=== PATIENT | female | born 1945 | race Caucasian/White ===

== ENCOUNTER 2019-01-02 15:24 | Inpatient (IN) | payer MEDICARE ==
[~2019-01-02] VITALS: Ht 157.5 cm; Wt 83.6 kg
[~2019-01-02 15:24] MED LIST: ENAL20TA PO; HYDR25TA4 PO; HYDR28CR14 TP
[2019-01-02 20:00] VITALS: BP 151/70
[2019-01-02] MEDS ORDERED: ADV50250 IH (20:02)
[2019-01-02] MEDS ORDERED: MULT1CAP44 PO (20:04)
[2019-01-02] MEDS ORDERED: OMEG1CAP46 (20:06)
[2019-01-02] MEDS ORDERED: VITA400C67 PO (20:08)
[2019-01-02] MEDS ORDERED: acetaminophen 325mg tablet PO PRN ×2 (20:35)
[2019-01-02] MEDS ORDERED: magnesium hydroxide 30ml (MOM) UD suspension PO PRN ×2 (20:40)
[2019-01-02] MEDS ORDERED: olanzapine 10mg tablet PO PRN (20:40)
[2019-01-02] MEDS ORDERED: traZODone 50mg tablet PO PRN (20:40)
[2019-01-02] MEDS ORDERED: hydrocortisone 1% cream 28gm TP PRN (20:40)
[2019-01-02] MEDS ORDERED: hydrOXYzine 25 MG tablet PO PRN (20:40)
[2019-01-02] MEDS ORDERED: albuterol 2.5 MG/3 ML nebule NEB SCH (21:00)
--- NOTE | 2019-01-02 21:29 | NUR ---
Clients Daughter: Silvia [phone]
--- NOTE | 2019-01-02 21:39 | NUR ---
HgA1C cancelled. HgA1C ON 12/03/18 was 6.3.
[2019-01-02] MEDS ORDERED: albuterol 2.5 MG/3 ML nebule NEB PRN (22:25)
--- NOTE | 2019-01-03 01:49 | NUR ---
CLINICAL APPEALS SPECIALIST NOTE: LEGAL HOLD: 5150 for GD THIS SHIFT: Client was transferred from [facility] and arrived on the unit at 19:40. Client was accompanied to the unit by Security Steve, and two security guards from [facility]. Client has a hx of schizophrenia and possible dementia. The client was taken to [facility] by [employer] after being found on a corner without clothes, incontinent of stool and urine. The clients behavior was disorganized and she appeared to be reaching for objects that were not there. While at [facility] the client required mechanical restraints because of aggression toward staff. The client refused to leave the hospital and it required two RN's and two security guards, Td and Claudia to transfer the client. The client was cooperative, personal belongings were inventoried. The client went to sleep shortly after arriving on the unit.
[2019-01-03 08:00] VITALS: BP 118/74
[2019-01-03] MEDS: HYDROchlorothiazide 25mg tablet PO SCH (08:16)
[2019-01-03] MEDS: vitamin E 400 unit capsule PO SCH (08:16)
[2019-01-03] MEDS: multivitamins, therapeutics tablet PO SCH (08:16)
[2019-01-03] MEDS: lisinopril 20mg tablet PO SCH (08:17)
[2019-01-03] MEDS: budesonide 0.5mg/2ml UD nebule IH SCH ×2 (09:00→20:45)
[2019-01-03] MEDS: albuterol 2.5 MG/3 ML nebule NEB SCH ×3 (09:00→20:45)
[2019-01-03] MEDS ORDERED: tuberculin, purif. prot. deriv. 5 units/0.1ml ID ONE (10:00)
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
[2019-01-04 08:00] VITALS: BP 98/60
[2019-01-04] MEDS: HYDROchlorothiazide 25mg tablet PO SCH (08:00)
[2019-01-04] MEDS: vitamin E 400 unit capsule PO SCH (08:00)
[2019-01-04] MEDS: multivitamins, therapeutics tablet PO SCH (08:00)
[2019-01-04] MEDS: lisinopril 20mg tablet PO SCH (08:00)
[2019-01-04] MEDS: albuterol 2.5 MG/3 ML nebule NEB SCH ×4 (09:00→20:36)
[2019-01-04] MEDS: budesonide 0.5mg/2ml UD nebule IH SCH ×3 (09:00→20:36)
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
[2019-01-04 19:55] VITALS: BP 123/52
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
[2019-01-05 07:36] VITALS: BP 142/58
[2019-01-05] MEDS: HYDROchlorothiazide 25mg tablet PO SCH (07:52)
[2019-01-05] MEDS: lisinopril 20mg tablet PO SCH (07:52)
[2019-01-05] MEDS: vitamin E 400 unit capsule PO SCH (07:52)
[2019-01-05] MEDS: multivitamins, therapeutics tablet PO SCH (07:52)
[2019-01-05] MEDS: albuterol 2.5 MG/3 ML nebule NEB SCH ×3 (09:00→20:26)
[2019-01-05] MEDS: budesonide 0.5mg/2ml UD nebule IH SCH ×2 (10:22→20:27)
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
[2019-01-05 19:59] VITALS: BP 135/50
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
[2019-01-06 07:36] VITALS: BP 109/58
[2019-01-06] MEDS: HYDROchlorothiazide 25mg tablet PO SCH (07:45)
[2019-01-06] MEDS: vitamin E 400 unit capsule PO SCH (07:45)
[2019-01-06] MEDS: multivitamins, therapeutics tablet PO SCH (07:45)
[2019-01-06] MEDS: lisinopril 20mg tablet PO SCH (07:47)
[2019-01-06] MEDS: albuterol 2.5 MG/3 ML nebule NEB SCH ×3 (09:00→20:35)
[2019-01-06] MEDS: budesonide 0.5mg/2ml UD nebule IH SCH ×2 (09:02→20:35)
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
[2019-01-06 19:24] VITALS: BP 118/68
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
[2019-01-07] MEDS: HYDROchlorothiazide 25mg tablet PO SCH (07:28)
[2019-01-07] MEDS: lisinopril 20mg tablet PO SCH (07:29)
[2019-01-07] MEDS: multivitamins, therapeutics tablet PO SCH (07:29)
[2019-01-07] MEDS: vitamin E 400 unit capsule PO SCH (07:29)
[2019-01-07 08:00] VITALS: BP 161/64
[2019-01-07] MEDS: albuterol 2.5 MG/3 ML nebule NEB SCH ×3 (09:00→20:02)
--- NOTE | 2019-01-07 10:48 | NUR ---
Initial: Average PO intake of 75-100% of regular diet, with some refusals. Otherwise, meeting nutrition needs. Recommend: 1. continue regular diet 2. weekly weights Addendum: 01/07/19 at [address] Amended: Links added.
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
[2019-01-07] MEDS: budesonide 0.5mg/2ml UD nebule IH SCH (20:02)
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
[2019-01-08 08:00] VITALS: BP 138/60
[2019-01-08] MEDS: vitamin E 400 unit capsule PO SCH (08:12)
[2019-01-08] MEDS: HYDROchlorothiazide 25mg tablet PO SCH (08:12)
[2019-01-08] MEDS: multivitamins, therapeutics tablet PO SCH (08:12)
[2019-01-08] MEDS: lisinopril 20mg tablet PO SCH (08:13)
[2019-01-08] MEDS: budesonide 0.5mg/2ml UD nebule IH SCH ×2 (09:00→21:00)
[2019-01-08] MEDS: albuterol 2.5 MG/3 ML nebule NEB SCH ×3 (09:00→21:00)
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
[2019-01-09] MEDS: vitamin E 400 unit capsule PO SCH (07:38)
[2019-01-09] MEDS: HYDROchlorothiazide 25mg tablet PO SCH (07:39)
[2019-01-09] MEDS: multivitamins, therapeutics tablet PO SCH (07:39)
[2019-01-09] MEDS: lisinopril 20mg tablet PO SCH (07:39)
[2019-01-09 07:53] VITALS: BP 130/48
[2019-01-09] MEDS: budesonide 0.5mg/2ml UD nebule IH SCH ×2 (08:41→20:27)
[2019-01-09] MEDS: albuterol 2.5 MG/3 ML nebule NEB SCH ×3 (08:41→20:28)
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
[2019-01-09] MEDS ORDERED: OLANZapine 2.5MG tablet PO SCH (21:00)
[2019-01-09] MEDS ORDERED: OLANZapine 5mg rapidly disint. tablet PO SCH (21:00)
[2019-01-09] MEDS: OLANZapine **IM** 10 mg inj. IM SCH (22:23)
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
[2019-01-10 07:34] VITALS: BP 131/57
[2019-01-10] MEDS: multivitamins, therapeutics tablet PO SCH (07:47)
[2019-01-10] MEDS: vitamin E 400 unit capsule PO SCH (07:47)
[2019-01-10] MEDS: lisinopril 20mg tablet PO SCH (07:48)
[2019-01-10] MEDS: HYDROchlorothiazide 25mg tablet PO SCH (07:49)
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
--- NOTE | 2019-01-10 19:39 | NUR ---
Pt refused vitals. Addendum: 01/10/19 at 1940 by July Lorenzo RN Amended: Links added.
[2019-01-10] MEDS ORDERED: OLANZapine 5mg rapidly disint. tablet PO SCH (21:00)
[2019-01-10] MEDS: OLANZapine **IM** 10 mg inj. IM SCH (21:20)
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
[2019-01-11 08:00] VITALS: BP 138/65
[2019-01-11] MEDS: lisinopril 20mg tablet PO SCH (08:15)
[2019-01-11] MEDS: multivitamins, therapeutics tablet PO SCH (08:15)
[2019-01-11] MEDS: HYDROchlorothiazide 25mg tablet PO SCH (08:16)
[2019-01-11] MEDS: vitamin E 400 unit capsule PO SCH (08:16)
--- NOTE | 2019-01-11 13:40 | NUR ---
F/u: Pt diet changed to regular w/ ensure enlive TIDWM by RN. ANTONIO d/w RN need pharmacy order in order to scan ONS on floor but can send w/ meals. Addendum: 01/11/19 at [address] Amended: Links added.
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
[2019-01-11] MEDS: lactose-reduced food (Ensure Enlive) - 237ml bottle PO SCH (17:58)
[2019-01-11] MEDS: OLANZapine 5mg rapidly disint. tablet PO SCH (21:00)
[2019-01-11] MEDS: OLANZapine **IM** 10 mg inj. IM SCH (21:04)
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
[2019-01-12 07:33] VITALS: BP 141/64
[2019-01-12] MEDS: multivitamins, therapeutics tablet PO SCH (07:34)
[2019-01-12] MEDS: HYDROchlorothiazide 25mg tablet PO SCH (07:34)
[2019-01-12] MEDS: vitamin E 400 unit capsule PO SCH (07:35)
[2019-01-12] MEDS: lisinopril 20mg tablet PO SCH (07:35)
[2019-01-12] MEDS: lactose-reduced food (Ensure Enlive) - 237ml bottle PO SCH ×3 (08:00→18:00)
--- NOTE | 2019-01-12 10:37 | NUR ---
DISCHARGE NOTE: Patient discharge accompanied by family and PCT via WC. All valuables inventoried and returned to patient. Home medications obtained from the pharmacy and returned to patient. Discharge instructions and all information for follow medical appointments included in discharge package. Remains depressed, verbalizes she is hopeful and happy to be closer to family. No acute physical or emotional issues identified. Addendum: 01/12/19 at 1427 by Jo Alexander RN Wrong patient
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
[2019-01-12] MEDS: OLANZapine **IM** 10 mg inj. IM SCH (20:56)
[2019-01-12] MEDS: OLANZapine 5mg rapidly disint. tablet PO SCH (21:00)
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
[2019-01-13 07:32] VITALS: BP 153/60
[2019-01-13] MEDS: multivitamins, therapeutics tablet PO SCH (07:42)
[2019-01-13] MEDS: vitamin E 400 unit capsule PO SCH (07:42)
[2019-01-13] MEDS: lisinopril 20mg tablet PO SCH (07:42)
[2019-01-13] MEDS: HYDROchlorothiazide 25mg tablet PO SCH (07:42)
[2019-01-13] MEDS: lactose-reduced food (Ensure Enlive) - 237ml bottle PO SCH ×3 (08:00→18:10)
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
[2019-01-13] MEDS: OLANZapine **IM** 10 mg inj. IM SCH (20:45)
[2019-01-13] MEDS: OLANZapine 5mg rapidly disint. tablet PO SCH (21:00)
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
[2019-01-14 07:00] VITALS: BP 114/54
[2019-01-14] MEDS: lisinopril 20mg tablet PO SCH (07:48)
[2019-01-14] MEDS: HYDROchlorothiazide 25mg tablet PO SCH (07:48)
[2019-01-14] MEDS: vitamin E 400 unit capsule PO SCH (07:48)
[2019-01-14] MEDS: multivitamins, therapeutics tablet PO SCH (07:48)
[2019-01-14] MEDS: lactose-reduced food (Ensure Enlive) - 237ml bottle PO SCH ×3 (08:11→14:00)
--- NOTE | 2019-01-14 14:54 | NUR ---
Reassessment: Pt continues on regular with ensure jl BUCKNER, drinking 75-100%. Patient was eating well, has since declines to mostly refusing meals since 01/08, poor PO for 5 days. Recommend to continue the ensure with meals. Recommend: 1. continue regular diet 2. weekly weights 3. continue ensure with meals, continue to monitor PO Intake Addendum: 01/14/19 at [address] Amended: Links added.
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
[2019-01-14] MEDS: OLANZapine **IM** 10 mg inj. IM SCH (20:16)
[2019-01-14] MEDS: OLANZapine 5mg rapidly disint. tablet PO SCH (20:16)
--- NOTE | 2019-01-14 22:34 | NUR ---
One to one with the patient to assess severity of disordered thought processes. The patient was in her room laying on her bed and isolated there the entire evening. She is not attended to her ADLs. She adamantly denies that she has thoughts to harm herself or others. She was alternating between guarded and irritable to pleasant and cooperative. She adamantly refused to accept PO medications and insisted at night she gets a shot and in the morning she takes pills but could not give a rationale why she would not take her HS Zyprexa orally vs in IM form. She was asked how she came to be here at [facility] and she stated that "I walked away from my home...It was evil, scarey" She declined an offer of having a snack and stated that she had ensure, pat crackers and string cheese for dinner. She stated she has not been able to wear her dentures because they were ill fitting. She stated that she did not want to be here and "I wanted to stay at [facility]. It was my home. I left my house and I was at [facility]" She is not wanting to sign a release of information for her daughter who has called during the shift wanting information on her mother so she could be helpful to her. She is guarded with the information she shares. The patient continues to require further psychiatric stabilization 2nd to continued psychotic symptoms causing significant grave disability. She is not able to verbalize a rational plan for food penitentiary or clothing if she was discharged. She is refusing to return to her home of over 50 years.
[2019-01-15 07:30] VITALS: BP 103/50
[2019-01-15] MEDS: HYDROchlorothiazide 25mg tablet PO SCH (07:32)
[2019-01-15] MEDS: lisinopril 20mg tablet PO SCH (07:32)
[2019-01-15] MEDS: multivitamins, therapeutics tablet PO SCH (07:33)
[2019-01-15] MEDS: vitamin E 400 unit capsule PO SCH (07:33)
[2019-01-15] MEDS: OLANZAPINE 5 MG TABLET PO SCH (08:00)
[2019-01-15] MEDS: lactose-reduced food (Ensure Enlive) - 237ml bottle PO SCH ×3 (08:22→18:07)
[2019-01-15] MEDS ORDERED: OLANZapine **IM** 10 mg inj. IM ONE (08:40)
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
[2019-01-15] MEDS: OLANZapine 5mg rapidly disint. tablet PO SCH (20:51)
[2019-01-15] MEDS: OLANZapine **IM** 10 mg inj. IM SCH (21:22)
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
[2019-01-16 07:30] VITALS: BP 115/53
[2019-01-16] MEDS: OLANZAPINE 5 MG TABLET PO SCH (07:34)
[2019-01-16] MEDS: multivitamins, therapeutics tablet PO SCH (07:34)
[2019-01-16] MEDS: vitamin E 400 unit capsule PO SCH (07:34)
[2019-01-16] MEDS: lisinopril 20mg tablet PO SCH (07:34)
[2019-01-16] MEDS: HYDROchlorothiazide 25mg tablet PO SCH (07:34)
[2019-01-16] MEDS: lactose-reduced food (Ensure Enlive) - 237ml bottle PO SCH ×4 (08:00→18:59)
--- NOTE | 2019-01-16 11:59 | NUR ---
Reassessment: Diet order recently changed to mechanical soft with chopped foods. Per MD note patient eating pat crackers, string cheese, and will eat snacks, will only eat food from her tray if brought into her room like room service. Was eating well, PO declines d/t above. Pt continues with ensure enlive TIDWM, drinking 75-100%. Recommend to continue the ensure with meals and encourage PO intake. Recommend: 1. continue mechanical soft diet with chopped foods 2. weekly weights 3. continue ensure with meals, continue to monitor PO Intake Addendum: 01/16/19 at [address] Amended: Links added.
--- NOTE | 2019-01-16 16:59 | NUR ---
DISCHARGE PLANNING: SW received information from pt's daughter, Silvia Default, daughter, , who reports she has filed Probate Guardianship for her mother's person and estate. RITCHIE has been informed Silvia has attended court and will be returning to Probate Court on 02/09/2019 to request full conservatorship of the estate and person. She states her mother has had several triggers over the past couple of months. Triggers have included her brother Jesus dying from cancer, an argument w/ her youngest child (that caused a "falling out") and the loss of a couple close friends from yazidism due to their passing. Pt is reportedly known for controlling situations, however it is unclear if this confusion or bx at this time. Silvia states she will attempt to visit pt within the next week. Madyson Hinds, Supervisor [employer] [id number] Supervised by Estuardo Tolentino, [id number]
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
[2019-01-16] MEDS: OLANZapine 5mg rapidly disint. tablet PO SCH (21:00)
[2019-01-16] MEDS: OLANZapine **IM** 10 mg inj. IM SCH (21:05)
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
[2019-01-17] MEDS: vitamin E 400 unit capsule PO SCH (07:29)
[2019-01-17 07:30] VITALS: BP 123/58
[2019-01-17] MEDS: OLANZAPINE 5 MG TABLET PO SCH (07:30)
[2019-01-17] MEDS: multivitamins, therapeutics tablet PO SCH (07:30)
[2019-01-17] MEDS: lisinopril 20mg tablet PO SCH (07:31)
[2019-01-17] MEDS: HYDROchlorothiazide 25mg tablet PO SCH (07:31)
[2019-01-17] MEDS ORDERED: nystatin 15 GM powder TP ONE (12:05)
[2019-01-17] MEDS: lactose-reduced food (Ensure Enlive) - 237ml bottle PO SCH ×2 (13:31→18:15)
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
[2019-01-17] MEDS: nystatin 15 GM powder TP SCH (20:00)
[2019-01-17] MEDS: OLANZapine 5mg rapidly disint. tablet PO SCH (21:00)
[2019-01-17] MEDS: OLANZapine **IM** 10 mg inj. IM SCH (21:03)
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
[2019-01-18] MEDS: HYDROchlorothiazide 25mg tablet PO SCH (07:35)
[2019-01-18] MEDS: lisinopril 20mg tablet PO SCH (07:35)
[2019-01-18] MEDS: vitamin E 400 unit capsule PO SCH (07:35)
[2019-01-18] MEDS: multivitamins, therapeutics tablet PO SCH (07:35)
[2019-01-18] MEDS: nystatin 15 GM powder TP SCH ×2 (07:41→20:00)
[2019-01-18 07:47] VITALS: BP 113/50
[2019-01-18] MEDS: OLANZAPINE 5 MG TABLET PO SCH (08:00)
[2019-01-18] MEDS: lactose-reduced food (Ensure Enlive) - 237ml bottle PO SCH ×3 (08:00→18:00)
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
[2019-01-18] MEDS: OLANZapine 5mg rapidly disint. tablet PO SCH (20:22)
[2019-01-18] MEDS: OLANZapine **IM** 10 mg inj. IM SCH (20:43)
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
[2019-01-19 07:00] VITALS: BP 125/44
[2019-01-19] MEDS: OLANZAPINE 5 MG TABLET PO SCH (07:35)
[2019-01-19] MEDS: lisinopril 20mg tablet PO SCH (07:36)
[2019-01-19] MEDS: nystatin 15 GM powder TP SCH ×2 (07:36→20:00)
[2019-01-19] MEDS: HYDROchlorothiazide 25mg tablet PO SCH (07:36)
[2019-01-19] MEDS: vitamin E 400 unit capsule PO SCH (07:40)
[2019-01-19] MEDS: multivitamins, therapeutics tablet PO SCH (07:40)
[2019-01-19] MEDS: lactose-reduced food (Ensure Enlive) - 237ml bottle PO SCH ×3 (08:15→18:14)
--- NOTE | 2019-01-19 12:10 | NUR ---
DISCHARGE PLANNING: SW made TC to pt's daughter, Silvia. SW left message requesting a return contact to schedule visitation for continuity of care and tx services. Madyson Hinds, Cellular Equipment Repairer SUPERVISOR OF GUIDANCE AND TESTING [id number] Supervised by Estuardo Tolentino, [id number]
--- NOTE | 2019-01-19 12:48 | NUR ---
SCHEDULED VISITATION FOR CONTINUITY OF CARE: SW received TC from Silvia at [phone], who reports she will attend a special visit w/ her mother to attempt to gain a written or verbal release of information to allow care coordination and discharge planning. Madyson Hinds, Customer Sales Advisor TELECOMMUNICATIONS EQUIPMENT INSTALLER [id number] Supervised by Estuardo Tolentino, [id number]
--- NOTE | 2019-01-19 14:20 | NUR ---
Reassessment: Per recent MD note patient is now eating more food off her tray when previously was only eating pre-packaged food r/t psychosis; patient continues to eat snacks and drink the ensure. Was eating well previously, PO declines d/t above. Pt continues with ensure enlive TIDWM, drinking 75-100%. Recommend to continue the ensure with meals and encourage PO intake. Recommend: 1. continue mechanical soft diet with chopped foods 2. weekly weights 3. continue ensure with meals, continue to monitor PO Intake Addendum: 01/19/19 at [address] Amended: Links added.
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
[2019-01-19] MEDS: OLANZapine **IM** 10 mg inj. IM SCH (20:47)
[2019-01-19] MEDS: OLANZapine 5mg rapidly disint. tablet PO SCH (21:00)
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
[2019-01-20 07:39] VITALS: BP 136/65
[2019-01-20] MEDS: multivitamins, therapeutics tablet PO SCH (08:00)
[2019-01-20] MEDS: HYDROchlorothiazide 25mg tablet PO SCH (08:13)
[2019-01-20] MEDS: OLANZAPINE 5 MG TABLET PO SCH (08:13)
[2019-01-20] MEDS: vitamin E 400 unit capsule PO SCH (08:13)
[2019-01-20] MEDS: lisinopril 20mg tablet PO SCH (08:14)
[2019-01-20] MEDS: lactose-reduced food (Ensure Enlive) - 237ml bottle PO SCH ×3 (08:15→18:07)
[2019-01-20] MEDS: nystatin 15 GM powder TP SCH ×2 (08:15→20:00)
--- NOTE | 2019-01-20 15:38 | NUR ---
VISITATION: Pt's daughter, Silvia, came to visit w/ pt this day. Pt met w/ pt in Recreation Room, however grew irritated w/ SW attending the visitation. Pt was requested to agree to release of information for Silvia, either verbal or written, however pt declined when asked (SW attempted to gain ЕКАТЕРИНА at least 4 different occasions). Pt grew angry and walked out of visit. Silvia continued attempting to visit w/ pt. SW gave some space, then met w/ pt and Silvia. SW informed pt that SW would be making a report to APS regarding pt's self neglect and inability to provide health and safety for self. SW informed pt that SW would be instructing Silvia to request orders from a [employer] to allow conservatorship. Pt ended visitation w/ her daughter. Madyson Hinds, Financial Accounting Manager CHEMIST [id number] Supervised by Estuardo Tolentino, [id number]
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
[2019-01-20] MEDS: OLANZapine 5mg rapidly disint. tablet PO SCH (21:00)
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
[2019-01-21] MEDS: vitamin E 400 unit capsule PO SCH (07:47)
[2019-01-21] MEDS: OLANZAPINE 5 MG TABLET PO SCH (07:47)
[2019-01-21] MEDS: lisinopril 20mg tablet PO SCH (07:47)
[2019-01-21] MEDS: HYDROchlorothiazide 25mg tablet PO SCH (07:47)
[2019-01-21] MEDS: multivitamins, therapeutics tablet PO SCH (07:53)
[2019-01-21] MEDS: lactose-reduced food (Ensure Enlive) - 237ml bottle PO SCH ×3 (08:00→18:15)
[2019-01-21] MEDS: nystatin 15 GM powder TP SCH ×2 (08:00→20:00)
[2019-01-21 08:18] VITALS: BP 143/83
[2019-01-21 08:19] VITALS: BP 143/83
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
[2019-01-21] MEDS: OLANZapine 5mg rapidly disint. tablet PO SCH (21:00)
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
[2019-01-22 07:43] VITALS: BP 127/47
[2019-01-22] MEDS: multivitamins, therapeutics tablet PO SCH (08:00)
[2019-01-22] MEDS: HYDROchlorothiazide 25mg tablet PO SCH (08:02)
[2019-01-22] MEDS: OLANZAPINE 5 MG TABLET PO SCH (08:02)
[2019-01-22 08:03] VITALS: BP_SYST 127
[2019-01-22] MEDS: nystatin 15 GM powder TP SCH (08:03)
[2019-01-22] MEDS: vitamin E 400 unit capsule PO SCH (08:03)
[2019-01-22] MEDS: lisinopril 20mg tablet PO SCH (08:03)
[2019-01-22] MEDS: lactose-reduced food (Ensure Enlive) - 237ml bottle PO SCH ×2 (08:33→13:00)
[2019-01-22] MEDS ORDERED: LISI-600 PO (09:26)
[2019-01-22] MEDS ORDERED: NYSPWD TP (09:26)
[2019-01-22] MEDS ORDERED: HCTZ25T PO (09:26)
[2019-01-22] MEDS ORDERED: OLAN5TAB26 PO (09:26)
[2019-01-22] MEDS ORDERED: OLAN5TAB29 PO (09:26)
[2019-01-22] MEDS ORDERED: TRAZ-251 PO (09:26)
[2019-01-22] MEDS ORDERED: ADV50250 IH (09:26)
--- NOTE | 2019-01-22 11:34 | NUR ---
Reassessment: PO intake continues to fluctuate. PO pattern 01/21: 100% at breakfast; 100% milk, 50% starch, 0% protein for lunch; refused dinner. Pt documented with 100% PO intake at breakfast this morning. Pt also receiving Ensure Enlive TID and documented with 100% PO intake of that. LBM 01/21. Will continue to follow. Recommend: 1. continue mechanical soft diet with chopped foods 2. weekly weights 3. continue ensure with meals, continue to monitor PO Intake and encourage PO intake of meals Addendum: 01/22/19 at [address] Amended: Links added.
--- NOTE | 2019-01-22 14:12 | NUR ---
Amy: 1410 Discharge Note: Patient discharged in care of daughter via ambulation. All belongings returned to patient. Declined to allow SW to arrange f/u appointment with PCP or mental health provider. Patients benito valencia, initially refused to sign discharge paperwork, however did sign 4/5 pages. Denies any anxiety, depression, AVH. No acute psychiatric or emotional disturbances. Given discharge folder with instructions, Rx, and discharge summary.
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
== END 2019-01-22 14:10 | disposition home or self-care (01) | DRG 885 ==
LOC: ADULT MH 15:24
PROVIDERS: ADMIT Psychiatry & Neurology Psychiatry; ATTEND Psychiatry & Neurology Psychiatry
DX: F23 Brief psychotic disorder (principal); E11.9 Type 2 diabetes mellitus without complications; E78.00 Pure hypercholesterolemia, unspecified; I10 Essential (primary) hypertension; J44.9 Chronic obstructive pulmonary disease, unspecified; R32 Unspecified urinary incontinence; Z79.51 Long term (current) use of inhaled steroids; Z79.899 Other long term (current) drug therapy; Z87.891 Personal history of nicotine dependence
CPT/HCPCS: 87081; 94760; 99285; J3490; J7626

== ENCOUNTER 2019-05-30 01:37 | Emergency (ER) | payer MEDICARE ==
[~2019-05-30] VITALS: Ht 162.6 cm; Wt 83.2 kg
[~2019-05-30 01:37] MED LIST changes: +ADV50250 IH; -ENAL20TA PO; +HCTZ25T PO; -HYDR25TA4 PO; +LISI-600 PO; +MULT1CAP44 PO; +NYSPWD TP; +OLAN5TAB26 PO; +OLAN5TAB29 PO; +OMEG1CAP46; +TRAZ-251 PO; +VITA400C67 PO
[2019-05-30] MEDS ORDERED: HYDR25TA4 PO (01:52)
[2019-05-30] MEDS ORDERED: ENAL20TA PO (01:52)
[2019-05-30 02:22] LABS: BASOPHILS % (AUTO) 0.4 % (0-1); EOSINOPHILS % (AUTO) 0.5 % (0-6); HEMATOCRIT 40.8 % (35.0-45.0); HEMOGLOBIN 13.7 g/dl (12.0-16.0); LYMPHOCYTES # (AUTO) 1.7 X10'3 (1.1-4.8); LYMPHOCYTES % (AUTO) 18.6 % (21-51); MEAN CORPUSCULAR HEMOGLOBIN 27.8 PG (27.0-31.0); MEAN CORPUSCULAR HGB CONC 33.5 g/dL (33.0-36.5); MEAN PLATELET VOLUME 7.9 FL (7.4-10.4); MONOCYTES # (AUTO) 0.6 X10'3 (0-0.9); NEUTROPHILS # (AUTO) 6.7 X10'3 (1.8-7.7); NEUTROPHILS % (AUTO) 73.5 % (42-75); PLATELET COUNT 190 X10'3 (140-440); RED BLOOD COUNT 4.92 X10'6 (4.20-5.60); RED CELL DISTRIBUTION WIDTH 16.3 % (11.5-14.5); WHITE BLOOD COUNT 9.2 X10'3 (4.5-11.0)
[2019-05-30 02:23] LABS: CLARITY,URINE CLEAR (Clear); COLOR,URINE YELLOW (Yellow); GLUCOSE, URINE NEGATIVE (Neg); KETONES,URINE 15 mg/dl (Neg); LEUKOCYTE ESTERASE ,URINE NEGATIVE (Neg); NITRITES, URINE NEGATIVE (Neg); OCCULT BLOOD,URINE SMALL (Neg); PH,URINE 5.5 (4.8-8.0); PROTEIN,URINE NEGATIVE (Neg)
[2019-05-30 02:30] LABS: UA COLLECTION TYPE CLN CATCH MIDSTREAM; URINE AMPHETAMINE SCREEN NEGATIVE (Neg); URINE BARBITUATE SCREEN NEGATIVE (Neg); URINE BENZODIAZEPINES SCREEN NEGATIVE (Neg); URINE CANNABINOID SCREEN NEGATIVE (Neg); URINE COCAINE SCREEN NEGATIVE (Neg); URINE METHADONE SCREEN NEGATIVE (Neg); URINE OPIATE SCREEN NEGATIVE (Neg); URINE PHENCYCLIDINE SCREEN NEGATIVE (Neg)
[2019-05-30 02:41] LABS: ALANINE AMINOTRANSFERASE 21 U/L (12-78); ALBUMIN 3.8 G/DL (3.4-5.0); ALKALINE PHOSPHATASE 62 IU/L (46-116); ANION GAP 10 (8-16); ASPARTATE AMINO TRANSFERASE 33 U/L (10-37); BILIRUBIN,TOTAL 0.7 MG/DL (0.1-1.0); BLOOD UREA NITROGEN 35 MG/DL (7-18); CALCIUM 9.7 MG/DL (8.5-10.1); CHLORIDE 100 MMOL/L (99-107); CREATININE 1.59 MG/DL (0.40-0.90); GLUCOSE 157 MG/DL (70-104); POTASSIUM 3.6 MMOL/L (3.5-5.1); SODIUM 137 MMOL/L (135-145); TOTAL PROTEIN 7.5 G/DL (6.4-8.2); eGFR 32 ML/MIN
[2019-05-30 02:50] LABS: WBC,URINE 0-4 /HPF (0-4)
[2019-05-30 02:51] LABS: BACTERIA,URINE FEW /HPF (Neg); MUCUS STRANDS MODERATE /LPF (Neg); SQUAMOUS EPITHELIAL CELL,UR MODERATE /LPF (FEW)
[2019-05-30 02:51] LABS: ETHANOL < 0.010 GM/DL (0.0-0.010)
--- NOTE | 2019-05-30 04:19 | NUR ---
Pt packet faxed to [facility]
[2019-05-30] MEDS ORDERED: haloperidol lactate 5mg/ml inj IM ONE (04:30)
--- NOTE | 2019-05-30 04:51 | NUR ---
During itemization of her belongings, the patient became very upset and yelled at the staff calling the tech and registration staff obscenities. When told that she would be moved to a hospital bed at overflow, the patient began yelling that she wasn't going to move and that she would not sit in a wheel chair. MD Caballero was consulted as to the patient's behavior who then ordered 10mg haldol IM to help calm the patient down so that she could be moved to the patient population at [facility].
--- NOTE | 2019-05-30 05:29 | NUR ---
Pt transferred from Main ED post Haldol IM 10mg at 0443; pt verbally agitated during vitals assessment, and refused temperature and pain. Pt promptly fell asleep after vitals. This RN unable to assess physical or mental status at this time.
--- NOTE | 2019-05-30 05:46 | NUR ---
Pt sleeping in supine position, slight snore. No distress noted.
--- NOTE | 2019-05-30 06:30 | NUR ---
Pt is resting in bed peacefully at this time. Appears to be snoring. No distress observed. Will conitnue to monitor.
[2019-05-30] MEDS ORDERED: lisinopril 20mg tablet PO SCH (08:00)
[2019-05-30] MEDS ORDERED: HYDROchlorothiazide 25mg tablet PO SCH (08:00)
--- NOTE | 2019-05-30 08:11 | NUR ---
Son in law and daughter are at bedside visiting. Appropriate conversation. No distress observed. Pt refused medications this morning.
--- NOTE | 2019-05-30 08:14 | NUR ---
PHONE: [phone]. Son-in-law, Delon
--- NOTE | 2019-05-30 08:23 | NUR ---
Patients daughter called this morning at 0820 asking if her mother was brought in by [employer]. I answered stating that we did have a patient brought in by that name. Per [employer] report, family was contacted and stated they were busy at work. Family denies the phone call and claims they were "out all night looking for her." Family, Delon and Silvia Cardenas have different stories. Delon claims to be the step son. Silvia claims Delon is the son in law. Patient arrived to ER via [employer] with a large sum of levin. Family denies any knowledge of any incident. Charge Nurse and RN notified.
--- NOTE | 2019-05-30 09:15 | NUR ---
PT STATED SHE NEEDED TO USE THE RESTROOM BUT REPORTED SHE COULD NOT AMBULATE DUE TO BLISTERS. PT OFFERED WHEEL CHAIR TO THE RESTROOM BUT AMBULATED WITH STEADY SLOW GAIT TO RESTROOM WITHOUT ASSISTANCE.
--- NOTE | 2019-05-30 09:48 | NUR ---
Scarlett from [facility] is at bedside talkig jaspal family. She asked them to speak to her in the office. Patient is resting in bed peacefully, appears to be snoring, in the semi-walker position. No distress observed. Will continue to monitor.
--- NOTE | 2019-05-30 10:13 | NUR ---
Scarlett from [facility] states that she would like to wait to evaluate patient until patient's daughter Silvia is here. Silvia is reported to be the family member who helps the patient with her finances.
--- NOTE | 2019-05-30 11:53 | NUR ---
Pt is resting in bed peacefully in the supine position. No distress observed.
--- NOTE | 2019-05-30 12:17 | NUR ---
PHONE- [phone]. Daughter- Silvia
--- NOTE | 2019-05-30 12:30 | NUR ---
Spoke to Scarlett at [facility], she states that she is not upholding the 5150 written by MORENITA. However, she would like to speak with Silvia, patient's daughter before discharge. Spoke to daughter on the phone who states she is dealing with an "emergency right now" and will not be able to come to the unit until after 5pm.
--- NOTE | 2019-05-30 14:27 | NUR ---
Observed patient ambulating to the bathroom. No distress observed.
--- NOTE | 2019-05-30 16:10 | NUR ---
Patient woke up and ate some of her lunch. No distress observed. Will continue to monitor.
--- NOTE | 2019-05-30 17:39 | NUR ---
Spoke to daughter, Silvia who states that she will be here in 45 minutes to flower buncher or picker the patient.
--- NOTE | 2019-05-30 17:54 | NUR ---
WHILE ATTEMPTING TO TAKE THE PTS VITALS, PT ALLOWED FOR BP, THREW OFF PULSE OX, REFUSED TEMP. PTS BP WAS 156/104, OBTAINED A LONG CUFF AND ATTEMPTED TO RETAKE, PT REFUSED, PT EDUCATED ON RISKS INCLUDING AND STATED "AINT THAT SOMETHING".
--- NOTE | 2019-05-30 17:56 | NUR ---
Patient refused all VS but BP which read 156/104. Unit tech obtained larger cuff to take the BP again., but patient refused. She was combative and resistive to care. Risks of not having VS taken were explained to patient.
--- NOTE | 2019-05-30 18:07 | NUR ---
Report given to THIERRY Dunn. Awaiting arrival of patient's daughter for discharge. Pt refused to sign discharge paperwork. Patient continues to be resistive to care.
--- NOTE | 2019-05-30 18:30 | NUR ---
This patient is resting quietly. She is sitting on her bed. Discharge papers have been processed. Patients daughter will be picking her up this evening. Patient is cooperative with staff.
--- NOTE | 2019-05-30 19:30 | NUR ---
Patient still awaiting daughter to pick her up. Patient ambulates to bathroom and back without problem. Patient finished most of her dinner.
--- NOTE | 2019-05-30 20:50 | NUR ---
Patients daughter is here. Discharge instrtuctions given. Patient to home with daughter.
[2019-05-30 21:08] VITALS: BP 130/62
== END 2019-05-30 21:12 | disposition home or self-care (01) ==
LOC: ER 01:37
DX: G30.9 Alzheimer's disease, unspecified (principal); F02.80 Dementia in other diseases classified elsewhere, unspecified severity, without behavioral disturbance, psychotic disturbance, mood disturbance, and anxiety; I10 Essential (primary) hypertension; Z79.899 Other long term (current) drug therapy
CPT/HCPCS: 36415; 80053; 80305; 80320; 81001; 84443; 85025; 96372; 99285; J1630

== ENCOUNTER 2019-07-06 09:04 | Emergency (ER) | payer MEDICARE ==
[~2019-07-06] VITALS: Ht 165.1 cm; Wt 109.1 kg
[~2019-07-06 09:04] MED LIST changes: -ADV50250 IH; +ENAL20TA PO; -HCTZ25T PO; +HYDR25TA4 PO; -HYDR28CR14 TP; -LISI-600 PO; -MULT1CAP44 PO; -NYSPWD TP; -OLAN5TAB26 PO; -OLAN5TAB29 PO; -OMEG1CAP46; -TRAZ-251 PO; -VITA400C67 PO
[2019-07-06] MEDS ORDERED: LORazepam 1 MG tablet PO ONE (09:35)
--- NOTE | 2019-07-06 10:01 | NUR ---
Pt's family shared she has Stage III cervical CA and has refused tx. Daughter Yissel ([phone]) stated pt has a habit of "taking off and walking." A second daughter, Silvia Guerra ([phone]) is in process of trying to find placement for pt. Per family she has been placed on several 5150's in the past with the most recent being r/t wandering. She was on that particular 550 here @ [facility].
[2019-07-06] MEDS: ziprasidone 20mg capsule PO SCH ×2 (10:02→20:00)
[2019-07-06 10:17] LABS: CLARITY,URINE SLIGHTLY CLOUDY (Clear); COLOR,URINE YELLOW (Yellow); GLUCOSE, URINE NEGATIVE (Neg); KETONES,URINE TRACE mg/dl (Neg); LEUKOCYTE ESTERASE ,URINE TRACE (Neg); NITRITES, URINE NEGATIVE (Neg); OCCULT BLOOD,URINE LARGE (Neg); PH,URINE 5.5 (4.8-8.0); PROTEIN,URINE 100 mg/dl (Neg); UROBILINOGEN,URINE 0.2 E.U/dL (0.2-1.0)
[2019-07-06 10:19] LABS: UA COLLECTION TYPE CLN CATCH MIDSTREAM
[2019-07-06 10:28] LABS: RBC,URINE 50-100 /HPF (0-2)
[2019-07-06 10:29] LABS: URINE AMPHETAMINE SCREEN NEGATIVE (Neg); URINE BARBITUATE SCREEN NEGATIVE (Neg); URINE BENZODIAZEPINES SCREEN NEGATIVE (Neg); URINE CANNABINOID SCREEN NEGATIVE (Neg); URINE COCAINE SCREEN NEGATIVE (Neg); URINE METHADONE SCREEN NEGATIVE (Neg); URINE OPIATE SCREEN NEGATIVE (Neg); URINE PHENCYCLIDINE SCREEN NEGATIVE (Neg)
[2019-07-06 10:32] LABS: WBC,URINE 30-50 /HPF (0-4)
[2019-07-06 10:33] LABS: BACTERIA,URINE 2+ /HPF (Neg); SQUAMOUS EPITHELIAL CELL,UR MANY /LPF (FEW)
[2019-07-06 13:47] LABS: BASOPHILS % (AUTO) 0.3 % (0-1); EOSINOPHILS % (AUTO) 0.5 % (0-6); HEMATOCRIT 38.8 % (35.0-45.0); HEMOGLOBIN 12.6 g/dl (12.0-16.0); LYMPHOCYTES # (AUTO) 1.6 X10'3 (1.1-4.8); LYMPHOCYTES % (AUTO) 18.9 % (21-51); MEAN CORPUSCULAR HEMOGLOBIN 27.5 PG (27.0-31.0); MEAN CORPUSCULAR HGB CONC 32.4 g/dL (33.0-36.5); MEAN PLATELET VOLUME 7.3 FL (7.4-10.4); MONOCYTES # (AUTO) 0.5 X10'3 (0-0.9); MONOCYTES % (AUTO) 5.4 % (2-12); NEUTROPHILS # (AUTO) 6.3 X10'3 (1.8-7.7); NEUTROPHILS % (AUTO) 74.9 % (42-75); PLATELET COUNT 195 X10'3 (140-440); RED BLOOD COUNT 4.57 X10'6 (4.20-5.60); RED CELL DISTRIBUTION WIDTH 15.5 % (11.5-14.5); WHITE BLOOD COUNT 8.4 X10'3 (4.5-11.0)
[2019-07-06 14:02] LABS: ALANINE AMINOTRANSFERASE 22 U/L (12-78); ALBUMIN 3.6 G/DL (3.4-5.0); ALBUMIN/GLOBULIN RATIO 0.9 (1.1-1.5); ALKALINE PHOSPHATASE 88 IU/L (46-116); ANION GAP 11 (8-16); ASPARTATE AMINO TRANSFERASE 36 U/L (10-37); BILIRUBIN,TOTAL 0.9 MG/DL (0.1-1.0); BLOOD UREA NITROGEN 39 MG/DL (7-18); BUN/CREATININE RATIO 37.9 (6.6-38.0); CALCIUM 9.6 MG/DL (8.5-10.1); CHLORIDE 106 MMOL/L (99-107); CREATININE 1.03 MG/DL (0.40-0.90); ETHANOL < 0.010 GM/DL (0.0-0.010); GLUCOSE 96 MG/DL (70-104); POTASSIUM 3.6 MMOL/L (3.5-5.1); SODIUM 140 MMOL/L (135-145); TOTAL CARBON DIOXIDE 22.8 MMOL/L (24-32); TOTAL PROTEIN 7.7 G/DL (6.4-8.2); eGFR 52 ML/MIN
[2019-07-06] MEDS: cephalexin 250mg capsule PO SCH ×2 (14:45→20:00)
--- NOTE | 2019-07-06 17:35 | NUR ---
Daughter Silvia bedside. Pt awake and engaging with her.
--- NOTE | 2019-07-06 18:05 | NUR ---
Pt assisted to the bedside commode to void urine. Pt given warm wipes to freshen up and cleanse her perineal area. Pt given disposable underwear and daren pads for the Vaginal bleeding. Pt given green scrub pants and a green gown. Pt reports "I refuse to take my shirt off!" Pt using profanity towards her daughter and the staff. Pt was given her wallet long enough to provide her insurance cards to the registration staff. Pt started making statements about her visa card missing from her wallet. ED staff secured the patient's belongings earlier during this visit. This encounter was the first interaction for this nurse to be involved with the patient or her belongings. Primary nurse made aware of the situation.
--- NOTE | 2019-07-06 19:45 | NUR ---
pt is refusing medications and refuses to answer questions.
--- NOTE | 2019-07-06 20:14 | NUR ---
pt appears to be sleeping, no s/s of distress noted.
--- NOTE | 2019-07-06 23:45 | NUR ---
this rn and a tech tried to assess if pt had soiled clothes as her previous nurse noted that pt is experiencing vaginal bleeding due to her cervical cx. pt refused to be checked but assured us that she will let us know if she needs a new pad or clothing.
[2019-07-07] MEDS: cephalexin 250mg capsule PO SCH ×5 (02:00→20:00)
--- NOTE | 2019-07-07 02:44 | NUR ---
pt awoke to use the restroom. pt was a little unsteady on her feet at first but after a few steps was able to ambulate with a walker. Pt walked the length of overflow a couple times to "get her strength back." This RN attempted to give the pt her keflex, explaining the importance of treating her UTI, but pt refused. Pt is now resting in bed quietly, no concerns at this time.
--- NOTE | 2019-07-07 04:37 | NUR ---
pt is sleeping, rr unlabored and even, no s/s of distress noted.
--- NOTE | 2019-07-07 05:39 | NUR ---
pt is sleeping on her back, no s/s of distress noted, rr unlabored and even.
--- NOTE | 2019-07-07 06:15 | NUR ---
laying in bed calm and quiet.
--- NOTE | 2019-07-07 08:11 | NUR ---
pt ambulating around the unit aimlessly with walker. was recently walking around in circles with walker. pt up and down from bed to bathroom and walking.
[2019-07-07] MEDS: ziprasidone 20mg capsule PO SCH ×3 (09:49→20:00)
[2019-07-07] MEDS: HYDROchlorothiazide 25mg tablet PO SCH (09:49)
[2019-07-07] MEDS: lisinopril 10 MG tablet PO SCH (09:49)
--- NOTE | 2019-07-07 09:53 | NUR ---
pt agitated and using profain language, lab attempting to get pts blood. Security at bedside to hold down pt to get blood and pts demeanor quickly changed to very sweet and talkative. pt remaining sweet and talkative. decided to take her AM meds when she previously refused. blood cultures obtained.
[2019-07-07] MEDS ORDERED: quetiapine 100mg tablet PO ONE (11:00)
--- NOTE | 2019-07-07 11:00 | NUR ---
pt walking around the unit and attempt to leave the unit. Brought back to bed by male andree. pt layed down.
--- NOTE | 2019-07-07 12:14 | NUR ---
pt calm and quiet in bed.
--- NOTE | 2019-07-07 13:23 | NUR ---
pt up to bathroom and walkign around her bed and the unit. will briefly sit on bed to eat lunch then stand back up and walk.
--- NOTE | 2019-07-07 14:02 | NUR ---
sitting up on side of bed eating lunch. attempt to give pt her Seroquel and Keflex. Pt not responding to RN, just continues to eat her lunch, ignoring RN standing in front of her. Will attempt to administer med again at a later time.
--- NOTE | 2019-07-07 15:09 | NUR ---
laying quiet and still in her bed.
--- NOTE | 2019-07-07 16:15 | NUR ---
pt resting in bed then will get up to bathroom and wander around her bed then get back in bed.
--- NOTE | 2019-07-07 17:32 | NUR ---
resting quietly in bed.
--- NOTE | 2019-07-07 17:49 | NUR ---
pt refused to have her vitals taken.
[2019-07-07] MEDS: lactobacillus rhamnosus 10,000 MMU CELLS/CAPSULE PO SCH ×2 (19:56→20:00)
--- NOTE | 2019-07-07 20:00 | NUR ---
The patient has been quiet but very confused. Did not respond to the assessment questions. She has refused her HS medications. She is up out of bed and wandering around her bed
--- NOTE | 2019-07-07 21:11 | NUR ---
The patient up to use the bathroom. She refused labwork and she has been refusing her HS medications despite repeatedly being offered her medications.
--- NOTE | 2019-07-07 22:49 | NUR ---
The patient appears to be sleeping
--- NOTE | 2019-07-08 00:16 | NUR ---
The patient appears to be sleeping
--- NOTE | 2019-07-08 01:16 | NUR ---
The patient appears to be sleeping
[2019-07-08] MEDS: cephalexin 250mg capsule PO SCH ×3 (02:00→14:00)
--- NOTE | 2019-07-08 02:28 | NUR ---
The patient has been refusing her po medications including the antibiotic. aware.
--- NOTE | 2019-07-08 03:24 | NUR ---
The patient up to use the bathroom. Minimal verbal responses. She appears very disheveled.
[2019-07-08 05:41] VITALS: BP 114/53
--- NOTE | 2019-07-08 07:02 | NUR ---
pt awake and resting quietly in bed.
--- NOTE | 2019-07-08 08:23 | NUR ---
laying in bed snoring.
--- NOTE | 2019-07-08 08:56 | NUR ---
this RN spoke with Lillie, clinical social worker, on the phone. Lillie states pt will be released today and that one of pts daughters - Silvia or Shiloh - will apple picking supervisor pt at some point today, potentially later afternoon/early evening when they get off work. pt currently sleeping/snoring in bed.
--- NOTE | 2019-07-08 10:17 | NUR ---
sitting up in bed, calm.
--- NOTE | 2019-07-08 11:02 | NUR ---
pt continues to refuse AM meds.
[2019-07-08] MEDS: HYDROchlorothiazide 25mg tablet PO SCH (11:03)
[2019-07-08] MEDS: lisinopril 10 MG tablet PO SCH (11:03)
[2019-07-08] MEDS: lactobacillus rhamnosus 10,000 MMU CELLS/CAPSULE PO SCH (11:03)
[2019-07-08] MEDS: ziprasidone 20mg capsule PO SCH (11:22)
--- NOTE | 2019-07-08 12:51 | NUR ---
laying in bed resting quietly.
--- NOTE | 2019-07-08 13:41 | NUR ---
up to bathroom getting cleaned up and clothes changed.
--- NOTE | 2019-07-08 16:13 | NUR ---
pt got cleaned up with techs. cooperated getting cleaned up. pts daughter to be here around 1700 to picker box operator for d/c.
[2019-07-08] MEDS ORDERED: CEPH250T PO (16:14)
[2019-07-08] MEDS ORDERED: CefTRIAXone 1000mg IM Kit (w/lidocaine diluent) IM ONE (16:15)
== END 2019-07-08 17:52 ==
LOC: ER 09:04
DX: F03.90 Unspecified dementia, unspecified severity, without behavioral disturbance, psychotic disturbance, mood disturbance, and anxiety (principal); R45.1 Restlessness and agitation; N39.0 Urinary tract infection, site not specified; I10 Essential (primary) hypertension; F29 Unspecified psychosis not due to a substance or known physiological condition; Z60.2 Problems related to living alone; Z79.899 Other long term (current) drug therapy
CPT/HCPCS: 36415; 80053; 80305; 80320; 81001; 82948; 83605; 84145; 85025; 87040; 87077; 87186; 96372; 99285; J0696

== ENCOUNTER 2019-07-28 07:19 | Inpatient (IN) | payer MEDICARE, OTHER ==
[~2019-07-28] VITALS: Ht 167.6 cm; Wt 81.8 kg
[~2019-07-28 07:19] MED LIST changes: +ENAL-79 PO; -ENAL20TA PO
[2019-07-28] MEDS ORDERED: LORazepam 2 mg/ml vial IM ONE (07:35)
[2019-07-28] MEDS ORDERED: OLANZapine **IM** 10 mg inj. IM ONE (07:35)
[2019-07-28] MEDS ORDERED: diphenhydrAMINE 50 mg/ml inj IM ONE (07:35)
[2019-07-28] MEDS ORDERED: risperiDONE 0.5mg tablet PO ONE (07:35)
[2019-07-28 08:39] LABS: BASOPHILS % (AUTO) 0.3 % (0-1); EOSINOPHILS # (AUTO) 0.1 X10'3 (0-0.9); EOSINOPHILS % (AUTO) 1.5 % (0-6); LYMPHOCYTES # (AUTO) 0.7 X10'3 (1.1-4.8); LYMPHOCYTES % (AUTO) 15.6 % (21-51); MEAN CORPUSCULAR HEMOGLOBIN 27.2 PG (27.0-31.0); MEAN CORPUSCULAR HGB CONC 32.4 g/dL (33.0-36.5); MEAN PLATELET VOLUME 7.7 FL (7.4-10.4); MONOCYTES # (AUTO) 0.3 X10'3 (0-0.9); MONOCYTES % (AUTO) 7.1 % (2-12); NEUTROPHILS # (AUTO) 3.6 X10'3 (1.8-7.7); NEUTROPHILS % (AUTO) 75.5 % (42-75); PLATELET COUNT 165 X10'3 (140-440); RED CELL DISTRIBUTION WIDTH 15.4 % (11.5-14.5); WHITE BLOOD COUNT 4.8 X10'3 (4.5-11.0)
[2019-07-28 08:51] LABS: ALANINE AMINOTRANSFERASE 23 U/L (12-78); ALBUMIN 3.2 G/DL (3.4-5.0); ALBUMIN/GLOBULIN RATIO 0.9 (1.1-1.5); ALKALINE PHOSPHATASE 83 IU/L (46-116); ANION GAP 11 (8-16); ASPARTATE AMINO TRANSFERASE 25 U/L (10-37); BILIRUBIN,TOTAL 0.9 MG/DL (0.1-1.0); BLOOD UREA NITROGEN 17 MG/DL (7-18); BUN/CREATININE RATIO 16.7 (6.6-38.0); CALCIUM 9.5 MG/DL (8.5-10.1); CHLORIDE 105 MMOL/L (99-107); CREATININE 1.02 MG/DL (0.40-0.90); GLUCOSE 165 MG/DL (70-104); POTASSIUM 3.5 MMOL/L (3.5-5.1); SODIUM 142 MMOL/L (135-145); TOTAL CARBON DIOXIDE 26.4 MMOL/L (24-32); TOTAL PROTEIN 6.8 G/DL (6.4-8.2); eGFR 53 ML/MIN
[2019-07-28 09:01] LABS: ETHANOL < 0.010 GM/DL (0.0-0.010)
[2019-07-28 10:18] LABS: CLARITY,URINE SLIGHTLY CLOUDY (Clear); COLOR,URINE STRAW (Yellow); GLUCOSE, URINE NEGATIVE (Neg); KETONES,URINE TRACE mg/dl (Neg); LEUKOCYTE ESTERASE ,URINE NEGATIVE (Neg); NITRITES, URINE NEGATIVE (Neg); OCCULT BLOOD,URINE NEGATIVE (Neg); PH,URINE 5.5 (4.8-8.0); PROTEIN,URINE NEGATIVE (Neg); UA COLLECTION TYPE STRAIGHT CATH; UROBILINOGEN,URINE 0.2 E.U/dL (0.2-1.0)
[2019-07-28 10:27] LABS: BACTERIA,URINE FEW /HPF (Neg); CAL OXALATE CRYSTALS 1+ /HPF (NEGATIVE); RBC,URINE 0-2 /HPF (0-2); SQUAMOUS EPITHELIAL CELL,UR FEW /LPF (FEW); WBC,URINE 0-4 /HPF (0-4)
[2019-07-28 10:33] LABS: URINE AMPHETAMINE SCREEN NEGATIVE (Neg); URINE BARBITUATE SCREEN NEGATIVE (Neg); URINE BENZODIAZEPINES SCREEN NEGATIVE (Neg); URINE CANNABINOID SCREEN NEGATIVE (Neg); URINE COCAINE SCREEN NEGATIVE (Neg); URINE METHADONE SCREEN NEGATIVE (Neg); URINE OPIATE SCREEN NEGATIVE (Neg); URINE PHENCYCLIDINE SCREEN NEGATIVE (Neg)
--- NOTE | 2019-07-28 10:54 | NUR ---
REDNESS, EXCORIATED AREAS NOTED IN FOLDS OF GROIN SHAGUFTA AND RIGHT UNDER BREAST. INFORMED DR. REGALADO. PLEASE SEE NEW ORDERS.
--- NOTE | 2019-07-28 11:19 | NUR ---
packet faxed to [facility]
--- NOTE | 2019-07-28 11:25 | NUR ---
RESTRAINTS REMOVED AT 0915 PT GIVEN A BATH. RESTRAINTS REAPPLIED AT 1015 WHEN BATH WAS FINISHED. PT TOLERATED WELL.
[2019-07-28] MEDS: nystatin 15 GM powder TP SCH ×2 (12:12→19:16)
[2019-07-28] MEDS ORDERED: UNABLE TO OBTAIN (19:37)
--- NOTE | 2019-07-28 19:37 | NUR ---
PT WTH STABLE VS. AWAKENED FROM SLEEP TO ASSESS. PT COOPERARTIVE AND CALM. A&OX4. ABLD TO STAND WITH 1 PERSN MOD ASSIST TO GET TO BSC. STATES WEAKNESS AND DIZZINESS. DOES NOT RECALL EVENTS OF TODAY. REQUESTS FOR HER JOHN GALEANO. STATES SHE LIVES ALONE AND HAS NOT FAMLY. VOIODING 400 CC'S DARK ELLA CLOUDY STRONG SMELLING URINE. STATES SHE IS DIABETIC. UNABLE TO RECALL ANY OF HER MEDICATIONS OR HER [facility]TE[facility] HEALTH HISTORY. STATES [facility] TAKES A MED FOR HER DIABETES. REQUEST WATER. STATES SHE IS HUNGRY. BACK TO SLEEP AFTER HER BEDDING CHANGED (INSCONTINENC EPISODE AND SMEAR OF STOON ON BEDDING).
--- NOTE | 2019-07-28 19:45 | NUR ---
ACCUCHEKC 94, CC CAUTION TRAY FOR MEALS ORDERED. HYPERGLYCEMIC PROTOCOL ORDERED.
[2019-07-28 20:05] LABS: HEMOGLOBIN A1C 5.6 % (4.5-6.2)
--- NOTE | 2019-07-28 21:16 | NUR ---
pt remains asleep, lying on her back with blankets covering to her chest. RR f14 and unlabored. no longer monitoring VS as VS stable and Pt is 12 hrs post b52.
--- NOTE | 2019-07-28 22:30 | NUR ---
DR. ASHRAF UPDATED ME THAT [facility] TOLD HIM THEY WOULD NOT UPHOLD THE 5150 PT WITH DIMENTIA HISTORY AND DOES NOT MEET CRITERIA. MD TRYING TO DECIDE IF PT MAY NEED ADMISSION A SAFE DISCHARGE CANNOT BE PLANNED AT THIS TIME WE HAVE NO FAMILY CONTACTS. PT REMAINS ASLEEP.
--- NOTE | 2019-07-29 02:56 | NUR ---
REMIANS ASLEEP, RR 14 AND UNLABOERED. BLANKETS CVERING TO HER SHOUDERS, LYING ON RIGHT SIDE. [facility] REPORTS NOW IN CHART AND NOTES 5150 NOT UPHELD PT HAS D[address]. ASHRAF HAD REPORTED PT WILL NEED SS AND DC PLANNING CONSULT.
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
--- NOTE | 2019-07-29 06:01 | NUR ---
given juice and crackers and jello.
--- NOTE | 2019-07-29 06:29 | NUR ---
sw consult initiated as Pt no longer a mental health hold, 7195 not upheld
--- NOTE | 2019-07-29 06:40 | NUR ---
REPORT TO THIERRY REILLY, PT TO BE MOVED FROM MAIN ER BED 16 TO OVERFLOW.
--- NOTE | 2019-07-29 07:00 | NUR ---
pt walked over from main er to overflow room 25.
[2019-07-29] MEDS ORDERED: diphenhydrAMINE 50 mg/ml inj IM ONE (08:00)
[2019-07-29] MEDS ORDERED: OLANZapine **IM** 10 mg inj. IM ONE (08:00)
--- NOTE | 2019-07-29 08:00 | NUR ---
pt is singing on the top of her lungs.
[2019-07-29] MEDS: nystatin 15 GM powder TP SCH ×3 (08:08→20:18)
--- NOTE | 2019-07-29 09:00 | NUR ---
pt is wandering around the unit pushing her side table as if it was a walker
--- NOTE | 2019-07-29 10:00 | NUR ---
pt got back into bed and is resting
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
--- NOTE | 2019-07-29 12:00 | NUR ---
pt is resting.
--- NOTE | 2019-07-29 13:00 | NUR ---
pt is sleeping. no concerns
--- NOTE | 2019-07-29 14:00 | NUR ---
pt is stilling sleeping
--- NOTE | 2019-07-29 15:00 | NUR ---
pt is sleeping
--- NOTE | 2019-07-29 16:03 | NUR ---
pt is resting in bed
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
[2019-07-29] MEDS: OLANZAPINE 5 MG TABLET PO SCH ×2 (19:31→20:19)
[2019-07-29] MEDS: traZODone 50mg tablet PO SCH (19:31)
--- NOTE | 2019-07-29 20:04 | NUR ---
The patient has been cooperative with staff but she is volatile in her behaviors. At one point she was singing and held her walker over her head and was touching the ceiling with her walker. She is talking to herself. She does not know what the year is or where she is at. She is very confused. She is very dishelveled and her hair is uncombed and she has long chin hairs.
--- NOTE | 2019-07-29 21:41 | NUR ---
The patient upruptly woke up and started talking very loudly as if she was talking to someone who was not there. She was redirected and is now back asleep.
--- NOTE | 2019-07-29 23:42 | NUR ---
The patient appears to be sleeping
--- NOTE | 2019-07-30 00:53 | NUR ---
The patient appears to be sleeping
--- NOTE | 2019-07-30 02:45 | NUR ---
The patient appears to be sleeping
--- NOTE | 2019-07-30 04:57 | NUR ---
The patient appears to be sleeping
--- NOTE | 2019-07-30 06:45 | NUR ---
Patient is standing with her 2WW at the end of her bed at change of shift. She is confused but cooperative and is incontinent or bladder. Patient was standing and urinating. Patient was cleaned and given a brief and a new gown. She is now sitting at the end of her bed in a chair. She is heard singing loudly and needs to be redirected frequently. She has poor safety awarness. Will continue to monitor.
[2019-07-30] MEDS: nystatin 15 GM powder TP SCH ×3 (08:00→21:00)
[2019-07-30] MEDS: OLANZapine 2.5MG tablet PO SCH (08:06)
--- NOTE | 2019-07-30 08:27 | NUR ---
Patient is sitting in chair at end of bed eating breakfast. No distress observed. Patient appears to be responding to internal stimuli.
--- NOTE | 2019-07-30 09:28 | NUR ---
Breaking primary RN, pt is sitting up in bed, talking to herself, lennoxsing, keren
--- NOTE | 2019-07-30 11:55 | NUR ---
Patient continues to be resting in bed peacefully at this time.
[2019-07-30] MEDS ORDERED: risperiDONE 2mg tablet PO ONE (12:30)
--- NOTE | 2019-07-30 13:03 | NUR ---
Patient is sitting up in the chair at the end of her bed. She was yelling and becoming agitated. She was talking to people who are not there. Dr. Pollack ordered Risperdone 2mg. Patient took this orally without incident. Patient is now eating lunch.
--- NOTE | 2019-07-30 13:54 | NUR ---
PT EATING LUNCH, PT THREW TWO OF HER EMPTY DRINKING GLASSES ON THE FLOOR. SHE ALSO DUMPED THE FOOD OFF OF THE LUNCH TRAY INTO THE WASHING BIN ON HER TABLE. DR REDDING TALKING TO THE PT AND SHE IS BEING PLEASANT.
--- NOTE | 2019-07-30 14:07 | NUR ---
Dr Bal wants RN to perform a MOCA test on patient. Dr Rodriguez said he would also perform one later.
[2019-07-30] MEDS ORDERED: LORazepam 2 mg/ml vial IV ONE (15:00)
[2019-07-30] MEDS ORDERED: LORazepam 2 mg/ml vial ONE (15:19)
--- NOTE | 2019-07-30 15:50 | NUR ---
MOCA performed. Patient received a 10/23.
[2019-07-30] MEDS ORDERED: LORazepam 1 MG tablet PO ONE ×2 (16:35→19:25)
--- NOTE | 2019-07-30 17:24 | NUR ---
Patient was continuing to be agitated and Dr. Parisi has ordered Ativan a single dose and then [id number]. Patient is now resting in bed peacefully. Will continue to monitor. No distress observed.
--- NOTE | 2019-07-30 18:45 | NUR ---
Care assumed. Patient is disheveled and confussed. Patient standing and holding her walker, she makes sounds like a motercycle accelerating, it looks as if patient believes she is driving her walker. Patient is assisted back to bed where she manages to eat her dinner. Plan to closely observe this patient for her own safety.
[2019-07-30] MEDS: traZODone 50mg tablet PO SCH (19:33)
[2019-07-30] MEDS ORDERED: LORazepam 1 MG tablet PO PRN (20:00)
[2019-07-30] MEDS: LORazepam 1 MG tablet PO SCH (20:00)
[2019-07-30] MEDS: OLANZAPINE 5 MG TABLET PO SCH (20:40)
--- NOTE | 2019-07-30 22:13 | NUR ---
Patientis sleeping quietly in a low fowlers position. A warm blanket is provided.
--- NOTE | 2019-07-31 02:10 | NUR ---
Patilent is sleeping quietly in a low fowlers position. Patients head is wrapped with a towell, her face is bare.
[2019-07-31] MEDS: traZODone 50mg tablet PO PRN (04:21)
--- NOTE | 2019-07-31 07:15 | NUR ---
PT RESTING EYES CLOSED RR EQUALY
[2019-07-31] MEDS: LORazepam 1 MG tablet PO SCH ×3 (08:00→16:19)
--- NOTE | 2019-07-31 08:40 | NUR ---
PT EATING BREAKFAST. NO NEEDS AT THIS TIME
[2019-07-31] MEDS: OLANZapine 2.5MG tablet PO SCH (08:44)
[2019-07-31] MEDS: nystatin 15 GM powder TP SCH ×3 (08:44→20:08)
--- NOTE | 2019-07-31 10:47 | NUR ---
PT RESTING ON BACK RR EQUAL AND UNLABORED
--- NOTE | 2019-07-31 12:14 | NUR ---
Breaking primary RN, pt supine in bed, eyes closed, regular breathig present, calm
--- NOTE | 2019-07-31 13:40 | NUR ---
PT EATING BREAKFAST. PT CALM, FOLLOWS INSTRUCTIONS
--- NOTE | 2019-07-31 15:30 | NUR ---
PT RESTING ON BACK WITH EYES CLOSED RR EQUAL AND UNLABORED
--- NOTE | 2019-07-31 16:01 | NUR ---
PT UP TO BR WITH ASSIST OF FWW.
--- NOTE | 2019-07-31 17:44 | NUR ---
CALLED TO BS BY TECHS THEY WERE CLEANING UP PT THEY NOTED SOME VAGINAL BLEEDING. INQUIRED IF PT STILL HAS HER PERIOD. PT STATES SHE DOES GET IT "EVERY NOW AND THEN" PT DENIES PAIN.
[2019-07-31] MEDS: traZODone 50mg tablet PO SCH ×2 (20:00→20:08)
[2019-07-31] MEDS: OLANZAPINE 5 MG TABLET PO SCH ×2 (20:07→20:10)
[2019-08-01] MEDS: nystatin 15 GM powder TP SCH ×4 (08:00→20:09)
[2019-08-01] MEDS: OLANZapine 2.5MG tablet PO SCH (08:32)
[2019-08-01] MEDS: LORazepam 1 MG tablet PO SCH ×3 (08:32→16:02)
--- NOTE | 2019-08-01 14:10 | NUR ---
Pt denies any needs at this time.
--- NOTE | 2019-08-01 15:30 | NUR ---
Pt is sleeping. Respirations unlabored. NAD
--- NOTE | 2019-08-01 16:35 | NUR ---
Pt in bed mumbling. Asked her if she needed anything. Pt denied any needs at this time.
--- NOTE | 2019-08-01 17:39 | NUR ---
Pt incontinent of urine and saturated bed. Complete bed change completed. Pericare performed, clean brief applied, clean gown put on. Pt denies any further needs at this time.
--- NOTE | 2019-08-01 18:30 | NUR ---
Pt sitting up in bed eating dinner. Pt denies any needs at this time.
--- NOTE | 2019-08-01 19:42 | NUR ---
Pt sitting up in bed still working on her supper tray. Pt denies any needs at this time.
[2019-08-01] MEDS: OLANZAPINE 5 MG TABLET PO SCH (20:10)
[2019-08-01] MEDS: traZODone 50mg tablet PO SCH (20:10)
--- NOTE | 2019-08-01 20:34 | NUR ---
Pt incontinent of urine. Pericare performed. Clean brief put on. Pt denies any further needs at this time.
--- NOTE | 2019-08-01 21:39 | NUR ---
Pt is sleeping. Respirations unlabored. NAD
--- NOTE | 2019-08-01 22:30 | NUR ---
Pt is sleeping. Respirations unlabored. NAD
--- NOTE | 2019-08-01 23:31 | NUR ---
Pt is sleeping. Respirations unlabored. NAD
[2019-08-02] MEDS: LORazepam 1 MG tablet PO SCH ×3 (00:23→16:00)
--- NOTE | 2019-08-02 00:34 | NUR ---
Pt incontinent of urine. Pericare performed. Clean brief put on. Pt denies any further needs at this time.
--- NOTE | 2019-08-02 01:32 | NUR ---
Pt is sleeping. Respirations unlabored. NAD
--- NOTE | 2019-08-02 03:27 | NUR ---
Patient is sleeping on her back. Respirations unlabored. NAD
--- NOTE | 2019-08-02 04:35 | NUR ---
Pt is sleeping on her back. Respirations unlabored. NAD
--- NOTE | 2019-08-02 05:30 | NUR ---
Pt sleeping. Respirations unlabored. NAD
--- NOTE | 2019-08-02 06:00 | NUR ---
pt is resting in her room. no concerns at this time. pt not on hold
[2019-08-02] MEDS: OLANZapine 2.5MG tablet PO SCH (07:28)
[2019-08-02] MEDS: nystatin 15 GM powder TP SCH ×3 (07:29→20:01)
--- NOTE | 2019-08-02 08:00 | NUR ---
pt given bath and bed change
--- NOTE | 2019-08-02 10:00 | NUR ---
pt is resting in her room. no concerns at this time. pt not on hold
--- NOTE | 2019-08-02 12:00 | NUR ---
pt is resting in her room. no concerns at this time. pt not on hold
--- NOTE | 2019-08-02 14:00 | NUR ---
pt is resting in her room. no concerns at this time. pt not on hold
--- NOTE | 2019-08-02 16:00 | NUR ---
pt resting in bed no concerns at this time
--- NOTE | 2019-08-02 17:00 | NUR ---
pt resting in bed no concerns at this time
--- NOTE | 2019-08-02 19:27 | NUR ---
The patient has been resting on her bed and has been pleasant when approached for the evening assessment. She was alert and knew she was at . She was unsure of why she was here but thought she had a urinary tract infection.
[2019-08-02] MEDS: traZODone 50mg tablet PO SCH (20:01)
[2019-08-02] MEDS: OLANZAPINE 5 MG TABLET PO SCH (20:01)
--- NOTE | 2019-08-02 20:51 | NUR ---
The patient was up briefly and walking about the unit with her walker. She is now back in bed and appears to be resting. She refused her trazodone.
--- NOTE | 2019-08-02 22:29 | NUR ---
The patient appears to be sleeping
--- NOTE | 2019-08-02 23:41 | NUR ---
The patient appears to be sleeping
--- NOTE | 2019-08-03 05:24 | NUR ---
The patient appears to have slept well during the night despite having refused her HS trazodone. She was sleeping well and the 2400 ativan was held. She did request help from staff in the AM to have her attends changed
[2019-08-03] MEDS: LORazepam 1 MG tablet PO SCH ×3 (08:00→16:21)
[2019-08-03] MEDS: nystatin 15 GM powder TP SCH ×3 (08:00→20:04)
--- NOTE | 2019-08-03 08:10 | NUR ---
pt. sleeping soundly,Resp.Rate even unlabored did not awake to spoken name for bkfst,will evaluate when awake
[2019-08-03] MEDS: OLANZapine 2.5MG tablet PO SCH (08:26)
--- NOTE | 2019-08-03 10:00 | NUR ---
pt agitated yelling,singing swearing medicated with one mg ativan po with good relief
--- NOTE | 2019-08-03 18:01 | NUR ---
PT DAUGHTER CURRY AND ANOTHER FEMALE AT BEDSIDE, INSTRUCTED HER TO CALL [facility] TOMORROW TO GET HELP AND RESOURCES, CURRY STATES THEY HAVE A ORE DIGGER TO HANDLE CARRYING OUT FAMILY DECISION FOR THE PATIENT. CURRY WAS VAGUE AND GARDED WITH DISCUSSION WITH RN.
--- NOTE | 2019-08-03 20:00 | NUR ---
The patient received a visit from her daughter, Silvia. The daughter was made aware that the social services director was trying to get a hold of her and she was asked if she could call the social services director tomorrow. The daughter stated that the family was looking into their options to care for their mother and that all communication would be coming from their radiology special procedure tech.
[2019-08-03] MEDS: traZODone 50mg tablet PO SCH (20:02)
[2019-08-03] MEDS: OLANZAPINE 5 MG TABLET PO SCH (20:03)
--- NOTE | 2019-08-03 21:05 | NUR ---
The patient is resting on her bed. She took her evening medications but is confused and was spitting them out. Spoke with Dr. Saucedo and zyprexa was changed to zydis form. She was able to state that she was at [facility] but did not know why she was here. She also was able to state that it was 2019 and the month was July. When asked if she had a good visit with her family she stated that they were not her family and that they were just acquaintances.
--- NOTE | 2019-08-03 21:43 | NUR ---
The patient appears to be sleeping
--- NOTE | 2019-08-03 23:12 | NUR ---
The patient up briefly to use the bathroom.
--- NOTE | 2019-08-04 01:16 | NUR ---
The patient appears to be sleeping
--- NOTE | 2019-08-04 03:06 | NUR ---
The patient appears to be sleeping
--- NOTE | 2019-08-04 05:27 | NUR ---
The patient appears to be sleeping
--- NOTE | 2019-08-04 06:30 | NUR ---
pt resting in her room. no concerns at this time
--- NOTE | 2019-08-04 07:30 | NUR ---
pt is resting. no concerns
[2019-08-04] MEDS: nystatin 15 GM powder TP SCH ×3 (07:51→19:50)
[2019-08-04] MEDS: OLANZapine 5mg rapidly disint. tablet PO SCH ×2 (07:51→19:50)
--- NOTE | 2019-08-04 08:00 | NUR ---
pt is resting. no concerns
--- NOTE | 2019-08-04 09:00 | NUR ---
pt is sleeping
--- NOTE | 2019-08-04 10:00 | NUR ---
pt is yelling. no making sense. saying random things.
--- NOTE | 2019-08-04 11:00 | NUR ---
pt is yelling and using foul language
[2019-08-04] MEDS ORDERED: LORazepam 2 mg/ml vial IM ONE (11:30)
--- NOTE | 2019-08-04 12:00 | NUR ---
pt resting in bed
--- NOTE | 2019-08-04 13:00 | NUR ---
pt is resting in bed. pt incont of urine
--- NOTE | 2019-08-04 14:00 | NUR ---
no concerns at this time
--- NOTE | 2019-08-04 15:00 | NUR ---
pt is resting
--- NOTE | 2019-08-04 16:00 | NUR ---
pt is sleeping
--- NOTE | 2019-08-04 17:00 | NUR ---
pt is yelling at staff. using foul language
--- NOTE | 2019-08-04 17:44 | NUR ---
PT REFUSED VITAL SIGNS
[2019-08-04] MEDS: traZODone 50mg tablet PO SCH (19:50)
[2019-08-04] MEDS: LORazepam 1 MG tablet PO PRN (19:50)
--- NOTE | 2019-08-04 20:03 | NUR ---
The patient is resting on her bed. She was initially very angry and stated her name was not Amy but "Jozef" She ate dinner and was less angry. She took her HS medications but refuse to take the Trazodone and stated she did not need it. She is oriented to person, place and year but does not know why she is here.
--- NOTE | 2019-08-04 21:36 | NUR ---
The patient is yelling nonsensical remarks briefly. She denies that she has any requests/needs at this time.
--- NOTE | 2019-08-05 01:43 | NUR ---
THe patient was awake and had been incontinent of urine. Linens changed and patient resting back darwin her bed.
--- NOTE | 2019-08-05 04:54 | NUR ---
The patient appears to be sleeping
--- NOTE | 2019-08-05 07:30 | NUR ---
assumed care from THIERRY Thrasher. pt laying in bed quietly.
[2019-08-05] MEDS: nystatin 15 GM powder TP SCH ×3 (08:04→21:23)
--- NOTE | 2019-08-05 08:10 | NUR ---
pt sitting up on the side of the bed talking to herself. seemingly pleasant. RN went up to patient to speak with her and she states "i'm just having a good ole' time". RN asked if pt would take her medicine and she stated "get that away from my face that's rude. you're mean". Pt refusing. RN attempted to give med in applesauce and pt accepted.
[2019-08-05] MEDS: OLANZapine 5mg rapidly disint. tablet PO SCH ×2 (08:20→21:08)
--- NOTE | 2019-08-05 09:48 | NUR ---
pt up to the bathroom getting cleaned up. brief, gown, and socks changed. pt pleasant. RN called pt by her name and pt stated, "don't call me that! that's just my name on paper." when asked what she wanted to be called "Layo". Pt briefly walked around the unit, pleasant. Then pt walking to the exit, when pt told she can't leave she got fiesty and called nursing staff "sons of bches" then stormed off to her room. bed cleaned up and then pt now resting quietly in bed.
--- NOTE | 2019-08-05 10:51 | NUR ---
resting quietly in bed with eyes closed.
--- NOTE | 2019-08-05 15:04 | NUR ---
pts been resting for the past couple hours then stood up and yelled for a brief and a new gown. brief given and pt given blue gown because we are out of green gowns and pt yelled and and curing at nursing staff stating she wanted a beautiful green gown. pt up and walking around her bed talking to herself. RN called pt by her name and she said "don't call me that!" then RN called her by her prefered name from earlier "Layo" and pt yelled she didn't want to be called that either and just wanted to be called "buffy saunders thomas!" and then started raming her walker into the wall repeatedly. after a few minutes pt quieted down, walking around her bed.
--- NOTE | 2019-08-05 15:37 | NUR ---
pt briefly calmed, now sitting up in bed singing nonsense and talking crazily to someone imaginary at her bedside. Dr. Mckeon made aware pt needing something to help calm her. Addendum: 08/05/19 at 1710 by JACQUIE nothing ordered for pt.
--- NOTE | 2019-08-05 17:11 | NUR ---
called pharmacist in charge to ask MD if he can order something for pt to help calm her. pharmacist in charge stated she would let MD know so he can come see her.
--- NOTE | 2019-08-05 17:32 | NUR ---
PATIENT REFUSED VITALS
--- NOTE | 2019-08-05 18:53 | NUR ---
PT SITTING UP IN BED EATING DINNER AT THIS TIME. NO OTHER REQUEST OR CONCERNS AT THIS TIME.
[2019-08-05] MEDS: traZODone 50mg tablet PO SCH (19:24)
[2019-08-05] MEDS: LORazepam 1 MG tablet PO PRN (19:24)
--- NOTE | 2019-08-05 19:30 | NUR ---
pt finished her dinner. she requested 4 depends. she was offerend assistance and refused. she states she can do it herself.
--- NOTE | 2019-08-05 20:35 | NUR ---
pt resting at this time. has no other request or concerns at this time.
--- NOTE | 2019-08-05 21:30 | NUR ---
pt lying in bed. she took her medication with yogurt. she is more agitated with female staff members.
--- NOTE | 2019-08-05 22:22 | NUR ---
PT RESTING AT THIS TIME. NO OTHER REQUEST OR CONCERNS AT THIS TIME.
--- NOTE | 2019-08-05 23:56 | NUR ---
PT SLEEPING AT THIS TIME. SHE HAS NO OTHER REQUEST OR CONCERNS AT THIS TIME.
--- NOTE | 2019-08-06 05:37 | NUR ---
PT SLEPT WELL MOST OF THE NIGHT. SHE AWAKENED AROUND 4 AM AND SAT AT THE EDGE OF THE BED. OFFERED PT TO HELP HER CHANGE HER BRIEF. PT YELLED AND REFUSED. SHE STATES SHE CAN DO IT HERSELF. PT ENCOURAGED TO KEEP DRY TO DECREASE SKIN BREAKDOWN. PT WAS GIVEN EXTRA WIPES AND BRIEFS AT HER REQUEST. PT IS NOW SLEEPING.
--- NOTE | 2019-08-06 06:28 | NUR ---
PT IS SITTING UP IN BED AT THIS TIME, PT ABLE TO CLEAR AND CARE FOR SELF CHANGER DIAPER AND NEW GREEN GOWN GIVEN TO PT. PT IN LINE OF SITE OF NURSES STATION, WILL CONTINUE TO MONITOR PT.
--- NOTE | 2019-08-06 07:04 | NUR ---
DR ASHRAF AT BEDSIDE FOR RE-EVALUATION
[2019-08-06] MEDS: nystatin 15 GM powder TP SCH ×3 (08:00→21:00)
[2019-08-06] MEDS: OLANZapine 5mg rapidly disint. tablet PO SCH ×2 (08:00→21:00)
--- NOTE | 2019-08-06 08:38 | NUR ---
PT SITTING UP AT BEDSIDE EATING BREAKFAST TRAY.
--- NOTE | 2019-08-06 11:10 | NUR ---
PT TOOK WALK AROUND NURSES STATION USING WALKER.
--- NOTE | 2019-08-06 12:30 | NUR ---
PT IS SLEEPING, RESPIRATIONS SPONTANEOUS, EVEN AND UNLABORED, NO S/S OF DISTRESS DISCOMFORT OR AGITATION, PT IN LINE OF SITE OF NURSES STATION, WILL CONTINUE TO MONITOR
--- NOTE | 2019-08-06 13:16 | NUR ---
PT AMBULATORY TO BATHROOM WITH STEADY GAIT AND USE OF WALKER, PT STANDS AND WALKS INDEPENDENTLY
--- NOTE | 2019-08-06 16:28 | NUR ---
PT UP WITH WALKER TO BR HOLDING TRASH IN HER LEFT HAND. PT ASKED IF THIERRY MARC THROW AWAY TRASH PT GOT ANGRY AND REPONDED WITH LEAVE ME ALONE I CAN DO WHAT I WANT. PT WENT INTO RESTROOM.
--- NOTE | 2019-08-06 18:05 | NUR ---
PT REFUSED TO HAVE VITAL SIGNS TAKEN. RN NOTIFIED.
--- NOTE | 2019-08-06 18:50 | NUR ---
Patient is awake, she is oriented to person, confussion to place, time, and situation. This LOC is reported to be patients basline, she is diagnosed with dementia. Patient is sitting quietly and eating her dinner at this time. There is no mental health hold in place on this patient.
--- NOTE | 2019-08-06 19:30 | NUR ---
Patient sitting up in bed resting.
[2019-08-06] MEDS: traZODone 50mg tablet PO SCH (20:00)
--- NOTE | 2019-08-06 20:47 | NUR ---
Patient is resting sleeping quietly, low fowlers position in bed. In view from the nursing station.
--- NOTE | 2019-08-06 20:48 | NUR ---
Basil ornelas in ED - 08/06/19 at 2049 by NIA Patient is sleeping quietly on her right side. In view from the nursing station.
--- NOTE | 2019-08-06 21:36 | NUR ---
Patient is sleeping low fowlers in bed.
--- NOTE | 2019-08-06 23:00 | NUR ---
Patient is up to the bathroom to void. Patient ambulates without problem. Patient has gown on backwards. Patient refuses to reposition gown, states "I like it this way." Patient returns to sleep. Patient offered fresh warm blankets, she declined.
--- NOTE | 2019-08-07 00:01 | NUR ---
Patient sleeping quietly, low fowlers position. In view from the nursing station.
--- NOTE | 2019-08-07 01:48 | NUR ---
Patient is sleeping low fowlers in bed with her knees flexed.
--- NOTE | 2019-08-07 02:50 | NUR ---
Patient remains asleep.
--- NOTE | 2019-08-07 03:32 | NUR ---
Patient is sleeping on her right side.
--- NOTE | 2019-08-07 04:35 | NUR ---
Patient sleeping in low fowlers position.
--- NOTE | 2019-08-07 05:52 | NUR ---
Patient awoke for vital signs. She sits quietly awake, low fowlers position. Patient denies any needs at this time.
[2019-08-07] MEDS: nystatin 15 GM powder TP SCH ×3 (08:00→19:57)
[2019-08-07] MEDS: OLANZapine 5mg rapidly disint. tablet PO SCH ×2 (08:00→19:57)
--- NOTE | 2019-08-07 09:34 | NUR ---
assumed care of pt she is in bed eyes open, calm, no s/s of distress obsereved
--- NOTE | 2019-08-07 10:00 | NUR ---
Director Loreto, came to let us know that Dr Mauricio has agreed to admit pt upstairs to facilitate transfer to SNF, she is not able to return home as her home has been red tagged by [employer] [facility], this will probalby not happen until Saturday08/10/2019
--- NOTE | 2019-08-07 10:09 | NUR ---
pt up wandering, she is directed to stay where we can see her, she is agreeable, now in bathroom,
--- NOTE | 2019-08-07 11:23 | NUR ---
pt has refused her medications, she is now calm and laying in bed, did med rec....unable to find pt in the computer to print, BALDO Barth called IT to fix problem
--- NOTE | 2019-08-07 12:31 | NUR ---
pt is sitting up in bed reading, no s/s of agitation will cont to monitor
--- NOTE | 2019-08-07 13:23 | NUR ---
pt was sitting up in bed reading, just turned off her light
--- NOTE | 2019-08-07 13:35 | NUR ---
pt ambulated to bathroom with her walker
--- NOTE | 2019-08-07 14:32 | NUR ---
pt is sitting up in bed eating lunch, no s/s of agitation observed
--- NOTE | 2019-08-07 15:35 | NUR ---
PT UP WAKING AROUND IN [place], NO AGITATION AT THIS TIME
--- NOTE | 2019-08-07 16:24 | NUR ---
PT IS SUPINE IN BED, NO S/S OF AGITATION OBSERVED
--- NOTE | 2019-08-07 18:15 | NUR ---
pt ambulated to br with her 4 wheeled walker, no agitation
[2019-08-07] MEDS: HYDROchlorothiazide 25mg tablet PO SCH (18:19)
[2019-08-07] MEDS: lisinopril 20mg tablet PO SCH (18:20)
--- NOTE | 2019-08-07 19:10 | NUR ---
Patient ate a full dinner. Patient is friendly with staff. Patient is non compliant with medications, she also wears her gown backwards. Patient exhibitis an understanding of the gown on backwards but refuses to correct. Patient is on no hold. Lube Technician is working on placement. No known family support system.
[2019-08-07] MEDS: traZODone 50mg tablet PO SCH (19:56)
--- NOTE | 2019-08-07 20:30 | NUR ---
Patient is up to the bathroom to void. Patient ambulates well with the use of a walker. Patient returns to bed and falls asleep.
--- NOTE | 2019-08-07 21:17 | NUR ---
Patient issleeping quietly in a low fowlers position.
--- NOTE | 2019-08-07 23:34 | NUR ---
Patient is sleeping quietly in a low fowlers position.
--- NOTE | 2019-08-08 01:40 | NUR ---
Patient is sleeping in a low fowlers position. Patient self repositions.
--- NOTE | 2019-08-08 03:27 | NUR ---
Patient is sleeping quietly.
--- NOTE | 2019-08-08 07:04 | NUR ---
PT UP TO BR WITH WALKER.
[2019-08-08] MEDS: HYDROchlorothiazide 25mg tablet PO SCH (07:54)
[2019-08-08] MEDS: OLANZapine 5mg rapidly disint. tablet PO SCH ×2 (07:54→21:00)
[2019-08-08] MEDS: lisinopril 20mg tablet PO SCH (07:57)
--- NOTE | 2019-08-08 08:41 | NUR ---
PT SITTING UP EATING BREAKFAST
--- NOTE | 2019-08-08 09:34 | NUR ---
PT SLEEPING QUIETLY
--- NOTE | 2019-08-08 10:56 | NUR ---
PT UP WALKING AROUND UNIT WITH WALKER. APPROPRIATE.
--- NOTE | 2019-08-08 15:47 | NUR ---
PT UP TO BR AMBULATING WITH WALKER, AND WALKING AROUND UNIT APPROPRIATE.
--- NOTE | 2019-08-08 19:00 | NUR ---
Pt talks to staff and peers happily. She sings and laughs frequently.
[2019-08-08] MEDS: traZODone 50mg tablet PO SCH (20:00)
--- NOTE | 2019-08-08 21:00 | NUR ---
Pt went to the restroom and walked around for 5 minutes to "get tired."
--- NOTE | 2019-08-08 23:17 | NUR ---
Pt asleep on back, RR 16 easy and unlabored
--- NOTE | 2019-08-09 02:43 | NUR ---
Pt got up to use the restoom and then went back to bed.
--- NOTE | 2019-08-09 05:46 | NUR ---
Pt resting in bed quietly VS WNL.
[2019-08-09] MEDS: OLANZapine 5mg rapidly disint. tablet PO SCH ×2 (08:01→21:00)
[2019-08-09] MEDS: lisinopril 20mg tablet PO SCH (08:01)
[2019-08-09] MEDS: HYDROchlorothiazide 25mg tablet PO SCH (08:02)
--- NOTE | 2019-08-09 19:00 | NUR ---
Pt up walking laps.
[2019-08-09] MEDS: traZODone 50mg tablet PO SCH (20:00)
--- NOTE | 2019-08-09 20:00 | NUR ---
Pt refusing to cooperate with med administration. Pt stated to rn, "get away from me".
--- NOTE | 2019-08-09 21:00 | NUR ---
Pt resting quietly, respirations normal, no s/s of distress.
--- NOTE | 2019-08-09 22:00 | NUR ---
Pt resting quietly, respirations normal, no s/s of distress.
--- NOTE | 2019-08-09 23:00 | NUR ---
Pt resting quietly, respirations normal, no s/s of distress.
--- NOTE | 2019-08-10 | NUR ---
Pt resting quietly, respirations normal, no s/s of distress.
--- NOTE | 2019-08-10 01:00 | NUR ---
Pt resting quietly, respirations normal, no s/s of distress.
--- NOTE | 2019-08-10 02:00 | NUR ---
Pt resting quietly, respirations normal, no s/s of distress.
--- NOTE | 2019-08-10 03:06 | NUR ---
Pt resting quietly, respirations normal, no s/s of distress.
--- NOTE | 2019-08-10 04:00 | NUR ---
Pt resting quietly, respirations normal, no s/s of distress.
--- NOTE | 2019-08-10 05:37 | NUR ---
Pt resting quietly, respirations normal, no s/s of distress.
[2019-08-10] MEDS: lisinopril 20mg tablet PO SCH (08:00)
[2019-08-10] MEDS: HYDROchlorothiazide 25mg tablet PO SCH (08:00)
[2019-08-10] MEDS: OLANZapine 5mg rapidly disint. tablet PO SCH ×2 (08:13→20:05)
[2019-08-10] MEDS: LORazepam 1 MG tablet PO PRN (08:22)
[2019-08-10] MEDS ORDERED: bisacodyl 10mg suppository rectal RC PRN (16:30)
[2019-08-10] MEDS ORDERED: magnesium hydroxide 30ml (MOM) UD suspension PO PRN (16:30)
[2019-08-10] MEDS ORDERED: acetaminophen 325mg tablet PO PRN ×2 (16:30)
[2019-08-10] MEDS ORDERED: magnesium Cl slow-release 64mg tablet PO PRN (16:30)
[2019-08-10] MEDS ORDERED: magnesium 2GM in 50ml NS 50 ML IV PRN (16:30)
[2019-08-10] MEDS ORDERED: mag hydrox/Alum hydrox/simeth 30ml oral suspension PO PRN (16:30)
[2019-08-10] MEDS ORDERED: ondansetron/PF 4mg/2ml inj IV PRN (16:30)
[2019-08-10] MEDS ORDERED: acetaminophen 650mg rectal suppository RC PRN (16:30)
[2019-08-10] MEDS ORDERED: magnesium 4gm in 100ml NS 100 ML IV PRN (16:30)
[2019-08-10] MEDS ORDERED: diphenhydrAMINE 25mg capsule PO PRN (16:30)
[2019-08-10] MEDS ORDERED: potassium CL 10mEq/100ml bag 100 ML IV PRN ×2 (16:30)
[2019-08-10] MEDS ORDERED: potassium Cl 20 mEq SR tablet PO PRN ×2 (16:30)
[2019-08-10 18:00] VITALS: BP 133/58
[2019-08-10 18:30] VITALS: BP 105/46
--- NOTE | 2019-08-10 18:45 | NUR ---
Problems reprioritized. Patient report given, questions answered & plan of care reviewed with THIERRY TAVAREZ.
--- NOTE | 2019-08-10 19:38 | NUR ---
Patient in room ORTHO 4009. I have received report from Adrianna GUADARRAMA and had the opportunity to ask questions and assume patient care. Completed 2 RN skin check during bedside report. Pt resting in bed with no signs of distress. Will continue to monitor.
[2019-08-10] MEDS: K and/or MAG REPLACEMENT MC SCH (19:41)
[2019-08-10] MEDS: heparin, porcine 5000 units/ml vial SQ SCH (20:00)
[2019-08-10] MEDS: traZODone 50mg tablet PO SCH (20:00)
--- NOTE | 2019-08-10 20:05 | NUR ---
Pt refused all meds. Stated that she "only takes two and those are the only two she will take, she doesn't care what the doctor says or needs." Pt VSS stable, no signs of distress, will continue to monitor.
[2019-08-10 22:00] VITALS: BP 119/47
[2019-08-11 06:00] VITALS: BP 111/41
--- NOTE | 2019-08-11 06:13 | NUR ---
Problems reprioritized. Patient report given, questions answered & plan of care reviewed with Adrianna GUADARRAMA.
--- NOTE | 2019-08-11 06:25 | NUR ---
Patient in room ORTHO 4009B. I have received report from THIERRY TAVAREZ and had the opportunity to ask questions and assume patient care.
[2019-08-11] MEDS: HYDROchlorothiazide 25mg tablet PO SCH (07:11)
[2019-08-11] MEDS: lisinopril 20mg tablet PO SCH (07:12)
[2019-08-11] MEDS: OLANZapine 5mg rapidly disint. tablet PO SCH ×2 (07:12→19:52)
[2019-08-11] MEDS: heparin, porcine 5000 units/ml vial SQ SCH ×2 (07:15→19:51)
[2019-08-11] MEDS: K and/or MAG REPLACEMENT MC SCH ×2 (08:00→20:00)
[2019-08-11 10:00] VITALS: BP 112/45
[2019-08-11 18:00] VITALS: BP 111/44
--- NOTE | 2019-08-11 18:21 | NUR ---
Problems reprioritized. Patient report given, questions answered & plan of care reviewed with THIERRY REYES.
--- NOTE | 2019-08-11 18:30 | NUR ---
Patient in room ORTHO 4009. I have received report from DAYSI GUADARRAMA and had the opportunity to ask questions and assume patient care.
[2019-08-11] MEDS: traZODone 50mg tablet PO SCH (19:51)
[2019-08-11] MEDS: mineral oil/petrolatum, white cream 113gm jar TP SCH (19:52)
[2019-08-11 22:00] VITALS: BP 113/41
[2019-08-12 05:58] VITALS: BP 121/42
--- NOTE | 2019-08-12 06:26 | NUR ---
Problems reprioritized. Patient report given, questions answered & plan of care reviewed with DAYSI GUADARRAMA.
--- NOTE | 2019-08-12 06:30 | NUR ---
Patient in room ORTHO 4009B. I have received report from THIERRY REYES and had the opportunity to ask questions and assume patient care.
[2019-08-12] MEDS: K and/or MAG REPLACEMENT MC SCH ×2 (08:00→20:00)
[2019-08-12] MEDS: heparin, porcine 5000 units/ml vial SQ SCH ×2 (08:00→20:00)
[2019-08-12] MEDS: HYDROchlorothiazide 25mg tablet PO SCH (08:25)
[2019-08-12] MEDS: lisinopril 20mg tablet PO SCH (08:26)
[2019-08-12] MEDS: OLANZapine 5mg rapidly disint. tablet PO SCH ×2 (08:26→21:00)
[2019-08-12] MEDS: mineral oil/petrolatum, white cream 113gm jar TP SCH ×2 (08:27→19:12)
[2019-08-12 10:00] VITALS: BP 129/48
--- NOTE | 2019-08-12 12:59 | NUR ---
PATIENT REFUSES ANY BLOOD DRAWS. Notified MD of lab draw refusals, Md cancelled blood draws/labs. Also notified MD of patients Vaginal bleeding, MD aware and may consult SUPERVISOR BENZENE REFINING, no new orders at this time.
--- NOTE | 2019-08-12 18:15 | NUR ---
Problems reprioritized. Patient report given, questions answered & plan of care reviewed with THIERRY SHARMA.
--- NOTE | 2019-08-12 18:25 | NUR ---
Patient in room ORTHO 4009. I have received report from THIERRY TAVAREZ and had the opportunity to ask questions and assume patient care.
[2019-08-12] MEDS: traZODone 50mg tablet PO SCH (20:00)
[2019-08-12 21:56] VITALS: BP 96/33
[2019-08-13 06:00] VITALS: BP 135/59
--- NOTE | 2019-08-13 06:20 | NUR ---
Rcvd report from Susan GUADARRAMA
--- NOTE | 2019-08-13 06:25 | NUR ---
Problems reprioritized. Patient report given, questions answered & plan of care reviewed with THIERRY TAVAREZ.
[2019-08-13] MEDS: heparin, porcine 5000 units/ml vial SQ SCH ×2 (08:00→20:00)
[2019-08-13] MEDS: K and/or MAG REPLACEMENT MC SCH ×2 (08:00→20:03)
[2019-08-13] MEDS: OLANZapine 5mg rapidly disint. tablet PO SCH ×2 (08:27→20:17)
[2019-08-13] MEDS: HYDROchlorothiazide 25mg tablet PO SCH (08:30)
[2019-08-13] MEDS: lisinopril 20mg tablet PO SCH (08:30)
[2019-08-13] MEDS: mineral oil/petrolatum, white cream 113gm jar TP SCH ×2 (08:34→20:00)
[2019-08-13 10:00] VITALS: BP 118/55
[2019-08-13 18:00] VITALS: BP 131/53
--- NOTE | 2019-08-13 18:38 | NUR ---
Gave report to Elizabeth GUADARRAMA
[2019-08-13 19:00] VITALS: BP 131/53
[2019-08-13] MEDS: traZODone 50mg tablet PO SCH (20:00)
[2019-08-14] MEDS: heparin, porcine 5000 units/ml vial SQ SCH ×2 (08:00→20:00)
[2019-08-14] MEDS: K and/or MAG REPLACEMENT MC SCH ×2 (08:00→20:00)
[2019-08-14] MEDS: HYDROchlorothiazide 25mg tablet PO SCH (08:07)
[2019-08-14] MEDS: OLANZapine 5mg rapidly disint. tablet PO SCH ×2 (08:07→21:00)
[2019-08-14] MEDS: lisinopril 20mg tablet PO SCH (08:10)
[2019-08-14] MEDS: mineral oil/petrolatum, white cream 113gm jar TP SCH ×2 (08:11→20:24)
[2019-08-14 10:00] VITALS: BP 112/55
--- NOTE | 2019-08-14 11:39 | NUR ---
Initial: 75-100% PO of heart healthy diet. No nutrition problem. Admitted from ED overflow for placement and psychosis. Will continue to follow. Recommend: 1. continue heart healthy diet 2. bowel care as needed 3. weight per rx Addendum: 08/14/19 at [address] Amended: Links added.
[2019-08-14 17:00] VITALS: BP 106/47
--- NOTE | 2019-08-14 18:20 | NUR ---
Patient in room ORTHO 4009. I have received report from Radha GUADARRAMA and had the opportunity to ask questions and assume patient care.
[2019-08-14] MEDS: traZODone 50mg tablet PO SCH (20:00)
[2019-08-14 22:00] VITALS: BP 100/38
[2019-08-15 06:00] VITALS: BP 125/52
--- NOTE | 2019-08-15 06:14 | NUR ---
Problems reprioritized. Patient report given, questions answered & plan of care reviewed with Issa GUADARRAMA.
--- NOTE | 2019-08-15 06:34 | NUR ---
Patient in room ORTHO 4009. I have received report from Dewayne and had the opportunity to ask questions and assume patient care.
[2019-08-15] MEDS: K and/or MAG REPLACEMENT MC SCH ×2 (06:55→19:31)
[2019-08-15] MEDS: OLANZapine 5mg rapidly disint. tablet PO SCH ×2 (07:44→20:33)
[2019-08-15] MEDS: HYDROchlorothiazide 25mg tablet PO SCH (07:44)
[2019-08-15] MEDS: lisinopril 20mg tablet PO SCH (07:44)
[2019-08-15] MEDS: mineral oil/petrolatum, white cream 113gm jar TP SCH ×2 (07:45→19:30)
[2019-08-15] MEDS: heparin, porcine 5000 units/ml vial SQ SCH ×2 (07:45→19:30)
[2019-08-15 10:00] VITALS: BP 116/52
[2019-08-15 17:00] VITALS: BP 106/47
--- NOTE | 2019-08-15 18:22 | NUR ---
Problems reprioritized. Patient report given, questions answered & plan of care reviewed with Merle.
--- NOTE | 2019-08-15 18:29 | NUR ---
Patient in room ORTHO 4009. I have received report from Issa GUADARRAMA and had the opportunity to ask questions and assume patient care.
[2019-08-15] MEDS: traZODone 50mg tablet PO SCH (19:30)
[2019-08-15 22:00] VITALS: BP 112/40
[2019-08-16 06:00] VITALS: BP 132/51
--- NOTE | 2019-08-16 06:15 | NUR ---
Problems reprioritized. Patient report given, questions answered & plan of care reviewed with Kiana GUADARRAMA.
--- NOTE | 2019-08-16 06:23 | NUR ---
Patient in room ORTHO 4009. I have received report from THIERRY Johnson and had the opportunity to ask questions and assume patient care.
[2019-08-16] MEDS: K and/or MAG REPLACEMENT MC SCH ×2 (06:55→20:00)
[2019-08-16] MEDS: heparin, porcine 5000 units/ml vial SQ SCH ×2 (06:56→20:00)
[2019-08-16] MEDS: lisinopril 20mg tablet PO SCH (07:29)
[2019-08-16] MEDS: HYDROchlorothiazide 25mg tablet PO SCH (07:29)
[2019-08-16] MEDS: OLANZapine 5mg rapidly disint. tablet PO SCH ×2 (07:30→20:49)
[2019-08-16] MEDS: mineral oil/petrolatum, white cream 113gm jar TP SCH ×2 (07:31→19:34)
[2019-08-16 10:03] VITALS: BP 136/48
--- NOTE | 2019-08-16 13:55 | NUR ---
Problems reprioritized. Patient report given, questions answered & plan of care reviewed with THIERRY German and THIERRY Rodas.
--- NOTE | 2019-08-16 14:01 | NUR ---
Rcvd report from Kiana GUADARRAMA
[2019-08-16 18:00] VITALS: BP 86/38
--- NOTE | 2019-08-16 18:19 | NUR ---
Patient in room ORTHO 4009. I have received report from mendoza Rodas and had the opportunity to ask questions and assume patient care.
[2019-08-16] MEDS: traZODone 50mg tablet PO SCH (20:00)
[2019-08-17 06:00] VITALS: BP 118/45
--- NOTE | 2019-08-17 06:18 | NUR ---
Problems reprioritized. Patient report given, questions answered & plan of care reviewed with mendoza Rodas.
--- NOTE | 2019-08-17 06:47 | NUR ---
Patient in room ORTHO 4009B. I have received report from THIERRY Davis and had the opportunity to ask questions and assume patient care.
[2019-08-17] MEDS: HYDROchlorothiazide 25mg tablet PO SCH (07:50)
[2019-08-17] MEDS: OLANZapine 5mg rapidly disint. tablet PO SCH ×2 (07:51→21:00)
[2019-08-17] MEDS: lisinopril 20mg tablet PO SCH (07:51)
[2019-08-17] MEDS: heparin, porcine 5000 units/ml vial SQ SCH ×2 (07:53→20:00)
[2019-08-17] MEDS: K and/or MAG REPLACEMENT MC SCH ×2 (07:53→19:11)
[2019-08-17] MEDS: mineral oil/petrolatum, white cream 113gm jar TP SCH ×2 (08:36→19:29)
[2019-08-17 10:00] VITALS: BP 118/51
[2019-08-17 18:00] VITALS: BP 103/47
--- NOTE | 2019-08-17 18:08 | NUR ---
Problems reprioritized. Patient report given, questions answered & plan of care reviewed with THIERRY Davis.
--- NOTE | 2019-08-17 18:23 | NUR ---
Patient in room ORTHO 4009. I have received report from mendoza Rodas and had the opportunity to ask questions and assume patient care.
[2019-08-17] MEDS: traZODone 50mg tablet PO SCH (20:00)
[2019-08-17 22:00] VITALS: BP 102/43
[2019-08-18 06:00] VITALS: BP 117/49
--- NOTE | 2019-08-18 06:21 | NUR ---
Problems reprioritized. Patient report given, questions answered & plan of care reviewed with mendoza Rodas.
--- NOTE | 2019-08-18 06:30 | NUR ---
Patient in room ORTHO 4009B. I have received report from THIERRY Davis and had the opportunity to ask questions and assume patient care.
[2019-08-18] MEDS: K and/or MAG REPLACEMENT MC SCH ×2 (08:00→20:00)
[2019-08-18] MEDS: heparin, porcine 5000 units/ml vial SQ SCH ×2 (08:00→20:00)
[2019-08-18] MEDS: OLANZapine 5mg rapidly disint. tablet PO SCH ×2 (08:11→21:00)
[2019-08-18] MEDS: lisinopril 20mg tablet PO SCH (08:11)
[2019-08-18] MEDS: HYDROchlorothiazide 25mg tablet PO SCH (08:12)
[2019-08-18] MEDS: mineral oil/petrolatum, white cream 113gm jar TP SCH ×2 (08:13→19:10)
[2019-08-18 10:00] VITALS: BP 107/78
[2019-08-18 18:00] VITALS: BP 105/32
--- NOTE | 2019-08-18 18:17 | NUR ---
Problems reprioritized. Patient report given, questions answered & plan of care reviewed with THIERRY SHARMA.
[2019-08-18] MEDS: traZODone 50mg tablet PO SCH (20:00)
--- NOTE | 2019-08-19 06:24 | NUR ---
Patient in room ORTHO 4009. I have received report from Jaclyn GUADARRAMA and had the opportunity to ask questions and assume patient care.
--- NOTE | 2019-08-19 06:28 | NUR ---
Problems reprioritized. Patient report given, questions answered & plan of care reviewed with THIERRY PRADO.
--- NOTE | 2019-08-19 06:29 | NUR ---
Refused 0600 vitals.
[2019-08-19] MEDS: K and/or MAG REPLACEMENT MC SCH ×2 (06:43→18:43)
[2019-08-19] MEDS: mineral oil/petrolatum, white cream 113gm jar TP SCH ×2 (07:18→19:36)
[2019-08-19] MEDS: heparin, porcine 5000 units/ml vial SQ SCH ×2 (07:18→18:44)
[2019-08-19] MEDS: lisinopril 20mg tablet PO SCH (07:19)
[2019-08-19] MEDS: HYDROchlorothiazide 25mg tablet PO SCH (07:19)
[2019-08-19] MEDS: OLANZapine 5mg rapidly disint. tablet PO SCH ×2 (07:19→20:12)
[2019-08-19 10:00] VITALS: BP 110/47
--- NOTE | 2019-08-19 17:35 | NUR ---
Reassessment: Great appetite, 75-100% average PO intake of heart healthy diet. Patient has only had small BMs since admission, last BM 08/17; has prn bowel care available. May benefit from routine bowel care if no BM >2 days. Will continue to monitor. Recommend: 1. continue heart healthy diet 2. bowel care as needed 3. weight per rx Addendum: 08/19/19 at [address] Amended: Links added.
[2019-08-19 18:00] VITALS: BP 123/51
--- NOTE | 2019-08-19 18:16 | NUR ---
Problems reprioritized. Patient report given, questions answered & plan of care reviewed with Josh .
--- NOTE | 2019-08-19 19:59 | NUR ---
Went into patients room to perform a physical assessment. Patient refused to be examined stating she was feeling fine. Patient reports no pain and no shortness of breath. I asked if there was anything she needed and she stated she just wanted to sleep. Patient stated she put her Eurcerin cream on her feet.
[2019-08-19] MEDS: traZODone 50mg tablet PO SCH (20:00)
--- NOTE | 2019-08-19 20:03 | NUR ---
Patient did not want to elevate heels. Educated about the need to keep pressure off of her heels. Addendum: 08/19/19 at 2006 by Josh Garcia RN Amended: Links added.
--- NOTE | 2019-08-19 20:05 | NUR ---
Patient is currently on her back and does not want to be turned. States that she will turn herself through the night. PT is able to move on her own and has no mobility issues. Addendum: 08/19/19 at 2006 by Josh Garcia RN Amended: Links added.
--- NOTE | 2019-08-19 20:08 | NUR ---
Patient did not allow me to check her pulses. Addendum: 08/19/19 at 2010 by Josh Garcia RN Amended: Links added.
[2019-08-20 06:00] VITALS: BP 123/50
--- NOTE | 2019-08-20 06:07 | NUR ---
Problems reprioritized. Patient report given, questions answered & plan of care reviewed with Issa GUADARRAMA.
--- NOTE | 2019-08-20 06:09 | NUR ---
Patient in room ORTHO 4009. I have received report from [facility] and had the opportunity to ask questions and assume patient care.
[2019-08-20] MEDS: K and/or MAG REPLACEMENT MC SCH ×2 (06:21→19:06)
[2019-08-20] MEDS: OLANZapine 5mg rapidly disint. tablet PO SCH ×2 (07:21→20:08)
[2019-08-20] MEDS: lisinopril 20mg tablet PO SCH (07:21)
[2019-08-20] MEDS: mineral oil/petrolatum, white cream 113gm jar TP SCH ×2 (07:21→19:05)
[2019-08-20] MEDS: HYDROchlorothiazide 25mg tablet PO SCH (07:21)
[2019-08-20] MEDS: heparin, porcine 5000 units/ml vial SQ SCH ×2 (07:21→19:06)
[2019-08-20 10:12] VITALS: BP 119/45
[2019-08-20 18:00] VITALS: BP 127/53
--- NOTE | 2019-08-20 18:26 | NUR ---
Problems reprioritized. Patient report given, questions answered & plan of care reviewed with Artemio.
--- NOTE | 2019-08-20 18:27 | NUR ---
Patient in room ORTHO 4009. I have received report from Issa GUADARRAMA and had the opportunity to ask questions and assume patient care.
[2019-08-20] MEDS: traZODone 50mg tablet PO SCH (19:06)
[2019-08-20 22:00] VITALS: BP 101/41
[2019-08-21 06:00] VITALS: BP 142/59
--- NOTE | 2019-08-21 06:00 | NUR ---
Patient in room ORTHO 4009. I have received report from DAVID GUADARRAMA and had the opportunity to ask questions and assume patient care.
--- NOTE | 2019-08-21 06:01 | NUR ---
Problems reprioritized. Patient report given, questions answered & plan of care reviewed with Kelly GUADARRAMA.
[2019-08-21] MEDS: K and/or MAG REPLACEMENT MC SCH (08:00)
[2019-08-21] MEDS: heparin, porcine 5000 units/ml vial SQ SCH (08:00)
[2019-08-21] MEDS: mineral oil/petrolatum, white cream 113gm jar TP SCH ×2 (08:16→19:12)
[2019-08-21] MEDS: OLANZapine 5mg rapidly disint. tablet PO SCH ×2 (08:16→21:00)
[2019-08-21] MEDS: HYDROchlorothiazide 25mg tablet PO SCH (08:17)
[2019-08-21] MEDS: lisinopril 20mg tablet PO SCH (08:17)
[2019-08-21 10:00] VITALS: BP 116/46
[2019-08-21 18:00] VITALS: BP 111/46
--- NOTE | 2019-08-21 18:00 | NUR ---
Problems reprioritized. Patient report given, questions answered & plan of care reviewed with DAVID GUADARRAMA.
--- NOTE | 2019-08-21 18:27 | NUR ---
Patient in room ORTHO 4009. I have received report from Michelle GUADARRAMA and had the opportunity to ask questions and assume patient care.
[2019-08-21] MEDS: traZODone 50mg tablet PO SCH (19:13)
[2019-08-21 22:00] VITALS: BP 93/37
[2019-08-22 06:00] VITALS: BP 117/41
--- NOTE | 2019-08-22 06:16 | NUR ---
Problems reprioritized. Patient report given, questions answered & plan of care reviewed with Millie GUADARRAMA.
[2019-08-22] MEDS: mineral oil/petrolatum, white cream 113gm jar TP SCH ×2 (08:07→19:03)
[2019-08-22] MEDS: OLANZapine 5mg rapidly disint. tablet PO SCH ×2 (08:07→20:50)
[2019-08-22] MEDS: HYDROchlorothiazide 25mg tablet PO SCH (08:07)
[2019-08-22] MEDS: lisinopril 20mg tablet PO SCH (08:07)
[2019-08-22 09:32] VITALS: BP 130/46
[2019-08-22 18:00] VITALS: BP 110/45
--- NOTE | 2019-08-22 18:10 | NUR ---
Problems reprioritized. Patient report given, questions answered & plan of care reviewed with Silvina GUADARRAMA.
--- NOTE | 2019-08-22 18:14 | NUR ---
Patient in room ORTHO 4009. I have received report from Millie GUADARRAMA and had the opportunity to ask questions and assume patient care.
[2019-08-22] MEDS: traZODone 50mg tablet PO SCH (19:03)
[2019-08-22 22:00] VITALS: BP 99/58
--- NOTE | 2019-08-23 06:20 | NUR ---
Problems reprioritized. Patient report given, questions answered & plan of care reviewed with Wanda GUADARRAMA.
--- NOTE | 2019-08-23 06:45 | NUR ---
received report from Silvina GUADARRAMA
[2019-08-23 06:52] VITALS: BP 107/44
[2019-08-23] MEDS: lisinopril 20mg tablet PO SCH (08:00)
[2019-08-23] MEDS: HYDROchlorothiazide 25mg tablet PO SCH (08:00)
[2019-08-23] MEDS: OLANZapine 5mg rapidly disint. tablet PO SCH ×2 (08:00→20:23)
[2019-08-23] MEDS: mineral oil/petrolatum, white cream 113gm jar TP SCH ×2 (08:27→20:00)
[2019-08-23 10:00] VITALS: BP 113/47
--- NOTE | 2019-08-23 12:50 | NUR ---
Patient in room ORTHO 4009. I have received report from Wanda GUADARRAMA and had the opportunity to ask questions and assume patient care.
[2019-08-23 18:00] VITALS: BP 134/60
--- NOTE | 2019-08-23 18:00 | NUR ---
Problems reprioritized. Patient report given, questions answered & plan of care reviewed with Elena GUADARRAMA.
[2019-08-23] MEDS: traZODone 50mg tablet PO SCH (20:00)
[2019-08-23 22:00] VITALS: BP 144/55
--- NOTE | 2019-08-24 01:06 | NUR ---
PT REFUSED HER NIGHTTIME MEDICATIONS.
[2019-08-24 06:00] VITALS: BP 98/32
--- NOTE | 2019-08-24 06:21 | NUR ---
REPORT GIVEN TO THIERRY BENSON.
[2019-08-24] MEDS: mineral oil/petrolatum, white cream 113gm jar TP SCH ×2 (07:05→20:00)
[2019-08-24] MEDS: OLANZapine 5mg rapidly disint. tablet PO SCH ×2 (07:49→21:00)
[2019-08-24 07:50] VITALS: BP 128/60
[2019-08-24 10:00] VITALS: BP 136/46
[2019-08-24] MEDS: lisinopril 10 MG tablet PO SCH (12:42)
[2019-08-24 18:00] VITALS: BP 113/45
--- NOTE | 2019-08-24 18:00 | NUR ---
RECEIVED REPORT FROM MARCELINO GUADARRAMA AND ASSUMED PATIENT CARE
[2019-08-24] MEDS: traZODone 50mg tablet PO SCH (20:00)
--- NOTE | 2019-08-25 06:14 | NUR ---
REPORT GIVEN TO MARCELINO GUADARRAMA
[2019-08-25] MEDS: OLANZapine 5mg rapidly disint. tablet PO SCH ×2 (07:21→20:40)
[2019-08-25] MEDS: lisinopril 10 MG tablet PO SCH (07:22)
[2019-08-25] MEDS: mineral oil/petrolatum, white cream 113gm jar TP SCH ×2 (08:00→20:00)
[2019-08-25 10:00] VITALS: BP 109/49
--- NOTE | 2019-08-25 11:17 | NUR ---
Reassessment: Pt PO 100% avg meals meeting needs. LBM 08/21. No nutrition concerns at this time. Will continue to monitor. Recommend: 1. continue heart healthy diet 2. bowel care as needed 3. weight per rx Addendum: 08/25/19 at [address] Amended: Links added.
--- NOTE | 2019-08-25 17:56 | NUR ---
Today has been a good day for patient, she has appeared happy & smiling today. Excited about tomorrow being August 25-August.
[2019-08-25 18:00] VITALS: BP 112/52
[2019-08-25] MEDS: traZODone 50mg tablet PO SCH (20:00)
--- NOTE | 2019-08-25 20:41 | NUR ---
PT REFUSED MEDICATIONS AT BEDTIME STATING, "I DONT TAKE ANY MEDICATIONS AT NIGHT. "I'M NOT TAKING ANY PILLS." "I ONLY TAKE PILLS IN THE MORNING."
[2019-08-25 22:00] VITALS: BP 115/47
--- NOTE | 2019-08-26 06:05 | NUR ---
Patient in room ORTHO 4009. I have received report from Elena and had the opportunity to ask questions and assume patient care.
--- NOTE | 2019-08-26 06:08 | NUR ---
REPORT GIVEN TO THIERRY GU.
[2019-08-26] MEDS: lisinopril 10 MG tablet PO SCH (08:29)
[2019-08-26] MEDS: OLANZapine 5mg rapidly disint. tablet PO SCH ×2 (08:30→21:00)
[2019-08-26] MEDS: mineral oil/petrolatum, white cream 113gm jar TP SCH ×2 (08:30→20:00)
[2019-08-26 10:00] VITALS: BP 144/53
[2019-08-26 18:00] VITALS: BP 95/42
--- NOTE | 2019-08-26 18:04 | NUR ---
Problems reprioritized. Patient report given, questions answered & plan of care reviewed with Marlen.
[2019-08-26] MEDS: traZODone 50mg tablet PO SCH (20:00)
[2019-08-26 22:00] VITALS: BP 111/65
[2019-08-27 06:00] VITALS: BP 146/56
--- NOTE | 2019-08-27 06:44 | NUR ---
Patient in room ORTHO 4009. I have received report from Marlen GUADARRAMA and had the opportunity to ask questions and assume patient care.
[2019-08-27] MEDS: OLANZapine 5mg rapidly disint. tablet PO SCH ×2 (08:02→20:04)
[2019-08-27] MEDS: mineral oil/petrolatum, white cream 113gm jar TP SCH ×2 (08:02→20:03)
[2019-08-27] MEDS: lisinopril 10 MG tablet PO SCH (08:02)
[2019-08-27 10:00] VITALS: BP 149/66
[2019-08-27 18:00] VITALS: BP 137/47
--- NOTE | 2019-08-27 18:21 | NUR ---
Problems reprioritized. Patient report given, questions answered & plan of care reviewed with Annalisa GUADARRAMA.
--- NOTE | 2019-08-27 18:25 | NUR ---
Patient in room ORTHO 4009. I have received report from Malathi GUADARRAMA and had the opportunity to ask questions and assume patient care.
[2019-08-27] MEDS: traZODone 50mg tablet PO SCH (20:00)
--- NOTE | 2019-08-27 20:05 | NUR ---
Patient states she takes no nightime meds, refusing all meds. Patient did put the lotion on her feet.
--- NOTE | 2019-08-27 22:00 | NUR ---
Patient refused 2200 vitals
[2019-08-28 06:00] VITALS: BP 148/68
--- NOTE | 2019-08-28 06:13 | NUR ---
Problems reprioritized. Patient report given, questions answered & plan of care reviewed with Malathi GUADARRAMA.
--- NOTE | 2019-08-28 06:23 | NUR ---
Patient in room ORTHO 4009. I have received report from Annalisa GUADARRAMA and had the opportunity to ask questions and assume patient care.
[2019-08-28] MEDS: lisinopril 10 MG tablet PO SCH (07:39)
[2019-08-28] MEDS: OLANZapine 5mg rapidly disint. tablet PO SCH ×2 (07:39→21:00)
[2019-08-28] MEDS: mineral oil/petrolatum, white cream 113gm jar TP SCH ×2 (07:39→20:10)
[2019-08-28 09:40] VITALS: BP 113/49
--- NOTE | 2019-08-28 18:18 | NUR ---
Problems reprioritized. Patient report given, questions answered & plan of care reviewed with Prudence RN.
--- NOTE | 2019-08-28 18:35 | NUR ---
Patient in room ORTHO 4009. I have received report from RUBY GUADARRAMA and had the opportunity to ask questions and assume patient care. patient is alert and oriented and denies having pain.
[2019-08-28 18:59] VITALS: BP 109/65
[2019-08-28] MEDS: traZODone 50mg tablet PO SCH (20:00)
[2019-08-28 22:00] VITALS: BP 106/46
[2019-08-29 06:00] VITALS: BP 106/44
--- NOTE | 2019-08-29 06:10 | NUR ---
Patient in room ORTHO 4009. I have received report from PELON GUADARRAMA and had the opportunity to ask questions and assume patient care.
--- NOTE | 2019-08-29 06:17 | NUR ---
Problems reprioritized. Patient report given, questions answered & plan of care reviewed with KALPANA GUADARRAMA.
[2019-08-29] MEDS: OLANZapine 5mg rapidly disint. tablet PO SCH ×2 (07:42→21:00)
[2019-08-29] MEDS: lisinopril 10 MG tablet PO SCH (07:43)
[2019-08-29] MEDS: mineral oil/petrolatum, white cream 113gm jar TP SCH ×2 (07:43→20:00)
[2019-08-29 10:00] VITALS: BP 107/43
[2019-08-29 18:00] VITALS: BP 121/38
--- NOTE | 2019-08-29 18:07 | NUR ---
Patient in room ORTHO 4009. I have received report from SONNY GUADARRAMA and had the opportunity to ask questions and assume patient care. Addendum: 08/29/19 at 1816 by Michelle Holly RN GAVE REPORT TO SONNY GUADARRAMA
--- NOTE | 2019-08-29 18:10 | NUR ---
Patient in room ORTHO 4009B. I have received report from THIERRY Martinez and had the opportunity to ask questions and assume patient care.
[2019-08-29] MEDS: traZODone 50mg tablet PO SCH (20:00)
--- NOTE | 2019-08-29 22:07 | NUR ---
Patient refused scheduled medications and 22:00 vital signs
[2019-08-30 06:00] VITALS: BP 129/59
--- NOTE | 2019-08-30 06:35 | NUR ---
Problems reprioritized. Patient report given, questions answered & plan of care reviewed with THIERRY Murphy.
[2019-08-30 08:48] VITALS: BP 136/66
[2019-08-30] MEDS: OLANZapine 5mg rapidly disint. tablet PO SCH ×2 (08:54→19:50)
[2019-08-30] MEDS: lisinopril 10 MG tablet PO SCH (08:54)
[2019-08-30] MEDS: mineral oil/petrolatum, white cream 113gm jar TP SCH ×2 (08:55→19:50)
[2019-08-30 11:30] VITALS: BP 123/85
--- NOTE | 2019-08-30 18:22 | NUR ---
REPORT TO EDITH GUADARRAMA
--- NOTE | 2019-08-30 18:30 | NUR ---
Patient in room ORTHO 4009. I have received report from mendoza Murphy and had the opportunity to ask questions and assume patient care.
--- NOTE | 2019-08-30 18:59 | NUR ---
PT REFUSED VS
[2019-08-30] MEDS: traZODone 50mg tablet PO SCH (19:50)
[2019-08-30 22:00] VITALS: BP 122/57
[2019-08-31 06:00] VITALS: BP 130/66
--- NOTE | 2019-08-31 06:10 | NUR ---
Problems reprioritized. Patient report given, questions answered & plan of care reviewed with mendoza Murphy.
[2019-08-31] MEDS: OLANZapine 5mg rapidly disint. tablet PO SCH ×2 (07:57→20:08)
[2019-08-31] MEDS: lisinopril 10 MG tablet PO SCH (07:57)
[2019-08-31] MEDS: mineral oil/petrolatum, white cream 113gm jar TP SCH ×2 (08:00→20:29)
[2019-08-31 10:00] VITALS: BP 138/56
[2019-08-31 18:00] VITALS: BP 132/70
--- NOTE | 2019-08-31 18:26 | NUR ---
Problems reprioritized. Patient report given, questions answered & plan of care reviewed with Susan GUADARRAMA.
[2019-08-31] MEDS: traZODone 50mg tablet PO SCH (20:00)
[2019-09-01 06:00] VITALS: BP 110/53
[2019-09-01] MEDS: OLANZapine 5mg rapidly disint. tablet PO SCH ×2 (08:41→20:12)
[2019-09-01] MEDS: mineral oil/petrolatum, white cream 113gm jar TP SCH ×2 (08:47→20:12)
[2019-09-01] MEDS: lisinopril 10 MG tablet PO SCH (08:47)
[2019-09-01 11:11] VITALS: BP 11/53
--- NOTE | 2019-09-01 12:33 | NUR ---
Reassessment: Pt PO 100% avg meals meeting needs. LBM 08/30. No nutrition concerns at this time. Will continue to monitor. Recommend: 1. continue heart healthy diet 2. bowel care as needed 3. weight per rx Addendum: 09/01/19 at [address] Amended: Links added.
[2019-09-01 18:00] VITALS: BP 130/54
--- NOTE | 2019-09-01 18:39 | NUR ---
Patient in room ORTHO 4009. I have received report from Krystyna GUADARRAMA and had the opportunity to ask questions and assume patient care.
[2019-09-01] MEDS: traZODone 50mg tablet PO SCH (20:00)
[2019-09-01 22:12] VITALS: BP 148/62
--- NOTE | 2019-09-02 06:25 | NUR ---
Patient in room ORTHO 4009. I have received report from Adrianna Cruz and had the opportunity to ask questions and assume patient care.
--- NOTE | 2019-09-02 06:26 | NUR ---
Problems reprioritized. Patient report given, questions answered & plan of care reviewed with Radha GUADARRAMA.
[2019-09-02 06:40] VITALS: BP 108/43
[2019-09-02 07:52] VITALS: BP 118/75
[2019-09-02] MEDS: OLANZapine 5mg rapidly disint. tablet PO SCH ×2 (07:53→21:00)
[2019-09-02] MEDS: lisinopril 10 MG tablet PO SCH (07:53)
[2019-09-02] MEDS: mineral oil/petrolatum, white cream 113gm jar TP SCH ×2 (07:54→19:55)
[2019-09-02 18:00] VITALS: BP 136/53
--- NOTE | 2019-09-02 18:07 | NUR ---
Problems reprioritized. Patient report given, questions answered & plan of care reviewed with Óscar.
--- NOTE | 2019-09-02 18:07 | NUR ---
Patient in room ORTHO 4009. I have received report from THIERRY Garcia and had the opportunity to ask questions and assume patient care.
[2019-09-02] MEDS: traZODone 50mg tablet PO SCH (19:55)
[2019-09-02 22:00] VITALS: BP 96/43
--- NOTE | 2019-09-03 06:11 | NUR ---
Patient in room ORTHO 4009. I have received report from Óscar GUADARRAMA and had the opportunity to ask questions and assume patient care.
--- NOTE | 2019-09-03 06:12 | NUR ---
Problems reprioritized. Patient report given, questions answered & plan of care reviewed with THIERRY Jones.
--- NOTE | 2019-09-03 06:17 | NUR ---
patient apparently refused her am vitals, I will try again to take them soon
[2019-09-03] MEDS: OLANZapine 5mg rapidly disint. tablet PO SCH ×3 (07:48→20:09)
[2019-09-03] MEDS: lisinopril 10 MG tablet PO SCH (07:48)
[2019-09-03] MEDS: mineral oil/petrolatum, white cream 113gm jar TP SCH ×2 (07:48→20:00)
[2019-09-03 10:00] VITALS: BP 140/58
[2019-09-03 18:00] VITALS: BP 160/67
--- NOTE | 2019-09-03 18:19 | NUR ---
Problems reprioritized. Patient report given, questions answered & plan of care reviewed with Sujatha Rodriguez RN.
[2019-09-03] MEDS: traZODone 50mg tablet PO SCH (20:00)
[2019-09-04 06:00] VITALS: BP 151/75
--- NOTE | 2019-09-04 06:17 | NUR ---
Problems reprioritized. Patient report given, questions answered & plan of care reviewed with THIERRY Servin.
--- NOTE | 2019-09-04 06:30 | NUR ---
Patient in room ORTHO 4009. I have received report from Sujatha Rodriguez RN and had the opportunity to ask questions and assume patient care.
[2019-09-04] MEDS: OLANZapine 5mg rapidly disint. tablet PO SCH ×2 (08:00→21:00)
[2019-09-04] MEDS: lisinopril 10 MG tablet PO SCH (08:03)
[2019-09-04] MEDS: mineral oil/petrolatum, white cream 113gm jar TP SCH ×2 (08:04→19:02)
[2019-09-04 09:53] VITALS: BP 144/71
[2019-09-04 18:00] VITALS: BP 154/56
--- NOTE | 2019-09-04 18:15 | NUR ---
Patient in room ORTHO 4009. I have received report from Malathi GUADARRAMA and had the opportunity to ask questions and assume patient care.
--- NOTE | 2019-09-04 18:15 | NUR ---
Problems reprioritized. Patient report given, questions answered & plan of care reviewed with Sujatha Rodriguez RN.
[2019-09-04] MEDS: traZODone 50mg tablet PO SCH (19:02)
[2019-09-04 22:00] VITALS: BP 117/52
[2019-09-05 06:00] VITALS: BP 127/56
--- NOTE | 2019-09-05 06:07 | NUR ---
Problems reprioritized. Patient report given, questions answered & plan of care reviewed with Malathi GUADARRAMA.
--- NOTE | 2019-09-05 06:23 | NUR ---
Patient in room ORTHO 4009. I have received report from Sujatha Rodriguez RN and had the opportunity to ask questions and assume patient care.
[2019-09-05] MEDS: mineral oil/petrolatum, white cream 113gm jar TP SCH ×2 (08:00→19:24)
[2019-09-05] MEDS: OLANZapine 5mg rapidly disint. tablet PO SCH (08:00)
[2019-09-05] MEDS: lisinopril 10 MG tablet PO SCH (08:27)
[2019-09-05 10:00] VITALS: BP 142/58
[2019-09-05 18:00] VITALS: BP 124/63
--- NOTE | 2019-09-05 18:12 | NUR ---
Problems reprioritized. Patient report given, questions answered & plan of care reviewed with Naima GUADARRAMA and Elizabeth GUADARRAMA.
--- NOTE | 2019-09-05 18:15 | NUR ---
Patient in room ORTHO 4009. I have received report from Malathi GUADARRAMA and had the opportunity to ask questions and assume patient care.
[2019-09-05] MEDS: traZODone 50mg tablet PO SCH (19:24)
[2019-09-05 22:00] VITALS: BP 93/57
--- NOTE | 2019-09-06 02:16 | NUR ---
Problems reprioritized. Patient report given, questions answered & plan of care reviewed with Prudence RN.
[2019-09-06 06:00] VITALS: BP 155/66
--- NOTE | 2019-09-06 06:21 | NUR ---
Problems reprioritized. Patient report given, questions answered & plan of care reviewed with Katherine GUADARRAMA.
--- NOTE | 2019-09-06 06:30 | NUR ---
Patient in room ORTHO 4009. I have received report from Elizabeth GUADARRAMA and had the opportunity to ask questions and assume patient care.
[2019-09-06] MEDS: mineral oil/petrolatum, white cream 113gm jar TP SCH ×2 (08:00→20:01)
[2019-09-06] MEDS: lisinopril 10 MG tablet PO SCH (08:29)
[2019-09-06] MEDS: OLANZapine 5mg rapidly disint. tablet PO SCH (08:30)
[2019-09-06 10:00] VITALS: BP 119/54
--- NOTE | 2019-09-06 17:37 | NUR ---
Encouraged patient to take olanzapine tablet. She considered it for a few minutes then stated "no I don't think so, I was weepy earlier but feeling pretty melancholy right now."
[2019-09-06 18:00] VITALS: BP 115/60
--- NOTE | 2019-09-06 18:04 | NUR ---
Problems reprioritized. Patient report given, questions answered & plan of care reviewed with Nichole GUADARRAMA.
--- NOTE | 2019-09-06 18:17 | NUR ---
Report rec'd from mendoza Murphy.
[2019-09-06] MEDS: traZODone 50mg tablet PO SCH (20:00)
[2019-09-06 22:00] VITALS: BP 133/66
[2019-09-07 06:00] VITALS: BP 121/49
--- NOTE | 2019-09-07 06:03 | NUR ---
Report given to mendoza Greenwood.
--- NOTE | 2019-09-07 06:26 | NUR ---
Patient in room ORTHO 4009. I have received report from Nichole GUADARRAMA and had the opportunity to ask questions and assume patient care.
[2019-09-07] MEDS: lisinopril 10 MG tablet PO SCH (07:47)
[2019-09-07] MEDS: mineral oil/petrolatum, white cream 113gm jar TP SCH ×2 (08:00→20:00)
[2019-09-07] MEDS: OLANZapine 5mg rapidly disint. tablet PO SCH (08:00)
[2019-09-07 10:00] VITALS: BP 132/60
--- NOTE | 2019-09-07 11:41 | NUR ---
Reassessment: Pt PO 100% avg meals meeting needs. LBM 09/04. No nutrition concerns at this time. Will continue to monitor. Recommend: 1. continue heart healthy/mechanical soft diet 2. bowel care as needed 3. weight per rx Addendum: 09/07/19 at [address] Amended: Links added.
--- NOTE | 2019-09-07 18:09 | NUR ---
Problems reprioritized. Patient report given, questions answered & plan of care reviewed with Yarely GUADARRAMA and Manuel.
--- NOTE | 2019-09-07 18:24 | NUR ---
Patient in room ORTHO 4009. I have received report from Krystyna Bryan RN and had the opportunity to ask questions and assume patient care.
[2019-09-07 18:52] VITALS: BP 125/51
[2019-09-07] MEDS: traZODone 50mg tablet PO SCH (20:00)
[2019-09-07 22:00] VITALS: BP 128/46
--- NOTE | 2019-09-07 23:38 | NUR ---
No wounds present at this time. Pt has Rx Eucerin cream for previous foot wounds that she was admitted with that have healed. Pt applies herself once daily (am) and refuses assistance or to apply at night as Rx in order Addendum: 09/07/19 at 2341 by Adrianna Gonzalez RN Amended: Links added.
[2019-09-08 06:00] VITALS: BP 131/68
--- NOTE | 2019-09-08 06:18 | NUR ---
Problems reprioritized. Patient report given, questions answered & plan of care reviewed with Krystyna GUADARRAMA & Katherine GUADARRAMA.
[2019-09-08] MEDS: lisinopril 10 MG tablet PO SCH (07:14)
[2019-09-08] MEDS: mineral oil/petrolatum, white cream 113gm jar TP SCH ×2 (07:15→20:00)
[2019-09-08] MEDS: OLANZapine 5mg rapidly disint. tablet PO SCH ×3 (07:16→08:00)
[2019-09-08 10:00] VITALS: BP 142/66
[2019-09-08 18:00] VITALS: BP 168/73
--- NOTE | 2019-09-08 18:29 | NUR ---
Problems reprioritized. Patient report given, questions answered & plan of care reviewed with Leix GUADARRAMA.
--- NOTE | 2019-09-08 19:19 | NUR ---
RECEIVED REPORT FROM PAOLA GUADARRAMA AND ASSUMED PATIENT CARE
[2019-09-08] MEDS: traZODone 50mg tablet PO SCH (20:00)
[2019-09-08 22:00] VITALS: BP 118/48
[2019-09-09 02:00] VITALS: BP 143/67
--- NOTE | 2019-09-09 06:10 | NUR ---
REPORT GIVEN TO TONY GUADARRAMA
--- NOTE | 2019-09-09 06:15 | NUR ---
Patient in room PCU 3023. I have received report from Yarely GUADARRAMA and had the opportunity to ask questions and assume patient care.
[2019-09-09 06:44] VITALS: BP 137/38
[2019-09-09] MEDS: lisinopril 10 MG tablet PO SCH (07:41)
[2019-09-09] MEDS: OLANZapine 5mg rapidly disint. tablet PO SCH (07:42)
[2019-09-09] MEDS: mineral oil/petrolatum, white cream 113gm jar TP SCH ×2 (08:00→19:34)
[2019-09-09 11:00] VITALS: BP 122/48
[2019-09-09 15:00] VITALS: BP 110/51
[2019-09-09 18:00] VITALS: BP 112/65
--- NOTE | 2019-09-09 18:14 | NUR ---
Patient in room PCU 3023. I have received report from Karen GUADARRAMA and had the opportunity to ask questions and assume patient care.
--- NOTE | 2019-09-09 18:21 | NUR ---
Problems reprioritized. Patient report given, questions answered & plan of care reviewed with Annailsa GUADARRAMA.
[2019-09-09] MEDS: traZODone 50mg tablet PO SCH (19:35)
[2019-09-09 22:00] VITALS: BP 134/53
--- NOTE | 2019-09-10 02:00 | NUR ---
Patient refusing 0200 vitals
--- NOTE | 2019-09-10 06:17 | NUR ---
Problems reprioritized. Patient report given, questions answered & plan of care reviewed with Lazaro GUADARRAMA.
--- NOTE | 2019-09-10 06:43 | NUR ---
Patient in room PCU 3023. I have received report from Annalisa GUADARRAMA and had the opportunity to ask questions and assume patient care.
[2019-09-10 07:00] VITALS: BP 168/78
[2019-09-10] MEDS: OLANZapine 5mg rapidly disint. tablet PO SCH (08:00)
[2019-09-10] MEDS: lisinopril 10 MG tablet PO SCH (08:04)
[2019-09-10] MEDS: mineral oil/petrolatum, white cream 113gm jar TP SCH ×2 (08:05→19:22)
[2019-09-10 11:00] VITALS: BP 124/45
[2019-09-10 15:00] VITALS: BP 119/49
[2019-09-10 18:00] VITALS: BP 145/65
--- NOTE | 2019-09-10 18:23 | NUR ---
Problems reprioritized. Patient report given, questions answered & plan of care reviewed with Elizabeth GUADARRAMA.
--- NOTE | 2019-09-10 18:29 | NUR ---
Patient in room PCU 3023. I have received report from Lazaro GUADARRAMA and had the opportunity to ask questions and assume patient care.
[2019-09-10] MEDS: traZODone 50mg tablet PO SCH (19:22)
[2019-09-10 22:00] VITALS: BP 147/65
[2019-09-11 06:00] VITALS: BP 120/42
--- NOTE | 2019-09-11 06:17 | NUR ---
Problems reprioritized. Patient report given, questions answered & plan of care reviewed with Radha GUADARRAMA.
--- NOTE | 2019-09-11 06:20 | NUR ---
Patient in room PCU 3023. I have received report from Elizabeth and had the opportunity to ask questions and assume patient care.
[2019-09-11] MEDS: OLANZapine 5mg rapidly disint. tablet PO SCH (08:00)
[2019-09-11] MEDS: mineral oil/petrolatum, white cream 113gm jar TP SCH ×2 (08:10→20:00)
[2019-09-11 08:11] VITALS: BP 125/69
[2019-09-11] MEDS: lisinopril 10 MG tablet PO SCH (08:11)
[2019-09-11 11:00] VITALS: BP 131/65
[2019-09-11 15:00] VITALS: BP 120/49
[2019-09-11 18:00] VITALS: BP 140/49
--- NOTE | 2019-09-11 18:07 | NUR ---
Problems reprioritized. Patient report given, questions answered & plan of care reviewed with Óscar.
--- NOTE | 2019-09-11 18:07 | NUR ---
Patient in room U 3023-B. I have received report from THIERRY Garcia and had the opportunity to ask questions and assume patient care.
[2019-09-11] MEDS: traZODone 50mg tablet PO SCH (20:00)
--- NOTE | 2019-09-11 22:50 | NUR ---
Patient refused VS scheduled to be taken at 22:00
[2019-09-12 02:00] VITALS: BP 101/36
--- NOTE | 2019-09-12 06:24 | NUR ---
Problems reprioritized. Patient report given, questions answered & plan of care reviewed with THIERRY Jones.
--- NOTE | 2019-09-12 06:30 | NUR ---
Patient in room PCU 3023. I have received report from Óscar GUADARRAMA and had the opportunity to ask questions and assume patient care.
[2019-09-12 07:00] VITALS: BP 127/45
[2019-09-12] MEDS: OLANZapine 5mg rapidly disint. tablet PO SCH (08:00)
[2019-09-12] MEDS: mineral oil/petrolatum, white cream 113gm jar TP SCH ×2 (08:00→21:15)
[2019-09-12] MEDS: lisinopril 10 MG tablet PO SCH (08:16)
[2019-09-12 11:00] VITALS: BP 119/53
--- NOTE | 2019-09-12 11:57 | NUR ---
PAGER ID: [phone] MESSAGE: DR. Ramirez patient Amy Savage looks to have a yeast area under her left breast she is complaining about. Karen [phone] Addendum: 09/12/19 at 1212 by Shiloh Magaña RN Patient agreed to use nysatin cream instead of nystatin powder, Dr Ramirez talked to the patient about this. Patient would like neosprin for this but Dr. Ramirez said we should try the nystatin cream first, since its probably yeast, but the patient doesn't think it's yeast.
[2019-09-12 15:00] VITALS: BP 144/42
[2019-09-12 18:00] VITALS: BP 138/51
--- NOTE | 2019-09-12 18:04 | NUR ---
Problems reprioritized. Patient report given, questions answered & plan of care reviewed with Silvina GUADARRAMA.
--- NOTE | 2019-09-12 18:51 | NUR ---
Patient in room PCU 3023. I have received report from THIERRY Jones and had the opportunity to ask questions and assume patient care.
[2019-09-12] MEDS ORDERED: NYSTATIN CREAM - 30GM TUBE TP SCH ×4 (20:00)
[2019-09-12] MEDS: traZODone 50mg tablet PO SCH (21:14)
[2019-09-12] MEDS: NYSTATIN CREAM - 30GM TUBE TP SCH ×2 (21:14→21:16)
[2019-09-12 22:00] VITALS: BP 123/44
[2019-09-13 02:00] VITALS: BP 145/53
[2019-09-13 06:00] VITALS: BP 150/63
--- NOTE | 2019-09-13 06:05 | NUR ---
RECEIVED REPORT FROM THIERRY HERNANDEZ
--- NOTE | 2019-09-13 06:19 | NUR ---
Problems reprioritized. Patient report given, questions answered & plan of care reviewed with THIERRY German.
[2019-09-13] MEDS: OLANZapine 5mg rapidly disint. tablet PO SCH (08:00)
[2019-09-13] MEDS: mineral oil/petrolatum, white cream 113gm jar TP SCH ×2 (08:18→19:35)
[2019-09-13] MEDS: lisinopril 10 MG tablet PO SCH (08:18)
[2019-09-13] MEDS: NYSTATIN CREAM - 30GM TUBE TP SCH ×2 (08:18→19:35)
--- NOTE | 2019-09-13 08:18 | NUR ---
[facility] not scanning med into computer, checked all meds prior to admin, continue to monitor
[2019-09-13 11:00] VITALS: BP 147/55
[2019-09-13 15:00] VITALS: BP 139/76
--- NOTE | 2019-09-13 18:14 | NUR ---
gave report to mendoza luna
--- NOTE | 2019-09-13 18:15 | NUR ---
Patient in room PCU 3023. I have received report from THIERRY German and had the opportunity to ask questions and assume patient care.
[2019-09-13 19:00] VITALS: BP 160/74
[2019-09-13] MEDS: traZODone 50mg tablet PO SCH (19:35)
[2019-09-13 22:00] VITALS: BP 141/51
--- NOTE | 2019-09-13 22:00 | NUR ---
Patient refused for me to do an assessment on her. She stated "you don't need to listen to my lungs. They are fine." Patient alert and walking around room at time. She is in no apparent distress. Pt can tell me who she is and that she is at the hospital. She refused to let me examine her at all and also refused night time medications. Addendum: 09/13/19 at 2203 by Elizabeth Tapia RN Amended: Links added.
[2019-09-14 02:00] VITALS: BP 148/63
--- NOTE | 2019-09-14 06:13 | NUR ---
Problems reprioritized. Patient report given, questions answered & plan of care reviewed with Richard.
[2019-09-14 07:00] VITALS: BP 140/54
[2019-09-14] MEDS: OLANZapine 5mg rapidly disint. tablet PO SCH (08:51)
[2019-09-14] MEDS: lisinopril 10 MG tablet PO SCH (08:51)
[2019-09-14] MEDS: NYSTATIN CREAM - 30GM TUBE TP SCH ×2 (08:52→20:47)
[2019-09-14] MEDS: mineral oil/petrolatum, white cream 113gm jar TP SCH ×2 (08:53→20:47)
--- NOTE | 2019-09-14 10:23 | NUR ---
Reassessment: Pt PO 100% average meals meeting needs. Last BM 09/13. No nutrition concerns at this time. Will continue to monitor. Recommend: 1. continue heart healthy/mechanical soft diet 2. bowel care as needed 3. weight per rx Addendum: 09/14/19 at [address] Amended: Links added.
[2019-09-14 11:00] VITALS: BP 147/69
[2019-09-14 15:00] VITALS: BP 151/51
--- NOTE | 2019-09-14 18:25 | NUR ---
Problems reprioritized. Patient report given, questions answered & plan of care reviewed with Bruna GUADARRAMA. Patient stable at transfer of care.
--- NOTE | 2019-09-14 18:25 | NUR ---
Problems reprioritized. Patient report given, questions answered & plan of care reviewed with Bruna GUADARRAMA. Patient stable at this time.
--- NOTE | 2019-09-14 18:35 | NUR ---
Patient in room PCU 3023. I have received report from and had the opportunity to ask questions and assume patient care.
--- NOTE | 2019-09-14 18:35 | NUR ---
[place] documentation: I have reviewed and agree with all interventions, assessments performed and documented by THIERRY Laureano. [place] Medication Administration: For this medication-pass time frame, all medication were reviewed, dispensed, administered and documented per hospital policy by THIERRY Laureano.
[2019-09-14 19:00] VITALS: BP 146/56
[2019-09-14] MEDS: traZODone 50mg tablet PO SCH (20:00)
[2019-09-14 23:00] VITALS: BP 128/63
[2019-09-15 03:00] VITALS: BP 145/65
--- NOTE | 2019-09-15 06:22 | NUR ---
Problems reprioritized. Patient report given, questions answered & plan of care reviewed with Priscilla and Sridevi RNs.
--- NOTE | 2019-09-15 06:38 | NUR ---
Patient in room PCU 3023. I have received report from Bruna GUADARRAMA and had the opportunity to ask questions and assume patient care. Patient awake in bed. Offers no complaints at this time. All immediate needs met.
--- NOTE | 2019-09-15 06:40 | NUR ---
Patient in room PCU 3023. I have received report from Bruna GUADARRAMA and had the opportunity to ask questions and assume patient care.
[2019-09-15 07:00] VITALS: BP 107/63
[2019-09-15] MEDS: OLANZapine 5mg rapidly disint. tablet PO SCH (07:28)
[2019-09-15] MEDS: lisinopril 10 MG tablet PO SCH (07:28)
[2019-09-15] MEDS: mineral oil/petrolatum, white cream 113gm jar TP SCH ×2 (07:30→20:11)
[2019-09-15] MEDS: NYSTATIN CREAM - 30GM TUBE TP SCH ×2 (07:30→20:11)
--- NOTE | 2019-09-15 10:51 | NUR ---
Dr. Ramirez at bedside with patient. New order Neosporin TID to affected areas under breast and left side above hip.
[2019-09-15 11:00] VITALS: BP 141/70
[2019-09-15 15:00] VITALS: BP 146/59
[2019-09-15] MEDS: neomy sulf/bacitrac zn/polymixin b oint 14.2 gm tube TP SCH ×2 (15:08→21:00)
--- NOTE | 2019-09-15 17:59 | NUR ---
[place] documentation: I have reviewed and agree with all interventions, assessments performed and documented by THIERRY Laureano. [place] Medication Administration: For this medication-pass time frame, all medication were reviewed, dispensed, administered and documented per hospital policy by TIHERRY Laureano.
[2019-09-15 18:00] VITALS: BP 144/47
--- NOTE | 2019-09-15 18:22 | NUR ---
Problems reprioritized. Patient report given, questions answered & plan of care reviewed with Bruna GUADARRAMA, Patient VSS.
--- NOTE | 2019-09-15 18:23 | NUR ---
Problems reprioritized. Patient report given, questions answered & plan of care reviewed with Bruna GUADARRAMA. Patient stable at transfer of care.
[2019-09-15] MEDS: traZODone 50mg tablet PO SCH (20:00)
--- NOTE | 2019-09-15 20:11 | NUR ---
PT RESFUSES HELP WITH CREAMS FOR RASH, DRY SKIN
[2019-09-15 22:00] VITALS: BP 152/53
--- NOTE | 2019-09-16 06:02 | NUR ---
Problems reprioritized. Patient report given, questions answered & plan of care reviewed with .
--- NOTE | 2019-09-16 06:27 | NUR ---
Patient in room PCU 3023. I have received report from Bruna GUADARRAMA and had the opportunity to ask questions and assume patient care. Patient up and walking around PCU. Offers no complaints at this time.
--- NOTE | 2019-09-16 06:29 | NUR ---
Patient in room PCU 3023. I have received report from Bruna GUADARRAMA and had the opportunity to ask questions and assume patient care.
--- NOTE | 2019-09-16 07:11 | NUR ---
Patient refused 0700 vitals, this morning.
[2019-09-16] MEDS: lisinopril 10 MG tablet PO SCH (07:22)
[2019-09-16] MEDS: neomy sulf/bacitrac zn/polymixin b oint 14.2 gm tube TP SCH ×3 (07:22→20:10)
[2019-09-16] MEDS: mineral oil/petrolatum, white cream 113gm jar TP SCH ×2 (07:23→20:08)
[2019-09-16] MEDS: NYSTATIN CREAM - 30GM TUBE TP SCH ×2 (07:23→07:26)
[2019-09-16] MEDS: OLANZapine 5mg rapidly disint. tablet PO SCH (07:26)
--- NOTE | 2019-09-16 09:52 | NUR ---
Patient was prompted to do wound care per MD orders. Patient refused care and stated that she does all her own wound care. Patient was also prompted to do daren care and am care, which patient also refused all care. I was able to obtain a BP, HR, this am before giving medications. BP 142/73, O2 98%RA, HR92, RR14. Patient is stable and vocalized that she had a bad day yesterday. Skid socks are on, bed in low lock position, call light in reach with items. Will continue to monitor.
[2019-09-16 11:00] VITALS: BP 141/64
--- NOTE | 2019-09-16 13:34 | NUR ---
Patient was prompted to apply ointment to affected areas, per MD orders. Patient explained that she will apply it to her skin now. Patient then went into the bathroom to address it. Will continue to monitor, and prompt
[2019-09-16 15:00] VITALS: BP 148/68
[2019-09-16] MEDS: nystatin 15 GM powder TP SCH ×2 (15:57→20:08)
[2019-09-16 18:00] VITALS: BP 142/67
--- NOTE | 2019-09-16 18:17 | NUR ---
Problems reprioritized. Patient report given, questions answered & plan of care reviewed with Fabiana GUADARRAMA. Patients vital signs are stable. Patient in room resting in chair in no apparent stress.
--- NOTE | 2019-09-16 18:47 | NUR ---
Problems reprioritized. Patient report given, questions answered & plan of care reviewed with Fabiana GUADARRAMA. Patient stable at transfer of care.
[2019-09-16] MEDS: traZODone 50mg tablet PO SCH (20:00)
[2019-09-16 22:00] VITALS: BP 130/52
[2019-09-17 02:00] VITALS: BP 153/68
--- NOTE | 2019-09-17 06:34 | NUR ---
Problems reprioritized. Patient report given, questions answered & plan of care reviewed with THIERRY Berger.
[2019-09-17 07:00] VITALS: BP 145/51
--- NOTE | 2019-09-17 07:09 | NUR ---
Patient in room PCU 3023. I have received report from THIERRY morrow and had the opportunity to ask questions and assume patient care.
[2019-09-17] MEDS: OLANZapine 5mg rapidly disint. tablet PO SCH (08:00)
[2019-09-17] MEDS: NYSTATIN CREAM - 30GM TUBE TP SCH ×2 (08:00→19:38)
[2019-09-17] MEDS: lisinopril 10 MG tablet PO SCH (08:00)
[2019-09-17] MEDS: mineral oil/petrolatum, white cream 113gm jar TP SCH ×2 (08:00→19:38)
[2019-09-17] MEDS: neomy sulf/bacitrac zn/polymixin b oint 14.2 gm tube TP SCH ×3 (08:00→19:36)
[2019-09-17] MEDS: nystatin 15 GM powder TP SCH ×3 (08:00→19:35)
--- NOTE | 2019-09-17 08:40 | NUR ---
Pt aggressive this morning after refusing morning medication and performing a physical assessment. Will try again.
--- NOTE | 2019-09-17 16:00 | NUR ---
Pt transferred to [facility]
[2019-09-17 18:00] VITALS: BP 139/49
--- NOTE | 2019-09-17 18:05 | NUR ---
Patient in room ORTHO 4009. I have received report from THIERRY Fang and had the opportunity to ask questions and assume patient care. Addendum: 09/17/19 at 1807 by Celine Neely RN Problems reprioritized. Patient report given, questions answered & plan of care reviewed with THIERRY Fang.
--- NOTE | 2019-09-17 18:09 | NUR ---
Patient in room ORTHO 4009. I have received report from Celine GUADARRAMA and had the opportunity to ask questions and assume patient care.
[2019-09-17] MEDS: traZODone 50mg tablet PO SCH (19:38)
--- NOTE | 2019-09-17 19:55 | NUR ---
Patient allowed nursing to help place Neosporin cream on her Right hip and nystatin powder under Left breast. Refusing lotion on her feet
--- NOTE | 2019-09-17 22:00 | NUR ---
Patient refusing 2200 vitals
--- NOTE | 2019-09-18 06:25 | NUR ---
Problems reprioritized. Patient report given, questions answered & plan of care reviewed with Issa GUADARRAMA.
--- NOTE | 2019-09-18 06:29 | NUR ---
Patient in room ORTHO 4009. I have received report from Annalisa GUADARRAMA and had the opportunity to ask questions and assume patient care.
[2019-09-18] MEDS: NYSTATIN CREAM - 30GM TUBE TP SCH ×2 (07:00→20:00)
[2019-09-18] MEDS: nystatin 15 GM powder TP SCH ×3 (07:00→20:04)
[2019-09-18] MEDS: mineral oil/petrolatum, white cream 113gm jar TP SCH ×2 (07:00→20:00)
[2019-09-18] MEDS: neomy sulf/bacitrac zn/polymixin b oint 14.2 gm tube TP SCH ×3 (07:00→20:04)
[2019-09-18] MEDS: OLANZapine 5mg rapidly disint. tablet PO SCH (07:00)
[2019-09-18] MEDS: lisinopril 10 MG tablet PO SCH (07:00)
[2019-09-18 10:00] VITALS: BP 135/54
--- NOTE | 2019-09-18 18:00 | NUR ---
Patient refusing 1800 vitals
--- NOTE | 2019-09-18 18:03 | NUR ---
Problems reprioritized. Patient report given, questions answered & plan of care reviewed with Annalisa.
--- NOTE | 2019-09-18 18:21 | NUR ---
Patient in room ORTHO 4009. I have received report from Issa GUADARRAMA and had the opportunity to ask questions and assume patient care.
[2019-09-18] MEDS: traZODone 50mg tablet PO SCH (20:00)
--- NOTE | 2019-09-18 20:04 | NUR ---
Patient refusing all meds. Patient states she is very anxious over all the computers and tests being done on her neighbor. Patient is pacing in room.
--- NOTE | 2019-09-18 21:00 | NUR ---
Patient refusing to allow nursing to assess lung sounds, heart sounds or bowel sounds. Patient very anxious and refusing all nursing care or interventions. Addendum: 09/18/19 at 2102 by Annalisa Ivy RN Amended: Links added.
--- NOTE | 2019-09-19 06:12 | NUR ---
Problems reprioritized. Patient report given, questions answered & plan of care reviewed with Issa GUADARRAMA.
--- NOTE | 2019-09-19 06:29 | NUR ---
Patient in room ORTHO 4009. I have received report from [facility] and had the opportunity to ask questions and assume patient care.
--- NOTE | 2019-09-19 06:46 | NUR ---
refused morning vitals Addendum: 09/19/19 at 0646 by Issa Jorge RN Amended: Links added.
[2019-09-19] MEDS: OLANZapine 5mg rapidly disint. tablet PO SCH (07:58)
[2019-09-19] MEDS: lisinopril 10 MG tablet PO SCH (07:58)
[2019-09-19] MEDS: NYSTATIN CREAM - 30GM TUBE TP SCH ×2 (07:59→19:49)
[2019-09-19] MEDS: nystatin 15 GM powder TP SCH ×3 (07:59→19:49)
[2019-09-19] MEDS: mineral oil/petrolatum, white cream 113gm jar TP SCH ×2 (07:59→19:49)
[2019-09-19] MEDS: neomy sulf/bacitrac zn/polymixin b oint 14.2 gm tube TP SCH ×3 (07:59→19:49)
--- NOTE | 2019-09-19 07:59 | NUR ---
patient refused morning medication. Patient stated she does not need them. Nursing will notify .
[2019-09-19] MEDS ORDERED: OLANZapine **IM** 10 mg inj. IM PRN (09:15)
--- NOTE | 2019-09-19 09:30 | NUR ---
refused to let nursing or MD to listen to heart sounds. Addendum: 09/19/19 at 6898 by Issa Jorge RN Amended: Links added.
--- NOTE | 2019-09-19 09:31 | NUR ---
patient refused to let NSG or MD to listen to lungs. Addendum: 09/19/19 at 5143 by Issa Jorge RN Amended: Links added.
--- NOTE | 2019-09-19 09:32 | NUR ---
patient refused to let NSG or MD to listen to stomach. Addendum: 09/19/19 at 0386 by Issa Jorge RN Amended: Links added.
[2019-09-19 10:00] VITALS: BP 134/48
--- NOTE | 2019-09-19 10:51 | NUR ---
Issa 3199 Re: Amy Savage. still refusing medications.
--- NOTE | 2019-09-19 11:14 | NUR ---
spoke with MD about patient not taking her medications. MD will consult with mental health.
--- NOTE | 2019-09-19 18:00 | NUR ---
Patient refused 1800 vitals
--- NOTE | 2019-09-19 18:11 | NUR ---
Problems reprioritized. Patient report given, questions answered & plan of care reviewed with Annalisa .
--- NOTE | 2019-09-19 18:18 | NUR ---
Patient in room ORTHO 4009. I have received report from Issa GUADARRAMA and had the opportunity to ask questions and assume patient care.
--- NOTE | 2019-09-19 19:34 | NUR ---
Patient very tearful and anxious. Will not talk to nursing staff but only says no. Refusing medication and assessment. Offered patient a room change to decrease the noise and stimuli but patient said no.
[2019-09-19] MEDS: traZODone 50mg tablet PO SCH (19:49)
--- NOTE | 2019-09-19 20:24 | NUR ---
Patient refusing to allow nursing to assess patient. Not able to listen to heart, lung and bowel sounds due to refusal. Addendum: 09/19/19 at 2026 by Annalisa Ivy RN Amended: Links added.
--- NOTE | 2019-09-19 22:00 | NUR ---
Patient refusing 2200 vitals
--- NOTE | 2019-09-20 06:34 | NUR ---
Problems reprioritized. Patient report given, questions answered & plan of care reviewed with Suze GUADARRAMA.
--- NOTE | 2019-09-20 06:42 | NUR ---
Patient in room ORTHO 4009. I have received report from Annalisa GUADARRAMA and had the opportunity to ask questions and assume patient care.
--- NOTE | 2019-09-20 06:49 | NUR ---
Pt refusing vital signs at this time. Will reattempt again.
[2019-09-20] MEDS: mineral oil/petrolatum, white cream 113gm jar TP SCH ×2 (07:57→20:30)
[2019-09-20] MEDS: lisinopril 10 MG tablet PO SCH (07:57)
[2019-09-20] MEDS: neomy sulf/bacitrac zn/polymixin b oint 14.2 gm tube TP SCH ×3 (07:57→21:00)
[2019-09-20] MEDS: NYSTATIN CREAM - 30GM TUBE TP SCH ×2 (07:57→20:30)
[2019-09-20] MEDS: OLANZapine 5mg rapidly disint. tablet PO SCH (07:59)
[2019-09-20] MEDS: nystatin 15 GM powder TP SCH ×3 (07:59→21:00)
--- NOTE | 2019-09-20 08:06 | NUR ---
Pt refusing to have assessment done at this time. Will try to reattempt.
--- NOTE | 2019-09-20 11:46 | NUR ---
Reassessment: Pt PO 75-100% average meals but now refusing all meals as well as meds and resistive to care past 24 hours. AOx1 at baseline. LBM 09/16. No new labs since 07/27. Will continue to monitor for PO diet acceptance. Recommend: 1. continue heart healthy/mechanical soft diet 2. bowel care as needed 3. weight per rx Addendum: 09/20/19 at [address] Amended: Links added.
--- NOTE | 2019-09-20 18:26 | NUR ---
Problems reprioritized. Patient report given, questions answered & plan of care reviewed with Susan GUADARRAMA.
--- NOTE | 2019-09-20 18:33 | NUR ---
Patient in room ORTHO 4009. I have received report from mendoza Arciniega and had the opportunity to ask questions and assume patient care.
--- NOTE | 2019-09-20 18:41 | NUR ---
pt refused vs check.
[2019-09-20] MEDS: traZODone 50mg tablet PO SCH (20:30)
--- NOTE | 2019-09-21 06:22 | NUR ---
Problems reprioritized. Patient report given, questions answered & plan of care reviewed with mendoza Barth.
--- NOTE | 2019-09-21 06:42 | NUR ---
Patient in room ORTHO 4009. I have received report from Susan GUADARRAMA and had the opportunity to ask questions and assume patient care. Addendum: 09/21/19 at 0644 by Suze Harris RN Disregard above note, wrong patient.
--- NOTE | 2019-09-21 06:43 | NUR ---
patient refused VS Addendum: 09/21/19 at 0646 by Lary Crowder RN Amended: Links added.
[2019-09-21] MEDS: nystatin 15 GM powder TP SCH ×3 (07:43→19:49)
[2019-09-21] MEDS: lisinopril 10 MG tablet PO SCH (07:46)
[2019-09-21] MEDS: OLANZapine 5mg rapidly disint. tablet PO SCH (07:46)
[2019-09-21] MEDS: neomy sulf/bacitrac zn/polymixin b oint 14.2 gm tube TP SCH ×3 (08:00→21:00)
[2019-09-21] MEDS: mineral oil/petrolatum, white cream 113gm jar TP SCH ×2 (08:00→19:49)
[2019-09-21] MEDS: NYSTATIN CREAM - 30GM TUBE TP SCH ×2 (08:00→20:00)
--- NOTE | 2019-09-21 08:57 | NUR ---
PATIENT DID NOT REFUSE MEDITATION, IT WAS NOT NEEDED. DRY NYSTATIN WAS APPLIED WHERE NEEDED.
--- NOTE | 2019-09-21 18:27 | NUR ---
Problems reprioritized. Patient report given, questions answered & plan of care reviewed with EDITH GUADARRAMA.
--- NOTE | 2019-09-21 18:36 | NUR ---
Patient in room ORTHO 4009. I have received report from THIERRY ROSE and had the opportunity to ask questions and assume patient care.
[2019-09-21] MEDS: traZODone 50mg tablet PO SCH (20:00)
--- NOTE | 2019-09-22 06:40 | NUR ---
Problems reprioritized. Patient report given, questions answered & plan of care reviewed with THIERRY ROSE.
[2019-09-22] MEDS: nystatin 15 GM powder TP SCH ×3 (07:36→21:00)
[2019-09-22] MEDS: OLANZapine 5mg rapidly disint. tablet PO SCH (07:37)
[2019-09-22] MEDS: lisinopril 10 MG tablet PO SCH (07:52)
[2019-09-22] MEDS: NYSTATIN CREAM - 30GM TUBE TP SCH ×2 (08:00→20:00)
[2019-09-22] MEDS: neomy sulf/bacitrac zn/polymixin b oint 14.2 gm tube TP SCH ×3 (08:00→21:00)
[2019-09-22] MEDS: mineral oil/petrolatum, white cream 113gm jar TP SCH ×2 (08:53→20:00)
--- NOTE | 2019-09-22 18:26 | NUR ---
Problems reprioritized. Patient report given, questions answered & plan of care reviewed with David GUADARRAMA.
[2019-09-22] MEDS: traZODone 50mg tablet PO SCH (19:43)
--- NOTE | 2019-09-23 06:35 | NUR ---
Patient in room ORTHO 4006. I have received report from WIL GUADARRAMA and had the opportunity to ask questions and assume patient care.
--- NOTE | 2019-09-23 06:50 | NUR ---
REFUSING Addendum: 09/23/19 at 0650 by Lary Crowder RN Amended: Links added.
[2019-09-23] MEDS: OLANZapine 5mg rapidly disint. tablet PO SCH (07:36)
[2019-09-23] MEDS: lisinopril 10 MG tablet PO SCH (07:37)
[2019-09-23] MEDS: mineral oil/petrolatum, white cream 113gm jar TP SCH ×2 (07:43→20:00)
[2019-09-23] MEDS: neomy sulf/bacitrac zn/polymixin b oint 14.2 gm tube TP SCH ×3 (07:43→19:56)
[2019-09-23] MEDS: NYSTATIN CREAM - 30GM TUBE TP SCH ×2 (07:43→19:56)
[2019-09-23] MEDS: nystatin 15 GM powder TP SCH ×3 (07:44→21:00)
--- NOTE | 2019-09-23 07:44 | NUR ---
Patient states I can help put on
[2019-09-23] MEDS ORDERED: magnesium hydroxide 30ml (MOM) UD suspension PO ONE ×2 (11:00→17:45)
--- NOTE | 2019-09-23 18:24 | NUR ---
Problems reprioritized. Patient report given, questions answered & plan of care reviewed with Marlen GUADARRAMA.
[2019-09-23] MEDS: traZODone 50mg tablet PO SCH (20:00)
[2019-09-24] MEDS: nystatin 15 GM powder TP SCH ×3 (08:00→21:00)
[2019-09-24] MEDS: NYSTATIN CREAM - 30GM TUBE TP SCH ×2 (08:00→20:00)
[2019-09-24] MEDS: lisinopril 10 MG tablet PO SCH (08:00)
[2019-09-24] MEDS: mineral oil/petrolatum, white cream 113gm jar TP SCH ×2 (08:00→20:00)
[2019-09-24] MEDS: OLANZapine 5mg rapidly disint. tablet PO SCH (08:00)
[2019-09-24] MEDS: neomy sulf/bacitrac zn/polymixin b oint 14.2 gm tube TP SCH ×3 (08:00→21:00)
--- NOTE | 2019-09-24 12:44 | NUR ---
Reassessment: Pt continues to refuse all meals/meds day 5 now DX psychosis. Last labs 07/28/19; PACO d/w RN regarding new labs if MD agreeable given pt eating 100% majority of admit prior to refusals and tolerating PO. LBM 09/20. Will monitor for PO acceptance. IF poor PO/refusals of meals persists greater than 7 days pt will likely meet severe malnutrition criteria. Recommend: 1. continue heart healthy/mechanical soft diet; encourage PO 2. bowel care as needed 3. weight per rx Addendum: 09/24/19 at [address] Amended: Links added.
--- NOTE | 2019-09-24 18:20 | NUR ---
Patient in room ORTHO 4009. I have received report from Radha GUADARRAMA and had the opportunity to ask questions and assume patient care.
[2019-09-24] MEDS: traZODone 50mg tablet PO SCH (20:00)
--- NOTE | 2019-09-25 06:36 | NUR ---
Problems reprioritized. Patient report given, questions answered & plan of care reviewed with Millie GUADARRAMA.
--- NOTE | 2019-09-25 06:55 | NUR ---
Patient refused vitals. Addendum: 09/25/19 at 0656 by Millie Park RN Amended: Links added.
[2019-09-25] MEDS: lisinopril 10 MG tablet PO SCH (08:00)
[2019-09-25] MEDS: NYSTATIN CREAM - 30GM TUBE TP SCH ×2 (08:00→20:00)
[2019-09-25] MEDS: neomy sulf/bacitrac zn/polymixin b oint 14.2 gm tube TP SCH ×3 (08:00→21:00)
[2019-09-25] MEDS: nystatin 15 GM powder TP SCH ×3 (08:00→21:00)
[2019-09-25] MEDS: OLANZapine 5mg rapidly disint. tablet PO SCH (08:00)
[2019-09-25] MEDS: mineral oil/petrolatum, white cream 113gm jar TP SCH ×2 (08:00→20:00)
--- NOTE | 2019-09-25 10:23 | NUR ---
Patient refused vitals Addendum: 09/25/19 at 1023 by Millie Park RN Amended: Links added.
--- NOTE | 2019-09-25 11:17 | NUR ---
patient only stares at you when you talk to her. She dose not respond at this time
--- NOTE | 2019-09-25 18:00 | NUR ---
Patient in room ORTHO 4009. I have received report from Millie GUADARRAMA and had the opportunity to ask questions and assume patient care.
--- NOTE | 2019-09-25 18:06 | NUR ---
Problems reprioritized. Patient report given, questions answered & plan of care reviewed with Katrin GUADARRAMA.
[2019-09-25] MEDS: traZODone 50mg tablet PO SCH (20:00)
--- NOTE | 2019-09-26 06:16 | NUR ---
Problems reprioritized. Patient report given, questions answered & plan of care reviewed with Millie GUADARRAMA.
--- NOTE | 2019-09-26 06:34 | NUR ---
Refused Vital signs Addendum: 09/26/19 at 0634 by Millie Park RN Amended: Links added.
[2019-09-26] MEDS: OLANZapine 5mg rapidly disint. tablet PO SCH (07:33)
[2019-09-26] MEDS: lisinopril 10 MG tablet PO SCH (07:33)
[2019-09-26] MEDS: mineral oil/petrolatum, white cream 113gm jar TP SCH ×2 (07:34→19:00)
[2019-09-26] MEDS: neomy sulf/bacitrac zn/polymixin b oint 14.2 gm tube TP SCH ×3 (07:34→21:00)
[2019-09-26] MEDS: NYSTATIN CREAM - 30GM TUBE TP SCH ×2 (07:35→19:00)
[2019-09-26] MEDS: nystatin 15 GM powder TP SCH ×3 (07:35→21:00)
--- NOTE | 2019-09-26 13:28 | NUR ---
Reassessment: Pt continues to refuse most meals/meds for a week likely r/t psych. Spoke with justyna, reports she only ate yogurt for lunch and already stated that she will not eat dinner; pt felt upset she did not receive cottage cheese and pears. D/w dietary to send yogurt, cottage cheese, and pears with meals. Prior, patient was eating very well, 75-100% PO intake of meals. Will monitor for PO acceptance. Need new weight if possible in view of last weight from August 09. D/w clinical nursing assistant. Will continue to follow. Recommend: 1. continue heart healthy/mechanical soft diet; encourage PO 2. bowel care as needed 3. weight per rx 4. yogurt, cottage cheese, and pears with lunch and dinner Addendum: 09/26/19 at [address] Amended: Links added.
--- NOTE | 2019-09-26 18:17 | NUR ---
Patient in room ORTHO 4009. I have received report from Millie GUADARRAMA and had the opportunity to ask questions and assume patient care.
--- NOTE | 2019-09-26 18:17 | NUR ---
Problems reprioritized. Patient report given, questions answered & plan of care reviewed with Sophie GUADARRAMA.
--- NOTE | 2019-09-26 18:42 | NUR ---
pt refused medications. pt refused to let me do my assessment. will continue to monitor.
[2019-09-26] MEDS: traZODone 50mg tablet PO SCH (19:00)
--- NOTE | 2019-09-27 06:14 | NUR ---
Patient in room ORTHO 4009. I have received report from THIERRY Barrios and had the opportunity to ask questions and assume patient care.
--- NOTE | 2019-09-27 06:14 | NUR ---
Problems reprioritized. Patient report given, questions answered & plan of care reviewed with Kiana GUADARRAMA.
--- NOTE | 2019-09-27 07:15 | NUR ---
Patient refused AM vital signs stating that she just isn't up to it today. Patient was educated that we need to have a reading of her blood pressure so that we can give her the medication for her blood pressure. Patient stated that she isn't too sure that she is going to take her medications today. Patient stated, "I have so many dilemmas in my head everyday and my medications are one". Patient was asked what her reservations were for not wanting to take them. She replied with, "I just to see the point of taking them, I don't feel it is needed". Will reassess situation in an hour.
[2019-09-27] MEDS: OLANZapine 5mg rapidly disint. tablet PO SCH (08:00)
[2019-09-27] MEDS: nystatin 15 GM powder TP SCH ×3 (08:00→21:00)
[2019-09-27] MEDS: mineral oil/petrolatum, white cream 113gm jar TP SCH ×2 (08:00→20:00)
[2019-09-27] MEDS: NYSTATIN CREAM - 30GM TUBE TP SCH ×2 (08:00→20:00)
[2019-09-27] MEDS: neomy sulf/bacitrac zn/polymixin b oint 14.2 gm tube TP SCH ×3 (08:00→21:00)
[2019-09-27] MEDS: lisinopril 10 MG tablet PO SCH (08:00)
--- NOTE | 2019-09-27 09:16 | NUR ---
Patient is refusing all medications at this time. Patient also refusing an assessment at this time. Physical assessment intervention is filled out based on what can be assessed visually.
--- NOTE | 2019-09-27 11:26 | NUR ---
Spoke with Dr. Ramirez about patient refusing medications and assessments, MD was already aware of this. Official *NO IV* order received.
--- NOTE | 2019-09-27 18:30 | NUR ---
refuses VS's to be checked Addendum: 09/28/19 at 0245 by Lyndsey Nichols RN Amended: Links added.
--- NOTE | 2019-09-27 18:31 | NUR ---
Problems reprioritized. Patient report given, questions answered & plan of care reviewed with Amada RN.
--- NOTE | 2019-09-27 19:00 | NUR ---
justyna states she is unable to recall how much olga pt had Addendum: 09/28/19 at 0611 by Lyndsey Nichols RN Amended: Links added.
[2019-09-27] MEDS: traZODone 50mg tablet PO SCH (20:00)
--- NOTE | 2019-09-28 06:57 | NUR ---
Patient in room ORTHO 4009. I have received report from Amada RN and had the opportunity to ask questions and assume patient care.
[2019-09-28] MEDS: neomy sulf/bacitrac zn/polymixin b oint 14.2 gm tube TP SCH ×3 (07:29→20:50)
[2019-09-28] MEDS: NYSTATIN CREAM - 30GM TUBE TP SCH ×2 (07:29→20:00)
[2019-09-28] MEDS: mineral oil/petrolatum, white cream 113gm jar TP SCH ×2 (07:29→20:00)
[2019-09-28] MEDS: OLANZapine 5mg rapidly disint. tablet PO SCH (07:29)
[2019-09-28] MEDS: lisinopril 10 MG tablet PO SCH (07:29)
[2019-09-28] MEDS: nystatin 15 GM powder TP SCH ×3 (07:30→20:51)
--- NOTE | 2019-09-28 08:05 | NUR ---
Patient refused all care, all medications, physical assessment, VS, Accu check this morning. A1C 5.9. Patient states she doesn't like how Zyprexa makes her feel.
--- NOTE | 2019-09-28 09:28 | NUR ---
MD aware of patients refusal of care.
--- NOTE | 2019-09-28 18:00 | NUR ---
Patient in room ORTHO 4009. I have received report from Lauren GUADARRAMA and had the opportunity to ask questions and assume patient care.
--- NOTE | 2019-09-28 18:21 | NUR ---
Problems reprioritized. Patient report given, questions answered & plan of care reviewed with NOC RN.
[2019-09-28] MEDS: traZODone 50mg tablet PO SCH (20:00)
--- NOTE | 2019-09-29 06:22 | NUR ---
Problems reprioritized. Patient report given, questions answered & plan of care reviewed with Kiana GUADARRAMA.
--- NOTE | 2019-09-29 06:50 | NUR ---
Patient in room ORTHO 4009. I have received report from THIERRY Desir and had the opportunity to ask questions and assume patient care.
--- NOTE | 2019-09-29 07:05 | NUR ---
Patient refused vital signs this morning.
[2019-09-29] MEDS: NYSTATIN CREAM - 30GM TUBE TP SCH ×2 (07:26→19:05)
[2019-09-29] MEDS: nystatin 15 GM powder TP SCH ×3 (07:26→20:17)
[2019-09-29] MEDS: lisinopril 10 MG tablet PO SCH (07:26)
[2019-09-29] MEDS: neomy sulf/bacitrac zn/polymixin b oint 14.2 gm tube TP SCH ×3 (07:26→20:17)
[2019-09-29] MEDS: mineral oil/petrolatum, white cream 113gm jar TP SCH ×2 (07:26→19:05)
[2019-09-29] MEDS: OLANZapine 5mg rapidly disint. tablet PO SCH ×2 (08:00→14:00)
--- NOTE | 2019-09-29 10:53 | NUR ---
Pt refuses am assessment. States she has no complaints, states "her heart and lungs are fine they are 74 years old and doing fine". She has refused vital signs, any assessment (cardiac, resp, Gi, Gu etc), and medications. Will continue to monitor and assess pt.
--- NOTE | 2019-09-29 11:30 | NUR ---
patient refuses medications and refuses assessments, physical assessment is filled out the best possible without placing a stethoscope to her body. Patient is also asking for a laxative or something to help her have a bowel movement. Patient was offered milk of magnesia however, patient stated, " that doesn't work for me". Patient was asked if there was another medication that would work better for her. Patient replied with, "No medication works for me". Patient was then offered a prune juice which she stated she can not have because, "It's disgusting". Next, the patient was offered a "brown amna" which is a concoction that includes apple sauce, butter, and prune juice mixed together and heated up. Patient stated, "no I don't think that will work either."
[2019-09-29] MEDS ORDERED: bisacodyl 5mg tablet.DR PO ONE (12:05)
[2019-09-29] MEDS: docusate sod 100mg capsule PO SCH ×2 (14:00→19:05)
--- NOTE | 2019-09-29 14:30 | NUR ---
Pt has refused all care today. Assessment, vitals, medications, shower, daren-care. Pt has been educated on the importance of medication compliance and care compliance, pt is confused as not able to recall what her Meds are for and why she needs them. She continually things she is taking her hypertensive RX. She has also stated that she is afraid to take her pills. Myself as well as two other nurses have attempted to educate her on the importance of her medication and how they will improve her mood and overall feelings that she is experiencing. Copious amounts of time are spent encouraging and educating her on her medication and other treatment modalities that she refuses to participate in (shower, ambulation in hallway ect.).
--- NOTE | 2019-09-29 15:00 | NUR ---
Reassessment: Pt refusing meals, meds, reports constipation but then declines laxative and stool softener per RN. LBM 09/20; likely enhanced by poor PO and med refusals. RD d/w RN regarding NG feeds in order to meet nutrition needs and medication delivery IF MD agreeable given day 10 no PO secondary to psychosis. RN reports MD declines nutrition support at this time. Pt does not like prune juice but may accept power pudding BIDLD per RN; dietary notified. Given poor PO hx pt meets severe malnutrition criteria; MD notified. Pt not appropriate for malnutrition ed given psychosis. Last labs July since refusing blood draws and pt refused scaled wt today per RN. Pt has not had scaled wt this admit only pt stated w/ psychosis. Will continue to monitor. Recommend: 1. continue heart healthy/mechanical soft diet; encourage PO 2. power pudding BIDLD for constipation 3. routine bowel care 4. yogurt, cottage cheese, and pears at dinner; cottage cheese and pears at lunch 5. IF enteral supplemental nutritrion support okdee dee per ; Lina 1.2 at 55ml/hr goal Addendum: 09/29/19 at [address] Amended: Links added.
--- NOTE | 2019-09-29 15:29 | NUR ---
Dr. Ramirez was in to see patient and the patient asked her for a laxative. Dr. Ramirez gave primary nurse an order for Colace and for Dulcolax. When primary nurse brought the medications in to the patient, she refused them. Patient was educated about the medications, what each of them do for her body, and how each of them help her have a BM. Patient still refused. Dr. Ramirez was notified and wanted to discuss this with the patient. Dr. Ramirez went in and discussed with the patient about taking her medications. Patient stated, "Oh, I don't know". Dr. Ramirez spent at least 10 minutes with the patient discussing the medications with the patient. By the time Dr. Ramirez left patient was "thinking" about taking the medications. Primary nurse stayed in room for another 15-20 minutes trying to talk to her about her medications. Patient asked to see the meds and primary nurse gave them to her to see. Patient stated that she was scared of the medications. Primary nurse attempted to ease the patient's anxiety about the medications however, patient still refused. Another RN that has previously worked with the patient also attempted to discuss the medications with the patient although, despite all of the education, patient still refused.
--- NOTE | 2019-09-29 18:08 | NUR ---
Problems reprioritized. Patient report given, questions answered & plan of care reviewed with THIERRY Johnson.
--- NOTE | 2019-09-29 18:08 | NUR ---
Patient in room ORTHO 4009. I have received report from Kiana GUADARRAMA and had the opportunity to ask questions and assume patient care.
--- NOTE | 2019-09-29 18:31 | NUR ---
Patient refused vitals at 1800.
[2019-09-29] MEDS: traZODone 50mg tablet PO SCH (19:05)
--- NOTE | 2019-09-29 21:24 | NUR ---
Patient refusing vitals at this time.
--- NOTE | 2019-09-30 00:04 | NUR ---
Problems reprioritized. Patient report given, questions answered & plan of care reviewed with Nanci GUADARRAMA .
--- NOTE | 2019-09-30 00:08 | NUR ---
Patient in room ORTHO 4009. I have received report from THIERRY Johnson and had the opportunity to ask questions and assume patient care.
--- NOTE | 2019-09-30 06:16 | NUR ---
Problems reprioritized. Patient report given, questions answered & plan of care reviewed with THIERRY Jones.
--- NOTE | 2019-09-30 06:32 | NUR ---
Apparently patient has refused am vitals, I will attempt to get these from her again, since they haven't been documented in 10 days.
[2019-09-30] MEDS: nystatin 15 GM powder TP SCH ×3 (08:00→21:00)
[2019-09-30] MEDS: NYSTATIN CREAM - 30GM TUBE TP SCH ×2 (08:00→20:00)
[2019-09-30] MEDS: neomy sulf/bacitrac zn/polymixin b oint 14.2 gm tube TP SCH ×3 (08:00→21:00)
[2019-09-30] MEDS: docusate sod 100mg capsule PO SCH ×2 (08:00→20:00)
[2019-09-30] MEDS: OLANZAPINE 5 MG TABLET PO SCH (08:00)
[2019-09-30] MEDS: lisinopril 10 MG tablet PO SCH (08:00)
[2019-09-30] MEDS: mineral oil/petrolatum, white cream 113gm jar TP SCH ×2 (08:00→20:00)
--- NOTE | 2019-09-30 18:32 | NUR ---
Patient in room ORTHO 4009. I have received report from TONY GUADARRAMA and had the opportunity to ask questions and assume patient care.
--- NOTE | 2019-09-30 18:36 | NUR ---
Problems reprioritized. Patient report given, questions answered & plan of care reviewed with Prudence RN.
[2019-09-30] MEDS: traZODone 50mg tablet PO SCH (20:00)
--- NOTE | 2019-09-30 20:50 | NUR ---
PATIENT DECLINED TO HAVE VITAL SIGNS TAKEN. Addendum: 09/30/19 at 2050 by Marsha Davis RN Amended: Links added.
--- NOTE | 2019-09-30 22:51 | NUR ---
PATIENT DECLINED ALL NIGHT MEDICATIONS AND SHE WAS EDUCATED.
--- NOTE | 2019-10-01 06:00 | NUR ---
Patient in room ORTHO 4009. I have received report from Marsha GUADARRAMA and had the opportunity to ask questions and assume patient care.
--- NOTE | 2019-10-01 06:17 | NUR ---
Problems reprioritized. Patient report given, questions answered & plan of care reviewed with Lary GUADARRAMA. Patient is resting
[2019-10-01] MEDS: OLANZAPINE 5 MG TABLET PO SCH (08:00)
[2019-10-01] MEDS: nystatin 15 GM powder TP SCH ×3 (08:00→21:00)
[2019-10-01] MEDS: neomy sulf/bacitrac zn/polymixin b oint 14.2 gm tube TP SCH ×3 (08:00→21:00)
[2019-10-01] MEDS: docusate sod 100mg capsule PO SCH ×2 (08:00→20:00)
[2019-10-01] MEDS: lisinopril 10 MG tablet PO SCH (08:00)
[2019-10-01] MEDS: mineral oil/petrolatum, white cream 113gm jar TP SCH ×2 (08:00→20:00)
[2019-10-01] MEDS: NYSTATIN CREAM - 30GM TUBE TP SCH ×2 (08:00→20:00)
--- NOTE | 2019-10-01 09:16 | NUR ---
patient states medication has been applied
--- NOTE | 2019-10-01 16:06 | NUR ---
F/u: Pt PO 25% lunch today per RN w/ pt tray there during RD visit; last PO documentation 25% breakfast and lunch 09/29. Pt no new wt since 52 days and RN reports pt visibly smaller than on admit; agrees to attempt scaled wt at this time. Pt continues to refuse meals and no labs since refusing but is independent to toilet per RN. LBM 09/23 receiving power pudding BIDLD since refusing bowel care. RD d/w RN regarding nutrition support given pt essentially starving self past 12 days r/t ALOC. RN reports pt likely immediately pull out NG. IF ALOC to persist and pt to have long-term care at a facility may benefit from PEG placement to meet nutrient needs longer term. Will continue to monitor. Recommend: 1. continue heart healthy/mechanical soft diet; encourage PO 2. power pudding BIDLD for constipation 3. routine bowel care 4. yogurt, cottage cheese, and pears at dinner; cottage cheese and pears at lunch 5. IF enteral supplemental nutritrion support okay per ; Lina 1.2 at 55ml/hr goal Addendum: 10/01/19 at [address] Amended: Links added.
--- NOTE | 2019-10-01 17:17 | NUR ---
Problems reprioritized. Patient report given, questions answered & plan of care reviewed with KENIA GUADARRAMA.
--- NOTE | 2019-10-01 19:36 | NUR ---
Patient in room KJ 358. I have received report from BLAZE GUADARRAMA and had the opportunity to ask questions and assume patient care. Addendum: 10/01/19 at 1938 by Zena Blake RN Patient in room KJ 358. I have received report from KENIA GUADARRAMA and had the opportunity to ask questions and assume patient care.
[2019-10-01] MEDS: traZODone 50mg tablet PO SCH (20:00)
--- NOTE | 2019-10-02 00:37 | NUR ---
pt wanted to walk and bottoming machine operator pompa. i stayed with pt to assess gait. pt wanted to stay in the pompa. pt was given a chair to sit in because she was leaning over and refusing to go to her room. nursing educator stayed with pt. pt refused medications, vital signs and physical assessment. I was unable to listen to pts heart, lungs and bowel sounds. I charted the information that I had for the pts physical assessment . pt continues to sit in chair in the hallway. RN or nursing educator with pt , pt does not want to go back to her room
--- NOTE | 2019-10-02 01:37 | NUR ---
pt refused 0000 vitals
--- NOTE | 2019-10-02 06:32 | NUR ---
Problems reprioritized. Patient report given, questions answered & plan of care reviewed with Kath GUADARRAMA.
[2019-10-02] MEDS: neomy sulf/bacitrac zn/polymixin b oint 14.2 gm tube TP SCH ×3 (08:00→21:00)
[2019-10-02] MEDS: docusate sod 100mg capsule PO SCH ×2 (08:00→20:00)
[2019-10-02] MEDS: nystatin 15 GM powder TP SCH ×3 (08:00→21:00)
[2019-10-02] MEDS: NYSTATIN CREAM - 30GM TUBE TP SCH ×2 (08:00→20:00)
[2019-10-02] MEDS: HYDROchlorothiazide 12.5mg capsule PO SCH (08:00)
[2019-10-02] MEDS: OLANZAPINE 5 MG TABLET PO SCH (08:00)
[2019-10-02] MEDS: lisinopril 10 MG tablet PO SCH (08:00)
[2019-10-02] MEDS: mineral oil/petrolatum, white cream 113gm jar TP SCH ×2 (08:00→20:00)
[2019-10-02 18:00] VITALS: BP 153/60
--- NOTE | 2019-10-02 18:41 | NUR ---
Problems reprioritized. Patient report given, questions answered & plan of care reviewed with ALEKS GUADARRAMA.
--- NOTE | 2019-10-02 19:37 | NUR ---
Patient in room KJ 349. I have received report from Kath GUADARRAMA and had the opportunity to ask questions and assume patient care.
[2019-10-02] MEDS: traZODone 50mg tablet PO SCH (20:00)
--- NOTE | 2019-10-03 01:05 | NUR ---
pt refused all medications, pt refused to let me listen to heart lungs or stomach. pt refused vitals
--- NOTE | 2019-10-03 06:28 | NUR ---
Problems reprioritized. Patient report given, questions answered & plan of care reviewed with Georgina GUADARRAMA.
[2019-10-03] MEDS: docusate sod 100mg capsule PO SCH ×2 (07:54→20:00)
[2019-10-03] MEDS: HYDROchlorothiazide 12.5mg capsule PO SCH (07:55)
[2019-10-03] MEDS: OLANZAPINE 5 MG TABLET PO SCH (07:55)
[2019-10-03] MEDS: lisinopril 10 MG tablet PO SCH (07:55)
[2019-10-03] MEDS: neomy sulf/bacitrac zn/polymixin b oint 14.2 gm tube TP SCH ×3 (07:56→21:00)
[2019-10-03] MEDS: NYSTATIN CREAM - 30GM TUBE TP SCH ×2 (07:56→20:00)
[2019-10-03] MEDS: mineral oil/petrolatum, white cream 113gm jar TP SCH ×2 (07:56→20:00)
[2019-10-03] MEDS: nystatin 15 GM powder TP SCH ×3 (07:56→21:00)
--- NOTE | 2019-10-03 07:57 | NUR ---
Pt. refusing all care. This RN attempted to listen to posterior lung sounds. Pt. turned around and said, "What are you doing! Leave me alone! Don't touch me!." Refused all AM medications. Will reapproach at a later time. Pt. is hungry and wishes to eat breakfast.
--- NOTE | 2019-10-03 10:00 | NUR ---
MD Whitten aware pt. has refused all AM medications. No new orders at this time.
--- NOTE | 2019-10-03 15:46 | NUR ---
No extreme ASE from missed medications noted at this time.
[2019-10-03 18:00] VITALS: BP 149/56
--- NOTE | 2019-10-03 18:00 | NUR ---
Patient in room KJ 349. I have received report from Georgina GUADARRAMA and had the opportunity to ask questions and assume patient care.
--- NOTE | 2019-10-03 18:21 | NUR ---
Gave report to Sophie GUADARRAMA.
--- NOTE | 2019-10-03 18:52 | NUR ---
introduced myself to the pt. addressed her needs. pt joked with me. asked pt if I may assess her and she said " no you may not. I already did that today." offered her her medications and lotions and she said no. will continue to monitor.
[2019-10-03] MEDS: traZODone 50mg tablet PO SCH (20:00)
[2019-10-03 20:02] VITALS: BP 149/56
--- NOTE | 2019-10-03 20:03 | NUR ---
refused o2sat and hr. Addendum: 10/03/19 at 2004 by Dena Pimentel RN Amended: Links added.
--- NOTE | 2019-10-04 06:16 | NUR ---
Problems reprioritized. Patient report given, questions answered & plan of care reviewed with Georgina GUADARRAMA.
[2019-10-04] MEDS: docusate sod 100mg capsule PO SCH ×2 (08:00→20:00)
[2019-10-04] MEDS: neomy sulf/bacitrac zn/polymixin b oint 14.2 gm tube TP SCH ×3 (08:00→20:58)
[2019-10-04] MEDS: nystatin 15 GM powder TP SCH ×3 (08:00→20:58)
[2019-10-04] MEDS: mineral oil/petrolatum, white cream 113gm jar TP SCH ×2 (08:00→20:00)
[2019-10-04] MEDS: lisinopril 10 MG tablet PO SCH (08:00)
[2019-10-04] MEDS: NYSTATIN CREAM - 30GM TUBE TP SCH ×2 (08:00→20:00)
[2019-10-04] MEDS: OLANZAPINE 5 MG TABLET PO SCH (08:00)
[2019-10-04] MEDS: HYDROchlorothiazide 12.5mg capsule PO SCH (08:00)
--- NOTE | 2019-10-04 08:00 | NUR ---
Pt. refused any physical touch r/t physical assessment, vitals, etc. Refused medications.
--- NOTE | 2019-10-04 12:00 | NUR ---
Pt. yelling, cursing, and attempting to hit staff. Swinging at any attempt to be near the patient or assess pt. Unable to reassure or relax pt. Distraction not effective. Offered oral medications several times, pt refused. Spoke to food mixer repairer Jo and about it. Zyprexa once IM PRN ordered. Unable to administer r/t pt. trying to bite this RN. Called security who then helped this RN administer medication. Pt. tolerated fairly well other than stating "I hate you and you." to the security guards. Will continue to monitor on my shift.
--- NOTE | 2019-10-04 12:15 | NUR ---
PAGER ID: [phone] MESSAGE: Amy Savage [id number] pt. all of a sudden started going crazy and yelling cursing- unable to calm or reassure pt. can we have another order for IM Zyprexa? "singing satan's song" very agitated. Georgina [phone]
--- NOTE | 2019-10-04 15:50 | NUR ---
F/u: Pt PO 25% lunch today per RN w/ pt tray there during RD visit; last PO documentation 25% breakfast and lunch 09/29. Pt no new wt since 52 days and RN reports pt visibly smaller than on admit; agrees to attempt scaled wt at this time. Pt continues to refuse meals and no labs since refusing but is independent to toilet per RN. LBM 09/23 receiving power pudding BIDLD since refusing bowel care. RD d/w RN regarding nutrition support given pt essentially starving self past 12 days r/t ALOC. RN reports pt likely immediately pull out NG. IF ALOC to persist and pt to have long-term care at a facility may benefit from PEG placement to meet nutrient needs longer term. Will continue to monitor. Recommend: 1. continue heart healthy/mechanical soft diet; encourage PO 2. power pudding BIDLD for constipation 3. routine bowel care 4. yogurt, cottage cheese, and pears at dinner; cottage cheese and pears at lunch 5. IF enteral supplemental nutrition support okay per ; Lina 1.2 at 55ml/hr goal Addendum: 10/04/19 at [address] Amended: Links added.
--- NOTE | 2019-10-04 16:07 | NUR ---
PAGER ID: [phone] MESSAGE: Amy Savage [phone] - FYI pt. 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 Notified Adriel that g-tube/NG tube might not be practical for this pt. Georgina [phone]
--- NOTE | 2019-10-04 16:07 | NUR ---
IM Zyprexa effective. Although pt will not accept any care at the moment, she is relaxed and safe at the moment.
--- NOTE | 2019-10-04 16:09 | NUR ---
Pt. has only voided once this shift per sitter. the void was not measured r/t no hat in toilet. Hat provided to sitter at 9am this AM, but sitter currently states pt. has not voided since then. Attempting to bladder scan pt. now.
--- NOTE | 2019-10-04 16:22 | NUR ---
Refusing to be bladder scanned. Stating "I would get up and go pee, but I can not because Osman will kill me. And NO! I do not want to be scanned by Satan's scanner!."
--- NOTE | 2019-10-04 18:20 | NUR ---
Gave report to Susan GUADARRAMA.
--- NOTE | 2019-10-04 18:30 | NUR ---
Patient in room KJ 349. I have received report from THIERRY RODRIGUEZ and had the opportunity to ask questions and assume patient care.
[2019-10-04] MEDS: traZODone 50mg tablet PO SCH (20:00)
--- NOTE | 2019-10-05 07:09 | NUR ---
Problems reprioritized. Patient report given, questions answered & plan of care reviewed with THIERRY BENSON.
[2019-10-05 08:00] VITALS: BP 140/75
[2019-10-05] MEDS: neomy sulf/bacitrac zn/polymixin b oint 14.2 gm tube TP SCH ×3 (08:00→21:00)
[2019-10-05] MEDS: OLANZAPINE 5 MG TABLET PO SCH (08:00)
[2019-10-05] MEDS: HYDROchlorothiazide 12.5mg capsule PO SCH (08:00)
[2019-10-05] MEDS: mineral oil/petrolatum, white cream 113gm jar TP SCH ×2 (08:00→20:00)
[2019-10-05] MEDS: lisinopril 10 MG tablet PO SCH (08:00)
[2019-10-05] MEDS: nystatin 15 GM powder TP SCH ×3 (08:00→21:00)
[2019-10-05] MEDS: docusate sod 100mg capsule PO SCH ×2 (08:00→20:00)
[2019-10-05] MEDS: NYSTATIN CREAM - 30GM TUBE TP SCH ×2 (08:00→20:00)
[2019-10-05] MEDS: OLANZapine **IM** 10 mg inj. IM PRN ×2 (11:58→22:04)
--- NOTE | 2019-10-05 17:45 | NUR ---
Patient ambulate in pompa, no attempt to leave the floor, dressed in green scrubs.
--- NOTE | 2019-10-05 18:24 | NUR ---
Report to Susan GUADARRAMA
--- NOTE | 2019-10-05 18:40 | NUR ---
Patient in room [facility] 349. I have received report from mendoza Murphy and had the opportunity to ask questions and assume patient care.
[2019-10-05] MEDS: traZODone 50mg tablet PO SCH (20:00)
--- NOTE | 2019-10-06 03:17 | NUR ---
MESSAGE: ELIANA LOCKWOOD 74 HERE FOR PSYCOSIS. PT HAS BEEN AGITATED, TRYING TO ESCAPE. VERENICE BELTRAN CALLED A COUPLE TIMES. SHE NEEDS SITTER ORDER AND MEDICATION TO HELP CALM HER DOWN. SHE RECEIVED ZYPREXA EARLIER NOT WORKING. #[id number] EDITH
[2019-10-06] MEDS ORDERED: ziprasidone IM 20mg inj **IM only IM ONE (03:20)
--- NOTE | 2019-10-06 06:30 | NUR ---
Problems reprioritized. Patient report given, questions answered & plan of care reviewed with THIERRY GEORGE. Addendum: 10/06/19 at 0631 by Susan Fraser RN REPORT TO THIERRY COELHO
[2019-10-06 07:30] VITALS: BP 148/68
[2019-10-06] MEDS: HYDROchlorothiazide 12.5mg capsule PO SCH (07:54)
[2019-10-06] MEDS: lisinopril 10 MG tablet PO SCH (07:54)
[2019-10-06] MEDS: docusate sod 100mg capsule PO SCH ×2 (07:54→20:00)
[2019-10-06] MEDS: neomy sulf/bacitrac zn/polymixin b oint 14.2 gm tube TP SCH ×3 (07:55→20:30)
[2019-10-06] MEDS: mineral oil/petrolatum, white cream 113gm jar TP SCH ×2 (07:55→20:00)
[2019-10-06] MEDS: nystatin 15 GM powder TP SCH ×3 (07:56→20:30)
[2019-10-06] MEDS: OLANZAPINE 5 MG TABLET PO SCH (07:56)
[2019-10-06] MEDS: NYSTATIN CREAM - 30GM TUBE TP SCH ×2 (07:56→20:00)
[2019-10-06 18:00] VITALS: BP 145/67
--- NOTE | 2019-10-06 18:39 | NUR ---
Patient in room [facility] 349. I have received report from THIERRY Muñoz and had the opportunity to ask questions and assume patient care.
[2019-10-06] MEDS: traZODone 50mg tablet PO SCH (20:00)
--- NOTE | 2019-10-06 20:41 | NUR ---
Patient has refused most of the physical assessment. I charted what I was able to observe. Addendum: 10/06/19 at 2043 by Pierce Hairston RN Amended: Links added.
[2019-10-06] MEDS: magnesium hydroxide 30ml (MOM) UD suspension PO PRN (22:13)
--- NOTE | 2019-10-07 00:23 | NUR ---
Patient refused midnight vss Addendum: 10/07/19 at 0023 by Pierce Hairston RN Amended: Links added.
--- NOTE | 2019-10-07 06:21 | NUR ---
Problems reprioritized. Patient report given, questions answered & plan of care reviewed with THIERRY Arciniega.
[2019-10-07 07:00] VITALS: BP 180/76
--- NOTE | 2019-10-07 07:01 | NUR ---
Patient in room [facility] 349. I have received report from Pierce GUADARRAMA and had the opportunity to ask questions and assume patient care.
[2019-10-07] MEDS: docusate sod 100mg capsule PO SCH ×2 (08:00→20:00)
[2019-10-07] MEDS: HYDROchlorothiazide 12.5mg capsule PO SCH (08:00)
[2019-10-07] MEDS: NYSTATIN CREAM - 30GM TUBE TP SCH ×2 (08:00→20:00)
[2019-10-07] MEDS: lisinopril 10 MG tablet PO SCH (08:00)
[2019-10-07] MEDS: OLANZAPINE 5 MG TABLET PO SCH (08:00)
[2019-10-07] MEDS: mineral oil/petrolatum, white cream 113gm jar TP SCH ×2 (08:00→20:00)
[2019-10-07] MEDS: neomy sulf/bacitrac zn/polymixin b oint 14.2 gm tube TP SCH ×3 (08:00→21:00)
[2019-10-07] MEDS: nystatin 15 GM powder TP SCH ×3 (08:00→21:00)
[2019-10-07 10:30] VITALS: BP 137/64
--- NOTE | 2019-10-07 13:43 | NUR ---
Reassessment: attempted discussion with patient regarding per appetite and meal intake. Asked patient why she stopped eating, explaining that she used to eat 100% of everything then suddenly stopped. She replied "that was then and this is now" and "I was told I could not eat." Tried to explore who she thinks told her she cannot eat but she did not reply, encouraged patient that she can eat and enjoy food. Observed her tray, untouched, at bedside. Encouraged intake of the chocolate mousse, cottage cheese. Asked if she had any favorite foods, no answer. Pt asked what authority do I have on the topic of food and why I was asking her about her meals, explained that I am a "food expert" and try to help patient find food that they like to eat. Patient replied "well I don't believe that." Will try to meet with her again to discuss food options. Still refusing most meals with occasional 25% PO of some foods. Recommend: 1. continue heart healthy/mechanical soft diet; encourage PO 2. power pudding BIDLD for constipation 3. routine bowel care 4. yogurt, cottage cheese, and pears at dinner; cottage cheese and pears at lunch Addendum: 10/07/19 at [address] Amended: Links added.
[2019-10-07] MEDS ORDERED: haloperidol lactate 5mg/ml inj IM PRN (15:35)
--- NOTE | 2019-10-07 18:14 | NUR ---
Problems reprioritized. Patient report given, questions answered & plan of care reviewed with Pierce GUADARRAMA.
--- NOTE | 2019-10-07 18:43 | NUR ---
Patient in room [facility] 349. I have received report from THIERRY Arciniega and had the opportunity to ask questions and assume patient care.
--- NOTE | 2019-10-07 19:00 | NUR ---
pt refused vs Addendum: 10/07/19 at 2309 by Dena Pimentel RN Amended: Links added.
[2019-10-07] MEDS: traZODone 50mg tablet PO SCH (20:00)
--- NOTE | 2019-10-07 21:31 | NUR ---
Patient refused to let me listen to her heart and her bowel sounds. I did listen to her lungs and will chart appropriately under assessment. Most of the assesment will be done by what I see visually. She will not answer any questions I have asked her, except she made it clear that she did not want any of her nightly medications.
--- NOTE | 2019-10-07 21:44 | NUR ---
Patient refused 1800 vss. Addendum: 10/07/19 at 2144 by Pierce Hairston RN Amended: Links added.
--- NOTE | 2019-10-08 03:07 | NUR ---
Blayneany refused for tech to take vitals. I went in to see if she would let me take them and she did not want me to take them either. Addendum: 10/08/19 at 0308 by Pierce Hairston RN Amended: Links added.
--- NOTE | 2019-10-08 06:30 | NUR ---
Problems reprioritized. Patient report given, questions answered & plan of care reviewed with THIERRY Burgess.
[2019-10-08] MEDS: lisinopril 10 MG tablet PO SCH (08:00)
[2019-10-08] MEDS: neomy sulf/bacitrac zn/polymixin b oint 14.2 gm tube TP SCH ×3 (08:00→20:34)
[2019-10-08] MEDS: NYSTATIN CREAM - 30GM TUBE TP SCH ×2 (08:00→20:00)
[2019-10-08] MEDS: mineral oil/petrolatum, white cream 113gm jar TP SCH ×2 (08:00→20:00)
[2019-10-08] MEDS: nystatin 15 GM powder TP SCH ×3 (08:00→20:34)
[2019-10-08] MEDS: docusate sod 100mg capsule PO SCH ×2 (08:00→20:00)
[2019-10-08] MEDS: HYDROchlorothiazide 12.5mg capsule PO SCH (08:00)
[2019-10-08] MEDS: OLANZAPINE 5 MG TABLET PO SCH (08:00)
--- NOTE | 2019-10-08 10:05 | NUR ---
Pt continues to refuse all medications and other treatments. She refuses to allow nurse to initiate or complete assessment and vital signs. Assessment is documented by visual inspection and pt replies d/t refusal. She is pleasant but resistive to care. has been made aware.
--- NOTE | 2019-10-08 11:12 | NUR ---
pT REFUSED Addendum: 10/08/19 at 1113 by Medhat Nicholson STUDENT ABENA Amended: Links added.
--- NOTE | 2019-10-08 11:22 | NUR ---
pt refused vitals. respirations even and unlabored. no complaints. Addendum: 10/08/19 at 1123 by Yolanda Barton RN Amended: Links added.
--- NOTE | 2019-10-08 17:52 | NUR ---
Student Medication Administration: For this medication-pass time frame, all medication were reviewed, dispensed, administered and documented per hospital policy by SN Medhat. Student documentation: I have reviewed and agree with all interventions, assessments performed and documented by SN Medhat.
--- NOTE | 2019-10-08 18:14 | NUR ---
Patient in room [facility] 349. I have received report from THIERRY Burgess and had the opportunity to ask questions and assume patient care.
--- NOTE | 2019-10-08 18:20 | NUR ---
Problems reprioritized. Patient report given, questions answered & plan of care reviewed with Pierce GUADARRAMA
[2019-10-08] MEDS: traZODone 50mg tablet PO SCH (20:00)
--- NOTE | 2019-10-08 20:00 | NUR ---
Patient left room there and was walking down the pompa. The charge nurse and I walked with her and then just the charge nurse walked with her. She had to go to the bathroom so she walked back to her room and ended up urinating on herself. We got new clothes and bedding because that needed to be changed as well. Patient started yelling and saying, " Fuck you bitches". She refused to let the charge nurse and tech change her. She is sitting in her bed in wet clothes. We will re approach her again to see if she will change her clothes soon. Charge nurse is sitting at bedside to make sure she does not wander off.
--- NOTE | 2019-10-08 20:54 | NUR ---
Usha approached the patient and asked her if she wanted her nightly medications ,She asked what they were.Iwent over every medication with her and she did not want any of them. I then asked if she wanted to change her clothes. I gave her the wipes and her clothes stepped out side the room and cracked the door. She started cleaning herself off and changed her clothes. She then let me change her bedding.Bed alarm was turned on once she got into the bed. I am charting outside her room.
--- NOTE | 2019-10-09 01:24 | NUR ---
Patient has refused 1800 vs and 0000 Addendum: 10/09/19 at 0125 by Pierce Hairston RN Amended: Links added.
--- NOTE | 2019-10-09 06:19 | NUR ---
Problems reprioritized. Patient report given, questions answered & plan of care reviewed with THIERRY Osorio.
--- NOTE | 2019-10-09 07:07 | NUR ---
Patient in room [facility] 349. I have received report from Steve GUADARRAMA and had the opportunity to ask questions and assume patient care.
[2019-10-09] MEDS: docusate sod 100mg capsule PO SCH ×2 (08:00→20:00)
[2019-10-09] MEDS: HYDROchlorothiazide 12.5mg capsule PO SCH (08:00)
[2019-10-09] MEDS: NYSTATIN CREAM - 30GM TUBE TP SCH ×2 (08:00→20:00)
[2019-10-09] MEDS: nystatin 15 GM powder TP SCH ×3 (08:00→21:00)
[2019-10-09] MEDS: OLANZAPINE 5 MG TABLET PO SCH (08:00)
[2019-10-09] MEDS: mineral oil/petrolatum, white cream 113gm jar TP SCH ×2 (08:00→20:00)
[2019-10-09] MEDS: lisinopril 10 MG tablet PO SCH (08:00)
[2019-10-09] MEDS: neomy sulf/bacitrac zn/polymixin b oint 14.2 gm tube TP SCH ×3 (08:00→21:00)
--- NOTE | 2019-10-09 16:26 | NUR ---
Reassessment: Initially PO intake was being documented however PO intake for only one meal documented on 09/30, 10/01, and 10/04 and no documentation of PO intake since. Per MD notes 10/07 sitter reports pt ate breakfast that morning. Pt seen at bedside refused to discuss food preferences. Per sitter pt ate peaches at breakfast and gelatin with crackers for lunch. Sitter reports pt seems to enjoy fruit with meals however overall not consistently interested in any specific food. Pt already receiving fruit TID. Informed bedside RN about lack of documentation of PO intake and requested a scaled weight although I acknowledge patient's resistiveness to care and that a scaled weight may be difficult to obtain. LBM 10/07 per I&O. BM on 10/05 documented as moderate. Pt documented to be refusing medications however received PRN bowel care 10/05. Will continue to follow closely and make recommendations as appropriate. Recommend: 1. continue heart healthy/mechanical soft diet; encourage PO intake 2. consider diet liberalization to regular given poor PO intake 3. power pudding BIDLD for constipation 4. routine bowel care 5. yogurt, cottage cheese, and pears at dinner; cottage cheese and pears at lunch Addendum: 10/09/19 at [address] Amended: Links added.
--- NOTE | 2019-10-09 18:00 | NUR ---
Patient refused all meds and vitals.
--- NOTE | 2019-10-09 18:50 | NUR ---
Patient in room [facility] 349. I have received report from Jo GUADARRAMA and had the opportunity to ask questions and assume patient care.
--- NOTE | 2019-10-09 18:53 | NUR ---
Problems reprioritized. Patient report given, questions answered & plan of care reviewed with Katrin GUADARRAMA.
[2019-10-09] MEDS: traZODone 50mg tablet PO SCH (20:00)
--- NOTE | 2019-10-10 06:05 | NUR ---
Encouraged fluid intake, patient refused the entire shift.
--- NOTE | 2019-10-10 06:20 | NUR ---
Problems reprioritized. Patient report given, questions answered & plan of care reviewed with Millie GUADARRAMA.
[2019-10-10] MEDS: lisinopril 10 MG tablet PO SCH (08:00)
[2019-10-10] MEDS: HYDROchlorothiazide 12.5mg capsule PO SCH (08:00)
[2019-10-10] MEDS: NYSTATIN CREAM - 30GM TUBE TP SCH ×2 (08:00→20:00)
[2019-10-10] MEDS: docusate sod 100mg capsule PO SCH ×2 (08:00→20:00)
[2019-10-10] MEDS: neomy sulf/bacitrac zn/polymixin b oint 14.2 gm tube TP SCH ×3 (08:00→21:00)
[2019-10-10] MEDS: OLANZAPINE 5 MG TABLET PO SCH (08:00)
[2019-10-10] MEDS: mineral oil/petrolatum, white cream 113gm jar TP SCH ×2 (08:00→20:00)
[2019-10-10] MEDS: nystatin 15 GM powder TP SCH ×3 (08:00→21:00)
--- NOTE | 2019-10-10 08:12 | NUR ---
Patient refused vital signs to be taken. Addendum: 10/10/19 at 0812 by Millie Park RN Amended: Links added.
--- NOTE | 2019-10-10 09:36 | NUR ---
Page sent to Dr. Casas PAGER ID: [phone] MESSAGE: [phone] Janette Reyes- Patient is experiencing vaginal bleeding. Has hx of vaginal bleeding per MD Mauricio's note on 08/12/19.
--- NOTE | 2019-10-10 11:10 | NUR ---
Refused vital signs. Addendum: 10/10/19 at 1112 by Millie Park RN Amended: Links added.
--- NOTE | 2019-10-10 18:06 | NUR ---
Problems reprioritized. Patient report given, questions answered & plan of care reviewed with Elizabeth GUADARRAMA.
[2019-10-10] MEDS: traZODone 50mg tablet PO SCH (20:00)
--- NOTE | 2019-10-10 20:00 | NUR ---
PT REFUSING ALL CARE, REFUSING TEACHING. WILL NOT ALLOW VS, OR AN ASSESSMENT TO BE PERFORMED. SITTER REMAINS IN ROOM. Addendum: 10/10/19 at 2320 by Elizabeth Salmeron RN Amended: Links added.
--- NOTE | 2019-10-11 06:23 | NUR ---
Problems reprioritized. Patient report given, questions answered & plan of care reviewed with Kiana GUADARRAMA. Addendum: 10/11/19 at 0623 by Elizabeth Salmeron RN Amended: Links added.
--- NOTE | 2019-10-11 06:29 | NUR ---
Patient in room [facility] 349. I have received report from THIERRY Johnson and had the opportunity to ask questions and assume patient care.
[2019-10-11] MEDS: nystatin 15 GM powder TP SCH ×3 (08:00→20:18)
[2019-10-11] MEDS: lisinopril 10 MG tablet PO SCH (08:00)
[2019-10-11] MEDS: mineral oil/petrolatum, white cream 113gm jar TP SCH ×2 (08:00→20:00)
[2019-10-11] MEDS: HYDROchlorothiazide 12.5mg capsule PO SCH (08:00)
[2019-10-11] MEDS: NYSTATIN CREAM - 30GM TUBE TP SCH ×2 (08:00→20:00)
[2019-10-11] MEDS: neomy sulf/bacitrac zn/polymixin b oint 14.2 gm tube TP SCH ×3 (08:00→20:18)
[2019-10-11] MEDS: docusate sod 100mg capsule PO SCH ×2 (08:00→20:00)
[2019-10-11] MEDS: OLANZAPINE 5 MG TABLET PO SCH (08:00)
--- NOTE | 2019-10-11 08:20 | NUR ---
Patient refused vital signs this morning.
--- NOTE | 2019-10-11 09:07 | NUR ---
Primary nurse into assess patient. Patient was standing at the sink washing her hands. Patient was greeted by primary nurse and patient did not respond almost as if she could not hear. After patient finished washing hands, primary nurse asked the patient if she was just getting ready for the day and asked how the patient was feeling. Patient still did not reply. Patient then walked over to bed right past the primary RN and sat down. Patient was then asked if primary nurse could do an assessment and patient still did not reply. Primary nurse went to place stethoscope against patient's chest and patient was startled and jumped. Patient asked what was happening and she stated that she didn't want me to listen. Patient was then educated about the importance of assessments and medications. Patient stated "I don't know what you are saying but I don't want medication". Sitter present in room. Will continue to monitor. Addendum: 10/11/19 at 0944 by Kiana Coffman RN Amended: Links added.
--- NOTE | 2019-10-11 11:44 | NUR ---
Patient refused vital signs this late morning as well
--- NOTE | 2019-10-11 18:23 | NUR ---
Problems reprioritized. Patient report given, questions answered & plan of care reviewed with THIERRY Rodas.
--- NOTE | 2019-10-11 18:32 | NUR ---
Patient in room [facility] 349. I have received report from Kiana GUADARRAMA and had the opportunity to ask questions and assume patient care. Sitter at bedside. Pt is laying on her back, does not respond to greetings, just stares at you.
[2019-10-11] MEDS: traZODone 50mg tablet PO SCH (20:00)
--- NOTE | 2019-10-11 22:45 | NUR ---
pt refused assessment. Would not allow RN to touch. Refused vitals and medications as well.
--- NOTE | 2019-10-12 06:17 | NUR ---
Problems reprioritized. Patient report given, questions answered & plan of care reviewed with Kiana GUADARRAMA.
--- NOTE | 2019-10-12 06:35 | NUR ---
Patient in room [facility] 349. I have received report from THIERRY Rodas and had the opportunity to ask questions and assume patient care.
[2019-10-12] MEDS: NYSTATIN CREAM - 30GM TUBE TP SCH ×2 (08:00→20:00)
[2019-10-12] MEDS: OLANZAPINE 5 MG TABLET PO SCH (08:00)
[2019-10-12] MEDS: neomy sulf/bacitrac zn/polymixin b oint 14.2 gm tube TP SCH ×3 (08:00→21:00)
[2019-10-12] MEDS: mineral oil/petrolatum, white cream 113gm jar TP SCH ×2 (08:00→20:00)
[2019-10-12] MEDS: lisinopril 10 MG tablet PO SCH (08:00)
[2019-10-12] MEDS: nystatin 15 GM powder TP SCH ×3 (08:00→21:00)
[2019-10-12] MEDS: docusate sod 100mg capsule PO SCH ×2 (08:00→20:00)
[2019-10-12] MEDS: HYDROchlorothiazide 12.5mg capsule PO SCH (08:00)
--- NOTE | 2019-10-12 11:42 | NUR ---
Patient refused assessment, medications, and vital signs again today. Education was attempted however, patient was not attentive. MD aware. Will continue to monitor.
--- NOTE | 2019-10-12 13:25 | NUR ---
lunch, and breakfast this AM. Continues to fluctuate w/ refusals r/t ALOC though still improved from prior all refusals. Pt still refusing wts, meds, and lab draws; PACO d/w RN regarding new wt to determine wt status and RN agrees to attempt new scaled wt if pt will allow today. Pt seen by PACO and reports likes power puddings and requests low sodium crackers as well as soda TIDWM; declines additional food preferences and reports drinks "little bit not too much" water. PACO d/w RN regarding cancelling heart healthy diet restriction if MD agreeable given poor PO hx. Okay to send pt current food preferences given poor PO hx and malnutrition; dietary notified. [facility] 10/09. Partially meeting nutrition needs past 2 days at this time. Will continue to monitor. Recommend: 1. liberalize diet to mechanical soft diet given poor PO hx; encourage PO intake 2. power pudding BIDLD, LS crackers and soda TIDWM per pt preferences 3. routine bowel care 4. yogurt, cottage cheese, and pears at dinner; cottage cheese and pears at lunch 5. scaled wt as soon as pt agreeable; no scaled wt this admit Addendum: 10/12/19 at [address] Amended: Links added.
--- NOTE | 2019-10-12 18:30 | NUR ---
Problems reprioritized. Patient report given, questions answered & plan of care reviewed with THIERRY Pelayo.
--- NOTE | 2019-10-12 18:49 | NUR ---
Patient in room [facility] 349. I have received report from THIERRY Bruno and had the opportunity to ask questions and assume patient care.
--- NOTE | 2019-10-12 19:22 | NUR ---
Patient refused vitals Addendum: 10/12/19 at 2105 by Pierce Hairston RN Amended: Links added.
[2019-10-12] MEDS: traZODone 50mg tablet PO SCH (20:00)
--- NOTE | 2019-10-12 23:50 | NUR ---
Patient has refused nursing care. My assesment is based on what I have seen visually.
--- NOTE | 2019-10-13 01:07 | NUR ---
Pt refused to have vss Addendum: 10/13/19 at 0107 by Pierce Hairston RN Amended: Links added.
--- NOTE | 2019-10-13 06:13 | NUR ---
Problems reprioritized. Patient report given, questions answered & plan of care reviewed with THIERRY Bruno.
--- NOTE | 2019-10-13 06:15 | NUR ---
Patient in room [facility] 349. I have received report from THIERRY Pelayo and had the opportunity to ask questions and assume patient care.
[2019-10-13] MEDS: OLANZAPINE 5 MG TABLET PO SCH (07:58)
[2019-10-13] MEDS: nystatin 15 GM powder TP SCH ×3 (07:58→19:55)
[2019-10-13] MEDS: neomy sulf/bacitrac zn/polymixin b oint 14.2 gm tube TP SCH ×3 (07:58→19:55)
[2019-10-13] MEDS: docusate sod 100mg capsule PO SCH ×2 (07:58→19:54)
[2019-10-13] MEDS: mineral oil/petrolatum, white cream 113gm jar TP SCH ×2 (07:58→19:54)
[2019-10-13] MEDS: HYDROchlorothiazide 12.5mg capsule PO SCH (07:58)
[2019-10-13] MEDS: NYSTATIN CREAM - 30GM TUBE TP SCH ×2 (07:58→19:55)
[2019-10-13] MEDS: lisinopril 10 MG tablet PO SCH (07:58)
--- NOTE | 2019-10-13 08:51 | NUR ---
Patient is refusing medications and assessments. Patient still refusing all vital signs as well. Patient ignores primary nurse when asked questions. If assessment is attempted with stethoscope patient will jump and become very agitated. Sitter present in room. Will continue to monitor.
--- NOTE | 2019-10-13 12:25 | NUR ---
pt refused 11oo vitals
--- NOTE | 2019-10-13 18:00 | NUR ---
Patient refusing vital signs
--- NOTE | 2019-10-13 18:37 | NUR ---
Problems reprioritized. Patient report given, questions answered & plan of care reviewed with THIERRY Fang.
--- NOTE | 2019-10-13 18:49 | NUR ---
Patient in room [facility] 349. I have received report from Kiana GUADARRAMA and had the opportunity to ask questions and assume patient care.
[2019-10-13] MEDS: traZODone 50mg tablet PO SCH (19:54)
--- NOTE | 2019-10-13 22:37 | NUR ---
Patient refusing nursing to auscultate or touch patient for assessment. Refusing all nursing care, interventions and medication. Addendum: 10/13/19 at 2238 by Annalisa Ivy RN Amended: Links added.
--- NOTE | 2019-10-14 06:33 | NUR ---
Problems reprioritized. Patient report given, questions answered & plan of care reviewed with Candace GUADARRAMA.
--- NOTE | 2019-10-14 06:48 | NUR ---
Patient in room [facility] 349. I have received report from Annalisa GUADARRAMA and had the opportunity to ask questions and assume patient care.
[2019-10-14] MEDS: OLANZAPINE 5 MG TABLET PO SCH (08:00)
[2019-10-14] MEDS: neomy sulf/bacitrac zn/polymixin b oint 14.2 gm tube TP SCH ×3 (08:00→20:51)
[2019-10-14] MEDS: mineral oil/petrolatum, white cream 113gm jar TP SCH ×2 (08:00→20:00)
[2019-10-14] MEDS: lisinopril 10 MG tablet PO SCH (08:00)
[2019-10-14] MEDS: HYDROchlorothiazide 12.5mg capsule PO SCH (08:00)
[2019-10-14] MEDS: docusate sod 100mg capsule PO SCH ×2 (08:00→20:00)
[2019-10-14] MEDS: nystatin 15 GM powder TP SCH ×3 (08:00→20:51)
[2019-10-14] MEDS: NYSTATIN CREAM - 30GM TUBE TP SCH ×2 (08:00→20:00)
--- NOTE | 2019-10-14 18:02 | NUR ---
PT REFUSED ALL VITALS AND ASSESSMENTS. GETS AGITATED IF TOUCHED Addendum: 10/14/19 at 1803 by Candace Albarran RN Amended: Links added.
--- NOTE | 2019-10-14 18:25 | NUR ---
Problems reprioritized. Patient report given, questions answered & plan of care reviewed with JC GUADARRAMA.
--- NOTE | 2019-10-14 18:45 | NUR ---
Patient in room [facility] 349. I have received report from Candace GUADARRAMA and had the opportunity to ask questions and assume patient care.
[2019-10-14] MEDS: traZODone 50mg tablet PO SCH (20:00)
--- NOTE | 2019-10-14 21:36 | NUR ---
Patient refused dinner, all meds and physical assessment.
--- NOTE | 2019-10-15 06:46 | NUR ---
Problems reprioritized. Patient report given, questions answered & plan of care reviewed with Georgina GUADARRAMA.
--- NOTE | 2019-10-15 07:00 | NUR ---
Refused for vital signs to be taken. Will approach at a later time.
[2019-10-15] MEDS: HYDROchlorothiazide 12.5mg capsule PO SCH (08:00)
[2019-10-15] MEDS: neomy sulf/bacitrac zn/polymixin b oint 14.2 gm tube TP SCH ×3 (08:00→21:00)
[2019-10-15] MEDS: lisinopril 10 MG tablet PO SCH (08:00)
[2019-10-15] MEDS: docusate sod 100mg capsule PO SCH ×2 (08:00→20:00)
[2019-10-15] MEDS: nystatin 15 GM powder TP SCH ×3 (08:00→21:00)
[2019-10-15] MEDS: OLANZAPINE 5 MG TABLET PO SCH (08:00)
[2019-10-15] MEDS: NYSTATIN CREAM - 30GM TUBE TP SCH ×2 (08:00→20:00)
[2019-10-15] MEDS: mineral oil/petrolatum, white cream 113gm jar TP SCH ×2 (08:00→20:00)
--- NOTE | 2019-10-15 08:00 | NUR ---
Pt. refused physical assessment. Stares "Get away from me!" No change in mentation noted. Will re-approach at a later time.
--- NOTE | 2019-10-15 10:22 | NUR ---
Pt. still refusing AM medications and physical assessment.
--- NOTE | 2019-10-15 13:26 | NUR ---
Reassessment: Patient's diet has been advanced from heart healthy to regular. Pt continues with fluctuating PO intake. Since last RD assessment, pt has refused three meals, consumed 50-75% PO intake x 2 meals, and with 25% PO intake of starch with 100% PO intake of milk at breakfast this morning. Pt still likely not meeting nutrient needs at this time however PO intake does seem to be slowly improving despite fluctuations as pt previously with steady 0-25% PO intake with continuous refusals of meals. LBM documented as 10/09 however unsure if this is truly last BM as pt resistive to care. Pt receiving power pudding BIDLD to assist with bowel regularity which pt reports she likes. Pt documented to be refusing medications at this time. Will continue to follow closely. Recommend: 1. continue mechanical soft regular diet given poor PO hx; encourage PO intake 2. power pudding BIDLD, LS crackers and soda TIDWM per pt preferences 3. routine bowel care 4. yogurt, cottage cheese, and pears at dinner; cottage cheese and pears at lunch 5. scaled wt as soon as pt agreeable; no scaled wt this admit Addendum: 10/15/19 at [address] Amended: Links added.
--- NOTE | 2019-10-15 18:30 | NUR ---
Patient in room KJ 349. I have received report from Georgina GUADARRAMA and had the opportunity to ask questions and assume patient care.
--- NOTE | 2019-10-15 18:56 | NUR ---
Gave report to Katrin GUADARRAMA. Pt. comfortable in room with no needs at this time.
[2019-10-15] MEDS: traZODone 50mg tablet PO SCH (20:00)
--- NOTE | 2019-10-15 22:00 | NUR ---
Patient refused dinner, most assessments, medication and PRN MOM for lack of BM. Last BM was on . MD talavera.
--- NOTE | 2019-10-16 06:31 | NUR ---
Problems reprioritized. Patient report given, questions answered & plan of care reviewed with Georgina GUADARRAMA.
[2019-10-16] MEDS: docusate sod 100mg capsule PO SCH ×2 (07:46→20:00)
[2019-10-16] MEDS: HYDROchlorothiazide 12.5mg capsule PO SCH (07:46)
[2019-10-16] MEDS: OLANZAPINE 5 MG TABLET PO SCH (07:46)
[2019-10-16] MEDS: lisinopril 10 MG tablet PO SCH (07:46)
[2019-10-16] MEDS: mineral oil/petrolatum, white cream 113gm jar TP SCH ×2 (07:47→20:00)
[2019-10-16] MEDS: NYSTATIN CREAM - 30GM TUBE TP SCH ×2 (07:47→20:00)
[2019-10-16] MEDS: neomy sulf/bacitrac zn/polymixin b oint 14.2 gm tube TP SCH ×3 (07:47→21:00)
[2019-10-16] MEDS: nystatin 15 GM powder TP SCH ×3 (07:47→21:00)
--- NOTE | 2019-10-16 07:47 | NUR ---
PT. REFUSED PHYSICAL ASSESSMENT AGAIN, SWATTING HAND AND ARM AT THIS RN. rEFUSED VITALS TO BE TAKEN AFTER SEVERAL ATTEMPTS. SOILED BED WITH URINE AND FECES. PT. SMELLS FOWL. REFUSES TO BE CLEANED OR HAVE LINENS REPLACED. AGITATED AND HARM TO HER OWN WELLBEING/HEALTH. CALLED SECURITY TO ASSIST WITH HALDOL ADMINISTRATION. ONCE SECURITY WAS HERE PT AGREED TO HAVE LINENS CHANGED AND URINE WIPED FROM SKIN. AGITATION DECREASED AND PT. COOPERATIVE TO ONE AGREED UPON TASK. HALDOL WASTED AT THIS TIME.
--- NOTE | 2019-10-16 12:25 | NUR ---
PAGER ID: [phone] MESSAGE: Amy Savage has not had a BM since the () Refused ALL medications including MOM and bowel protocol this AM. YASSINEB? Georgina [id number]
--- NOTE | 2019-10-16 13:40 | NUR ---
TALKED TO MD ALEGRE ABOUT NO BM, REFUSING MEDICATIONS/MOM. STATES KUB WOULD NOT BE NECESSARY AT THIS TIME SINCE PT. IS REFUSING TX AT THIS TIME ANYWAY. PT. IS ASYMPTOMATIC OF BOWEL OBSTRUCTION. CONTINUE TO MONITOR. IF AT ANY TIME SYMPTOMATIC WILL NOTIFY .
--- NOTE | 2019-10-16 17:34 | NUR ---
PAGER ID: [phone] MESSAGE: JESSICA CRAIG- C/O "BLADDERPAIN" PER SITTER. INCREASED EPISODES OF INCONTINENCE. GOOD OUTPUT. ORDER FOR UA? JENNIFER [id number]
--- NOTE | 2019-10-16 18:01 | NUR ---
SPECIMEN CUP, CLEAN HAT, PROVIDED TO RN MILITARY. SITTER AWARE UA ORDERED.
--- NOTE | 2019-10-16 18:36 | NUR ---
REPORT GIVEN TO TIFFANIE rn AND RAQUEL GUADARRAMA STUDENT. THEY ARE AWARE PT. HAS UA ORDERED AND PT. IS A MONITOR VOID AND BM.
--- NOTE | 2019-10-16 18:43 | NUR ---
Patient in room [facility] 349. I have received report from THIERRY Erickson and had the opportunity to ask questions and assume patient care. Addendum: 10/16/19 at 1844 by Cuca KRAFT Amended: Links added.
--- NOTE | 2019-10-16 19:28 | NUR ---
Patient refused vital signs Addendum: 10/16/19 at 1928 by Cuca KRAFT Amended: Links added.
[2019-10-16] MEDS: traZODone 50mg tablet PO SCH (20:00)
--- NOTE | 2019-10-16 23:19 | NUR ---
reviewed and agree with SRN assessment.
--- NOTE | 2019-10-17 01:09 | NUR ---
Patient refused to give a urine sample. Addendum: 10/17/19 at 0109 by Cuca KRAFT Amended: Links added.
--- NOTE | 2019-10-17 06:36 | NUR ---
Patient in room [facility] 349. I have received report from Sujatha GUADARRAMA, Cuca Dukes, and had the opportunity to ask questions and assume patient care.
[2019-10-17] MEDS: neomy sulf/bacitrac zn/polymixin b oint 14.2 gm tube TP SCH ×3 (08:00→21:00)
[2019-10-17] MEDS: lisinopril 10 MG tablet PO SCH (08:00)
[2019-10-17] MEDS: docusate sod 100mg capsule PO SCH ×2 (08:00→20:00)
[2019-10-17] MEDS: HYDROchlorothiazide 12.5mg capsule PO SCH (08:00)
[2019-10-17] MEDS: mineral oil/petrolatum, white cream 113gm jar TP SCH ×2 (08:00→20:00)
[2019-10-17] MEDS: nystatin 15 GM powder TP SCH ×3 (08:00→21:00)
[2019-10-17] MEDS: OLANZAPINE 5 MG TABLET PO SCH (08:00)
[2019-10-17] MEDS: NYSTATIN CREAM - 30GM TUBE TP SCH ×2 (08:00→20:00)
--- NOTE | 2019-10-17 17:18 | NUR ---
refusing all vitals Addendum: 10/17/19 at 1719 by Candace Albarran RN Amended: Links added.
--- NOTE | 2019-10-17 18:15 | NUR ---
Patient refused 1800 vital signs.
--- NOTE | 2019-10-17 18:42 | NUR ---
Problems reprioritized. Patient report given, questions answered & plan of care reviewed with Iza Booker.
--- NOTE | 2019-10-17 18:45 | NUR ---
Patient in room [facility] 349. I have received report from THIERRY Maria and had the opportunity to ask questions and assume patient care.
[2019-10-17] MEDS: traZODone 50mg tablet PO SCH (20:00)
--- NOTE | 2019-10-17 22:00 | NUR ---
Patient refused physical assessment and medications administration. Pt states that she is "fine". Will continue to monitor patient.
--- NOTE | 2019-10-18 00:42 | NUR ---
Patient refused vital signs.
--- NOTE | 2019-10-18 06:24 | NUR ---
Patient in room [facility] 349. I have received report from Iza GUADARRAMA and had the opportunity to ask questions and assume patient care.
--- NOTE | 2019-10-18 06:25 | NUR ---
Problems reprioritized. Patient report given, questions answered & plan of care reviewed with THIERRY Maria.
[2019-10-18] MEDS: nystatin 15 GM powder TP SCH (08:00)
[2019-10-18] MEDS: NYSTATIN CREAM - 30GM TUBE TP SCH ×2 (08:00→20:00)
[2019-10-18] MEDS: mineral oil/petrolatum, white cream 113gm jar TP SCH ×2 (08:00→20:00)
[2019-10-18] MEDS: HYDROchlorothiazide 12.5mg capsule PO SCH (08:00)
[2019-10-18] MEDS: OLANZAPINE 5 MG TABLET PO SCH (08:00)
[2019-10-18] MEDS: neomy sulf/bacitrac zn/polymixin b oint 14.2 gm tube TP SCH ×3 (08:00→21:00)
[2019-10-18] MEDS: docusate sod 100mg capsule PO SCH ×2 (08:00→20:00)
[2019-10-18] MEDS: lisinopril 10 MG tablet PO SCH (08:00)
--- NOTE | 2019-10-18 16:47 | NUR ---
Reassessment: Pt PO regressed to mostly refusing meals w/ occasional 25% once more not meeting needs w/ ALOC. LBM 10/09 which then resolved PM 10/16 and today 10/17; constipation also likely to impact PO in addition to ALOC. Pt remains refusing meds/exams and will not allow wt to be obtained per charge out clerk. No scaled wt this admit; unable to track wt changes in malnourished state. Will continue to monitor. Recommend: 1. continue mechanical soft regular diet given poor PO hx; encourage PO intake 2. power pudding BIDLD, LS crackers and soda TIDWM per pt preferences 3. routine bowel care 4. yogurt, cottage cheese, and pears at dinner; cottage cheese and pears at lunch 5. scaled wt as soon as pt agreeable; no scaled wt this admit Addendum: 10/18/19 at [address] Amended: Links added.
--- NOTE | 2019-10-18 18:15 | NUR ---
Patient in room [facility] 349. I have received report from Candace Booker and had the opportunity to ask questions and assume patient care.
--- NOTE | 2019-10-18 18:28 | NUR ---
Problems reprioritized. Patient report given, questions answered & plan of care reviewed with Julia GUADARRAMA.
--- NOTE | 2019-10-18 19:24 | NUR ---
Pt refused all care, assessments and medications. Pt gets really agitated if you get to close or touch her. Dr Mcgee aware. Addendum: 10/18/19 at 1925 by Candace Albarran RN Amended: Links added.
[2019-10-18] MEDS: traZODone 50mg tablet PO SCH (20:00)
--- NOTE | 2019-10-18 20:00 | NUR ---
Patient refused VsS to be taken. Appears in no stess at this time. Sitter in room. Addendum: 10/18/19 at 2159 by Julia Gloria RN Amended: Links added.
--- NOTE | 2019-10-19 05:55 | NUR ---
Patient has not allowed for any care this NOC shift. Patient has not wanted to get OOB to use bathroom thus, unable to collect a UA. Patient has also stated to the sitter that she is afraid to go pee, and so will not go.
--- NOTE | 2019-10-19 06:45 | NUR ---
Patient in room [facility] 349. I have received report from THIERRY Dumont and had the opportunity to ask questions and assume patient care.
--- NOTE | 2019-10-19 06:52 | NUR ---
Problems reprioritized. Patient report given, questions answered & plan of care reviewed with Ariane GUADARRAMA.
[2019-10-19 08:00] VITALS: BP 158/84
[2019-10-19] MEDS: OLANZAPINE 5 MG TABLET PO SCH (08:00)
[2019-10-19] MEDS: lisinopril 10 MG tablet PO SCH (08:00)
[2019-10-19] MEDS: NYSTATIN CREAM - 30GM TUBE TP SCH ×2 (08:00→20:00)
[2019-10-19] MEDS: docusate sod 100mg capsule PO SCH ×2 (08:00→20:00)
[2019-10-19] MEDS: mineral oil/petrolatum, white cream 113gm jar TP SCH ×2 (08:00→20:00)
[2019-10-19] MEDS: neomy sulf/bacitrac zn/polymixin b oint 14.2 gm tube TP SCH ×3 (08:00→21:00)
[2019-10-19] MEDS: HYDROchlorothiazide 12.5mg capsule PO SCH (08:00)
[2019-10-19 16:18] LABS: UA COLLECTION TYPE NON-SPECIFIED
[2019-10-19 16:19] LABS: CLARITY,URINE BLOODY (Clear); COLOR,URINE RED (Yellow)
[2019-10-19 16:22] LABS: BACTERIA,URINE 2+ /HPF (Neg); MUCUS STRANDS FEW /LPF (Neg); RBC,URINE TNTC /HPF (0-2); RENAL CELLS, URINE FEW /HPF; SQUAMOUS EPITHELIAL CELL,UR FEW /LPF (FEW); TRANSITIONAL EPI CELLS,URINE FEW /HPF; WBC CLUMPS,URINE MODERATE /HPF (NEGATIVE)
--- NOTE | 2019-10-19 18:14 | NUR ---
Problems reprioritized. Patient report given, questions answered & plan of care reviewed with THIERRY Dumont.
--- NOTE | 2019-10-19 18:20 | NUR ---
Patient in room [facility] 349. I have received report from Ariane GUADARRAMA and had the opportunity to ask questions and assume patient care.
[2019-10-19 18:45] VITALS: BP 162/81
[2019-10-19] MEDS: traZODone 50mg tablet PO SCH ×2 (20:00→22:19)
--- NOTE | 2019-10-20 06:00 | NUR ---
Patient has not voided during NOC shift. However, patient is leaking blood on her pants and bedding. FINISHED GOODS PLANNER reported that patient would not allow for her to do any daren care, so unable to tell if patient maybe had any urine incontinence.
--- NOTE | 2019-10-20 06:30 | NUR ---
Patient in room [facility] 349. I have received report from Julia GUADARRAMA and had the opportunity to ask questions and assume patient care.
--- NOTE | 2019-10-20 06:45 | NUR ---
Problems reprioritized. Patient report given, questions answered & plan of care reviewed with remy GUADARRAMA.
--- NOTE | 2019-10-20 07:00 | NUR ---
Pt refusing vital signs.
[2019-10-20] MEDS: NYSTATIN CREAM - 30GM TUBE TP SCH ×2 (07:56→20:00)
[2019-10-20] MEDS: neomy sulf/bacitrac zn/polymixin b oint 14.2 gm tube TP SCH ×3 (07:56→20:35)
[2019-10-20] MEDS: mineral oil/petrolatum, white cream 113gm jar TP SCH ×2 (07:56→20:00)
[2019-10-20] MEDS: OLANZAPINE 5 MG TABLET PO SCH (08:00)
[2019-10-20] MEDS: docusate sod 100mg capsule PO SCH ×2 (08:00→20:00)
[2019-10-20] MEDS: lisinopril 10 MG tablet PO SCH (08:00)
[2019-10-20] MEDS: HYDROchlorothiazide 12.5mg capsule PO SCH (08:00)
--- NOTE | 2019-10-20 09:16 | NUR ---
Dr. Mcgee paged regarding pt hasnt voided in 12hrs and is refusing bladder scan. Awaiting call back.
--- NOTE | 2019-10-20 11:30 | NUR ---
Dr. Mcgee aware that pt hasnt voided and that she is refusing bladder scan. Pt also refusing to be straight cathed or have sykes placed.
--- NOTE | 2019-10-20 11:54 | NUR ---
Pt refusing afternoon vital signs. Will continue to monitor.
--- NOTE | 2019-10-20 12:16 | NUR ---
Student Medication Administration: For this medication-pass time frame, all medication were reviewed, dispensed, administered and documented per hospital policy by [facility] Student Nurse. Student documentation: I have reviewed all interventions, assessments performed and documented by [facility] Student Nurse.
--- NOTE | 2019-10-20 18:08 | NUR ---
Problems reprioritized. Patient report given, questions answered & plan of care reviewed with Lexi English RN.
--- NOTE | 2019-10-20 18:26 | NUR ---
Patient in room [facility] 349. I have received report from THIERRY EVANGELISTA and had the opportunity to ask questions and assume patient care. Addendum: 10/20/19 at 1826 by Madyson Chawla RN Amended: Links added.
[2019-10-20] MEDS: traZODone 50mg tablet PO SCH (20:00)
[2019-10-21] MEDS: acetaminophen 325mg tablet PO PRN (03:50)
--- NOTE | 2019-10-21 06:32 | NUR ---
Problems reprioritized. Patient report given, questions answered & plan of care reviewed with mendoza Burgess.
[2019-10-21] MEDS: mineral oil/petrolatum, white cream 113gm jar TP SCH ×2 (07:20→20:00)
[2019-10-21] MEDS: OLANZAPINE 5 MG TABLET PO SCH ×2 (07:20→08:00)
[2019-10-21] MEDS: HYDROchlorothiazide 12.5mg capsule PO SCH (07:20)
[2019-10-21] MEDS: docusate sod 100mg capsule PO SCH ×2 (07:20→20:00)
[2019-10-21] MEDS: neomy sulf/bacitrac zn/polymixin b oint 14.2 gm tube TP SCH ×3 (07:20→21:00)
[2019-10-21] MEDS: lisinopril 10 MG tablet PO SCH (07:20)
[2019-10-21] MEDS: NYSTATIN CREAM - 30GM TUBE TP SCH ×2 (07:21→20:00)
--- NOTE | 2019-10-21 07:40 | NUR ---
Patient refusing vitals, physical assessment, and medications at this time. Addendum: 10/21/19 at 926 by Yolanda Barton RN Amended: Links added.
--- NOTE | 2019-10-21 10:56 | NUR ---
Reassessment: PO intake and appetite has improved this past week, was eating 100% for two days in a row. PO up and down, yesterday 25% PO. RD checked in with patient, wasn't feeling well, had c/o leg pain. Difficulty placement per CM notes. Recommend: 1. continue mechanical soft regular diet given poor PO hx; encourage PO intake 2. power pudding BIDLD, LS crackers and soda TIDWM per pt preferences 3. routine bowel care 4. yogurt, cottage cheese, and pears at dinner; cottage cheese and pears at lunch 5. scaled wt as soon as pt agreeable; no scaled wt this admit Addendum: 10/21/19 at [address] Amended: Links added.
--- NOTE | 2019-10-21 12:20 | NUR ---
refused afternoon vital signs. Addendum: 10/21/19 at 1221 by Yolanda Barton RN Amended: Links added.
--- NOTE | 2019-10-21 18:15 | NUR ---
Patient refused 1800 vital signs.
--- NOTE | 2019-10-21 18:29 | NUR ---
Problems reprioritized. Patient report given, questions answered & plan of care reviewed with THIERRY Couch.
--- NOTE | 2019-10-21 18:56 | NUR ---
Patient in room [facility] 349. I have received report from THIERRY Guerrero and had the opportunity to ask questions and assume patient care.
--- NOTE | 2019-10-21 19:45 | NUR ---
Patient declines physical assessment.
[2019-10-21] MEDS: traZODone 50mg tablet PO SCH (20:00)
--- NOTE | 2019-10-22 | NUR ---
Patient refused midnight vital signs.
--- NOTE | 2019-10-22 06:20 | NUR ---
Problems reprioritized. Patient report given, questions answered & plan of care reviewed with THIERRY Guerrero.
[2019-10-22] MEDS: lisinopril 10 MG tablet PO SCH (07:27)
[2019-10-22] MEDS: OLANZAPINE 5 MG TABLET PO SCH (07:27)
[2019-10-22] MEDS: HYDROchlorothiazide 12.5mg capsule PO SCH (07:27)
[2019-10-22] MEDS: mineral oil/petrolatum, white cream 113gm jar TP SCH ×2 (07:27→20:00)
[2019-10-22] MEDS: docusate sod 100mg capsule PO SCH ×2 (07:27→20:00)
[2019-10-22] MEDS: NYSTATIN CREAM - 30GM TUBE TP SCH (07:28)
[2019-10-22] MEDS: neomy sulf/bacitrac zn/polymixin b oint 14.2 gm tube TP SCH ×3 (07:28→21:00)
--- NOTE | 2019-10-22 09:00 | NUR ---
Patient refused physical assessment, medication administration, and vital signs. Visual assessment completed. Sitter at bedside. No complaints at this time. Addendum: 10/22/19 at 0900 by Yolanda Barton RN Amended: Links added.
--- NOTE | 2019-10-22 13:40 | NUR ---
Patient refused afternoon vital signs. resting comfortably in bed. No complaints. Addendum: 10/22/19 at 1340 by Yolanda Barton RN Amended: Links added.
[2019-10-22] MEDS: nystatin 15 GM powder TP SCH ×2 (14:20→21:00)
--- NOTE | 2019-10-22 14:27 | NUR ---
patient complains of her "butthole burning" , she refused to use nystatin cream and then refused to use nystatin powder. She lifted her gown and showed her genitals covered in feces. She refused to allow the sitter or myself to assist her with cleaning up. She used one wipe and said that was it and she will not clean anymore, nor does she need/want any help.
--- NOTE | 2019-10-22 18:02 | NUR ---
Problems reprioritized. Patient report given, questions answered & plan of care reviewed with THIERRY Couch.
[2019-10-22 18:15] VITALS: BP 124/76
--- NOTE | 2019-10-22 18:32 | NUR ---
Patient in room [facility] 349. I have received report from THIERRY Guerrero and had the opportunity to ask questions and assume patient care.
[2019-10-22] MEDS: traZODone 50mg tablet PO SCH (20:00)
--- NOTE | 2019-10-22 20:30 | NUR ---
Patient had requested for a cup of coffee which was given to the patient and placed at table side. EVS also present in room, cleaning B bed. Patient begins to ambulate down the hallway with her sitter and begins to have crying spells, stating that "I made a mistake. I made a mistake." The sitter and I calmly reassured the patient that we all make mistakes sometime. Offered snacks and patient declined. Patient states that she would like a cup of water from her room. Patient states she wants her green chair from her room while she waits in the hallway for B bed to be cleaned. Patient calmed down and the sitter is present.
--- NOTE | 2019-10-22 21:45 | NUR ---
Enter room to assess patient with sitter present. Pt c/o nausea. Offered antiemetic medication and patient declined. Pt vomited 300 mL of brown and green emesis in emesis bag. Will continue to monitor patient. Addendum: 10/23/19 at 0257 by Iza Espinoza RN Patient refused physical assessment and medication administration at this time. Sitter present at bedside. Visual assessment performed. Will continue to perform hourly rounds and remain available to patient.
[2019-10-23 00:27] VITALS: BP 122/66
--- NOTE | 2019-10-23 03:25 | NUR ---
Entered room to assess pt. She states that she is still feeling nauseous, but no emesis since last night. Informed patient that antiemetic may help her feel better. Pt agrees. Called Dr. Ramirez and received order for Zofran ODT 4mg PRN Q6H nausea. Order placed.
[2019-10-23] MEDS: ondansetron 4mg rapidly disintigrating tab PO PRN (03:47)
--- NOTE | 2019-10-23 03:50 | NUR ---
Entered room to administer Zofran ODT 4mg. Discussed with patient that taking the medication will make her feel better and not feel nauseous. Pt agrees to take medication. Spent about 15 minutes, encouraging patient to allow medication to dissolve on tongue. Pt tolerated well.
--- NOTE | 2019-10-23 04:05 | NUR ---
Entered room to assess pt. Pt vomited 700 mL of emesis into bag. Offered patient another dose of Zofran ODT 4mg and pt refuses at this time. Pt stated that "Satan told me to and I better not take it." Sitter present in room. Will continue to monitor patient.
--- NOTE | 2019-10-23 05:35 | NUR ---
Entered room to assess pt with sitter presents. Pt is resting comfortably in bed. Per sitter, pt has not had another episode of emesis. Will continue to monitor patient.
--- NOTE | 2019-10-23 06:39 | NUR ---
Problems reprioritized. Patient report given, questions answered & plan of care reviewed with THIERRY Maya and THIERRY Vazquez.
--- NOTE | 2019-10-23 06:41 | NUR ---
Patient in room [facility] 349. I have received report from THIERRY Couch and had the opportunity to ask questions and assume patient care.
[2019-10-23 07:23] VITALS: BP 134/77
[2019-10-23] MEDS: docusate sod 100mg capsule PO SCH ×2 (08:00→20:00)
[2019-10-23] MEDS: OLANZAPINE 5 MG TABLET PO SCH (08:00)
[2019-10-23] MEDS: nystatin 15 GM powder TP SCH ×3 (08:00→20:08)
[2019-10-23] MEDS: HYDROchlorothiazide 12.5mg capsule PO SCH (08:00)
[2019-10-23] MEDS: mineral oil/petrolatum, white cream 113gm jar TP SCH ×2 (08:00→20:00)
[2019-10-23] MEDS: lisinopril 10 MG tablet PO SCH (08:00)
[2019-10-23] MEDS: neomy sulf/bacitrac zn/polymixin b oint 14.2 gm tube TP SCH ×3 (08:00→20:08)
--- NOTE | 2019-10-23 18:15 | NUR ---
Patient refused 1800 vital signs.
--- NOTE | 2019-10-23 18:32 | NUR ---
Patient in room [facility] 349. I have received report from THIERRY Vazquez and THIERRY Maya and had the opportunity to ask questions and assume patient care.
[2019-10-23] MEDS: traZODone 50mg tablet PO SCH (20:00)
--- NOTE | 2019-10-23 20:00 | NUR ---
Entered room to assess pt with sitter presents. Per sitter, pt had c/o of abdominal pain after walking. Talked to pt and she states that she is fine now. Offered pain medication and patient refused at this time. Visual assessment performed. Pt is resting, calmly in bed, in no distress. Pt declined evening medications. Will continue to perform hourly rounds.
--- NOTE | 2019-10-24 | NUR ---
Patient refused midnight vital signs.
--- NOTE | 2019-10-24 06:00 | NUR ---
Entered room to assess patient. Patient has not got up from bed to use restroom for voids or BM during NOC shift. There appears to be some blood leakage on bedding. Per sitter, patient did have multiple episodes of grunt throughout shift. Unable to determine if patient had any incontinence BM or voids.
--- NOTE | 2019-10-24 06:45 | NUR ---
Problems reprioritized. Patient report given, questions answered & plan of care reviewed with THIERRY Ayala.
--- NOTE | 2019-10-24 07:16 | NUR ---
Patient in room [facility] 349. I have received report from THIERRY Couch and had the opportunity to ask questions and assume patient care.
[2019-10-24] MEDS: lisinopril 10 MG tablet PO SCH (08:00)
[2019-10-24] MEDS: docusate sod 100mg capsule PO SCH ×2 (08:00→20:00)
[2019-10-24] MEDS: OLANZAPINE 5 MG TABLET PO SCH (08:00)
[2019-10-24] MEDS: nystatin 15 GM powder TP SCH ×3 (08:00→21:00)
[2019-10-24] MEDS: mineral oil/petrolatum, white cream 113gm jar TP SCH ×2 (08:00→20:00)
[2019-10-24] MEDS: HYDROchlorothiazide 12.5mg capsule PO SCH (08:00)
[2019-10-24] MEDS: neomy sulf/bacitrac zn/polymixin b oint 14.2 gm tube TP SCH ×3 (08:00→21:00)
--- NOTE | 2019-10-24 12:21 | NUR ---
Reassessment: Pt continues with fluctuating PO intake, documented with 100% PO intake x 2 meals on 10/21 then back down to refusing meals and with 25% PO intake at dinner last night. Pending documentation of PO intake for today. Pt has been encouraged to increase PO intake on many occasions however mostly refuses to talk about meals. Pt receiving food preferences. LBM 10/21. Pt continues to refuse medications however is receiving power pudding BIDLD to assist with bowel regularity. Will continue to follow closely. Recommend: 1. continue mechanical soft regular diet given poor PO hx; encourage PO intake 2. power pudding BIDLD, LS crackers and soda TIDWM per pt preferences 3. routine bowel care 4. yogurt, cottage cheese, and pears at dinner; cottage cheese and pears at lunch 5. scaled wt as soon as pt agreeable; no scaled wt this admit Addendum: 10/24/19 at [address] Amended: Links added.
--- NOTE | 2019-10-24 12:36 | NUR ---
Pt uncooperative, refused all medication. sitter at bedside.
--- NOTE | 2019-10-24 13:05 | NUR ---
small amount of fluids with foul odor noted on bed pad. unable to identify between urine or vaginal discharge. Bladder scan 450ml. pt refused to sit on bedside commode or toilet to try to urinate. denied pain or discomfort.
[2019-10-24 18:00] VITALS: BP 164/76
--- NOTE | 2019-10-24 18:30 | NUR ---
Patient in room [facility] 349. I have received report from Olga GUADARRAMA and had the opportunity to ask questions and assume patient care.
--- NOTE | 2019-10-24 19:45 | NUR ---
Problems reprioritized. Patient report given, questions answered & plan of care reviewed with THIERRY Barrios.
[2019-10-24] MEDS: traZODone 50mg tablet PO SCH (20:00)
--- NOTE | 2019-10-25 06:25 | NUR ---
Problems reprioritized. Patient report given, questions answered & plan of care reviewed with Olga GUADARRAMA.
--- NOTE | 2019-10-25 06:38 | NUR ---
Patient in room [facility] 349. I have received report from THIERRY Barrios and had the opportunity to ask questions and assume patient care.
[2019-10-25] MEDS: nystatin 15 GM powder TP SCH ×3 (08:00→21:00)
[2019-10-25] MEDS: neomy sulf/bacitrac zn/polymixin b oint 14.2 gm tube TP SCH ×3 (08:00→21:00)
[2019-10-25] MEDS: mineral oil/petrolatum, white cream 113gm jar TP SCH ×2 (08:00→20:00)
[2019-10-25] MEDS: docusate sod 100mg capsule PO SCH ×2 (08:35→20:00)
[2019-10-25] MEDS: OLANZAPINE 5 MG TABLET PO SCH (08:35)
[2019-10-25] MEDS: lisinopril 10 MG tablet PO SCH (08:36)
[2019-10-25] MEDS: HYDROchlorothiazide 12.5mg capsule PO SCH (08:36)
--- NOTE | 2019-10-25 18:35 | NUR ---
Patient in room [facility] 349. I have received report from Lucy Booker and had the opportunity to ask questions and assume patient care. Addendum: 10/25/19 at 1836 by Megan Johnson RN Amended: Links added.
--- NOTE | 2019-10-25 18:54 | NUR ---
Problems reprioritized. Patient report given, questions answered & plan of care reviewed with THIERRY Guzman.
--- NOTE | 2019-10-25 19:00 | NUR ---
laying flat in bed resting no changes. no clothes on.
[2019-10-25] MEDS: traZODone 50mg tablet PO SCH (20:00)
--- NOTE | 2019-10-25 21:35 | NUR ---
PT DEREK VILLARREAL CALLED rN IN TO SEE IF SHE WOULD TAKE HER MEDICATION. JUST LAID IN BED AFTER EATING HER YOGURT REFUSED TO TALK WITH STAFF AND REMAINS WITH CLOTHES OFF.
--- NOTE | 2019-10-25 23:07 | NUR ---
in bed laying flat eyes open staring at the ceiling not responding to staff.
--- NOTE | 2019-10-25 23:19 | NUR ---
pt resting without s&S of distress.
--- NOTE | 2019-10-26 00:20 | NUR ---
LAYING FLAT IN BED RESPONDED NO TO BLANKETS AND CARE.
--- NOTE | 2019-10-26 02:37 | NUR ---
pt resting without changes.
--- NOTE | 2019-10-26 03:57 | NUR ---
resting eyes closed no changes.
--- NOTE | 2019-10-26 05:25 | NUR ---
pt laying in bed refused a hospital gown.
--- NOTE | 2019-10-26 06:19 | NUR ---
Problems reprioritized. Patient report given, questions answered & plan of care reviewed with Jaylene Booker. Addendum: 10/26/19 at 0620 by Megan Johnson RN Amended: Links added.
[2019-10-26] MEDS: mineral oil/petrolatum, white cream 113gm jar TP SCH ×2 (08:00→20:00)
[2019-10-26] MEDS: HYDROchlorothiazide 12.5mg capsule PO SCH (08:00)
[2019-10-26] MEDS: neomy sulf/bacitrac zn/polymixin b oint 14.2 gm tube TP SCH ×3 (08:00→21:00)
[2019-10-26] MEDS: nystatin 15 GM powder TP SCH ×3 (08:00→21:00)
[2019-10-26] MEDS: lisinopril 10 MG tablet PO SCH (08:00)
[2019-10-26] MEDS: OLANZAPINE 5 MG TABLET PO SCH (08:00)
[2019-10-26] MEDS: docusate sod 100mg capsule PO SCH ×2 (08:00→20:00)
--- NOTE | 2019-10-26 12:50 | NUR ---
Patient in room [facility] 349. I have received report from brittni GUADARRAMA and had the opportunity to ask questions and assume patient care.
--- NOTE | 2019-10-26 18:43 | NUR ---
patient non compliant wanting to lie on bed naked and uncovered . refused to go to bathroom or try to void. . unable to bladder scan patient . sitter in room. Report given to sujata GUADARRAMA
--- NOTE | 2019-10-26 18:47 | NUR ---
Patient in room [facility] 349. I have received report from KIMBERLY GUADARRAMA and had the opportunity to ask questions and assume patient care. Addendum: 10/26/19 at 1847 by Megan Johnson RN Amended: Links added.
--- NOTE | 2019-10-26 19:43 | NUR ---
ptalert and awake refused to have lungs listened to and refused medications. sheet covering lower 1/2 of her but not the top. refuses to let us cover her up. she did ambulate in the pompa briefly but brought back to bed due to c/o feeling weak. pt did tell the sitter she is not feeling well.
[2019-10-26] MEDS: traZODone 50mg tablet PO SCH (20:00)
--- NOTE | 2019-10-26 23:00 | NUR ---
pt started screaming said she dreamt a horrible . stated she was in another world. asked if she needed something for pain or something like trazodone to relax or zofran for nausea. she clearly said i'm not nauseated. don't want something to knock me out i go to sleep fine on my own. said no to tylenol as well.. listened to her told her to let us know what she needs. she said she doesn't know said she's in another world and does not know how we can help her.
--- NOTE | 2019-10-27 00:25 | NUR ---
resting without changes
--- NOTE | 2019-10-27 02:20 | NUR ---
pt resting eyes closed without changes.
--- NOTE | 2019-10-27 04:19 | NUR ---
pt resting without s&s of distress at this time.
--- NOTE | 2019-10-27 05:32 | NUR ---
resting without changes
--- NOTE | 2019-10-27 06:15 | NUR ---
Problems reprioritized. Patient report given, questions answered & plan of care reviewed with Arnulfo Booker. Addendum: 10/27/19 at 0615 by Megan Johnson RN Amended: Links added.
--- NOTE | 2019-10-27 06:47 | NUR ---
Patient in room [facility] 349. I have received report from THIERRY Guzman and had the opportunity to ask questions and assume patient care.
[2019-10-27 07:28] VITALS: BP 113/59
[2019-10-27] MEDS: docusate sod 100mg capsule PO SCH ×2 (07:42→20:00)
[2019-10-27] MEDS: HYDROchlorothiazide 12.5mg capsule PO SCH (07:42)
[2019-10-27] MEDS: neomy sulf/bacitrac zn/polymixin b oint 14.2 gm tube TP SCH ×3 (07:43→20:41)
[2019-10-27] MEDS: lisinopril 10 MG tablet PO SCH (07:43)
[2019-10-27] MEDS: mineral oil/petrolatum, white cream 113gm jar TP SCH ×2 (07:43→20:00)
[2019-10-27] MEDS: OLANZAPINE 5 MG TABLET PO SCH (07:43)
[2019-10-27] MEDS: nystatin 15 GM powder TP SCH ×3 (07:44→20:41)
--- NOTE | 2019-10-27 14:28 | NUR ---
Reassessment: Patient's PO intake has declined since last RD assessment, documented with mostly 0% and refusal of meals. Pt continues with a sitter and food being offered however pt refusing. Pt documented to be resistive to care and refusing medications at this time as well. LBM 10/21, refusing Colace however receiving power pudding BIDLD. Will continue to follow closely. Recommend: 1. continue mechanical soft regular diet given poor PO hx; encourage PO intake 2. power pudding BIDLD, LS crackers and soda TIDWM per pt preferences 3. routine bowel care 4. yogurt, cottage cheese, and pears at dinner; cottage cheese and pears at lunch 5. scaled wt as soon as pt agreeable; no scaled wt this admit Addendum: 10/27/19 at [address] Amended: Links added.
--- NOTE | 2019-10-27 16:20 | NUR ---
Pt seen ambulating with sitter. Exposed buttock shows a developing pressure sore approximately 5cm in diameter. Pt returned to bed flat on her back as is her norm. Pt refused to have wound assessed, photographed or dressed. Advised pt of potential for worsening. She indicates it shirley but states "I know it's there but I'm not worried about it." Will continue to attempt intervention to prevent worsening.
--- NOTE | 2019-10-27 18:04 | NUR ---
Problems reprioritized. Patient report given, questions answered & plan of care reviewed with Judith.
--- NOTE | 2019-10-27 18:30 | NUR ---
Patient in room [facility] 349. I have received report from DYAN GUADARRAMA and had the opportunity to ask questions and assume patient care.
[2019-10-27] MEDS: traZODone 50mg tablet PO SCH (20:00)
--- NOTE | 2019-10-28 06:30 | NUR ---
Problems reprioritized. Patient report given, questions answered & plan of care reviewed with ANA LUISA GUADARRAMA.
--- NOTE | 2019-10-28 06:30 | NUR ---
Patient in room [facility] 349. I have received report from LAWANDA WEBBER RN and had the opportunity to ask questions and assume patient care.
[2019-10-28] MEDS: HYDROchlorothiazide 12.5mg capsule PO SCH (08:00)
[2019-10-28] MEDS: neomy sulf/bacitrac zn/polymixin b oint 14.2 gm tube TP SCH ×3 (08:00→20:27)
[2019-10-28] MEDS: nystatin 15 GM powder TP SCH ×3 (08:00→20:27)
[2019-10-28] MEDS: docusate sod 100mg capsule PO SCH ×2 (08:00→20:00)
[2019-10-28] MEDS: mineral oil/petrolatum, white cream 113gm jar TP SCH ×2 (08:00→20:00)
[2019-10-28] MEDS: OLANZAPINE 5 MG TABLET PO SCH (08:00)
[2019-10-28] MEDS: lisinopril 10 MG tablet PO SCH (08:00)
[2019-10-28 11:00] VITALS: BP 123/66
--- NOTE | 2019-10-28 18:35 | NUR ---
Problems reprioritized. Patient report given, questions answered & plan of care reviewed with LAWANDA WEBBER RN.
--- NOTE | 2019-10-28 18:40 | NUR ---
Patient in room [facility] 349. I have received report from ANA LUISA GUADARRAMA and had the opportunity to ask questions and assume patient care.
[2019-10-28 19:59] VITALS: BP 141/74
[2019-10-28] MEDS: traZODone 50mg tablet PO SCH (20:00)
--- NOTE | 2019-10-28 20:30 | NUR ---
PATIENT REFUSED FOR PHYSICAL ASSESSMENT, WON'T ALLOW TO TOUCH HER OR AUSCULTATE. PATIENT ALSO REFUSED TO TAKE MEDICATIONS.
--- NOTE | 2019-10-29 06:30 | NUR ---
Problems reprioritized. Patient report given, questions answered & plan of care reviewed with DYAN GUADARRAMA.
--- NOTE | 2019-10-29 07:06 | NUR ---
Patient in room [facility] 347. I have received report from Judith and had the opportunity to ask questions and assume patient care.
[2019-10-29] MEDS: mineral oil/petrolatum, white cream 113gm jar TP SCH ×2 (08:00→20:00)
[2019-10-29] MEDS: OLANZAPINE 5 MG TABLET PO SCH (08:00)
[2019-10-29] MEDS: docusate sod 100mg capsule PO SCH ×2 (08:00→20:00)
[2019-10-29] MEDS: neomy sulf/bacitrac zn/polymixin b oint 14.2 gm tube TP SCH ×3 (08:00→20:36)
[2019-10-29] MEDS: HYDROchlorothiazide 12.5mg capsule PO SCH (08:00)
[2019-10-29] MEDS: nystatin 15 GM powder TP SCH ×3 (08:00→20:36)
[2019-10-29] MEDS: lisinopril 10 MG tablet PO SCH (08:00)
--- NOTE | 2019-10-29 08:45 | NUR ---
Pt refused AM vital signs. Will try again during next round and continue to monitor.
--- NOTE | 2019-10-29 18:06 | NUR ---
Problems reprioritized. Patient report given, questions answered & plan of care reviewed with THIERRY Hernandez.
[2019-10-29] MEDS: traZODone 50mg tablet PO SCH (20:00)
--- NOTE | 2019-10-29 22:42 | NUR ---
patient refusing vitals and physical assessment at this time still. requested medicine for pain, tylenol given per md order. will continue to monitor
[2019-10-29] MEDS: acetaminophen 325mg tablet PO PRN (22:45)
--- NOTE | 2019-10-30 06:29 | NUR ---
Patient in room [facility] 349. I have received report from THIERRY Hernandez and had the opportunity to ask questions and assume patient care.
[2019-10-30] MEDS: docusate sod 100mg capsule PO SCH ×2 (08:00→20:00)
[2019-10-30] MEDS: OLANZAPINE 5 MG TABLET PO SCH (08:00)
[2019-10-30] MEDS: nystatin 15 GM powder TP SCH ×3 (08:00→20:18)
[2019-10-30] MEDS: lisinopril 10 MG tablet PO SCH (08:00)
[2019-10-30] MEDS: neomy sulf/bacitrac zn/polymixin b oint 14.2 gm tube TP SCH ×3 (08:00→20:18)
[2019-10-30] MEDS: mineral oil/petrolatum, white cream 113gm jar TP SCH ×2 (08:00→20:00)
[2019-10-30] MEDS: HYDROchlorothiazide 12.5mg capsule PO SCH (08:00)
--- NOTE | 2019-10-30 08:00 | NUR ---
Pt refused AM set of vital signs. Will try again at next round and continue to monitor.
--- NOTE | 2019-10-30 12:00 | NUR ---
Pt refused noon set of vitals. Will continue to monitor.
--- NOTE | 2019-10-30 18:15 | NUR ---
Received report from primary care nurse Zulma GUADARRAMA. Assumed patient care. Patient is awake and alert on room air. Sitter is at the bedside. Patient is sitting on a shower chair and has been all day per report. Refusing to get off at this time. Will try again later. Refusing assessment and vitals at this time. Will make reattempts.
--- NOTE | 2019-10-30 18:35 | NUR ---
Problems reprioritized. Patient report given, questions answered & plan of care reviewed with THIERRY Dangelo.
[2019-10-30] MEDS: traZODone 50mg tablet PO SCH (20:00)
--- NOTE | 2019-10-30 20:00 | NUR ---
Patient has now moved to a recliner but refused assessment again as well as vitals. Patient did not allow this nurse to assess her buttocks although she is complaining of pain to it. Will continue to monitor for changes.
--- NOTE | 2019-10-31 06:27 | NUR ---
Reported off to Zulma GUADARRAMA. Patient is awake and alert on room air. Sitter is at the bedside.
--- NOTE | 2019-10-31 06:27 | NUR ---
Patient in room [facility] 349. I have received report from THIERRY Dangelo and had the opportunity to ask questions and assume patient care.
--- NOTE | 2019-10-31 07:06 | NUR ---
Pt refused AM vital signs. Will continue to monitor.
[2019-10-31] MEDS: neomy sulf/bacitrac zn/polymixin b oint 14.2 gm tube TP SCH ×3 (08:00→21:00)
[2019-10-31] MEDS: lisinopril 10 MG tablet PO SCH (08:00)
[2019-10-31] MEDS: HYDROchlorothiazide 12.5mg capsule PO SCH (08:00)
[2019-10-31] MEDS: OLANZAPINE 5 MG TABLET PO SCH (08:00)
[2019-10-31] MEDS: mineral oil/petrolatum, white cream 113gm jar TP SCH ×2 (08:00→20:00)
[2019-10-31] MEDS: nystatin 15 GM powder TP SCH ×3 (08:00→21:00)
[2019-10-31] MEDS: docusate sod 100mg capsule PO SCH ×2 (08:00→20:00)
[2019-10-31 11:00] VITALS: BP 162/102
[2019-10-31] MEDS: acetaminophen 325mg tablet PO PRN ×2 (11:12→17:06)
--- NOTE | 2019-10-31 11:15 | NUR ---
Reassessment: Per MD notes pt family reports pt with ovarian cancer as well as endometrial cancer although pt has refused tx in the past. Pt continues to be resistive to care and is once again refusing all meals as well as medications. LBM 6/5, documented with moderate stools. Patient's family to discuss code status per MD notes. Will continue to follow closely. Recommend: 1. continue mechanical soft regular diet given poor PO hx; encourage PO intake 2. power pudding BIDLD, LS crackers and soda TIDWM per pt preferences 3. routine bowel care 4. yogurt, cottage cheese, and pears at dinner; cottage cheese and pears at lunch 5. scaled wt as soon as pt agreeable; no scaled wt this admit Addendum: 10/31/19 at [address] Amended: Links added.
[2019-10-31 18:00] VITALS: BP 109/60
--- NOTE | 2019-10-31 18:33 | NUR ---
Problems reprioritized. Patient report given, questions answered & plan of care reviewed with THIERRY Dangelo.
--- NOTE | 2019-10-31 19:07 | NUR ---
Received report from primary care nurse Zulma GUADARRAMA. Assumed patient care. Patient is awake and alert on room air. Sitter is at the bedside. Patient is sitting in her recliner. Appears to be in good spirits but is still refusing assessment and vitals at this time. Will make reattempts. Addendum: 10/31/19 at 1908 by Loreto Jose RN time [id number]
[2019-10-31] MEDS: traZODone 50mg tablet PO SCH (20:00)
--- NOTE | 2019-10-31 20:00 | NUR ---
Patient is refusing assessment at this time.
[2019-11-01] MEDS: traZODone 50mg tablet PO PRN (00:37)
--- NOTE | 2019-11-01 05:25 | NUR ---
Paged MD Gaines regarding patient c/o pain to her "bottom." Pending call back.
--- NOTE | 2019-11-01 06:04 | NUR ---
Reported off to Candace GUADARRAMA. Patient is resting with relaxed and unlabored respirations on room air. Sitter is at the bedside.
--- NOTE | 2019-11-01 06:37 | NUR ---
Patient in room [facility] 349. I have received report from THIERRY MELCHOR and had the opportunity to ask questions and assume patient care.
[2019-11-01] MEDS: mineral oil/petrolatum, white cream 113gm jar TP SCH ×2 (08:00→20:00)
[2019-11-01] MEDS: lisinopril 10 MG tablet PO SCH (08:00)
[2019-11-01] MEDS: neomy sulf/bacitrac zn/polymixin b oint 14.2 gm tube TP SCH ×3 (08:00→21:00)
[2019-11-01] MEDS: nystatin 15 GM powder TP SCH ×3 (08:00→21:00)
[2019-11-01] MEDS: HYDROchlorothiazide 12.5mg capsule PO SCH (08:00)
[2019-11-01] MEDS: OLANZAPINE 5 MG TABLET PO SCH (08:00)
[2019-11-01] MEDS: docusate sod 100mg capsule PO SCH ×3 (08:00→21:44)
[2019-11-01 08:38] VITALS: BP 149/79
--- NOTE | 2019-11-01 13:55 | NUR ---
PATIENT REFUSED ASSESSMENT, CHARTED WHAT I COULD SEE Addendum: 11/01/19 at 1357 by Candace Castellanos RN Amended: Links added.
--- NOTE | 2019-11-01 16:30 | NUR ---
WAS ABLE TO LOOK AT PATIENT'S BOTTOM, IT IS REDDENED WITH TWO OPEN AREAS ON THE RIGHT BUTTOCK, CHARGE NURSE NOTIFIED
--- NOTE | 2019-11-01 18:30 | NUR ---
Problems reprioritized. Patient report given, questions answered & plan of care reviewed with THIERRY CLEMENTS.
--- NOTE | 2019-11-01 18:43 | NUR ---
Patient in room [facility] 349. I have received report from Candace GUADARRAMA and had the opportunity to ask questions and assume patient care.
--- NOTE | 2019-11-01 18:45 | NUR ---
PATIENT HAD NOT VOIDED ON MY SHIFT CALLED AND GOT AN ORDER TO BLADDER SCAN AND STRAIGHT CATH IF BLADDER HAD ABOVE 400MLS. SCANNED BLADDER THERE WAS 421 MLS IN BLADDER, NOC NURSE TO ATTEMPT STRAIGHT CATH.
--- NOTE | 2019-11-01 19:07 | NUR ---
Day nurse informed MD of no void all shift. Bladder scan revealed 421cc. Pt. refused to be bladder scanned at this time.
--- NOTE | 2019-11-01 19:30 | NUR ---
Patient refused for vitals signs to be taken. Addendum: 11/01/19 at 2024 by Julia Gloria RN Amended: Links added.
[2019-11-01] MEDS: traZODone 50mg tablet PO SCH (21:35)
[2019-11-01] MEDS: traMADol 50MG tablet PO PRN (21:36)
--- NOTE | 2019-11-01 22:05 | NUR ---
Patient actually took some medications in yoghurt (encouraged with having root beer drink right afterwards) and it seemed to work, apart from the colace which she took out and then yelled "no, no more pills".
--- NOTE | 2019-11-02 06:30 | NUR ---
Patient un-cooperative with attempt to straight cath, take VS or re bladder scan during NoC shift.
--- NOTE | 2019-11-02 06:32 | NUR ---
Problems reprioritized. Patient report given, questions answered & plan of care reviewed with Candace Booker.
--- NOTE | 2019-11-02 07:21 | NUR ---
Patient in room [facility] 349. I have received report from THIERRY CLEMENTS and had the opportunity to ask questions and assume patient care.
[2019-11-02] MEDS: neomy sulf/bacitrac zn/polymixin b oint 14.2 gm tube TP SCH ×3 (08:00→21:00)
[2019-11-02] MEDS: mineral oil/petrolatum, white cream 113gm jar TP SCH ×2 (08:00→20:00)
[2019-11-02] MEDS: HYDROchlorothiazide 12.5mg capsule PO SCH (09:59)
[2019-11-02] MEDS: OLANZAPINE 5 MG TABLET PO SCH (09:59)
[2019-11-02] MEDS: lisinopril 10 MG tablet PO SCH (10:04)
[2019-11-02] MEDS: nystatin 15 GM powder TP SCH ×3 (10:06→21:00)
--- NOTE | 2019-11-02 18:30 | NUR ---
Patient in room [facility] 349. I have received report from Candace GUADARRAMA and had the opportunity to ask questions and assume patient care.
--- NOTE | 2019-11-02 19:04 | NUR ---
PATIENT DID NOT VOID ON MY SHIFT, BLADDER SCANNED PATIENT AND BLADDER CONTAINED 655 ML, PASSED ON TO ON COMING NURSE.
[2019-11-02] MEDS: docusate sod 100mg capsule PO SCH (20:00)
[2019-11-02] MEDS: traZODone 50mg tablet PO SCH (21:43)
[2019-11-02] MEDS: traMADol 50MG tablet PO PRN (21:43)
--- NOTE | 2019-11-02 22:30 | NUR ---
Around 2200, patient awoke and got OOB. All linen was saturated with urine. Did not need to straight cath.
--- NOTE | 2019-11-03 06:37 | NUR ---
Problems reprioritized. Patient report given, questions answered & plan of care reviewed with Stacie RN.
--- NOTE | 2019-11-03 06:49 | NUR ---
Patient in room [facility] 349. I have received report from THIERRY Dumont and had the opportunity to ask questions and assume patient care.
[2019-11-03] MEDS: neomy sulf/bacitrac zn/polymixin b oint 14.2 gm tube TP SCH ×3 (08:00→21:00)
[2019-11-03] MEDS: docusate sod 100mg capsule PO SCH ×2 (08:00→20:00)
[2019-11-03] MEDS: lisinopril 10 MG tablet PO SCH (08:00)
[2019-11-03] MEDS: nystatin 15 GM powder TP SCH ×3 (08:00→21:00)
[2019-11-03] MEDS: mineral oil/petrolatum, white cream 113gm jar TP SCH ×2 (08:00→20:00)
[2019-11-03] MEDS: OLANZAPINE 5 MG TABLET PO SCH (08:35)
[2019-11-03] MEDS: HYDROchlorothiazide 12.5mg capsule PO SCH (08:38)
[2019-11-03 12:37] VITALS: BP 110/70
--- NOTE | 2019-11-03 12:52 | NUR ---
Reassessment: Pt continues to be resistive to care and not eating meals. Pt documented with 25% PO intake of starch and 100% PO intake of milk at lunch 10/30 and 50% of starch at lunch 10/31, however refused all surrounding meals. Per MD notes RN reports pt states she is hearing voices telling her not to eat. Pt receiving antipsychotic medications although refused most times, however documented that pt was receptive to medication 11/01 and 11/02. LBM 11/01 documented as a smear. Pt documented with a moderate BM 10/31. Will continue to follow closely. Recommend: 1. continue mechanical soft regular diet given poor PO hx; encourage PO intake 2. power pudding BIDLD, LS crackers and soda TIDWM per pt preferences 3. routine bowel care 4. yogurt, cottage cheese, and pears at dinner; cottage cheese and pears at lunch 5. scaled wt as soon as pt agreeable; no scaled wt this admit Addendum: 11/03/19 at [address] Amended: Links added.
--- NOTE | 2019-11-03 18:25 | NUR ---
Patient in room [facility] 349. I have received report from Olga GUADARRAMA and had the opportunity to ask questions and assume patient care.
--- NOTE | 2019-11-03 18:58 | NUR ---
Problems reprioritized. Patient report given, questions answered & plan of care reviewed with THIERRY Dumont. Pt has been declining, refused to eat breakfast and lunch. pt was able to a yogurt.
--- NOTE | 2019-11-03 19:00 | NUR ---
Patient does not want to eat. Sitter in room encouraging oral intake, but patient will only eat what she wants, when she wants. Will continue to offer snacks thru out shift when patient awake. Addendum: 11/03/19 at 2319 by Julia Gloria RN Amended: Links added. Addendum: 11/03/19 at 2322 by Julia Gloria RN Patient has since eaten most of her cottage cheese, a yoghurt and some fruit.
[2019-11-03] MEDS: traZODone 50mg tablet PO SCH (20:00)
[2019-11-03] MEDS: traMADol 50MG tablet PO PRN (22:55)
--- NOTE | 2019-11-04 06:46 | NUR ---
Problems reprioritized. Patient report given, questions answered & plan of care reviewed with Brianna GUADARRAMA. Patient would not allow for VS or take any meds this shift.
--- NOTE | 2019-11-04 06:56 | NUR ---
Patient in room [facility] 349. I have received report from Julia GUDAARRAMA and had the opportunity to ask questions and assume patient care.
[2019-11-04 08:00] VITALS: BP 131/71
[2019-11-04] MEDS: HYDROchlorothiazide 12.5mg capsule PO SCH ×2 (08:00→21:41)
[2019-11-04] MEDS: lisinopril 10 MG tablet PO SCH (08:00)
[2019-11-04] MEDS: mineral oil/petrolatum, white cream 113gm jar TP SCH ×2 (08:00→20:00)
[2019-11-04] MEDS: neomy sulf/bacitrac zn/polymixin b oint 14.2 gm tube TP SCH ×3 (08:00→21:00)
[2019-11-04] MEDS: OLANZAPINE 5 MG TABLET PO SCH (08:00)
[2019-11-04] MEDS: docusate sod 100mg capsule PO SCH ×2 (08:00→20:00)
[2019-11-04] MEDS: nystatin 15 GM powder TP SCH ×3 (08:00→21:00)
--- NOTE | 2019-11-04 09:55 | NUR ---
Patient refused all her scheduled medicines, not even letting me do the Nystatin powder and Eucerin cream. Patient states "I dont want any medicines!"
--- NOTE | 2019-11-04 11:11 | NUR ---
Paged Dr. Ramirez to let her know that patient has been refusing her meds today
[2019-11-04 18:00] VITALS: BP 83/42
--- NOTE | 2019-11-04 18:40 | NUR ---
Problems reprioritized. Patient report given, questions answered & plan of care reviewed with Pierce GUADARRAMA.
--- NOTE | 2019-11-04 18:43 | NUR ---
Patient in room [facility] 349. I have received report from THIERRY Reed and had the opportunity to ask questions and assume patient care.
[2019-11-04] MEDS: traZODone 50mg tablet PO SCH (20:00)
--- NOTE | 2019-11-04 22:20 | NUR ---
Patient refused her medications this shift, would not let me asses her. My assessment is charted by what I have seen and able to asses visually. patient is resting with eyes closed, sitter at bedside
[2019-11-05 00:12] VITALS: BP 81/40
--- NOTE | 2019-11-05 00:55 | NUR ---
Hospitalist has been made aware of the patients low BP this shift. 1800: 83/42 HR: 113, 0000: 81/40, HR 94. A order was given to place ERIBERTO Hose on patient. Sitter is placing them now. I have encouraged for the patient to drink fluids. She has drank 300ml so far this shift. I also have enouraged her to get up and try to go to the bathroom she just looked down and ignored me.
--- NOTE | 2019-11-05 03:12 | NUR ---
Patient took off ERIBERTO Hose. Is refusing to let us put them back on. Patient is refusing to get out of her chair.
--- NOTE | 2019-11-05 04:34 | NUR ---
Patient has not voided during shift. Even with multiple attempts to have her get up and try to. Patient just told me; " I really don't need to go." She will not let me bladder scan her at this time.
--- NOTE | 2019-11-05 06:18 | NUR ---
Problems reprioritized. Patient report given, questions answered & plan of care reviewed with THIERRY Reed.
--- NOTE | 2019-11-05 06:30 | NUR ---
Patient in room [facility] 349. I have received report from Pierce GUADARRAMA and had the opportunity to ask questions and assume patient care.
[2019-11-05 07:00] VITALS: BP 95/41
--- NOTE | 2019-11-05 07:01 | NUR ---
Patient still has not peed at this time. I explained to patient the need to have bladder scan to see how much urine she's retaining. She initially agreed to it but as soon as I am getting started to do it, she stopped me and said "No, I don't want it!" I explained again to her why it needs to get done but patient appears to still not comprehend the reason why. I asked patient to let me know if she change her mind, patient did not respond
[2019-11-05] MEDS: OLANZAPINE 5 MG TABLET PO SCH (08:00)
[2019-11-05] MEDS: docusate sod 100mg capsule PO SCH ×2 (08:00→20:00)
[2019-11-05] MEDS: neomy sulf/bacitrac zn/polymixin b oint 14.2 gm tube TP SCH ×3 (08:00→21:00)
[2019-11-05] MEDS: mineral oil/petrolatum, white cream 113gm jar TP SCH ×2 (08:00→20:00)
[2019-11-05] MEDS: lisinopril 10 MG tablet PO SCH (08:00)
[2019-11-05] MEDS: nystatin 15 GM powder TP SCH ×3 (08:00→21:00)
--- NOTE | 2019-11-05 08:00 | NUR ---
Patient refused assessment of her. She declined to be touch
[2019-11-05] MEDS: HYDROchlorothiazide 12.5mg capsule PO SCH (08:43)
--- NOTE | 2019-11-05 09:17 | NUR ---
Patient refused all her scheduled meds. I instructed her to let me know if she change her mind.
--- NOTE | 2019-11-05 10:27 | NUR ---
Paged Dr. Ramirez regarding patient refusal of treatment and assessment as well as low BP and no urine output yet PAGER ID: [phone] MESSAGE: Surgical Flr Brianna RN ext [phone]. RE: Amy Savage. Patient has been refusing all meds and assessment. She has not peed yet since last shift, refused bladder scan. Also her BP was low last night SBP 81-83. This am 95/41, pulse 100.
[2019-11-05 11:00] VITALS: BP_SYST 95; BP_SYST 96; BP_DIAS 41; BP_DIAS 45
--- NOTE | 2019-11-05 13:30 | NUR ---
Patient's daughter Silvia contact information obtained from Business Management Intern Lillie. I paged Dr. Ramirez the daughter's contact number [phone]
--- NOTE | 2019-11-05 17:37 | NUR ---
Paged Dr. Ramirez regarding patient' status re: no urine output, lethargy, and not eating. O2 sat was checked, was 96% room air. Patient refused other vital signs checked. Sitter at bedside PAGER ID: [phone] MESSAGE: Surgical Flr Brianna RN ext [phone]. RE: Amy Savage. Patient has no urine output today and last enforcement manager. She has been sleepy, not eating but she will wake up when I talk to her.
--- NOTE | 2019-11-05 18:28 | NUR ---
Problems reprioritized. Patient report given, questions answered & plan of care reviewed with Katrin GUADARRAMA.
[2019-11-05] MEDS: traZODone 50mg tablet PO SCH (20:00)
--- NOTE | 2019-11-06 02:31 | NUR ---
Patient continued to refuse assessment, medication and dinner. No urine output at this time, refused bladder scan. Patient is up in chair today most of early evening and talking to roommate. Patient does not appear lethargic. Sitter at bedside. Continue to monitor.
--- NOTE | 2019-11-06 06:25 | NUR ---
Patient in room [facility] 349. I have received report from THIERRY Wilkes and had the opportunity to ask questions and assume patient care.
[2019-11-06 06:30] VITALS: BP 158/51
--- NOTE | 2019-11-06 06:51 | NUR ---
Problems reprioritized. Patient report given, questions answered & plan of care reviewed with Yamilet RN.
[2019-11-06] MEDS: lisinopril 10 MG tablet PO SCH (08:00)
[2019-11-06] MEDS: docusate sod 100mg capsule PO SCH ×2 (08:00→20:00)
[2019-11-06] MEDS: neomy sulf/bacitrac zn/polymixin b oint 14.2 gm tube TP SCH ×3 (08:00→20:46)
[2019-11-06] MEDS: mineral oil/petrolatum, white cream 113gm jar TP SCH ×2 (08:00→20:00)
[2019-11-06] MEDS: nystatin 15 GM powder TP SCH ×3 (08:00→20:46)
[2019-11-06] MEDS: OLANZAPINE 5 MG TABLET PO SCH (08:00)
--- NOTE | 2019-11-06 18:05 | NUR ---
Problems reprioritized. Patient report given, questions answered & plan of care reviewed with THIERRY Gonsales.
[2019-11-06] MEDS: traZODone 50mg tablet PO SCH (20:00)
--- NOTE | 2019-11-06 20:30 | NUR ---
Patient refused VS and medications. Allowed a brief auscultation assessment of chest and abdomen and refused further.
--- NOTE | 2019-11-07 06:00 | NUR ---
Patient in room [facility] 349. I have received report from THIERRY Gonsales and had the opportunity to ask questions and assume patient care.
[2019-11-07 07:32] VITALS: BP 149/59
[2019-11-07] MEDS: docusate sod 100mg capsule PO SCH ×2 (08:00→19:54)
[2019-11-07] MEDS: lisinopril 10 MG tablet PO SCH (08:00)
[2019-11-07] MEDS: OLANZAPINE 5 MG TABLET PO SCH (08:00)
[2019-11-07] MEDS: nystatin 15 GM powder TP SCH ×3 (08:00→20:44)
[2019-11-07] MEDS: neomy sulf/bacitrac zn/polymixin b oint 14.2 gm tube TP SCH ×3 (08:00→20:45)
[2019-11-07] MEDS: mineral oil/petrolatum, white cream 113gm jar TP SCH ×2 (08:00→19:55)
[2019-11-07] MEDS: HYDROchlorothiazide 12.5mg capsule PO SCH (08:00)
--- NOTE | 2019-11-07 11:28 | NUR ---
Sanjuanita Spencer ([phone]), pt's sister - in - law, called to speak w/ pt. Patient refused to take the call. Sanjuanita asked that pt be reminded that she called. Pt was notified.
[2019-11-07 11:40] VITALS: BP 148/60
--- NOTE | 2019-11-07 18:00 | NUR ---
Problems reprioritized. Patient report given, questions answered & plan of care reviewed with THIERRY Gonsales.
--- NOTE | 2019-11-07 18:22 | NUR ---
Patient not discharged Per MD Ramirez. Patient refused large portions of assessment today. Patient refused all medications. Patient showered.
[2019-11-07] MEDS: traZODone 50mg tablet PO SCH (19:54)
--- NOTE | 2019-11-08 06:00 | NUR ---
Patient in room [facility] 349. I have received report from THIERRY Gonsales and had the opportunity to ask questions and assume patient care.
[2019-11-08 08:00] VITALS: BP 134/58
[2019-11-08] MEDS: lisinopril 10 MG tablet PO SCH (08:00)
[2019-11-08] MEDS: nystatin 15 GM powder TP SCH ×3 (08:00→20:17)
[2019-11-08] MEDS: OLANZAPINE 5 MG TABLET PO SCH (08:00)
[2019-11-08] MEDS: mineral oil/petrolatum, white cream 113gm jar TP SCH ×2 (08:00→20:00)
[2019-11-08] MEDS: neomy sulf/bacitrac zn/polymixin b oint 14.2 gm tube TP SCH ×3 (08:00→20:17)
[2019-11-08] MEDS: docusate sod 100mg capsule PO SCH ×2 (08:00→20:00)
[2019-11-08] MEDS: HYDROchlorothiazide 12.5mg capsule PO SCH (08:00)
--- NOTE | 2019-11-08 12:57 | NUR ---
Refused noon vitals
--- NOTE | 2019-11-08 14:58 | NUR ---
F/u (11/07): Pt refusing all meds/lab draws/and almost all meals PO 15-25% lunch and dinner today otherwise 0%/refusing past 7 days not meeting needs. RN reports pt simply saying "not a good idea" when encouraged to eat; rapidly declining following med refusals per MD note. PACO d/w RN regarding PEG considerations given pt starvation and severe malnutrition w/ ALOC. Pt would benefit from alternative nutrition for ensured nutrition/medication delivery as well. LBM 11/02; once again refusing bowel care though receiving power pudding BIDLD. Will continue to monitor. Recommend: 1. continue mechanical soft regular diet given poor PO hx; encourage PO intake 2. power pudding BIDLD, LS crackers and soda TIDWM per pt preferences 3. routine bowel care 4. yogurt, cottage cheese, and pears at dinner; cottage cheese and pears at lunch 5. scaled wt as soon as pt agreeable; no scaled wt this admit 6. consider PEG in order to meet long-term nutrition/medication needs w/ ALOC given starvation state and code status Addendum: 11/08/19 at [address] Amended: Links added.
--- NOTE | 2019-11-08 18:07 | NUR ---
Problems reprioritized. Patient report given, questions answered & plan of care reviewed with THIERRY Gonsales.
[2019-11-08] MEDS: traZODone 50mg tablet PO SCH (20:00)
--- NOTE | 2019-11-09 06:23 | NUR ---
PATIENT REFUSED VITALS AT THIS TIME
--- NOTE | 2019-11-09 06:30 | NUR ---
Patient in room [facility] 349. I have received report from Dur GUADARRAMA and had the opportunity to ask questions and assume patient care.
[2019-11-09] MEDS: neomy sulf/bacitrac zn/polymixin b oint 14.2 gm tube TP SCH ×3 (07:38→20:11)
[2019-11-09] MEDS: acetaminophen 325mg tablet PO PRN (07:49)
[2019-11-09] MEDS: OLANZAPINE 5 MG TABLET PO SCH (07:49)
[2019-11-09] MEDS: docusate sod 100mg capsule PO SCH ×2 (07:49→19:50)
[2019-11-09] MEDS: HYDROchlorothiazide 12.5mg capsule PO SCH (07:52)
[2019-11-09] MEDS: lisinopril 10 MG tablet PO SCH (07:52)
[2019-11-09] MEDS: mineral oil/petrolatum, white cream 113gm jar TP SCH ×2 (07:53→19:47)
[2019-11-09] MEDS: nystatin 15 GM powder TP SCH ×3 (07:53→20:11)
[2019-11-09 13:06] VITALS: BP 108/51
[2019-11-09] MEDS: lactose-reduced food (Ensure Enlive) - 237ml bottle PO SCH (18:00)
--- NOTE | 2019-11-09 18:30 | NUR ---
Problems reprioritized. Patient report given, questions answered & plan of care reviewed with Adrianna GUADARRAMA.
--- NOTE | 2019-11-09 18:42 | NUR ---
Patient in room [facility] 349. I have received report from Umesh GUADARRAMA and had the opportunity to ask questions and assume patient care.
[2019-11-09] MEDS: traZODone 50mg tablet PO SCH (19:50)
[2019-11-09] MEDS: bisacodyl 5mg tablet.DR PO PRN (19:51)
--- NOTE | 2019-11-10 06:42 | NUR ---
Problems reprioritized. Patient report given, questions answered & plan of care reviewed with Candace GUADARRAMA.
--- NOTE | 2019-11-10 06:53 | NUR ---
Patient in room [facility] 349. I have received report from Adrianna GUADARRAMA and had the opportunity to ask questions and assume patient care.
[2019-11-10] MEDS: docusate sod 100mg capsule PO SCH ×2 (08:00→20:00)
[2019-11-10] MEDS: nystatin 15 GM powder TP SCH ×3 (08:00→20:56)
[2019-11-10] MEDS: lisinopril 10 MG tablet PO SCH (08:00)
[2019-11-10] MEDS: mineral oil/petrolatum, white cream 113gm jar TP SCH ×2 (08:00→20:00)
[2019-11-10] MEDS: OLANZAPINE 5 MG TABLET PO SCH (08:00)
[2019-11-10] MEDS: lactose-reduced food (Ensure Enlive) - 237ml bottle PO SCH ×3 (08:00→18:46)
[2019-11-10] MEDS: HYDROchlorothiazide 12.5mg capsule PO SCH (08:00)
[2019-11-10] MEDS: neomy sulf/bacitrac zn/polymixin b oint 14.2 gm tube TP SCH ×3 (08:00→20:55)
--- NOTE | 2019-11-10 10:00 | NUR ---
Pt has refused all her morning meds and her physical assessments. Pt refuses to be touched or checked. is aware of refused meds as well as charge nurse. Pt encouraged to shower and change clothes. Pt continues to refuse all care.
[2019-11-10] MEDS: ondansetron 4mg rapidly disintigrating tab PO PRN (13:38)
--- NOTE | 2019-11-10 18:30 | NUR ---
Received report from primary care nurse Candace GUADARRAMA. Assumed patient care. Patient is awake and alert on room air sitting in the chair. Refusing to interact with nurse or sitter who is at the bedside. Will continue to monitor for changes.
[2019-11-10] MEDS: traZODone 50mg tablet PO SCH (20:00)
--- NOTE | 2019-11-11 06:04 | NUR ---
Reported off to Rosario RN. Patient is awake and alert on room air in no apparent distress. Sitter is at the bedside.
--- NOTE | 2019-11-11 06:08 | NUR ---
Patient in room [facility] 349. I have received report from Loreto GUADARRAMA and had the opportunity to ask questions and assume patient care.
[2019-11-11] MEDS: OLANZAPINE 5 MG TABLET PO SCH (08:00)
[2019-11-11] MEDS: neomy sulf/bacitrac zn/polymixin b oint 14.2 gm tube TP SCH ×3 (08:00→21:00)
[2019-11-11] MEDS: docusate sod 100mg capsule PO SCH ×2 (08:00→20:00)
[2019-11-11] MEDS: nystatin 15 GM powder TP SCH ×3 (08:00→21:00)
[2019-11-11] MEDS: lactose-reduced food (Ensure Enlive) - 237ml bottle PO SCH ×3 (08:00→18:00)
[2019-11-11] MEDS: mineral oil/petrolatum, white cream 113gm jar TP SCH ×2 (08:00→20:00)
[2019-11-11] MEDS: lisinopril 10 MG tablet PO SCH (08:00)
[2019-11-11] MEDS: HYDROchlorothiazide 12.5mg capsule PO SCH (08:00)
--- NOTE | 2019-11-11 10:47 | NUR ---
Patient refused all her scheduled meds and physical assessment
--- NOTE | 2019-11-11 12:55 | NUR ---
F/u (11/10): Pt PO continues to fluctuate mostly refusals of meals/meds. PO 50-75% and 100% ONS breakfast and lunch yesterday w/ refusals at dinner. LBM 11/02 refusing all bowel care continues to receive routine power pudding; RD d/w RN regarding MoM PRN if pt agreeable since ordered. Inadequate intake resulting in ~8512-3937 kcals consumed over the past WEEK averaging 357-429 kcals/day. Pt also refusing to be weighed though wt loss most likely present but unable to obtain specifics. Current wt is patient stated w/ ALOC as well so no accurate wt baseline hx. Pt remains malnourished given ALOC. Would benefit from PEG to meet long-term nutrition needs w/ ALOC as medically indicated. Will continue to monitor. Recommend: 1. continue mechanical soft regular diet given poor PO hx; encourage PO intake 2. power pudding BIDLD, LS crackers and soda TIDWM per pt preferences 3. routine bowel care 4. yogurt, cottage cheese, and pears at dinner; cottage cheese and pears at lunch 5. scaled wt as soon as pt agreeable; no scaled wt this admit 6. consider PEG in order to meet long-term nutrition/medication needs w/ ALOC given starvation state and code status Addendum: 11/11/19 at [address] Amended: Links added.
--- NOTE | 2019-11-11 18:52 | NUR ---
Problems reprioritized. Patient report given, questions answered & plan of care reviewed with Pat RN.
[2019-11-11 19:30] VITALS: BP 104/61
--- NOTE | 2019-11-11 19:30 | NUR ---
pt refusing initial assessment; standing at bedside, incont of urine; sitter cleaning pt (foam drsg CDI to low back); open skin to area below this; pt refused optifoam drsg to be placed to this area Addendum: 11/12/19 at 0336 by Lyndsey Nichols RN Amended: Links added.
[2019-11-11] MEDS: traZODone 50mg tablet PO SCH ×2 (20:00→22:48)
--- NOTE | 2019-11-12 | NUR ---
pt refused vs check Addendum: 11/12/19 at 0043 by Lyndsey Nichols RN Amended: Links added.
--- NOTE | 2019-11-12 06:53 | NUR ---
Patient in room [facility] 349. I have received report from THIERRY Ybarra and had the opportunity to ask questions and assume patient care.
--- NOTE | 2019-11-12 07:23 | NUR ---
Pt refusing AM vital signs. Addendum: 11/12/19 at 0723 by Zulma Soto RN Amended: Links added.
[2019-11-12] MEDS: mineral oil/petrolatum, white cream 113gm jar TP SCH ×2 (08:00→20:00)
[2019-11-12] MEDS: docusate sod 100mg capsule PO SCH ×2 (08:00→20:00)
[2019-11-12] MEDS: neomy sulf/bacitrac zn/polymixin b oint 14.2 gm tube TP SCH ×3 (08:00→21:00)
[2019-11-12] MEDS: lactose-reduced food (Ensure Enlive) - 237ml bottle PO SCH ×3 (08:00→18:00)
[2019-11-12] MEDS: OLANZAPINE 5 MG TABLET PO SCH (08:00)
[2019-11-12] MEDS: HYDROchlorothiazide 12.5mg capsule PO SCH (08:00)
[2019-11-12] MEDS: nystatin 15 GM powder TP SCH ×3 (08:00→21:00)
[2019-11-12] MEDS: lisinopril 10 MG tablet PO SCH (08:00)
--- NOTE | 2019-11-12 18:31 | NUR ---
Patient in room [facility] 349. I have received report from THIERRY Maya and had the opportunity to ask questions and assume patient care. Addendum: 11/12/19 at 1831 by Madyson Chawla RN Amended: Links added.
--- NOTE | 2019-11-12 18:32 | NUR ---
Problems reprioritized. Patient report given, questions answered & plan of care reviewed with Lexi English RN.
--- NOTE | 2019-11-12 18:42 | NUR ---
Pt refused physical assessment. Will continue to monitor. Addendum: 11/12/19 at 1846 by Zulma Soto RN Amended: Links added.
[2019-11-12] MEDS: traZODone 50mg tablet PO SCH (20:00)
--- NOTE | 2019-11-13 06:32 | NUR ---
Problems reprioritized. Patient report given, questions answered & plan of care reviewed with THIERRY Brooks.
[2019-11-13] MEDS: nystatin 15 GM powder TP SCH ×3 (08:00→21:00)
[2019-11-13] MEDS: HYDROchlorothiazide 12.5mg capsule PO SCH (08:00)
[2019-11-13] MEDS: OLANZAPINE 5 MG TABLET PO SCH (08:00)
[2019-11-13] MEDS: lisinopril 10 MG tablet PO SCH (08:00)
[2019-11-13] MEDS: mineral oil/petrolatum, white cream 113gm jar TP SCH ×2 (08:00→20:00)
[2019-11-13] MEDS: neomy sulf/bacitrac zn/polymixin b oint 14.2 gm tube TP SCH ×3 (08:00→21:00)
[2019-11-13] MEDS: lactose-reduced food (Ensure Enlive) - 237ml bottle PO SCH ×3 (08:00→18:00)
[2019-11-13] MEDS: docusate sod 100mg capsule PO SCH ×2 (08:00→20:00)
--- NOTE | 2019-11-13 10:00 | NUR ---
Pt. refused wound care to biljaren. feet, daren-care, ambulation and physical assessment. MD aware pt. is refusing medications and refused care today.
--- NOTE | 2019-11-13 10:20 | NUR ---
Pt. refused physical assessment. Refused breakfast. Refused medications. Stated, "NO! NO! Noooooooo!"
--- NOTE | 2019-11-13 16:16 | NUR ---
Pt. refusing to drink water although it has been encouraged for her to drink several times. Only 200 ml urine output today per sitter. Reviewing chart, this is not a change of condition.
--- NOTE | 2019-11-13 16:45 | NUR ---
Report from sitter that pt. had not moved from chair for several hours. Refusing to reposition or move to bed. Shakes her head no. Spent several minutes convincing the pt. to stand up. Bottom assessed, daren-care given, optifoam applied to bottom. Coccyx red and non-blanching, two small fluid filled blisters on each buttocks approx. 1 mm each. Optifoam applied quickly and eggcrate pressure reducing pad placed on chair. unable to take photographs as pt. was constantly complaining of having to change her pants and kept sitting down during this short period of care. Pt. did not tolerate care well and was agitated afterwards. Wound care consult for bottom ordered per protocol.
--- NOTE | 2019-11-13 18:16 | NUR ---
Gave report to Lexi Alvarez RN.
--- NOTE | 2019-11-13 18:28 | NUR ---
Patient in room [facility] 349. I have received report from THIERRY Figueroa and had the opportunity to ask questions and assume patient care. Addendum: 11/13/19 at 1828 by Madyson Chawla RN Amended: Links added. Addendum: 11/13/19 at 1830 by Madyson Chawla RN report received from THIERRY Brooks not Henry
[2019-11-13] MEDS: traZODone 50mg tablet PO SCH ×2 (20:00→20:34)
[2019-11-13 20:31] VITALS: BP 136/64
[2019-11-13] MEDS: acetaminophen 325mg tablet PO PRN (20:34)
[2019-11-14] MEDS: acetaminophen 325mg tablet PO PRN ×2 (00:27→21:31)
--- NOTE | 2019-11-14 06:47 | NUR ---
Problems reprioritized. Patient report given, questions answered & plan of care reviewed with THIERRY PÉREZ.
--- NOTE | 2019-11-14 06:50 | NUR ---
Patient in room [facility] 349. I have received report from Lexi GUADARRAMA and had the opportunity to ask questions and assume patient care.
[2019-11-14] MEDS: HYDROchlorothiazide 12.5mg capsule PO SCH (08:00)
[2019-11-14] MEDS: neomy sulf/bacitrac zn/polymixin b oint 14.2 gm tube TP SCH ×3 (08:00→21:00)
[2019-11-14] MEDS: mineral oil/petrolatum, white cream 113gm jar TP SCH ×2 (08:00→20:00)
[2019-11-14] MEDS: docusate sod 100mg capsule PO SCH ×2 (08:00→20:00)
[2019-11-14] MEDS: lisinopril 10 MG tablet PO SCH (08:00)
[2019-11-14] MEDS: OLANZAPINE 5 MG TABLET PO SCH (08:00)
[2019-11-14] MEDS: nystatin 15 GM powder TP SCH ×3 (08:00→21:00)
[2019-11-14] MEDS: lactose-reduced food (Ensure Enlive) - 237ml bottle PO SCH ×3 (08:00→18:00)
--- NOTE | 2019-11-14 12:17 | NUR ---
Reassessment: Pt documented to be refusing all meals since last RD assessment (3 days ago). Pt severely malnourished given prolonged poor PO intake not consistently meeting nutrient needs throughout more than half of admit, although does inconsistently and occasionally eat well. Pt would benefit from alternative nutrition as pt unable to meet nutrient needs with PO intake given ALOC and resistiveness to care. Noted that pt refusing medications, physical assessment, and all nursing care. Wound care has been consulted for further skin assessment. LBM 11/11 documented as small with moderate BM 11/10. Pt continues receiving nutrition intervention for constipation and with PRN bowel care available. Will continue to follow closely. Recommend: 1. continue mechanical soft regular diet given poor PO hx; encourage PO intake 2. power pudding BIDLD, LS crackers and soda TIDWM per pt preferences 3. routine bowel care 4. yogurt, cottage cheese, and pears at dinner; cottage cheese and pears at lunch 5. scaled wt as soon as pt agreeable; no scaled wt this admit 6. consider PEG in order to meet long-term nutrition/medication needs w/ ALOC given starvation state and code status Addendum: 11/14/19 at [address] Amended: Links added.
--- NOTE | 2019-11-14 18:30 | NUR ---
Problems reprioritized. Patient report given, questions answered & plan of care reviewed with Karlee GUADARRAMA.
--- NOTE | 2019-11-14 19:21 | NUR ---
Patient in room [facility] 349. I have received report from Candace GUADARRAMA and had the opportunity to ask questions and assume patient care.
[2019-11-14] MEDS: traZODone 50mg tablet PO SCH (20:00)
[2019-11-14 23:52] VITALS: BP 94/58
--- NOTE | 2019-11-15 02:27 | NUR ---
patient laid down on the floor cause she was so tired, would not get into bed or chair. Aid got a blanket under her and a pillow. Patient is content and after trying to talk her into her bed she still refused to do so.
[2019-11-15] MEDS: acetaminophen 325mg tablet PO PRN (05:46)
--- NOTE | 2019-11-15 06:23 | NUR ---
Problems reprioritized. Patient report given, questions answered & plan of care reviewed with Brianna GUADARRAMA.
--- NOTE | 2019-11-15 06:24 | NUR ---
Patient in room [facility] 349. I have received report from Karlee GUADARRAMA and had the opportunity to ask questions and assume patient care.
--- NOTE | 2019-11-15 07:34 | NUR ---
Patient refused vital signs taken this am per ENGINEERING SUPERVISOR report
[2019-11-15 07:36] VITALS: BP 104/71
[2019-11-15] MEDS: HYDROchlorothiazide 12.5mg capsule PO SCH (07:43)
[2019-11-15] MEDS: lisinopril 10 MG tablet PO SCH (07:43)
[2019-11-15] MEDS: nystatin 15 GM powder TP SCH ×3 (07:43→21:00)
[2019-11-15] MEDS: docusate sod 100mg capsule PO SCH ×2 (07:43→20:30)
[2019-11-15] MEDS: OLANZAPINE 5 MG TABLET PO SCH (07:43)
[2019-11-15] MEDS: neomy sulf/bacitrac zn/polymixin b oint 14.2 gm tube TP SCH ×3 (08:00→21:00)
[2019-11-15] MEDS: mineral oil/petrolatum, white cream 113gm jar TP SCH ×2 (08:00→20:30)
[2019-11-15] MEDS: lactose-reduced food (Ensure Enlive) - 237ml bottle PO SCH ×3 (08:00→18:00)
--- NOTE | 2019-11-15 08:05 | NUR ---
Patient refused taking all her scheduled meds including physical assessment.
[2019-11-15 15:00] VITALS: BP 130/63
--- NOTE | 2019-11-15 15:08 | NUR ---
Paged Dr. Whitten PAGER ID: [phone] MESSAGE: Surgical Flr Brianna RN ext [phone]. RE: Amy Savage. Patient was becoming unsteady and very weak during transfer back to bed from shower. Patient not eating or drinking, blood sugar 147 mg/dl. BP 130/63, HR 94, 95% RA
[2019-11-15 18:00] VITALS: BP 161/68
--- NOTE | 2019-11-15 18:06 | NUR ---
Problems reprioritized. Patient report given, questions answered & plan of care reviewed with Pat RN.
--- NOTE | 2019-11-15 19:30 | NUR ---
pt refuses physical assessment at this time; in bed; resp even and unlabored; skin pale; non-verbal Addendum: 11/15/19 at 2019 by Lyndsey Nichols RN Amended: Links added.
[2019-11-15] MEDS: traZODone 50mg tablet PO SCH (20:30)
[2019-11-16] MEDS: neomy sulf/bacitrac zn/polymixin b oint 14.2 gm tube TP SCH ×3 (08:00→21:00)
[2019-11-16] MEDS: lactose-reduced food (Ensure Enlive) - 237ml bottle PO SCH ×3 (08:00→18:00)
[2019-11-16] MEDS: HYDROchlorothiazide 12.5mg capsule PO SCH (08:00)
[2019-11-16] MEDS: nystatin 15 GM powder TP SCH ×3 (08:00→21:00)
[2019-11-16] MEDS: mineral oil/petrolatum, white cream 113gm jar TP SCH ×2 (08:00→20:00)
[2019-11-16] MEDS: docusate sod 100mg capsule PO SCH ×2 (08:00→20:00)
[2019-11-16] MEDS: lisinopril 10 MG tablet PO SCH (08:00)
[2019-11-16] MEDS: OLANZAPINE 5 MG TABLET PO SCH (09:48)
--- NOTE | 2019-11-16 19:16 | NUR ---
Problems reprioritized. Patient report given, questions answered & plan of care reviewed with THIERRY FINK.
[2019-11-16] MEDS: traZODone 50mg tablet PO SCH (20:00)
--- NOTE | 2019-11-16 21:00 | NUR ---
Pt refused all vitals and medications. pt refused physical assessment. I was unable to assess heart and lung sounds. I was told in report that the pt had a wound on the coccyx area, however the pt refused to let me assess the wound. I charted a physical assessment to the best of my ability.
--- NOTE | 2019-11-16 22:22 | NUR ---
Patient in room [facility] 348. I have received report from Candace GUADARRAMA and had the opportunity to ask questions and assume patient care.
--- NOTE | 2019-11-17 06:12 | NUR ---
I have received report from Zena GUADARRAMA and had the opportunity to ask questions and assume patient care.
--- NOTE | 2019-11-17 06:25 | NUR ---
Problems reprioritized. Patient report given, questions answered & plan of care reviewed with Lauren.
[2019-11-17] MEDS: mineral oil/petrolatum, white cream 113gm jar TP SCH ×2 (08:00→20:00)
[2019-11-17] MEDS: neomy sulf/bacitrac zn/polymixin b oint 14.2 gm tube TP SCH ×3 (08:00→21:00)
[2019-11-17] MEDS: lactose-reduced food (Ensure Enlive) - 237ml bottle PO SCH ×3 (08:00→18:00)
[2019-11-17] MEDS: nystatin 15 GM powder TP SCH ×3 (08:00→21:00)
[2019-11-17] MEDS: HYDROchlorothiazide 12.5mg capsule PO SCH (08:00)
[2019-11-17] MEDS: lisinopril 10 MG tablet PO SCH (08:00)
[2019-11-17] MEDS: OLANZAPINE 5 MG TABLET PO SCH (08:00)
[2019-11-17] MEDS: docusate sod 100mg capsule PO SCH ×2 (08:00→21:04)
--- NOTE | 2019-11-17 14:21 | NUR ---
Reassessment: Pt continues to refuse meals and ONS not meeting nutrient needs. Only PO intake of food is 75-100% at 0100 on 11/15 however has refused all surrounding meals and ONS since 11/09. D/w MD patient's poor nutrition status given prolonged refusal of meals and ONS. D/w RN recommendation to change ONS to q breakfast rather than TID given mostly refusing ONS. Noted that pt continues to be resistive to care per physical assessment. LBM 11/15. Will continue to follow closely. Recommend: 1. continue mechanical soft regular diet given poor PO hx; encourage PO intake 2. power pudding BIDLD, LS crackers and soda TIDWM per pt preferences 3. routine bowel care 4. yogurt, cottage cheese, and pears at dinner; cottage cheese and pears at lunch 5. scaled wt as soon as pt agreeable; no scaled wt this admit 6. consider PEG in order to meet long-term nutrition/medication needs w/ ALOC given starvation state and code status Addendum: 11/17/19 at [address] Amended: Links added.
--- NOTE | 2019-11-17 18:30 | NUR ---
Problems reprioritized. Patient report given, questions answered & plan of care reviewed with Zena GUADARRAMA.
--- NOTE | 2019-11-17 18:35 | NUR ---
Patient in room [facility] 357. I have received report from Lauren GUADARRAMA and had the opportunity to ask questions and assume patient care.
[2019-11-17] MEDS: traZODone 50mg tablet PO SCH (21:05)
--- NOTE | 2019-11-18 04:51 | NUR ---
pt refused some medications and vitals.
--- NOTE | 2019-11-18 07:07 | NUR ---
Patient in room [facility] 358. I have received report from THIERRY Freitas and had the opportunity to ask questions and assume patient care.
[2019-11-18 08:00] VITALS: BP 110/58
[2019-11-18] MEDS: lactose-reduced food (Ensure Enlive) - 237ml bottle PO SCH ×3 (08:00→18:04)
[2019-11-18] MEDS: mineral oil/petrolatum, white cream 113gm jar TP SCH ×2 (08:00→20:00)
[2019-11-18] MEDS: neomy sulf/bacitrac zn/polymixin b oint 14.2 gm tube TP SCH ×3 (08:00→21:00)
[2019-11-18] MEDS: OLANZAPINE 5 MG TABLET PO SCH (09:01)
[2019-11-18] MEDS: docusate sod 100mg capsule PO SCH ×2 (09:01→20:00)
[2019-11-18] MEDS: HYDROchlorothiazide 12.5mg capsule PO SCH (09:01)
[2019-11-18] MEDS: lisinopril 10 MG tablet PO SCH (09:02)
[2019-11-18] MEDS: nystatin 15 GM powder TP SCH ×3 (09:07→21:00)
--- NOTE | 2019-11-18 18:45 | NUR ---
Problems reprioritized. Patient report given, questions answered & plan of care reviewed with THIERRY Freitas.
--- NOTE | 2019-11-18 18:47 | NUR ---
Patient in room [facility] 344. I have received report from Lucy GUADARRAMA and had the opportunity to ask questions and assume patient care.
[2019-11-18] MEDS: traZODone 50mg tablet PO SCH (20:00)
--- NOTE | 2019-11-18 23:26 | NUR ---
Pt has been refusing to stay in room tonight, sitting in pompa chair briefly, but mostly sitting on floor. pt has constantly been refusing to get up. Pt did get up once and walk to end of pompa and sat on floor again. several attempts by justyna and RN to get pt up but becomes angry and refuses. Pt finally stood up with x2 assist and walked back to room, refuses to get in bed. pt is now sitting in w/c in room. Justyna remains at pt side. Addendum: 11/18/19 at 8102 by Dena Pimentel RN Amended: Links added.
--- NOTE | 2019-11-19 06:37 | NUR ---
Problems reprioritized. Patient report given, questions answered & plan of care reviewed with Carmencita GUADARRAMA.
--- NOTE | 2019-11-19 06:40 | NUR ---
Patient in room [facility] 358. I have received report from Zena GUADARRAMA and had the opportunity to ask questions and assume patient care.
--- NOTE | 2019-11-19 07:04 | NUR ---
Patient has been in the hallway sitting on the floor with the sitter next to her.
--- NOTE | 2019-11-19 07:13 | NUR ---
Patient refused vital signs taken per LEG MAN report
[2019-11-19] MEDS: neomy sulf/bacitrac zn/polymixin b oint 14.2 gm tube TP SCH ×3 (08:00→19:44)
[2019-11-19] MEDS: mineral oil/petrolatum, white cream 113gm jar TP SCH ×2 (08:00→19:44)
[2019-11-19] MEDS: HYDROchlorothiazide 12.5mg capsule PO SCH (08:00)
[2019-11-19] MEDS: nystatin 15 GM powder TP SCH ×3 (08:00→21:00)
[2019-11-19] MEDS: lactose-reduced food (Ensure Enlive) - 237ml bottle PO SCH ×3 (08:00→18:00)
[2019-11-19] MEDS: OLANZAPINE 5 MG TABLET PO SCH (08:00)
[2019-11-19] MEDS: lisinopril 10 MG tablet PO SCH (08:00)
[2019-11-19] MEDS: docusate sod 100mg capsule PO SCH ×2 (08:00→19:07)
--- NOTE | 2019-11-19 08:30 | NUR ---
Patient refused physical assessment and all the scheduled meds multiple times. Sitter with the patient
--- NOTE | 2019-11-19 10:00 | NUR ---
Patient continue to refuse assessment including skin and wound care
--- NOTE | 2019-11-19 18:30 | NUR ---
Patient in room [facility] 358. I have received report from Brianna GUADARRAMA and had the opportunity to ask questions and assume patient care.
--- NOTE | 2019-11-19 18:36 | NUR ---
Problems reprioritized. Patient report given, questions answered & plan of care reviewed with Sophie GUADARRAMA.
[2019-11-19] MEDS: traZODone 50mg tablet PO SCH (19:07)
--- NOTE | 2019-11-19 20:00 | NUR ---
Pt refused to have the vital signs to be taken. will continue to monitor.
--- NOTE | 2019-11-20 06:00 | NUR ---
351 [address] Ronnie jesus patel 11/19 pt inquire about her pain medications and breakthrough. SURG [id number] Sophie GUADARRAMA Addendum: 11/20/19 at 0602 by Sophie Murrell RN disregard previous note
[2019-11-20 06:30] VITALS: BP 136/70
--- NOTE | 2019-11-20 06:30 | NUR ---
Patient in room [facility] 358. I have received report from THIERRY Barrios and had the opportunity to ask questions and assume patient care.
--- NOTE | 2019-11-20 06:39 | NUR ---
Problems reprioritized. Patient report given, questions answered & plan of care reviewed with Yamilet RN.
[2019-11-20] MEDS: lisinopril 10 MG tablet PO SCH (08:00)
[2019-11-20] MEDS: HYDROchlorothiazide 12.5mg capsule PO SCH (08:00)
[2019-11-20] MEDS: docusate sod 100mg capsule PO SCH ×2 (08:00→22:55)
[2019-11-20] MEDS: OLANZAPINE 5 MG TABLET PO SCH (08:00)
[2019-11-20] MEDS: lactose-reduced food (Ensure Enlive) - 237ml bottle PO SCH ×3 (08:00→18:00)
[2019-11-20] MEDS: nystatin 15 GM powder TP SCH ×2 (08:00→22:41)
--- NOTE | 2019-11-20 11:40 | NUR ---
Reassessment: Pt documented to be receiving max assistance with meals since 11/16 however still no significant changes from a nutrition standpoint as pt continues to refuse meals except for occasionally consuming one meal/day after refusing for several consecutive days. Pt still receiving Ensure Enlive TID and has mostly refusing ONS except for 100% x 1, 50% x 1, and 25% x 1 since 11/16 (totalling 613 kcal and 35 g protein over the course of two days from ONS). Despite several attempts by RD and dietary staff to encourage PO intake and obtain food preferences pt mostly refuses to partake and is unwilling to talk about food and nutrition. Per MD note CM and SW spoke to patient's family about comfort care however pt remains DNR at this time. LBM 11/18. Will continue to follow closely. Recommend: 1. continue mechanical soft regular diet given poor PO hx; encourage PO intake 2. power pudding BIDLD, LS crackers and soda TIDWM per pt preferences 3. routine bowel care 4. yogurt, cottage cheese, and pears at dinner; cottage cheese and pears at lunch 5. scaled wt as soon as pt agreeable; no scaled wt this admit 6. consider PEG in order to meet long-term nutrition/medication needs w/ ALOC given starvation state and code status Addendum: 11/20/19 at [address] Amended: Links added.
--- NOTE | 2019-11-20 19:00 | NUR ---
Problems reprioritized. Patient report given, questions answered & plan of care reviewed with THIERRY Pritchett.
--- NOTE | 2019-11-20 20:00 | NUR ---
Patient refused 2000 vitals to be taken.
[2019-11-20] MEDS: traZODone 50mg tablet PO SCH (22:55)
--- NOTE | 2019-11-21 05:55 | NUR ---
Problems reprioritized. Patient report given, questions answered & plan of care reviewed with Yamilet RN.
--- NOTE | 2019-11-21 06:35 | NUR ---
Patient in room [facility] 358. I have received report from THIERRY Pritchett and had the opportunity to ask questions and assume patient care.
[2019-11-21] MEDS: lactose-reduced food (Ensure Enlive) - 237ml bottle PO SCH ×3 (08:00→18:00)
[2019-11-21 08:30] VITALS: BP 132/53
[2019-11-21] MEDS: docusate sod 100mg capsule PO SCH ×2 (08:49→21:10)
[2019-11-21] MEDS: OLANZAPINE 5 MG TABLET PO SCH (08:49)
[2019-11-21] MEDS: HYDROchlorothiazide 12.5mg capsule PO SCH (08:49)
[2019-11-21] MEDS: lisinopril 10 MG tablet PO SCH (08:50)
[2019-11-21] MEDS: traMADol 50MG tablet PO PRN (17:40)
--- NOTE | 2019-11-21 18:30 | NUR ---
Problems reprioritized. Patient report given, questions answered & plan of care reviewed with Bradnie Diego RN.
--- NOTE | 2019-11-21 18:35 | NUR ---
Patient in room [facility] 358. I have received report from KELLY GAUDARRAMA and had the opportunity to ask questions and assume patient care.
[2019-11-21 20:00] VITALS: BP 127/62
[2019-11-21] MEDS: traZODone 50mg tablet PO SCH (21:11)
[2019-11-22 06:30] VITALS: BP 128/50
--- NOTE | 2019-11-22 06:30 | NUR ---
Problems reprioritized. Patient report given, questions answered & plan of care reviewed with KELLY RN.
--- NOTE | 2019-11-22 06:50 | NUR ---
Patient in room [facility] 358. I have received report from Brandie Diego RN and had the opportunity to ask questions and assume patient care.
[2019-11-22] MEDS: lactose-reduced food (Ensure Enlive) - 237ml bottle PO SCH ×4 (09:40→18:00)
[2019-11-22] MEDS: HYDROchlorothiazide 12.5mg capsule PO SCH (09:40)
[2019-11-22] MEDS: docusate sod 100mg capsule PO SCH ×2 (09:40→20:00)
[2019-11-22] MEDS: lisinopril 10 MG tablet PO SCH (09:40)
[2019-11-22] MEDS: OLANZAPINE 5 MG TABLET PO SCH (09:40)
--- NOTE | 2019-11-22 18:50 | NUR ---
Problems reprioritized. Patient report given, questions answered & plan of care reviewed with THIERRY Desir.
--- NOTE | 2019-11-22 18:55 | NUR ---
Patient in room [facility] 358. I have received report from Yamilet GUADARRAMA and had the opportunity to ask questions and assume patient care.
[2019-11-22] MEDS: traZODone 50mg tablet PO SCH (20:00)
--- NOTE | 2019-11-23 06:21 | NUR ---
Problems reprioritized. Patient report given, questions answered & plan of care reviewed with Lauren GUADARRAMA.
--- NOTE | 2019-11-23 06:27 | NUR ---
Patient in room [facility] 358. I have received report from Karlee GUADARRAMA and had the opportunity to ask questions and assume patient care.
[2019-11-23 07:22] VITALS: BP 86/50
[2019-11-23] MEDS: HYDROchlorothiazide 12.5mg capsule PO SCH (08:00)
[2019-11-23] MEDS: docusate sod 100mg capsule PO SCH ×2 (08:00→20:00)
[2019-11-23] MEDS: OLANZAPINE 5 MG TABLET PO SCH (08:00)
[2019-11-23] MEDS: lisinopril 10 MG tablet PO SCH (08:00)
[2019-11-23] MEDS: lactose-reduced food (Ensure Enlive) - 237ml bottle PO SCH ×3 (08:00→18:00)
--- NOTE | 2019-11-23 08:26 | NUR ---
Patient is on the floor laying with her blankets and pillow. She states she's "not supposed to be in that bed". Encouraged patient to return to bed but she is not having it. All medications have been refused, patient states "NO!" Assessment has been refused as well. Will continue to monitor patient. Sitter at bedside.
--- NOTE | 2019-11-23 11:54 | NUR ---
Patient still sitting on the floor. Patient states that Satan told her not to eat or get in the bed. Encouraged patient to sit in a chair but she still states that she is not worthy and doesn't mean to eat when she does. Sitter at the bedside.
[2019-11-23 12:12] VITALS: BP 121/50
--- NOTE | 2019-11-23 14:58 | NUR ---
F/u (11/22): Pt PO continues to fluctuate 100% vs refusals meals and care. LBM 11/18 refusing bowel care and receiving power pudding. Family should consider comfort care per MD note; remains DNR at this time. Will continue to monitor for changes in code status. Recommend: 1. continue mechanical soft regular diet given poor PO hx; encourage PO intake 2. power pudding BIDLD, LS crackers and soda TIDWM per pt preferences 3. routine bowel care 4. yogurt, cottage cheese, and pears at dinner; cottage cheese and pears at lunch 5. scaled wt as soon as pt agreeable; no scaled wt this admit Addendum: 11/23/19 at [address] Amended: Links added.
--- NOTE | 2019-11-23 17:08 | NUR ---
Patient showered and walking [address]
--- NOTE | 2019-11-23 18:15 | NUR ---
Patient in room [facility] 358. I have received report from Lauren GUADARRAMA and had the opportunity to ask questions and assume patient care.
--- NOTE | 2019-11-23 18:17 | NUR ---
Problems reprioritized. Patient report given, questions answered & plan of care reviewed with David GUADARRAMA. Addendum: 11/23/19 at 1819 by Lauren Mantilla RN Problems reprioritized. Patient report given, questions answered & plan of care reviewed with Julia GUADARRAMA.
[2019-11-23] MEDS: traZODone 50mg tablet PO SCH (20:00)
[2019-11-24] VITALS: BP 109/51
--- NOTE | 2019-11-24 06:46 | NUR ---
Patient in room [facility] 358. I have received report from THIERRY Dumont and had the opportunity to ask questions and assume patient care.
[2019-11-24 07:00] VITALS: BP 104/54
[2019-11-24] MEDS: lactose-reduced food (Ensure Enlive) - 237ml bottle PO SCH ×3 (08:00→18:09)
[2019-11-24] MEDS: OLANZAPINE 5 MG TABLET PO SCH (08:00)
[2019-11-24] MEDS: HYDROchlorothiazide 12.5mg capsule PO SCH (08:00)
[2019-11-24] MEDS: docusate sod 100mg capsule PO SCH ×2 (08:00→20:00)
[2019-11-24] MEDS: lisinopril 10 MG tablet PO SCH (08:00)
[2019-11-24 12:00] VITALS: BP 112/55
--- NOTE | 2019-11-24 18:13 | NUR ---
Problems reprioritized. Patient report given, questions answered & plan of care reviewed with THIERRY Dumont.
--- NOTE | 2019-11-24 18:20 | NUR ---
Patient in room [facility] 358. I have received report from Taylor GUADARRAMA and had the opportunity to ask questions and assume patient care.
[2019-11-24] MEDS: traZODone 50mg tablet PO SCH (20:00)
--- NOTE | 2019-11-25 06:30 | NUR ---
Problems reprioritized. Patient report given, questions answered & plan of care reviewed with Umesh RN.
[2019-11-25 06:56] VITALS: BP 120/54
[2019-11-25] MEDS: traMADol 50MG tablet PO PRN (08:24)
[2019-11-25] MEDS: docusate sod 100mg capsule PO SCH ×2 (08:24→23:04)
[2019-11-25] MEDS: OLANZAPINE 5 MG TABLET PO SCH (08:25)
[2019-11-25] MEDS: lisinopril 10 MG tablet PO SCH (08:25)
[2019-11-25] MEDS: HYDROchlorothiazide 12.5mg capsule PO SCH (08:25)
[2019-11-25] MEDS: lactose-reduced food (Ensure Enlive) - 237ml bottle PO SCH ×3 (08:26→18:57)
--- NOTE | 2019-11-25 18:56 | NUR ---
Problems reprioritized. Patient report given, questions answered & plan of care reviewed with Yarely GUADARRAMA.
[2019-11-25] MEDS: traZODone 50mg tablet PO SCH (23:04)
--- NOTE | 2019-11-26 01:00 | NUR ---
Patient refused her 2000 and midnight vitals tonight. Patient sleeping. Respiration even and unlabor at 20.
--- NOTE | 2019-11-26 07:02 | NUR ---
Patient in room [facility] 358. I have received report from THIERRY BARRERA and had the opportunity to ask questions and assume patient care.
[2019-11-26] MEDS: docusate sod 100mg capsule PO SCH ×2 (07:43→20:33)
[2019-11-26] MEDS: lactose-reduced food (Ensure Enlive) - 237ml bottle PO SCH ×3 (07:44→18:15)
[2019-11-26] MEDS: OLANZAPINE 5 MG TABLET PO SCH (07:44)
[2019-11-26] MEDS: lisinopril 10 MG tablet PO SCH (08:00)
[2019-11-26] MEDS: HYDROchlorothiazide 12.5mg capsule PO SCH (08:00)
[2019-11-26 08:26] VITALS: BP 96/67
--- NOTE | 2019-11-26 12:16 | NUR ---
Reassessment: Pt has refused all meals since last RD assessment except with 100% PO intake at breakfast this morning and 100% PO intake of ONS x 2 11/24 and per RN pt consumed two Ensures this morning. With this PO intake, pt consumed 700 kcal (40% EEN) and 40 g protein (56% EPN) on 11/24 and 1508 kcal (100% EEN) and 78 g protein (100% EPN) just at breakfast today. Noted that pt was receptive to most medications today. Per RN pt is in a good mood today and states that tech encouraged PO intake this morning by informing pt that her tray was specially made just for her. LBM 11/25 however documented as small. Pt received Colace today and continues to receive power pudding BIDLD. Will continue to follow closely. Recommend: 1. continue mechanical soft regular diet given poor PO hx; encourage PO intake 2. power pudding BIDLD, LS crackers and soda TIDWM per pt preferences 3. routine bowel care 4. yogurt, cottage cheese, and pears at dinner; cottage cheese and pears at lunch; Ensure Enlive TID 5. scaled wt as soon as pt agreeable; no scaled wt this admit Addendum: 11/26/19 at [address] Amended: Links added.
--- NOTE | 2019-11-26 18:53 | NUR ---
Problems reprioritized. Patient report given, questions answered & plan of care reviewed with THIERRY Pritchett.
[2019-11-26] MEDS: traZODone 50mg tablet PO SCH (20:33)
[2019-11-27] VITALS: BP 91/46
--- NOTE | 2019-11-27 06:50 | NUR ---
Patient in room [facility] 358. I have received report from THIERRY Pritchett and had the opportunity to ask questions and assume patient care.
[2019-11-27] MEDS: HYDROchlorothiazide 12.5mg capsule PO SCH (08:00)
[2019-11-27] MEDS: lisinopril 10 MG tablet PO SCH (08:00)
[2019-11-27] MEDS: docusate sod 100mg capsule PO SCH ×2 (08:00→20:26)
[2019-11-27] MEDS: OLANZAPINE 5 MG TABLET PO SCH (08:00)
[2019-11-27] MEDS: lactose-reduced food (Ensure Enlive) - 237ml bottle PO SCH ×3 (08:00→18:04)
--- NOTE | 2019-11-27 14:50 | NUR ---
Patient has refused 0800 and 1200 vitals today, despite education with the patient, patient states "No, I won't do it. You don't need to." Patient refuses to sit on her bed or in her room states "the furniture's not mine I can't." will continue to monitor.
--- NOTE | 2019-11-27 18:52 | NUR ---
Problems reprioritized. Patient report given, questions answered & plan of care reviewed with Brandie Diego RN.
--- NOTE | 2019-11-27 18:53 | NUR ---
Patient in room [facility] 358. I have received report from ELOY GUADARRAMA and had the opportunity to ask questions and assume patient care.
[2019-11-27 20:00] VITALS: BP 102/53
[2019-11-27] MEDS: traZODone 50mg tablet PO SCH (20:26)
[2019-11-27] MEDS: traMADol 50MG tablet PO PRN (20:28)
--- NOTE | 2019-11-28 06:30 | NUR ---
Problems reprioritized. Patient report given, questions answered & plan of care reviewed with ZORA GUADARRAMA.
--- NOTE | 2019-11-28 06:34 | NUR ---
Patient in room [facility] 358. I have received report from Martha GUADARRAMA and had the opportunity to ask questions and assume patient care.
[2019-11-28] MEDS: HYDROchlorothiazide 12.5mg capsule PO SCH (08:00)
[2019-11-28] MEDS: lisinopril 10 MG tablet PO SCH (08:00)
[2019-11-28] MEDS: docusate sod 100mg capsule PO SCH ×2 (08:00→22:15)
[2019-11-28] MEDS: lactose-reduced food (Ensure Enlive) - 237ml bottle PO SCH ×3 (08:11→20:00)
[2019-11-28] MEDS: OLANZAPINE 5 MG TABLET PO SCH (08:13)
[2019-11-28 08:15] VITALS: BP 91/44
--- NOTE | 2019-11-28 18:46 | NUR ---
Problems reprioritized. Patient report given, questions answered & plan of care reviewed with Martha GUADARRAMA.
--- NOTE | 2019-11-28 18:48 | NUR ---
Patient in room [facility] 358. I have received report from ZORA GUADARRAMA and had the opportunity to ask questions and assume patient care.
[2019-11-28 20:00] VITALS: BP 110/68
[2019-11-28] MEDS: traZODone 50mg tablet PO SCH (22:16)
[2019-11-28] MEDS: traMADol 50MG tablet PO PRN (22:16)
[2019-11-29 06:30] VITALS: BP 98/48
--- NOTE | 2019-11-29 06:30 | NUR ---
Patient in room [facility] 358. I have received report from Brandie Diego RN and had the opportunity to ask questions and assume patient care.
--- NOTE | 2019-11-29 06:30 | NUR ---
Problems reprioritized. Patient report given, questions answered & plan of care reviewed with KELLY RN.
[2019-11-29] MEDS: HYDROchlorothiazide 12.5mg capsule PO SCH (07:55)
[2019-11-29] MEDS: lisinopril 10 MG tablet PO SCH (07:55)
[2019-11-29] MEDS: OLANZAPINE 5 MG TABLET PO SCH (07:56)
[2019-11-29] MEDS: lactose-reduced food (Ensure Enlive) - 237ml bottle PO SCH ×3 (07:57→18:00)
[2019-11-29] MEDS: docusate sod 100mg capsule PO SCH ×2 (07:58→20:00)
--- NOTE | 2019-11-29 12:19 | NUR ---
Reassessment: Pt has refused all meals since last RD assessment except 100% PO intake of ONS 11/26. She is not meeting her needs. PO intake continues to be encouraged by healthcare team. Per MD notes, comfort care is considered, however social, placement opportunities, and family issues present, SS is following. LBM 11/26 however documented as small. Pt received Colace 11/27 and continues to receive power pudding BIDLD. Will continue to follow closely. Recommend: 1. continue mechanical soft regular diet given poor PO hx; encourage PO intake 2. power pudding BIDLD, LS crackers and soda TIDWM per pt preferences 3. routine bowel care 4. yogurt, cottage cheese, and pears at dinner; cottage cheese and pears at lunch; Ensure Enlive TID 5. scaled wt as soon as pt agreeable; no scaled wt this admit Addendum: 11/29/19 at [address] Amended: Links added.
--- NOTE | 2019-11-29 18:40 | NUR ---
Problems reprioritized. Patient report given, questions answered & plan of care reviewed with THIERRY Rodas.
--- NOTE | 2019-11-29 18:49 | NUR ---
Patient in room [facility] 358. I have received report from Yamilet GUADARRAMA and had the opportunity to ask questions and assume patient care.
--- NOTE | 2019-11-29 19:10 | NUR ---
Attempted to give pt her meds and do assessment. Pt refused stating "I don't understand why I need to do these things, I'm fine." Explained reasons for medications and why we do an assessment, still refused. Will continue to monitor pt.
[2019-11-29] MEDS: traZODone 50mg tablet PO SCH (20:00)
--- NOTE | 2019-11-30 00:21 | NUR ---
Pt refused vital signs at both attempts this evening.
--- NOTE | 2019-11-30 06:26 | NUR ---
Problems reprioritized. Patient report given, questions answered & plan of care reviewed with Yolanda GUADARRAMA.
[2019-11-30] MEDS: lisinopril 10 MG tablet PO SCH (07:41)
[2019-11-30] MEDS: HYDROchlorothiazide 12.5mg capsule PO SCH (07:41)
[2019-11-30] MEDS: docusate sod 100mg capsule PO SCH ×2 (07:41→20:00)
[2019-11-30] MEDS: OLANZAPINE 5 MG TABLET PO SCH (07:43)
[2019-11-30] MEDS: lactose-reduced food (Ensure Enlive) - 237ml bottle PO SCH ×3 (07:46→17:53)
--- NOTE | 2019-11-30 09:27 | NUR ---
patient refused her vital signs this AM Addendum: 11/30/19 at 0928 by Yolanda Barton RN Amended: Links added.
--- NOTE | 2019-11-30 18:27 | NUR ---
Problems reprioritized. Patient report given, questions answered & plan of care reviewed with THIERRY Rodas.
--- NOTE | 2019-11-30 18:38 | NUR ---
Patient in room [facility] 358. I have received report from Yolanda GUADARRAMA and had the opportunity to ask questions and assume patient care.
[2019-11-30] MEDS: traZODone 50mg tablet PO SCH (20:00)
--- NOTE | 2019-12-01 06:44 | NUR ---
Problems reprioritized. Patient report given, questions answered & plan of care reviewed with Taylor GUADARRAMA.
[2019-12-01] MEDS: HYDROchlorothiazide 12.5mg capsule PO SCH (08:00)
[2019-12-01] MEDS: lisinopril 10 MG tablet PO SCH (08:00)
[2019-12-01] MEDS: OLANZAPINE 5 MG TABLET PO SCH (08:00)
[2019-12-01] MEDS: lactose-reduced food (Ensure Enlive) - 237ml bottle PO SCH ×3 (08:00→18:00)
[2019-12-01] MEDS: docusate sod 100mg capsule PO SCH ×2 (08:00→20:00)
--- NOTE | 2019-12-01 18:43 | NUR ---
Problems reprioritized. Patient report given, questions answered & plan of care reviewed with THIERRY Rodas.
--- NOTE | 2019-12-01 19:14 | NUR ---
Patient in room [facility] 358. I have received report from Taylor GUADARRAMA and had the opportunity to ask questions and assume patient care.
[2019-12-01] MEDS: traZODone 50mg tablet PO SCH (20:00)
--- NOTE | 2019-12-02 00:20 | NUR ---
Pt refused to have her vitals taken both times this shift.
--- NOTE | 2019-12-02 06:34 | NUR ---
Problems reprioritized. Patient report given, questions answered & plan of care reviewed with Zulma GUADARRAMA.
--- NOTE | 2019-12-02 06:57 | NUR ---
Patient in room [facility] 354. I have received report from THIERRY Rodas and had the opportunity to ask questions and assume patient care.
[2019-12-02] MEDS: lisinopril 10 MG tablet PO SCH (07:37)
[2019-12-02] MEDS: HYDROchlorothiazide 12.5mg capsule PO SCH (07:37)
[2019-12-02] MEDS: OLANZAPINE 5 MG TABLET PO SCH (07:37)
[2019-12-02] MEDS: docusate sod 100mg capsule PO SCH ×2 (07:38→20:00)
[2019-12-02] MEDS: lactose-reduced food (Ensure Enlive) - 237ml bottle PO SCH ×3 (08:05→18:30)
--- NOTE | 2019-12-02 11:57 | NUR ---
Reassessment: No changes since last RD assessment as pt continues refusing meals and ONS despite encouragement of PO intake. Pt remains A/O x 2 and confused. LBM /. Will continue to follow closely. Recommend: 1. continue mechanical soft regular diet given poor PO hx; encourage PO intake 2. power pudding BIDLD, LS crackers and soda TIDWM per pt preferences 3. routine bowel care 4. yogurt, cottage cheese, and pears at dinner; cottage cheese and pears at lunch; Ensure Enlive TID 5. scaled wt as soon as pt agreeable; no scaled wt this admit Addendum: 12/02/19 at [address] Amended: Links added.
--- NOTE | 2019-12-02 12:00 | NUR ---
Pt refused noon VS.
--- NOTE | 2019-12-02 18:32 | NUR ---
Problems reprioritized. Patient report given, questions answered & plan of care reviewed with THIERRY Wong.
--- NOTE | 2019-12-02 18:35 | NUR ---
Patient in room [facility] 354. I have received report from BLAZE GUADARRAMA and had the opportunity to ask questions and assume patient care.
--- NOTE | 2019-12-03 06:22 | NUR ---
Problems reprioritized. Patient report given, questions answered & plan of care reviewed with BLAZE GUADARRAMA.
--- NOTE | 2019-12-03 06:30 | NUR ---
Patient in room [facility] 354. I have received report from THIERRY Wong and had the opportunity to ask questions and assume patient care.
[2019-12-03 06:48] VITALS: BP 86/48
[2019-12-03] MEDS: OLANZAPINE 5 MG TABLET PO SCH (07:04)
[2019-12-03] MEDS: acetaminophen 325mg tablet PO PRN (07:05)
[2019-12-03] MEDS: lisinopril 10 MG tablet PO SCH (07:28)
[2019-12-03] MEDS: HYDROchlorothiazide 12.5mg capsule PO SCH (07:28)
[2019-12-03] MEDS: docusate sod 100mg capsule PO SCH ×2 (07:28→20:00)
[2019-12-03] MEDS: lactose-reduced food (Ensure Enlive) - 237ml bottle PO SCH ×4 (08:00→18:01)
--- NOTE | 2019-12-03 18:25 | NUR ---
Problems reprioritized. Patient report given, questions answered & plan of care reviewed with THIERRY Wong.
--- NOTE | 2019-12-03 18:30 | NUR ---
Patient in room [facility] 354. I have received report from BLAZE GUADARRAMA and had the opportunity to ask questions and assume patient care.
--- NOTE | 2019-12-04 06:15 | NUR ---
Patient in room [facility] 354. I have received report from Brandie Diego RN and had the opportunity to ask questions and assume patient care.
--- NOTE | 2019-12-04 06:30 | NUR ---
Problems reprioritized. Patient report given, questions answered & plan of care reviewed with KELLY RN.
--- NOTE | 2019-12-04 10:00 | NUR ---
Pt refused VS
[2019-12-04] MEDS: docusate sod 100mg capsule PO SCH ×2 (10:11→20:00)
[2019-12-04] MEDS: HYDROchlorothiazide 12.5mg capsule PO SCH (10:12)
[2019-12-04] MEDS: lactose-reduced food (Ensure Enlive) - 237ml bottle PO SCH ×3 (10:12→18:36)
[2019-12-04] MEDS: lisinopril 10 MG tablet PO SCH (10:12)
[2019-12-04] MEDS: OLANZAPINE 5 MG TABLET PO SCH (10:12)
--- NOTE | 2019-12-04 18:15 | NUR ---
Problems reprioritized. Patient report given, questions answered & plan of care reviewed with Brandie Diego RN.
--- NOTE | 2019-12-04 18:30 | NUR ---
Patient in room [facility] 354. I have received report from KELLY GUADARRAMA and had the opportunity to ask questions and assume patient care.
--- NOTE | 2019-12-05 06:36 | NUR ---
Problems reprioritized. Patient report given, questions answered & plan of care reviewed with EKLLY RN.
--- NOTE | 2019-12-05 07:00 | NUR ---
Pt refuses VS, meds, assessment
--- NOTE | 2019-12-05 07:15 | NUR ---
Patient in room [facility] 354. I have received report from Brandie Diego RN and had the opportunity to ask questions and assume patient care.
[2019-12-05] MEDS: docusate sod 100mg capsule PO SCH ×2 (07:32→19:35)
[2019-12-05] MEDS: HYDROchlorothiazide 12.5mg capsule PO SCH (07:32)
[2019-12-05] MEDS: lactose-reduced food (Ensure Enlive) - 237ml bottle PO SCH ×3 (07:32→18:00)
[2019-12-05] MEDS: OLANZAPINE 5 MG TABLET PO SCH (07:33)
[2019-12-05] MEDS: lisinopril 10 MG tablet PO SCH (07:33)
--- NOTE | 2019-12-05 11:22 | NUR ---
Reassessment: Pt documented with 100% PO intake at breakfast and lunch 12/01 with 25% PO intake at breakfast 12/02 however refused all surrounding meals and ONS not meeting nutrient needs. LBM 11/29 however unsure of accuracy of that as pt continues to be resistive to care, refusing medications and physical assessment. Will continue to follow closely. Recommend: 1. continue mechanical soft regular diet given poor PO hx; encourage PO intake 2. power pudding BIDLD, LS crackers and soda TIDWM per pt preferences 3. routine bowel care 4. yogurt, cottage cheese, and pears at dinner; cottage cheese and pears at lunch; Ensure Enlive TID 5. scaled wt as soon as pt agreeable; no scaled wt this admit Addendum: 12/05/19 at [address] Amended: Links added.
--- NOTE | 2019-12-05 18:25 | NUR ---
Patient in room [facility] 354. I have received report from Yamilet Booker and had the opportunity to ask questions and assume patient care.
--- NOTE | 2019-12-05 18:30 | NUR ---
Problems reprioritized. Patient report given, questions answered & plan of care reviewed with THIERRY Guzman.
--- NOTE | 2019-12-05 19:32 | NUR ---
pt refused care at this time. also refused medications food and ambulation out of room with the nurse. Said, "I feel awful".
--- NOTE | 2019-12-05 23:26 | NUR ---
reused vitals standing up in corner of room. sitter at bedside Addendum: 12/05/19 at 2327 by Megan Johnson RN Amended: Links added.
--- NOTE | 2019-12-06 00:05 | NUR ---
standing up in room bent over at the waist sitter in the room with her.
--- NOTE | 2019-12-06 00:27 | NUR ---
refused vitals. Addendum: 12/06/19 at 0027 by Megan Johnson RN Amended: Links added.
--- NOTE | 2019-12-06 02:00 | NUR ---
resting on right side on the floor sitter in the room. no s&s of distress at this time.
--- NOTE | 2019-12-06 06:06 | NUR ---
Problems reprioritized. Patient report given, questions answered & plan of care reviewed with Jr Booker. Addendum: 12/06/19 at 0607 by Megan Johnson RN Amended: Links added. Addendum: 12/06/19 at 0609 by Megan Johnson RN note on wrong pt.
--- NOTE | 2019-12-06 06:31 | NUR ---
Problems reprioritized. Patient report given, questions answered & plan of care reviewed with Yamilet Booker. Addendum: 12/06/19 at 0632 by Megan Johnson RN Amended: Links added.
--- NOTE | 2019-12-06 06:36 | NUR ---
Patient in room [facility] 354. I have received report from THIERRY KEBEDE and had the opportunity to ask questions and assume patient care. Addendum: 12/06/19 at 0649 by Rocco Allen RN INCORRECT PATIENT.
--- NOTE | 2019-12-06 06:40 | NUR ---
Patient in room [facility] 354. I have received report from THIERRY Guzman and had the opportunity to ask questions and assume patient care.
[2019-12-06] MEDS: docusate sod 100mg capsule PO SCH ×2 (08:00→20:00)
[2019-12-06] MEDS: lisinopril 10 MG tablet PO SCH (08:00)
[2019-12-06] MEDS: OLANZAPINE 5 MG TABLET PO SCH ×2 (08:00→15:39)
[2019-12-06] MEDS: lactose-reduced food (Ensure Enlive) - 237ml bottle PO SCH ×3 (08:00→17:29)
[2019-12-06] MEDS: HYDROchlorothiazide 12.5mg capsule PO SCH (08:00)
[2019-12-06] MEDS ORDERED: nystatin 15 GM powder TP PRN (15:40)
--- NOTE | 2019-12-06 18:30 | NUR ---
Patient in room [facility] 354. I have received report from KELLY GUADARRAMA and had the opportunity to ask questions and assume patient care. Addendum: 12/06/19 at 1928 by Megan Johnson RN Amended: Links added.
--- NOTE | 2019-12-06 18:30 | NUR ---
Problems reprioritized. Patient report given, questions answered & plan of care reviewed with THIERRY Guzman.
--- NOTE | 2019-12-06 20:00 | NUR ---
pt refusing care and medications. sitting in chair resting. no s&s of distress at this time.
--- NOTE | 2019-12-06 21:00 | NUR ---
refused vitals and meds wanted to be left alone in room in chair in front of bathroom sitter in the room as well. Addendum: 12/06/19 at 2141 by Megan Johnson RN Amended: Links added.
--- NOTE | 2019-12-06 21:30 | NUR ---
pt resting eyes closed without changes at this time. sitting in the chair.
--- NOTE | 2019-12-06 22:50 | NUR ---
pt was crying thought she heard voices saying she was bad and couldn't sleep on bed or floor. went to give her ultram for discomfort and had dozed off to sleep on the floor in front of sitters feet.
--- NOTE | 2019-12-06 23:49 | NUR ---
pt moved position on the floor says she's not in pain ultram returned stated de says she can't sleep on the bed or chair. justyna wrote bible verses down tried to reassure her it was ok to sleep on bed or chair if she wishes. pt laying on the floor at this time calm and resting eyes closed.
--- NOTE | 2019-12-07 01:43 | NUR ---
pt now sitting up asleep in the chair at this time.
--- NOTE | 2019-12-07 04:00 | NUR ---
pt up on all 4's with back arched up. asked her if she was in pain. she said i hurt all over. asked if she would take a pain pill now she cried sat on floor and was waiting when nurse came back with a pill and fresh water. encouraged her to dit in big reclining chair and reused chair feet to be raised bur allowed feet to be put up on a trash can with a pillow. warm blanket given. pt said she felt humiliated asked why no answer told her in [employer] and Kishore had his feet washed. she said i know that. she relaxed and gently let Rn comb her hair she closed her eyes.
[2019-12-07] MEDS: traMADol 50MG tablet PO PRN ×2 (04:12→14:42)
--- NOTE | 2019-12-07 04:34 | NUR ---
noted pt's feet very swollen non pitting taunt skin and pinkish red in color on dorsal side of them.
--- NOTE | 2019-12-07 05:10 | NUR ---
pt resting eyes closed appears comfortable in reclining chair feet elevated resting eyes closed.
--- NOTE | 2019-12-07 06:16 | NUR ---
Problems reprioritized. Patient report given, questions answered & plan of care reviewed with COLLINS GUADARRAMA. Addendum: 12/07/19 at 0616 by Megan Johnson RN Amended: Links added.
--- NOTE | 2019-12-07 06:18 | NUR ---
Patient in room [facility] 354. I have received report from Megan GUADARRAMA and had the opportunity to ask questions and assume patient care.
[2019-12-07] MEDS: lisinopril 10 MG tablet PO SCH (08:00)
[2019-12-07] MEDS: lactose-reduced food (Ensure Enlive) - 237ml bottle PO SCH ×3 (08:00→18:00)
[2019-12-07] MEDS: docusate sod 100mg capsule PO SCH ×2 (08:00→20:00)
[2019-12-07] MEDS: HYDROchlorothiazide 12.5mg capsule PO SCH (08:00)
[2019-12-07] MEDS: OLANZAPINE 5 MG TABLET PO SCH (08:00)
--- NOTE | 2019-12-07 09:58 | NUR ---
Patient has been sleepy but ate her breakfast according to sitter. I like to give her water pill HCTZ medication at least for her swollen feet/legs but patient persistently refused vital signs taken. Patient also refused physical assessment and other scheduled medications at this time
--- NOTE | 2019-12-07 12:39 | NUR ---
Dr. Rivas notified about patient refusing vital signs, medications, and assessment
--- NOTE | 2019-12-07 18:05 | NUR ---
Patient in room [facility] 354. I have received report from THIERRY Aguilar and had the opportunity to ask questions and assume patient care. Addendum: 12/08/19 at 0532 by Madyson Wren RN Strike from record, incorrect patient
--- NOTE | 2019-12-07 18:25 | NUR ---
Patient in room [facility] 354. I have received report from THIERRY Tse and had the opportunity to ask questions and assume patient care.
--- NOTE | 2019-12-08 01:18 | NUR ---
Pt has refused dinner, meds, assessment, and VS.
--- NOTE | 2019-12-08 06:15 | NUR ---
Problems reprioritized. Patient report given, questions answered & plan of care reviewed with THIERRY Vazqeuz.
--- NOTE | 2019-12-08 06:43 | NUR ---
Patient in room [facility] 354. I have received report from THIERRY Elliott and had the opportunity to ask questions and assume patient care.
[2019-12-08] MEDS: HYDROchlorothiazide 12.5mg capsule PO SCH (08:00)
[2019-12-08] MEDS: lisinopril 10 MG tablet PO SCH (08:00)
[2019-12-08] MEDS: docusate sod 100mg capsule PO SCH ×2 (08:00→20:00)
[2019-12-08] MEDS: OLANZAPINE 5 MG TABLET PO SCH (08:00)
[2019-12-08] MEDS: lactose-reduced food (Ensure Enlive) - 237ml bottle PO SCH ×3 (08:00→18:12)
--- NOTE | 2019-12-08 13:07 | NUR ---
Reassessment: No changes in patient's condition from a nutrition standpoint. Pt documented with 50% PO intake of breakfast and lunch 12/06 and 100% of Ensure Enlive with dinner 12/05 however refused all surrounding meals and ONS. LBM 12/04, multiple bowel care options available however pt refusing. Will continue to follow. Recommend: 1. continue mechanical soft regular diet given poor PO hx; encourage PO intake 2. power pudding BIDLD, LS crackers and soda TIDWM per pt preferences 3. routine bowel care 4. yogurt, cottage cheese, and pears at dinner; cottage cheese and pears at lunch; Ensure Enlive TID 5. scaled wt as soon as pt agreeable; no scaled wt this admit Addendum: 12/08/19 at [address] Amended: Links added.
--- NOTE | 2019-12-08 16:10 | NUR ---
Patient in room [facility] 354. I have received report from THIERRY Vazquez and had the opportunity to ask questions and assume patient care.
--- NOTE | 2019-12-08 18:13 | NUR ---
Problems reprioritized. Patient report given, questions answered & plan of care reviewed with THIERRY Elliott.
--- NOTE | 2019-12-08 21:30 | NUR ---
Pt continues to refuse care.
--- NOTE | 2019-12-09 06:30 | NUR ---
Patient in room [facility] 354. I have received report from Lexi Gordon RN and had the opportunity to ask questions and assume patient care.
--- NOTE | 2019-12-09 06:41 | NUR ---
Problems reprioritized. Patient report given, questions answered & plan of care reviewed with THIERRY Carrillo.
[2019-12-09] MEDS: OLANZAPINE 5 MG TABLET PO SCH (08:00)
[2019-12-09] MEDS: HYDROchlorothiazide 12.5mg capsule PO SCH (08:00)
[2019-12-09] MEDS: docusate sod 100mg capsule PO SCH ×2 (08:00→20:00)
[2019-12-09] MEDS: lisinopril 10 MG tablet PO SCH (08:00)
[2019-12-09] MEDS: lactose-reduced food (Ensure Enlive) - 237ml bottle PO SCH ×3 (08:00→18:00)
--- NOTE | 2019-12-09 18:00 | NUR ---
Pt continued to refuse care throughout this shift: refused ambulation, meds, food/drink, assessments.
--- NOTE | 2019-12-09 18:15 | NUR ---
Problems reprioritized. Patient report given, questions answered & plan of care reviewed with Lexi Gordon RN.
--- NOTE | 2019-12-09 18:38 | NUR ---
Patient in room [facility] 354. I have received report from THIERRY Carrillo and had the opportunity to ask questions and assume patient care.
--- NOTE | 2019-12-09 20:31 | NUR ---
Patient continues to refuse vital signs, assessment, medications, etc.
--- NOTE | 2019-12-10 06:00 | NUR ---
Patient in room [facility] 354. I have received report from Lexi Gordon RN and had the opportunity to ask questions and assume patient care.
--- NOTE | 2019-12-10 06:24 | NUR ---
Problems reprioritized. Patient report given, questions answered & plan of care reviewed with THIERRY Figueroa.
[2019-12-10] MEDS: HYDROchlorothiazide 12.5mg capsule PO SCH (08:00)
[2019-12-10] MEDS: lisinopril 10 MG tablet PO SCH (08:00)
[2019-12-10] MEDS: OLANZAPINE 5 MG TABLET PO SCH (08:00)
[2019-12-10] MEDS: lactose-reduced food (Ensure Enlive) - 237ml bottle PO SCH ×3 (08:00→18:30)
[2019-12-10] MEDS: docusate sod 100mg capsule PO SCH ×2 (08:00→20:00)
--- NOTE | 2019-12-10 18:39 | NUR ---
Problems reprioritized. Patient report given, questions answered & plan of care reviewed with Amada RN.
--- NOTE | 2019-12-10 19:30 | NUR ---
pt becomes more agitated when attempting to do physical assessment; able to visually see edema to bilat feet & ankles; pulls back when trying to determine if pitting or non-pitting; redness to toes radiating to mid foot bilaterally Addendum: 12/11/19 at 0408 by Lyndsey Nichols RN Amended: Links added.
--- NOTE | 2019-12-10 19:30 | NUR ---
refuses VS's to be checked Addendum: 12/11/19 at 0408 by Lyndsey Nichols RN Amended: Links added.
--- NOTE | 2019-12-11 06:58 | NUR ---
Patient in room [facility] 354. I have received report from THIERRY Ybarra and had the opportunity to ask questions and assume patient care.
[2019-12-11] MEDS: lactose-reduced food (Ensure Enlive) - 237ml bottle PO SCH ×2 (08:00→13:00)
[2019-12-11] MEDS: OLANZAPINE 5 MG TABLET PO SCH (08:00)
[2019-12-11] MEDS: HYDROchlorothiazide 12.5mg capsule PO SCH (08:00)
[2019-12-11] MEDS: docusate sod 100mg capsule PO SCH ×2 (08:00→19:29)
[2019-12-11] MEDS: lisinopril 10 MG tablet PO SCH (08:00)
--- NOTE | 2019-12-11 11:00 | NUR ---
Reassessment: Pt continues refusing meals and ONS despite encouragement of PO intake. Likely that pt has had some weight loss given poor PO intake however pt continues to be resistive to care and unable to get a scaled weight. LBM 12/09. Will continue to follow closely. Recommend: 1. continue mechanical soft regular diet given poor PO hx; encourage PO intake 2. power pudding BIDLD, LS crackers and soda TIDWM per pt preferences 3. routine bowel care 4. yogurt, cottage cheese, and pears at dinner; cottage cheese and pears at lunch; Ensure Enlive TID 5. scaled wt as soon as pt agreeable; no scaled wt this admit Addendum: 12/11/19 at [address] Amended: Links added.
[2019-12-11] MEDS: traMADol 50MG tablet PO PRN ×2 (15:17→19:37)
--- NOTE | 2019-12-11 15:18 | NUR ---
Pt stated she was painful. attempt to give tramadol multiple time, but pt refused it.
--- NOTE | 2019-12-11 18:00 | NUR ---
pt refuses VS. Addendum: 12/12/19 at 0030 by Karlee Jurado RN Amended: Links added.
--- NOTE | 2019-12-11 18:06 | NUR ---
Problems reprioritized. Patient report given, questions answered & plan of care reviewed with THIERRY Larson. Pt refused all care. cont with justyna.
--- NOTE | 2019-12-11 18:08 | NUR ---
Patient in room [facility] 354. I have received report from Lucy GUADARRAMA and had the opportunity to ask questions and assume patient care.
[2019-12-11] MEDS: ondansetron 4mg rapidly disintigrating tab PO PRN (19:29)
--- NOTE | 2019-12-11 19:50 | NUR ---
pt frequently refuses cares and procedures, pt lying on left side and is vomiting bile and dry heaving, pt cooperative with cares at this time however stating, "it won't help, you can't help me" "I will keep vomiting", reassurance given and frequent attempts to reorient pt, pt remains confused. Addendum: 12/12/19 at 0004 by Karlee Jurado RN Amended: Links added.
--- NOTE | 2019-12-12 | NUR ---
pt sleeping, refusing VS and cares at this time. Addendum: 12/12/19 at 0144 by Karlee Jurado RN Amended: Links added.
--- NOTE | 2019-12-12 | NUR ---
pt refuses VS Addendum: 12/12/19 at 0031 by Karlee Jurado RN Amended: Links added.
--- NOTE | 2019-12-12 06:23 | NUR ---
Problems reprioritized. Patient report given, questions answered & plan of care reviewed with Brianna GUADARRAMA.
--- NOTE | 2019-12-12 06:42 | NUR ---
Patient in room [facility] 354. I have received report from Marsha GUADARRAMA and Karlee GUADARRAMA and had the opportunity to ask questions and assume patient care.
[2019-12-12] MEDS: HYDROchlorothiazide 12.5mg capsule PO SCH (08:00)
[2019-12-12] MEDS: lisinopril 10 MG tablet PO SCH (08:00)
[2019-12-12] MEDS: docusate sod 100mg capsule PO SCH ×2 (08:00→20:00)
[2019-12-12] MEDS: OLANZAPINE 5 MG TABLET PO SCH (08:03)
--- NOTE | 2019-12-12 10:00 | NUR ---
Patient refused vitals signs, medications, and physical assessment. Patient had shower today.
--- NOTE | 2019-12-12 13:06 | NUR ---
Toe nails long and pointing upward. Wound care consult ordered to have toe nails trim
[2019-12-12 18:00] VITALS: BP 110/50
--- NOTE | 2019-12-12 18:23 | NUR ---
Problems reprioritized. Patient report given, questions answered & plan of care reviewed with Prudence RN.
--- NOTE | 2019-12-12 18:49 | NUR ---
Patient in room [facility] 354. I have received report from ZORA GUADARRAMA and had the opportunity to ask questions and assume patient care. Patient in the room resting with a sitter.
--- NOTE | 2019-12-13 06:22 | NUR ---
Problems reprioritized. Patient report given, questions answered & plan of care reviewed with ZORA GUADARRAMA.
--- NOTE | 2019-12-13 06:27 | NUR ---
Patient in room [facility] 354. I have received report from Marsha GUADARRAMA and had the opportunity to ask questions and assume patient care.
--- NOTE | 2019-12-13 07:54 | NUR ---
patient refused 0700 vital signs. Addendum: 12/13/19 at 0754 by Yolanda Barton RN Amended: Links added.
[2019-12-13] MEDS: HYDROchlorothiazide 12.5mg capsule PO SCH (08:00)
[2019-12-13] MEDS: docusate sod 100mg capsule PO SCH ×2 (08:00→21:22)
[2019-12-13] MEDS: lisinopril 10 MG tablet PO SCH (08:00)
[2019-12-13] MEDS: OLANZAPINE 5 MG TABLET PO SCH (08:00)
--- NOTE | 2019-12-13 09:40 | NUR ---
Patient refused vital signs, medicines, and physical assessment. Sitter at bedside
--- NOTE | 2019-12-13 19:06 | NUR ---
Problems reprioritized. Patient report given, questions answered & plan of care reviewed with Prudence RN.
--- NOTE | 2019-12-13 19:39 | NUR ---
PATIENT REFUSED VITAL SIGNS FOR 1800. Addendum: 12/13/19 at 1940 by Marsha Davis RN Amended: Links added.
[2019-12-13] MEDS: traMADol 50MG tablet PO PRN (21:22)
[2019-12-14] MEDS: traMADol 50MG tablet PO PRN ×2 (04:20→09:22)
--- NOTE | 2019-12-14 06:28 | NUR ---
Problems reprioritized. Patient report given, questions answered & plan of care reviewed with BETO GUADARRAMA.
--- NOTE | 2019-12-14 06:32 | NUR ---
Patient in room [facility] 354. I have received report from Marsha GUADARRAMA and had the opportunity to ask questions and assume patient care.
[2019-12-14] MEDS: lisinopril 10 MG tablet PO SCH (08:00)
[2019-12-14] MEDS: docusate sod 100mg capsule PO SCH ×2 (08:00→19:40)
[2019-12-14] MEDS: HYDROchlorothiazide 12.5mg capsule PO SCH (08:00)
[2019-12-14] MEDS: OLANZAPINE 5 MG TABLET PO SCH (09:22)
--- NOTE | 2019-12-14 15:00 | NUR ---
Reassessment: Pt continues refusing meals not meeting needs. FTT; fear PO makes her feel bad w/ ALOC per MD note. LBM 12/09. Not appropriate for alternative nutrition at this time. Refusing care and awaiting placement per MD note. Will monitor for changes in code status. Recommend: 1. continue mechanical soft regular diet given poor PO hx; encourage PO intake 2. power pudding BIDLD, LS crackers and soda TIDWM per pt preferences 3. routine bowel care 4. yogurt, cottage cheese, and pears at dinner; cottage cheese and pears at lunch; Ensure Enlive TID 5. scaled wt as soon as pt agreeable; no scaled wt this admit Addendum: 12/14/19 at [address] Amended: Links added.
--- NOTE | 2019-12-14 19:41 | NUR ---
LMB 12/09, patient continues to refused colace. States she will "have the runs all over the place".
--- NOTE | 2019-12-15 06:10 | NUR ---
Problems reprioritized. Patient report given, questions answered & plan of care reviewed with THIERRY Maria.
--- NOTE | 2019-12-15 06:31 | NUR ---
Patient in room [facility] 354. I have received report from Lexi Oliver RN and had the opportunity to ask questions and assume patient care.
[2019-12-15] MEDS: docusate sod 100mg capsule PO SCH ×2 (08:00→19:58)
[2019-12-15] MEDS: lisinopril 10 MG tablet PO SCH (08:00)
[2019-12-15] MEDS: HYDROchlorothiazide 12.5mg capsule PO SCH (08:21)
[2019-12-15] MEDS: OLANZAPINE 5 MG TABLET PO SCH (08:21)
--- NOTE | 2019-12-15 18:32 | NUR ---
Problems reprioritized. Patient report given, questions answered & plan of care reviewed with Zena GUADARRAMA.
--- NOTE | 2019-12-15 18:38 | NUR ---
Patient in room [facility] 354. I have received report from Lilian GUADARRAMA and had the opportunity to ask questions and assume patient care.
--- NOTE | 2019-12-15 20:23 | NUR ---
pt refused vitals Addendum: 12/15/19 at 2023 by Zena Blake RN Amended: Links added.
--- NOTE | 2019-12-15 21:26 | NUR ---
pt refused lung assessment Addendum: 12/15/19 at 2132 by Zena Blake RN Amended: Links added.
--- NOTE | 2019-12-16 06:48 | NUR ---
Problems reprioritized. Patient report given, questions answered & plan of care reviewed with Lorena GUADARRAMA.
--- NOTE | 2019-12-16 06:56 | NUR ---
Patient in room [facility] 354. I have received report from Zena Mo RN and had the opportunity to ask questions and assume patient care.
[2019-12-16] MEDS: docusate sod 100mg capsule PO SCH ×2 (08:00→20:00)
[2019-12-16 09:00] VITALS: BP 150/67
[2019-12-16] MEDS: bisacodyl 5mg tablet.DR PO PRN (09:43)
[2019-12-16] MEDS: lisinopril 10 MG tablet PO SCH (09:43)
[2019-12-16] MEDS: HYDROchlorothiazide 12.5mg capsule PO SCH (09:43)
[2019-12-16] MEDS: OLANZAPINE 5 MG TABLET PO SCH (09:43)
[2019-12-16] MEDS: lactose-reduced food (Ensure Enlive) - 237ml bottle PO SCH ×2 (13:00→18:00)
--- NOTE | 2019-12-16 18:39 | NUR ---
Patient in room [facility] 354. I have received report from Lorena GUADARRAMA and had the opportunity to ask questions and assume patient care.
--- NOTE | 2019-12-16 18:50 | NUR ---
Problems reprioritized. Patient report given, questions answered & plan of care reviewed with Zena Mo RN.
--- NOTE | 2019-12-16 21:41 | NUR ---
pt refused vital signs Addendum: 12/16/19 at 2142 by Zena Blake RN Amended: Links added.
--- NOTE | 2019-12-16 23:11 | NUR ---
pt daughter Silvia called to discuss pt and get updates. pt's daughter was "upset that pt was not answering the phone and that there has not been any updates with pt." The daughter was not on the [facility] contact. I told the daughter I could not give her information at this time because she was not listed as a contact.
--- NOTE | 2019-12-17 01:04 | NUR ---
pt refused 0000 vitals Addendum: 12/17/19 at 0105 by Zena Blake RN Amended: Links added.
--- NOTE | 2019-12-17 06:45 | NUR ---
Patient in room [facility] 354. I have received report from Zena Mo RN and had the opportunity to ask questions and assume patient care.
--- NOTE | 2019-12-17 06:52 | NUR ---
Problems reprioritized. Patient report given, questions answered & plan of care reviewed with Lorena GUADARRAMA.
[2019-12-17] MEDS: lisinopril 10 MG tablet PO SCH (08:00)
[2019-12-17] MEDS: HYDROchlorothiazide 12.5mg capsule PO SCH (08:00)
[2019-12-17] MEDS: lactose-reduced food (Ensure Enlive) - 237ml bottle PO SCH ×3 (08:00→18:00)
[2019-12-17 09:30] VITALS: BP 95/45
--- NOTE | 2019-12-17 09:30 | NUR ---
Pt refused VS at 0700. At 0930 refused temp, ambulation, and topical cream to feet, Colace. Refused full assessment. Denies pain at this time. MD aware. Will continue to monitor.
[2019-12-17 09:35] VITALS: BP 100/54
[2019-12-17] MEDS: OLANZAPINE 5 MG TABLET PO SCH (09:51)
[2019-12-17] MEDS: docusate sod 100mg capsule PO SCH ×2 (09:51→19:43)
[2019-12-17] MEDS: magnesium hydroxide 30ml (MOM) UD suspension PO PRN ×2 (09:51→09:58)
[2019-12-17] MEDS: bisacodyl 5mg tablet.DR PO PRN (09:57)
--- NOTE | 2019-12-17 11:21 | NUR ---
PAGER ID: [phone] MESSAGE: RE: Irvin Savage, room 354C. 0930 BP 100/54 (L), 95/45 (R) automatic cuff. am dose of Hydrochlorathyazide and Lisinopril held thank you, Lorena [phone]. (RN note: Will continue to monitor pt.)
--- NOTE | 2019-12-17 11:58 | NUR ---
Reassessment: Since last RD assessment (12/13) pt with 75-100% PO intake x six meals and has refused only three meals although did consume the milk for one of those meals. Pt documented with 100% PO intake of ONS as of yesterday, and pt consumed 2 Ensures with breakfast yesterday per RN. Pt temporarily meeting nutrient needs at this time. LBM 12/09, pt previously refusing bowel care medications however documented to have received Colace today and continues to receive nutrition intervention for constipation on meal trays BIDLD. Will continue to follow closely. Recommend: 1. continue mechanical soft regular diet given poor PO hx; encourage PO intake 2. power pudding BIDLD, LS crackers and soda TIDWM per pt preferences 3. routine bowel care 4. yogurt, cottage cheese, and pears at dinner; cottage cheese and pears at lunch; Ensure Enlive TID 5. scaled wt as soon as pt agreeable; no scaled wt this admit Addendum: 12/17/19 at [address] Amended: Links added.
--- NOTE | 2019-12-17 13:14 | NUR ---
attempted to return phone call of pt's daughter, Silvia Default, no answer.
--- NOTE | 2019-12-17 18:42 | NUR ---
Patient in room [facility] 349. I have received report from Lorena GUADARRAMA and had the opportunity to ask questions and assume patient care.
--- NOTE | 2019-12-17 18:47 | NUR ---
Problems reprioritized. Patient report given, questions answered & plan of care reviewed with Zena Mo RN.
--- NOTE | 2019-12-17 22:04 | NUR ---
patient refused vitals Addendum: 12/17/19 at 2204 by Pierce Hairston RN Amended: Links added.
--- NOTE | 2019-12-17 23:16 | NUR ---
pt refused vital signs Addendum: 12/17/19 at 2317 by Zena Blkae RN Amended: Links added.
--- NOTE | 2019-12-18 01:12 | NUR ---
pt refused 0000 vitals Addendum: 12/18/19 at 0113 by Zena Blake RN Amended: Links added.
--- NOTE | 2019-12-18 06:34 | NUR ---
Patient in room [facility] 354. I have received report from Zena GUADARRAMA and had the opportunity to ask questions and assume patient care.
--- NOTE | 2019-12-18 06:34 | NUR ---
Problems reprioritized. Patient report given, questions answered & plan of care reviewed with Suze GUADARRAMA.
[2019-12-18 07:35] VITALS: BP 105/44
[2019-12-18] MEDS: docusate sod 100mg capsule PO SCH ×2 (08:00→19:41)
[2019-12-18] MEDS: lactose-reduced food (Ensure Enlive) - 237ml bottle PO SCH ×3 (08:00→18:07)
[2019-12-18] MEDS: lisinopril 10 MG tablet PO SCH (08:00)
[2019-12-18] MEDS: HYDROchlorothiazide 12.5mg capsule PO SCH (08:00)
[2019-12-18] MEDS: OLANZAPINE 5 MG TABLET PO SCH (09:56)
--- NOTE | 2019-12-18 18:18 | NUR ---
Problems reprioritized. Patient report given, questions answered & plan of care reviewed with Sophie GUADARRAMA.
--- NOTE | 2019-12-18 18:18 | NUR ---
Patient in room [facility] 354. I have received report from Suze GUADARRAMA and had the opportunity to ask questions and assume patient care.
[2019-12-18 18:38] VITALS: BP 141/53
--- NOTE | 2019-12-19 06:00 | NUR ---
Patient in room [facility] 354. I have received report from THIERRY Barrios and had the opportunity to ask questions and assume patient care.
--- NOTE | 2019-12-19 06:04 | NUR ---
Problems reprioritized. Patient report given, questions answered & plan of care reviewed with Henry GUADARRAMA.
[2019-12-19 07:00] VITALS: BP 131/60
[2019-12-19] MEDS: docusate sod 100mg capsule PO SCH ×2 (08:00→20:00)
[2019-12-19] MEDS: HYDROchlorothiazide 12.5mg capsule PO SCH (08:12)
[2019-12-19] MEDS: OLANZAPINE 5 MG TABLET PO SCH (08:12)
[2019-12-19] MEDS: lisinopril 10 MG tablet PO SCH (08:12)
[2019-12-19] MEDS: lactose-reduced food (Ensure Enlive) - 237ml bottle PO SCH ×3 (08:12→18:00)
[2019-12-19 11:38] VITALS: BP 134/57
--- NOTE | 2019-12-19 18:15 | NUR ---
Problems reprioritized. Patient report given, questions answered & plan of care reviewed with THIERRY Thomas.
[2019-12-20] MEDS: lisinopril 10 MG tablet PO SCH (07:49)
[2019-12-20] MEDS: lactose-reduced food (Ensure Enlive) - 237ml bottle PO SCH ×3 (07:50→18:00)
[2019-12-20] MEDS: OLANZAPINE 5 MG TABLET PO SCH (07:50)
[2019-12-20] MEDS: HYDROchlorothiazide 12.5mg capsule PO SCH (07:50)
[2019-12-20] MEDS: docusate sod 100mg capsule PO SCH ×2 (08:00→19:51)
--- NOTE | 2019-12-20 14:03 | NUR ---
F/u (12/19): Pt PO continues to improve 75-100% meals w/ 100% ONS as well as taking meds this AM per EMR. LBM 12/18. Will continue to monitor. Recommend: 1. continue mechanical soft regular diet given poor PO hx; encourage PO intake 2. power pudding BIDLD, LS crackers and soda TIDWM per pt preferences 3. routine bowel care 4. yogurt, cottage cheese, and pears at dinner; cottage cheese and pears at lunch; Ensure Enlive TID 5. scaled wt as soon as pt agreeable; no scaled wt this admit Addendum: 12/20/19 at [address] Amended: Links added.
--- NOTE | 2019-12-20 18:33 | NUR ---
Problems reprioritized. Patient report given, questions answered & plan of care reviewed with THIERRY Rodas.
--- NOTE | 2019-12-20 18:40 | NUR ---
Patient in room [facility] 354. I have received report from Henry GUADARRAMA and had the opportunity to ask questions and assume patient care.
--- NOTE | 2019-12-21 05:55 | NUR ---
Problems reprioritized. Patient report given, questions answered & plan of care reviewed with Henry GUADARRAMA.
--- NOTE | 2019-12-21 06:00 | NUR ---
Patient in room [facility] 354. I have received report from THIERRY Rodas and had the opportunity to ask questions and assume patient care.
[2019-12-21 07:00] VITALS: BP 116/71
[2019-12-21] MEDS: lactose-reduced food (Ensure Enlive) - 237ml bottle PO SCH ×3 (08:00→18:00)
[2019-12-21] MEDS: docusate sod 100mg capsule PO SCH ×2 (08:00→20:00)
[2019-12-21] MEDS: OLANZAPINE 5 MG TABLET PO SCH (09:12)
[2019-12-21] MEDS: HYDROchlorothiazide 12.5mg capsule PO SCH (09:12)
[2019-12-21] MEDS: lisinopril 10 MG tablet PO SCH (09:13)
--- NOTE | 2019-12-21 18:00 | NUR ---
Problems reprioritized. Patient report given, questions answered & plan of care reviewed with THIERRY Pritchett.
--- NOTE | 2019-12-21 18:25 | NUR ---
RECEIVED REPORT FROM EASTON GUADARRAMA AND ASSUMED PATIENT CARE
--- NOTE | 2019-12-22 06:27 | NUR ---
I have received report from Yarely GUADARRAMA O/N viridiana and had the opportunity to ask questions and assume patient care.
[2019-12-22] MEDS: HYDROchlorothiazide 12.5mg capsule PO SCH (08:00)
[2019-12-22] MEDS: docusate sod 100mg capsule PO SCH ×2 (08:00→19:59)
[2019-12-22] MEDS: lisinopril 10 MG tablet PO SCH (08:00)
[2019-12-22] MEDS: OLANZAPINE 5 MG TABLET PO SCH (08:57)
[2019-12-22] MEDS: lactose-reduced food (Ensure Enlive) - 237ml bottle PO SCH ×3 (08:57→18:00)
--- NOTE | 2019-12-22 18:09 | NUR ---
Problems reprioritized. Patient report given, questions answered & plan of care reviewed with Lexi Gordon RN
--- NOTE | 2019-12-22 18:10 | NUR ---
Patient in room [facility] 354. I have received report from THIERRY Aguilar and had the opportunity to ask questions and assume patient care.
--- NOTE | 2019-12-23 06:32 | NUR ---
Problems reprioritized. Patient report given, questions answered & plan of care reviewed with THIERRY Maria.
--- NOTE | 2019-12-23 06:39 | NUR ---
Patient in room [facility] 354. I have received report from Lexi GUADARRAMA and had the opportunity to ask questions and assume patient care.
[2019-12-23] MEDS: HYDROchlorothiazide 12.5mg capsule PO SCH (08:00)
[2019-12-23] MEDS: lactose-reduced food (Ensure Enlive) - 237ml bottle PO SCH ×3 (08:00→18:00)
[2019-12-23] MEDS: docusate sod 100mg capsule PO SCH ×2 (08:00→20:00)
[2019-12-23] MEDS: lisinopril 10 MG tablet PO SCH (08:00)
[2019-12-23] MEDS: OLANZAPINE 5 MG TABLET PO SCH (09:04)
[2019-12-23] MEDS: acetaminophen 325mg tablet PO PRN (10:10)
--- NOTE | 2019-12-23 18:15 | NUR ---
Patient in room [facility] 354. I have received report from THIERRY Maria and had the opportunity to ask questions and assume patient care.
--- NOTE | 2019-12-23 18:30 | NUR ---
Problems reprioritized. Patient report given, questions answered & plan of care reviewed with Lexi GUADARRAMA.
--- NOTE | 2019-12-24 06:39 | NUR ---
Problems reprioritized. Patient report given, questions answered & plan of care reviewed with THIERRY Stockton.
--- NOTE | 2019-12-24 06:50 | NUR ---
Patient in room [facility] 354. I have received report from trino real rn and had the opportunity to ask questions and assume patient care.
[2019-12-24 07:00] VITALS: BP 121/63
[2019-12-24] MEDS: lisinopril 10 MG tablet PO SCH (07:19)
[2019-12-24] MEDS: OLANZAPINE 5 MG TABLET PO SCH (07:19)
[2019-12-24] MEDS: HYDROchlorothiazide 12.5mg capsule PO SCH (07:19)
[2019-12-24] MEDS: docusate sod 100mg capsule PO SCH ×2 (07:20→20:00)
[2019-12-24] MEDS: lactose-reduced food (Ensure Enlive) - 237ml bottle PO SCH ×3 (07:22→18:33)
--- NOTE | 2019-12-24 10:14 | NUR ---
Reassessment: Pt continues meeting nutrient needs with 75-100% PO intake of meals and ONS. Pt consistently eating well and meeting nutrient needs for six consecutive days, which is the best she's done with meals since 09/17. Pt continues to refuse Colace however still receiving nutrition intervention for bowel regularity on meal trays. LBM 12/23. No further nutrition intervention warranted at this time. Will continue to follow. Recommend: 1. continue mechanical soft regular diet; encourage PO intake 2. power pudding BIDLD, LS crackers and soda TIDWM per pt preferences 3. routine bowel care 4. yogurt, cottage cheese, and pears at dinner; cottage cheese and pears at lunch; Ensure Enlive TID 5. scaled wt as soon as pt agreeable; no scaled wt this admit Addendum: 12/24/19 at [address] Amended: Links added.
[2019-12-24 12:35] LABS: BASOPHILS % (AUTO) 0.5 % (0-1); EOSINOPHILS # (AUTO) 0.1 X10'3 (0-0.9); HEMATOCRIT 30.1 % (35.0-45.0); LYMPHOCYTES # (AUTO) 1.4 X10'3 (1.1-4.8); MEAN CORPUSCULAR HEMOGLOBIN 30.3 PG (27.0-31.0); MEAN CORPUSCULAR HGB CONC 33.1 g/dL (33.0-36.5); MEAN CORPUSCULAR VOLUME 91.6 FL (78-98); MONOCYTES # (AUTO) 0.4 X10'3 (0-0.9); MONOCYTES % (AUTO) 8.3 % (2-12); NEUTROPHILS # (AUTO) 2.8 X10'3 (1.8-7.7); NEUTROPHILS % (AUTO) 59.2 % (42-75); PLATELET COUNT 177 X10'3 (140-440); RED BLOOD COUNT 3.29 X10'6 (4.20-5.60); RED CELL DISTRIBUTION WIDTH 16.4 % (11.5-14.5); WHITE BLOOD COUNT 4.7 X10'3 (4.5-11.0)
[2019-12-24 12:48] LABS: ALANINE AMINOTRANSFERASE 29 U/L (12-78); ALBUMIN 2.5 G/DL (3.4-5.0); ALBUMIN/GLOBULIN RATIO 0.8 (1.1-1.5); ALKALINE PHOSPHATASE 76 IU/L (46-116); ANION GAP 3 (8-16); ASPARTATE AMINO TRANSFERASE 24 U/L (10-37); BILIRUBIN,TOTAL 0.3 MG/DL (0.1-1.0); BLOOD UREA NITROGEN 43 MG/DL (7-18); BUN/CREATININE RATIO 50.6 (6.6-38.0); CHLORIDE 104 MMOL/L (99-107); CREATININE 0.85 MG/DL (0.40-0.90); GLUCOSE 116 MG/DL (70-104); POTASSIUM 4.5 MMOL/L (3.5-5.1); SODIUM 139 MMOL/L (135-145); TOTAL CARBON DIOXIDE 31.9 MMOL/L (24-32); TOTAL PROTEIN 5.8 G/DL (6.4-8.2); eGFR 65 ML/MIN
[2019-12-24 18:00] VITALS: BP 109/58
--- NOTE | 2019-12-24 18:39 | NUR ---
Patient in room [facility] 354. I have received report from PARAMJIT GUADARRAMA and had the opportunity to ask questions and assume patient care. Pt very pleasant and sitting on the chair and sitter in the room. No apparent distress.
--- NOTE | 2019-12-25 06:00 | NUR ---
Patient in room [facility] 354. I have received report from THIERRY Larson and had the opportunity to ask questions and assume patient care.
[2019-12-25 07:00] VITALS: BP 152/75
[2019-12-25] MEDS: traMADol 50MG tablet PO PRN (07:08)
[2019-12-25] MEDS: OLANZAPINE 5 MG TABLET PO SCH (07:08)
[2019-12-25] MEDS: HYDROchlorothiazide 12.5mg capsule PO SCH (07:29)
[2019-12-25] MEDS: lisinopril 10 MG tablet PO SCH (07:30)
[2019-12-25] MEDS: docusate sod 100mg capsule PO SCH ×2 (07:32→20:06)
[2019-12-25] MEDS: lactose-reduced food (Ensure Enlive) - 237ml bottle PO SCH ×3 (07:32→18:00)
--- NOTE | 2019-12-25 18:14 | NUR ---
Problems reprioritized. Patient report given, questions answered & plan of care reviewed with THIERRY Larson.
--- NOTE | 2019-12-25 18:28 | NUR ---
Patient in room [facility] 354. I have received report from EMERY GUADARRAMA and had the opportunity to ask questions and assume patient care.
--- NOTE | 2019-12-25 21:37 | NUR ---
PATIENT REFUSED TO TAKE VITAL SIGNS. Addendum: 12/25/19 at 2138 by Marsha Davis RN Amended: Links added.
--- NOTE | 2019-12-26 06:26 | NUR ---
Problems reprioritized. Patient report given, questions answered & plan of care reviewed with Georgina GUADARRAMA.
[2019-12-26] MEDS: HYDROchlorothiazide 12.5mg capsule PO SCH (07:21)
[2019-12-26] MEDS: docusate sod 100mg capsule PO SCH ×2 (07:21→20:00)
[2019-12-26] MEDS: OLANZAPINE 5 MG TABLET PO SCH (07:21)
[2019-12-26] MEDS: lisinopril 10 MG tablet PO SCH (07:21)
[2019-12-26] MEDS: lactose-reduced food (Ensure Enlive) - 237ml bottle PO SCH ×3 (08:00→18:05)
[2019-12-26 18:00] VITALS: BP 135/65
--- NOTE | 2019-12-26 18:00 | NUR ---
Gave report to Marsha GUADARRAMA. Pt in her room with sitter at bedside.
--- NOTE | 2019-12-26 20:37 | NUR ---
Patient in room [facility] 354. I have received report from JENNIFER GUADARRAMA and had the opportunity to ask questions and assume patient care.
--- NOTE | 2019-12-27 06:27 | NUR ---
Problems reprioritized. Patient report given, questions answered & plan of care reviewed with GRAHAM RN.
--- NOTE | 2019-12-27 07:01 | NUR ---
Patient in room [facility] 354. I have received report from PELON GUADARRAMA and had the opportunity to ask questions and assume patient care.
[2019-12-27] MEDS: HYDROchlorothiazide 12.5mg capsule PO SCH (07:16)
[2019-12-27] MEDS: docusate sod 100mg capsule PO SCH (07:16)
[2019-12-27] MEDS: OLANZAPINE 5 MG TABLET PO SCH (07:16)
[2019-12-27] MEDS: lisinopril 10 MG tablet PO SCH (07:16)
[2019-12-27] MEDS: lactose-reduced food (Ensure Enlive) - 237ml bottle PO SCH ×3 (08:43→18:00)
[2019-12-27 12:00] VITALS: BP 120/55
--- NOTE | 2019-12-27 18:14 | NUR ---
Problems reprioritized. Patient report given, questions answered & plan of care reviewed with David GUADARRAMA.
[2019-12-27 19:56] VITALS: BP 140/63
--- NOTE | 2019-12-28 06:20 | NUR ---
Patient in room [facility] 354C. I have received report from THIERRY DE LA TORRE and had the opportunity to ask questions and assume patient care.
--- NOTE | 2019-12-28 08:30 | NUR ---
UNABLE TO ASSESS POSTERIOR LUNG SOUNDS PATIENT WOULD NOT TAKE A DEEP BREATH Addendum: 12/28/19 at 1452 by Candace Castellanos RN Amended: Links added.
[2019-12-28] MEDS: OLANZAPINE 5 MG TABLET PO SCH (08:32)
[2019-12-28] MEDS: lactose-reduced food (Ensure Enlive) - 237ml bottle PO SCH ×3 (08:32→18:51)
--- NOTE | 2019-12-28 11:15 | NUR ---
PATIENT REFUSED VITALS AT 0700 AND 1100
--- NOTE | 2019-12-28 13:25 | NUR ---
F/u (12/27): Pt PO 100% avg regular diet w/ ensure enlive TIDWM meeting needs. Taking PO meds. LBM 12/27. No nutrition concerns at this time. Will continue to monitor. Recommend: 1. continue mechanical soft regular diet; encourage PO intake 2. power pudding BIDLD, LS crackers and soda TIDWM per pt preferences 3. routine bowel care 4. yogurt, cottage cheese, and pears at dinner; cottage cheese and pears at lunch; Ensure Enlive TID 5. scaled wt as soon as pt agreeable; no scaled wt this admit Addendum: 12/28/19 at [address] Amended: Links added.
--- NOTE | 2019-12-28 18:47 | NUR ---
Problems reprioritized. Patient report given, questions answered & plan of care reviewed with THIERRY DE LA TORRE.
--- NOTE | 2019-12-29 06:19 | NUR ---
Patient in room [facility] 354C. I have received report from THIERRY DE LA TORRE and had the opportunity to ask questions and assume patient care.
[2019-12-29 07:00] VITALS: BP 130/63
[2019-12-29] MEDS: lactose-reduced food (Ensure Enlive) - 237ml bottle PO SCH ×3 (08:00→18:53)
[2019-12-29] MEDS: OLANZAPINE 5 MG TABLET PO SCH (09:24)
[2019-12-29] MEDS: furosemide 20MG tablet PO SCH (12:36)
[2019-12-29 18:00] VITALS: BP 140/68
--- NOTE | 2019-12-29 18:54 | NUR ---
Problems reprioritized. Patient report given, questions answered & plan of care reviewed with THIERRY DE LA TORRE.
--- NOTE | 2019-12-30 06:00 | NUR ---
Patient in room [facility] 354. I have received report from THIERRY Hernandez and had the opportunity to ask questions and assume patient care.
[2019-12-30 08:00] VITALS: BP 113/40
[2019-12-30] MEDS: furosemide 20MG tablet PO SCH (08:30)
[2019-12-30] MEDS: OLANZAPINE 5 MG TABLET PO SCH (08:30)
[2019-12-30] MEDS: lactose-reduced food (Ensure Enlive) - 237ml bottle PO SCH ×3 (08:31→18:02)
[2019-12-30 09:09] LABS: ALANINE AMINOTRANSFERASE 23 U/L (12-78); ALBUMIN 2.9 G/DL (3.4-5.0); ALBUMIN/GLOBULIN RATIO 0.7 (1.1-1.5); ALKALINE PHOSPHATASE 82 IU/L (46-116); ANION GAP 7 (8-16); ASPARTATE AMINO TRANSFERASE 18 U/L (10-37); BILIRUBIN,TOTAL 0.5 MG/DL (0.1-1.0); BLOOD UREA NITROGEN 46 MG/DL (7-18); BUN/CREATININE RATIO 48.4 (6.6-38.0); CALCIUM 9.4 MG/DL (8.5-10.1); CHLORIDE 102 MMOL/L (99-107); CREATININE 0.95 MG/DL (0.40-0.90); GLUCOSE 154 MG/DL (70-104); POTASSIUM 4.3 MMOL/L (3.5-5.1); SODIUM 139 MMOL/L (135-145); TOTAL CARBON DIOXIDE 30.1 MMOL/L (24-32); TOTAL PROTEIN 6.9 G/DL (6.4-8.2); eGFR 57 ML/MIN
[2019-12-30 09:16] LABS: BASOPHILS % (AUTO) 0.4 % (0-1); EOSINOPHILS # (AUTO) 0.1 X10'3 (0-0.9); EOSINOPHILS % (AUTO) 2.2 % (0-6); HEMATOCRIT 33.2 % (35.0-45.0); HEMOGLOBIN 10.9 g/dl (12.0-16.0); LYMPHOCYTES # (AUTO) 1.4 X10'3 (1.1-4.8); LYMPHOCYTES % (AUTO) 23.4 % (21-51); MEAN CORPUSCULAR HEMOGLOBIN 30.3 PG (27.0-31.0); MEAN CORPUSCULAR HGB CONC 32.9 g/dL (33.0-36.5); MEAN CORPUSCULAR VOLUME 92.1 FL (78-98); MEAN PLATELET VOLUME 7.3 FL (7.4-10.4); MONOCYTES # (AUTO) 0.3 X10'3 (0-0.9); MONOCYTES % (AUTO) 5.5 % (2-12); NEUTROPHILS % (AUTO) 68.5 % (42-75); PLATELET COUNT 225 X10'3 (140-440); RED BLOOD COUNT 3.61 X10'6 (4.20-5.60); RED CELL DISTRIBUTION WIDTH 15.9 % (11.5-14.5); WHITE BLOOD COUNT 5.8 X10'3 (4.5-11.0)
--- NOTE | 2019-12-30 18:20 | NUR ---
Problems reprioritized. Patient report given, questions answered & plan of care reviewed with THIERRY Freitas.
--- NOTE | 2019-12-30 18:33 | NUR ---
Patient in room [facility] 350. I have received report from Henry GUADARRAMA and had the opportunity to ask questions and assume patient care.
[2019-12-30 19:30] VITALS: BP 155/46
--- NOTE | 2019-12-31 04:06 | NUR ---
unable to do heart and lung assessment. pt refused Addendum: 12/31/19 at 0410 by Zena Blake RN Amended: Links added.
--- NOTE | 2019-12-31 06:00 | NUR ---
Patient in room [facility] 354. I have received report from THIERRY dennis and had the opportunity to ask questions and assume patient care.
--- NOTE | 2019-12-31 06:28 | NUR ---
Problems reprioritized. Patient report given, questions answered & plan of care reviewed with Henry GUADARRAMA.
[2019-12-31 07:56] VITALS: BP 154/78
[2019-12-31] MEDS: lactose-reduced food (Ensure Enlive) - 237ml bottle PO SCH ×3 (08:00→18:13)
[2019-12-31] MEDS: OLANZAPINE 5 MG TABLET PO SCH (09:12)
[2019-12-31] MEDS: furosemide 20MG tablet PO SCH (09:12)
--- NOTE | 2019-12-31 18:34 | NUR ---
Problems reprioritized. Patient report given, questions answered & plan of care reviewed with THIERRY Freitas.
--- NOTE | 2019-12-31 19:20 | NUR ---
Patient in room [facility] 353. I have received report from Henry GUADARRAMA and had the opportunity to ask questions and assume patient care.
--- NOTE | 2020-01-01 00:58 | NUR ---
pt refused vitals Addendum: 01/01/20 at 0058 by Zena Blake RN Amended: Links added.
--- NOTE | 2020-01-01 00:58 | NUR ---
pt refused vitals Addendum: 01/01/20 at 0059 by Zena Blake RN Amended: Links added.
--- NOTE | 2020-01-01 06:39 | NUR ---
Problems reprioritized. Patient report given, questions answered & plan of care reviewed with Lucy GUADARRAMA.
--- NOTE | 2020-01-01 06:40 | NUR ---
Patient in room [facility] 354. I have received report from THIERRY Freitas and had the opportunity to ask questions and assume patient care.
[2020-01-01] MEDS: lactose-reduced food (Ensure Enlive) - 237ml bottle PO SCH ×3 (07:50→18:14)
[2020-01-01] MEDS: OLANZAPINE 5 MG TABLET PO SCH (07:50)
[2020-01-01] MEDS: furosemide 20MG tablet PO SCH (07:50)
[2020-01-01 08:00] VITALS: BP 136/58
--- NOTE | 2020-01-01 18:13 | NUR ---
Problems reprioritized. Patient report given, questions answered & plan of care reviewed with THIERRY Larson.
--- NOTE | 2020-01-02 06:03 | NUR ---
Problems reprioritized. Patient report given, questions answered & plan of care reviewed with JJ GUADARRAMA.
--- NOTE | 2020-01-02 06:48 | NUR ---
Patient in room [facility] 354. I have received report from THIERRY Larson and had the opportunity to ask questions and assume patient care.
[2020-01-02] MEDS: furosemide 20MG tablet PO SCH (07:40)
[2020-01-02] MEDS: OLANZAPINE 5 MG TABLET PO SCH (07:40)
[2020-01-02] MEDS: lactose-reduced food (Ensure Enlive) - 237ml bottle PO SCH ×3 (07:43→18:45)
[2020-01-02 08:00] VITALS: BP 110/62
[2020-01-02 11:13] LABS: BASOPHILS % (AUTO) 0.6 % (0-1); EOSINOPHILS # (AUTO) 0.1 X10'3 (0-0.9); EOSINOPHILS % (AUTO) 2.3 % (0-6); HEMATOCRIT 27.3 % (35.0-45.0); LYMPHOCYTES # (AUTO) 1.2 X10'3 (1.1-4.8); LYMPHOCYTES % (AUTO) 24.3 % (21-51); MEAN CORPUSCULAR HEMOGLOBIN 30.3 PG (27.0-31.0); MEAN CORPUSCULAR HGB CONC 32.9 g/dL (33.0-36.5); MEAN CORPUSCULAR VOLUME 92.2 FL (78-98); MEAN PLATELET VOLUME 6.9 FL (7.4-10.4); MONOCYTES # (AUTO) 0.3 X10'3 (0-0.9); MONOCYTES % (AUTO) 6.6 % (2-12); NEUTROPHILS # (AUTO) 3.4 X10'3 (1.8-7.7); NEUTROPHILS % (AUTO) 66.2 % (42-75); PLATELET COUNT 204 X10'3 (140-440); RED BLOOD COUNT 2.96 X10'6 (4.20-5.60); WHITE BLOOD COUNT 5.1 X10'3 (4.5-11.0)
[2020-01-02 11:18] LABS: ALANINE AMINOTRANSFERASE 16 U/L (12-78); ALBUMIN 2.4 G/DL (3.4-5.0); ALBUMIN/GLOBULIN RATIO 0.7 (1.1-1.5); ALKALINE PHOSPHATASE 69 IU/L (46-116); ANION GAP 6 (8-16); ASPARTATE AMINO TRANSFERASE 17 U/L (10-37); BILIRUBIN,TOTAL 0.4 MG/DL (0.1-1.0); BLOOD UREA NITROGEN 39 MG/DL (7-18); CALCIUM 8.8 MG/DL (8.5-10.1); CHLORIDE 104 MMOL/L (99-107); GLUCOSE 116 MG/DL (70-104); POTASSIUM 3.9 MMOL/L (3.5-5.1); SODIUM 139 MMOL/L (135-145); TOTAL CARBON DIOXIDE 29.2 MMOL/L (24-32); TOTAL PROTEIN 5.8 G/DL (6.4-8.2); eGFR 54 ML/MIN
[2020-01-02 18:00] VITALS: BP 122/51
--- NOTE | 2020-01-02 18:45 | NUR ---
Problems reprioritized. Patient report given, questions answered & plan of care reviewed with THIERRY Larson.
--- NOTE | 2020-01-03 06:00 | NUR ---
Patient in room [facility] 354. I have received report from THIERRY Larson and had the opportunity to ask questions and assume patient care.
--- NOTE | 2020-01-03 06:36 | NUR ---
Problems reprioritized. Patient report given, questions answered & plan of care reviewed with MUSJOY RN.
[2020-01-03] MEDS: OLANZAPINE 5 MG TABLET PO SCH (07:22)
[2020-01-03] MEDS: furosemide 20MG tablet PO SCH (07:22)
[2020-01-03 08:00] VITALS: BP 130/64
[2020-01-03] MEDS: lactose-reduced food (Ensure Enlive) - 237ml bottle PO SCH ×3 (08:52→18:00)
[2020-01-03 11:23] VITALS: BP 126/79
--- NOTE | 2020-01-03 18:33 | NUR ---
Problems reprioritized. Patient report given, questions answered & plan of care reviewed with THIERRY Koo.
--- NOTE | 2020-01-04 06:30 | NUR ---
Patient in room [facility] 354. I have received report from Hanane GUADARRAMA and had the opportunity to ask questions and assume patient care.
[2020-01-04 07:00] VITALS: BP 152/50
[2020-01-04] MEDS: OLANZAPINE 5 MG TABLET PO SCH (07:26)
[2020-01-04] MEDS: furosemide 20MG tablet PO SCH (07:26)
--- NOTE | 2020-01-04 07:28 | NUR ---
Patient took her morning meds but refused any physical assessment. Patient yelling states "What for?!" I replied by saying you have fluid retention on your arms, legs, and feet. I need to see if your lung sounds are okay." Patient yelled saying " I am okay, everything okay!" Patient appears irritated about me asking if I can do assessment on her
[2020-01-04] MEDS: lactose-reduced food (Ensure Enlive) - 237ml bottle PO SCH ×3 (08:00→18:00)
--- NOTE | 2020-01-04 14:28 | NUR ---
F/u (01/03): Pt PO 75-100% avg meals/ONS meeting needs. LBM 01/01. No nutrition concerns at this time. Will continue to monitor. Recommend: 1. continue mechanical soft regular diet; encourage PO intake 2. power pudding BIDLD, LS crackers and soda TIDWM per pt preferences 3. routine bowel care 4. yogurt, cottage cheese, and pears at dinner; cottage cheese and pears at lunch; Ensure Enlive TID 5. scaled wt as soon as pt agreeable; no scaled wt this admit Addendum: 01/04/20 at [address] Amended: Links added.
--- NOTE | 2020-01-04 18:30 | NUR ---
Patient in room [facility] 354. I have received report from Brianna GUADARRAMA and had the opportunity to ask questions and assume patient care.
--- NOTE | 2020-01-04 18:34 | NUR ---
Problems reprioritized. Patient report given, questions answered & plan of care reviewed with Josh RN.
[2020-01-04 20:00] VITALS: BP 155/75
--- NOTE | 2020-01-04 20:55 | NUR ---
Patient in room [facility] 354. I have received report from Brianna GUADARRAMA and had the opportunity to ask questions and assume patient care. Addendum: 01/04/20 at 2058 by Josh Garcia RN Retiming for 1800. 01/04/20
--- NOTE | 2020-01-05 06:32 | NUR ---
Problems reprioritized. Patient report given, questions answered & plan of care reviewed with Imelia RN. Patient resting comfortably at time of report
--- NOTE | 2020-01-05 07:00 | NUR ---
Patient in room [facility] 354. I have received report from THIERRY Moreno and had the opportunity to ask questions and assume patient care.
[2020-01-05 07:43] VITALS: BP 144/45
[2020-01-05] MEDS: furosemide 20MG tablet PO SCH (07:48)
[2020-01-05] MEDS: OLANZAPINE 5 MG TABLET PO SCH (07:48)
[2020-01-05] MEDS: lactose-reduced food (Ensure Enlive) - 237ml bottle PO SCH ×3 (07:49→18:44)
--- NOTE | 2020-01-05 09:14 | NUR ---
Pt out to GI lab for Colonoscopy. Addendum: 01/05/20 at 1027 by Lucy Meadows RN Wrong Pt.
--- NOTE | 2020-01-05 18:00 | NUR ---
refused vitals Addendum: 01/05/20 at 2212 by Pierec Hairston RN Amended: Links added.
--- NOTE | 2020-01-05 19:07 | NUR ---
Received report from THIERRY Espinoza
--- NOTE | 2020-01-06 06:17 | NUR ---
Problems reprioritized. Patient report given, questions answered & plan of care reviewed with THIERRY Espinoza.
--- NOTE | 2020-01-06 06:39 | NUR ---
Patient in room [facility] 354. I have received report from THIERRY Pelayo and had the opportunity to ask questions and assume patient care.
[2020-01-06] MEDS: furosemide 20MG tablet PO SCH (08:00)
[2020-01-06] MEDS: lactose-reduced food (Ensure Enlive) - 237ml bottle PO SCH ×3 (08:00→18:32)
[2020-01-06] MEDS: OLANZAPINE 5 MG TABLET PO SCH (08:00)
--- NOTE | 2020-01-06 11:14 | NUR ---
Pt refused 0800 medication after multiple attempts.
--- NOTE | 2020-01-06 18:52 | NUR ---
Patient in room [facility] 354. I have received report from THIERRY Gonzales and had the opportunity to ask questions and assume patient care.
--- NOTE | 2020-01-07 04:07 | NUR ---
patient refusing to have vitals taken. She told tech; " I am not doing that tonight". Addendum: 01/07/20 at 0407 by Pierce Hairston RN Amended: Links added.
--- NOTE | 2020-01-07 06:19 | NUR ---
Problems reprioritized. Patient report given, questions answered & plan of care reviewed with THIERRY Espinoza.
--- NOTE | 2020-01-07 06:33 | NUR ---
Patient in room [facility] 354. I have received report from THIERRY Pelayo and had the opportunity to ask questions and assume patient care.
[2020-01-07] MEDS: OLANZAPINE 5 MG TABLET PO SCH ×2 (07:14→08:00)
[2020-01-07] MEDS: furosemide 20MG tablet PO SCH ×2 (07:14→08:00)
[2020-01-07 08:00] VITALS: BP 149/36
[2020-01-07] MEDS: lactose-reduced food (Ensure Enlive) - 237ml bottle PO SCH ×4 (08:00→19:00)
--- NOTE | 2020-01-07 09:43 | NUR ---
Pt refused AM meds.
--- NOTE | 2020-01-07 18:23 | NUR ---
Patient in room [facility] 354. I have received report from THIERRY Ayala and had the opportunity to ask questions and assume patient care. Addendum: 01/07/20 at 1823 by Madyson Chawla RN Amended: Links added.
--- NOTE | 2020-01-07 18:23 | NUR ---
Problems reprioritized. Patient report given, questions answered & plan of care reviewed with THIERRY Elliott.
--- NOTE | 2020-01-08 06:41 | NUR ---
Problems reprioritized. Patient report given, questions answered & plan of care reviewed with CarrilloRN.
--- NOTE | 2020-01-08 06:56 | NUR ---
Patient in room [facility] 354. I have received report from Lexi GUADARRAMA and had the opportunity to ask questions and assume patient care.
[2020-01-08] MEDS: furosemide 20MG tablet PO SCH (08:00)
[2020-01-08] MEDS: lactose-reduced food (Ensure Enlive) - 237ml bottle PO SCH ×3 (08:00→18:00)
[2020-01-08] MEDS: OLANZAPINE 5 MG TABLET PO SCH (08:00)
--- NOTE | 2020-01-08 09:50 | NUR ---
pt continues to refuse a.m. meds, assessment and vital signs despite several attempts by this RN. MD aware. Will continue to monitor.
--- NOTE | 2020-01-08 18:45 | NUR ---
Problems reprioritized. Patient report given, questions answered & plan of care reviewed with Zena Mo RN.
--- NOTE | 2020-01-08 18:47 | NUR ---
Patient in room [facility] 345. I have received report from Lorena GUADARRAMA and had the opportunity to ask questions and assume patient care.
--- NOTE | 2020-01-08 23:01 | NUR ---
pt refused vital signs Addendum: 01/08/20 at 2301 by Zena Blake RN Amended: Links added.
[2020-01-09] MEDS: OLANZAPINE 5 MG TABLET PO SCH (06:27)
[2020-01-09] MEDS: furosemide 20MG tablet PO SCH (06:27)
--- NOTE | 2020-01-09 06:32 | NUR ---
Problems reprioritized. Patient report given, questions answered & plan of care reviewed with Lorena GUADARRAMA.
--- NOTE | 2020-01-09 06:33 | NUR ---
Patient in room [facility] 354. I have received report from Adrianna Mo RN and had the opportunity to ask questions and assume patient care.
[2020-01-09 08:00] VITALS: BP 150/68
[2020-01-09] MEDS: lactose-reduced food (Ensure Enlive) - 237ml bottle PO SCH ×3 (08:00→18:36)
[2020-01-09 18:00] VITALS: BP 143/67
--- NOTE | 2020-01-09 18:41 | NUR ---
Problems reprioritized. Patient report given, questions answered & plan of care reviewed with Sophie GUADARRAMA.
--- NOTE | 2020-01-10 06:00 | NUR ---
Patient in room [facility] 354. I have received report from THIERRY Barrios and had the opportunity to ask questions and assume patient care.
--- NOTE | 2020-01-10 06:26 | NUR ---
Problems reprioritized. Patient report given, questions answered & plan of care reviewed with Henry GUADARRAMA. pt came to the doorway and was asking for pads, new pants, and underwear. she has some vaginal bleeding
[2020-01-10 08:00] VITALS: BP 118/58
[2020-01-10] MEDS: furosemide 20MG tablet PO SCH (08:00)
[2020-01-10] MEDS: lactose-reduced food (Ensure Enlive) - 237ml bottle PO SCH ×3 (08:00→18:00)
[2020-01-10] MEDS: OLANZAPINE 5 MG TABLET PO SCH (08:00)
--- NOTE | 2020-01-10 18:00 | NUR ---
Problems reprioritized. Patient report given, questions answered & plan of care reviewed with THIERRY Hernandez.
[2020-01-10 19:00] VITALS: BP 121/55
--- NOTE | 2020-01-11 02:25 | NUR ---
refused assessment earlier
--- NOTE | 2020-01-11 06:32 | NUR ---
Patient in room [facility] 354. I have received report from THIERRY Hernandez and had the opportunity to ask questions and assume patient care.
[2020-01-11 07:00] VITALS: BP 131/58
[2020-01-11] MEDS: lactose-reduced food (Ensure Enlive) - 237ml bottle PO SCH ×3 (07:55→18:18)
[2020-01-11] MEDS: OLANZAPINE 5 MG TABLET PO SCH (07:56)
[2020-01-11] MEDS: furosemide 20MG tablet PO SCH (07:56)
[2020-01-11 11:17] VITALS: BP 108/76
--- NOTE | 2020-01-11 13:34 | NUR ---
F/u (01/10): Pt PO 75-100% avg meals/ONS meeting needs. LBM 01/09. No nutrition concerns at this time. Will continue to monitor. Recommend: 1. continue mechanical soft regular diet; encourage PO intake 2. power pudding BIDLD, LS crackers and soda TIDWM per pt preferences 3. routine bowel care 4. yogurt, cottage cheese, and pears at dinner; cottage cheese and pears at lunch; Ensure Enlive TID 5. scaled wt as soon as pt agreeable; no scaled wt this admit Addendum: 01/11/20 at [address] Amended: Links added.
--- NOTE | 2020-01-11 18:38 | NUR ---
Problems reprioritized. Patient report given, questions answered & plan of care reviewed with THIERRY Freitas.
--- NOTE | 2020-01-11 18:45 | NUR ---
Patient in room [facility] 340. I have received report from Zulma GUADARRAMA and had the opportunity to ask questions and assume patient care.
--- NOTE | 2020-01-11 22:26 | NUR ---
pt refused vitals Addendum: 01/11/20 at 2226 by Zena Blake RN Amended: Links added.
--- NOTE | 2020-01-12 06:04 | NUR ---
Problems reprioritized. Patient report given, questions answered & plan of care reviewed with Candace GUADARRAMA.
--- NOTE | 2020-01-12 06:11 | NUR ---
Patient in room [facility] 354C. I have received report from THIERRY TAVAREZ and had the opportunity to ask questions and assume patient care.
[2020-01-12 07:00] VITALS: BP 138/75
[2020-01-12] MEDS: lactose-reduced food (Ensure Enlive) - 237ml bottle PO SCH ×3 (08:00→18:44)
[2020-01-12] MEDS: furosemide 20MG tablet PO SCH (08:00)
[2020-01-12] MEDS: OLANZAPINE 5 MG TABLET PO SCH (08:00)
--- NOTE | 2020-01-12 10:56 | NUR ---
PATIENT REFUSED TO BE ASSESSED SO I CHARTED JUST WHAT I SAW Addendum: 01/12/20 at 1101 by Candace Castellanos RN Amended: Links added.
[2020-01-12 11:00] VITALS: BP 127/61
--- NOTE | 2020-01-12 18:43 | NUR ---
Problems reprioritized. Patient report given, questions answered & plan of care reviewed with THIERRY TAVAREZ.
--- NOTE | 2020-01-12 19:43 | NUR ---
Patient in room [facility] 354. I have received report from Candace GUADARRAMA and had the opportunity to ask questions and assume patient care.
--- NOTE | 2020-01-12 22:45 | NUR ---
pt refused vitals Addendum: 01/12/20 at 2245 by Zena Blake RN Amended: Links added.
--- NOTE | 2020-01-13 02:56 | NUR ---
pt refused vitals Addendum: 01/13/20 at 0256 by Zena Blake RN Amended: Links added.
--- NOTE | 2020-01-13 06:31 | NUR ---
Problems reprioritized. Patient report given, questions answered & plan of care reviewed with Lucy GUADRARAMA.
[2020-01-13] MEDS: furosemide 20MG tablet PO SCH (08:00)
[2020-01-13] MEDS: OLANZAPINE 5 MG TABLET PO SCH (08:00)
[2020-01-13] MEDS: lactose-reduced food (Ensure Enlive) - 237ml bottle PO SCH ×3 (08:00→18:57)
--- NOTE | 2020-01-13 17:22 | NUR ---
patient requested to take AM medication now after refusal this morning.
--- NOTE | 2020-01-13 18:50 | NUR ---
Patient in room [facility] 353. I have received report from Lucy GUADARRAMA and had the opportunity to ask questions and assume patient care.
--- NOTE | 2020-01-13 19:08 | NUR ---
Problems reprioritized. Patient report given, questions answered & plan of care reviewed with THIERRY Freitas.
--- NOTE | 2020-01-14 06:36 | NUR ---
Problems reprioritized. Patient report given, questions answered & plan of care reviewed with Lauren GUADARRAMA.
[2020-01-14 07:32] VITALS: BP 141/65
[2020-01-14] MEDS: OLANZAPINE 5 MG TABLET PO SCH (07:36)
[2020-01-14] MEDS: furosemide 20MG tablet PO SCH (07:36)
[2020-01-14] MEDS: lactose-reduced food (Ensure Enlive) - 237ml bottle PO SCH ×3 (08:00→19:11)
--- NOTE | 2020-01-14 18:16 | NUR ---
Problems reprioritized. Patient report given, questions answered & plan of care reviewed with Lexi English RN.
--- NOTE | 2020-01-14 18:26 | NUR ---
Patient in room [facility] 354. I have received report from THIERRY Aguilar and had the opportunity to ask questions and assume patient care. Addendum: 01/14/20 at 1826 by Madyson Chawla RN Amended: Links added.
[2020-01-14] MEDS: acetaminophen 325mg tablet PO PRN (20:02)
[2020-01-15] VITALS: BP 146/92
[2020-01-15] MEDS: acetaminophen 325mg tablet PO PRN ×2 (05:08→21:17)
--- NOTE | 2020-01-15 06:05 | NUR ---
Problems reprioritized. Patient report given, questions answered & plan of care reviewed with THIERRY Aguilar.
[2020-01-15 07:49] VITALS: BP 132/70
[2020-01-15] MEDS: lactose-reduced food (Ensure Enlive) - 237ml bottle PO SCH ×3 (08:00→14:52)
--- NOTE | 2020-01-15 08:00 | NUR ---
Patient standing at the door requesting her medications for the day. Patient is in a good mood, states today isn't her shower day because she took one yesterday and she takes one every other day.
[2020-01-15] MEDS: furosemide 20MG tablet PO SCH (08:08)
[2020-01-15] MEDS: OLANZAPINE 5 MG TABLET PO SCH (08:08)
--- NOTE | 2020-01-15 12:14 | NUR ---
PAGER ID: [phone] MESSAGE: [id number] Amy has huge puffy feet, she's on 40mg Lasix daily. Can she have a one time dose of 40mg Lasix or BID? Lauren 1868
--- NOTE | 2020-01-15 12:30 | NUR ---
Patient up walking the pompa, requested a cup of coffee with 4 creams and sugar plus wanted a sandwich. Patient applied lozano and erica "the way she likes it, mixed together." Patient is doing well.
--- NOTE | 2020-01-15 12:45 | NUR ---
Patient eating her sandwich and watching game shows on TV. Patient states she loves game shows. When asked if she would like to live in a place with people her age that play games like cards and watch game shows on TV she said that would be "wonderful." Patient is pleasant and happy, interacting with the staff, looks for the tech to picker and packer her tray after she is done eating.
--- NOTE | 2020-01-15 17:59 | NUR ---
Problems reprioritized. Patient report given, questions answered & plan of care reviewed with Lexi ESPOSITO.
--- NOTE | 2020-01-15 18:13 | NUR ---
Patient in room [facility] 354. I have received report from THIERRY Maya and had the opportunity to ask questions and assume patient care. Addendum: 01/16/20 at 0629 by Madyson Chawla RN Problems reprioritized. Patient report given, questions answered & plan of care reviewed with THIERRY Mims.
[2020-01-15] MEDS: furosemide 40mg tablet PO SCH (21:17)
--- NOTE | 2020-01-16 07:02 | NUR ---
Patient in room [facility] 354. I have received report from Lexi English RN and had the opportunity to ask questions and assume patient care.
[2020-01-16] MEDS: lactose-reduced food (Ensure Enlive) - 237ml bottle PO SCH ×3 (08:14→18:12)
[2020-01-16] MEDS: furosemide 40mg tablet PO SCH ×2 (09:52→20:00)
[2020-01-16] MEDS: OLANZAPINE 5 MG TABLET PO SCH (09:52)
[2020-01-16 11:42] VITALS: BP 122/77
[2020-01-16 12:20] LABS: BASOPHILS % (AUTO) 0.6 % (0-1); EOSINOPHILS # (AUTO) 0.1 X10'3 (0-0.9); EOSINOPHILS % (AUTO) 2.2 % (0-6); HEMATOCRIT 29.6 % (35.0-45.0); HEMOGLOBIN 9.8 g/dl (12.0-16.0); LYMPHOCYTES # (AUTO) 1.6 X10'3 (1.1-4.8); LYMPHOCYTES % (AUTO) 27.6 % (21-51); MEAN CORPUSCULAR HEMOGLOBIN 29.6 PG (27.0-31.0); MEAN CORPUSCULAR HGB CONC 32.9 g/dL (33.0-36.5); MEAN CORPUSCULAR VOLUME 89.7 FL (78-98); MEAN PLATELET VOLUME 7.4 FL (7.4-10.4); MONOCYTES # (AUTO) 0.6 X10'3 (0-0.9); MONOCYTES % (AUTO) 10.7 % (2-12); NEUTROPHILS # (AUTO) 3.4 X10'3 (1.8-7.7); NEUTROPHILS % (AUTO) 58.9 % (42-75); PLATELET COUNT 230 X10'3 (140-440); RED CELL DISTRIBUTION WIDTH 14.9 % (11.5-14.5); WHITE BLOOD COUNT 5.7 X10'3 (4.5-11.0)
[2020-01-16 12:43] LABS: ANION GAP 7 (8-16); BLOOD UREA NITROGEN 45 MG/DL (7-18); BUN/CREATININE RATIO 30.8 (6.6-38.0); CALCIUM 9.2 MG/DL (8.5-10.1); CHLORIDE 100 MMOL/L (99-107); CREATININE 1.46 MG/DL (0.40-0.90); GLUCOSE 117 MG/DL (70-104); MAGNESIUM 1.8 MG/DL (1.5-2.4); POTASSIUM 4.1 MMOL/L (3.5-5.1); SODIUM 139 MMOL/L (135-145); TOTAL CARBON DIOXIDE 32.1 MMOL/L (24-32); eGFR 35 ML/MIN
--- NOTE | 2020-01-16 17:10 | NUR ---
patient uncooperative first hour of shift. following shower patient became cooperative, taking meds and allowing labs to be drawn. Tolerated 50% of Breakfast and 75% of lunch. will continue to monitor.
--- NOTE | 2020-01-16 17:56 | NUR ---
Problems reprioritized. Patient report given, questions answered & plan of care reviewed with Pierce GUADARRAMA.
--- NOTE | 2020-01-16 18:00 | NUR ---
Refused vital signs Addendum: 01/16/20 at 2233 by Pierce Hairston RN Amended: Links added.
--- NOTE | 2020-01-16 20:00 | NUR ---
Patient has refused her assessment, my assesment is based on my observation while talking to her. Addendum: 01/16/20 at 2232 by Pierce Hairston RN Amended: Links added.
--- NOTE | 2020-01-16 20:00 | NUR ---
Patient refused lasix
--- NOTE | 2020-01-17 00:57 | NUR ---
Patient refused vitals Addendum: 01/17/20 at 0057 by Pierce Hairston RN Amended: Links added.
--- NOTE | 2020-01-17 06:22 | NUR ---
Patient in room [facility] 354. I have received report from Pierce GUADARRAMA and had the opportunity to ask questions and assume patient care.
--- NOTE | 2020-01-17 06:28 | NUR ---
Problems reprioritized. Patient report given, questions answered & plan of care reviewed with THIERRY Mims.
[2020-01-17 07:00] VITALS: BP 143/56
[2020-01-17] MEDS: furosemide 40mg tablet PO SCH ×2 (07:12→20:00)
[2020-01-17] MEDS: OLANZAPINE 5 MG TABLET PO SCH (07:12)
[2020-01-17] MEDS: lactose-reduced food (Ensure Enlive) - 237ml bottle PO SCH (08:00)
--- NOTE | 2020-01-17 14:45 | NUR ---
F/u (01/16): Pt PO 75-100% avg ONS w/ PO meals slight decline though 75% avg overall past 7 days meeting needs. LBM 01/14. Noted Ensure Enlive discontinued on EMR since max time has been reached; PACO d/w RN to see if can be renewed if MD agreeable since pt drinking/tolerating. Will continue to monitor. Recommend: 1. continue mechanical soft regular diet; encourage PO intake 2. power pudding BIDLD, LS crackers and soda TIDWM per pt preferences 3. routine bowel care 4. yogurt, cottage cheese, and pears at dinner; cottage cheese and pears at lunch; Ensure Enlive TID 5. scaled wt as soon as pt agreeable; no scaled wt this admit Addendum: 01/17/20 at [address] Amended: Links added.
--- NOTE | 2020-01-17 17:45 | NUR ---
up and about cooperative with care. No new orders. pleasant day.Report given to Amada GUADARRAMA
--- NOTE | 2020-01-17 19:30 | NUR ---
PCT reports pt did not want her olga alvarenga Addendum: 01/18/20 at 0432 by Lyndsey Nichols RN Amended: Links added.
[2020-01-18] MEDS: acetaminophen 325mg tablet PO PRN ×2 (01:34→17:10)
--- NOTE | 2020-01-18 06:48 | NUR ---
Patient in room [facility] 354. I have received report from Pat RN and had the opportunity to ask questions and assume patient care.
[2020-01-18] MEDS: OLANZAPINE 5 MG TABLET PO SCH (07:39)
[2020-01-18] MEDS: furosemide 40mg tablet PO SCH ×2 (08:00→17:00)
--- NOTE | 2020-01-18 18:41 | NUR ---
Problems reprioritized. Patient report given, questions answered & plan of care reviewed with Cata GUADARRAMA.
--- NOTE | 2020-01-18 18:50 | NUR ---
Patient in room [facility] 354. I have received report from BETO GUADARRAMA and had the opportunity to ask questions and assume patient care. Addendum: 01/18/20 at 1851 by Megan Johnson RN Amended: Links added.
--- NOTE | 2020-01-18 21:35 | NUR ---
resting eyes closed without s&s of distress at this time.
--- NOTE | 2020-01-18 23:13 | NUR ---
pt had small inc episode and refused vitals said she wanted to clean herself up. did not want to talk about it just wanted new pj bottoms to wear.
--- NOTE | 2020-01-19 00:14 | NUR ---
resting without changes.
--- NOTE | 2020-01-19 04:18 | NUR ---
resting without changes.
[2020-01-19 07:00] VITALS: BP 112/41
--- NOTE | 2020-01-19 07:00 | NUR ---
Patient in room [facility] 354. I have received report from Megan GUADARRAMA and had the opportunity to ask questions and assume patient care.
--- NOTE | 2020-01-19 07:01 | NUR ---
Problems reprioritized. Patient report given, questions answered & plan of care reviewed with COLLINS GUADARRAMA. Addendum: 01/19/20 at 0701 by Megan Johnson RN Amended: Links added.
[2020-01-19] MEDS: furosemide 40mg tablet PO SCH ×2 (09:13→17:00)
[2020-01-19] MEDS: OLANZAPINE 5 MG TABLET PO SCH (09:14)
[2020-01-19 11:00] VITALS: BP 111/36
--- NOTE | 2020-01-19 18:00 | NUR ---
Patient in room [facility] 354. I have received report from Brianna GUADARRAMA and had the opportunity to ask questions and assume patient care.
--- NOTE | 2020-01-19 22:48 | NUR ---
patient refused assessment to be done this evening
--- NOTE | 2020-01-20 06:14 | NUR ---
Patient in room [facility] 354. I have received report from Karlee GUADARRAMA and had the opportunity to ask questions and assume patient care.
--- NOTE | 2020-01-20 06:20 | NUR ---
Problems reprioritized. Patient report given, questions answered & plan of care reviewed with Brianna GUADARRAMA.
[2020-01-20 09:34] VITALS: BP 166/81
[2020-01-20] MEDS: ondansetron 4mg rapidly disintigrating tab PO PRN (09:37)
[2020-01-20] MEDS: furosemide 40mg tablet PO SCH ×2 (09:37→17:19)
[2020-01-20] MEDS: OLANZAPINE 5 MG TABLET PO SCH (09:37)
[2020-01-20 17:18] VITALS: BP 139/60
--- NOTE | 2020-01-20 18:06 | NUR ---
Patient in room [facility] 354. I have received report from Brianna GUADARRAMA and had the opportunity to ask questions and assume patient care.
--- NOTE | 2020-01-20 18:11 | NUR ---
Problems reprioritized. Patient report given, questions answered & plan of care reviewed with Karlee GUADARRAMA.
--- NOTE | 2020-01-21 06:17 | NUR ---
Problems reprioritized. Patient report given, questions answered & plan of care reviewed with Georgina GUADARRAMA.
[2020-01-21 07:00] VITALS: BP 130/63
[2020-01-21] MEDS: OLANZAPINE 5 MG TABLET PO SCH (07:42)
[2020-01-21] MEDS: furosemide 40mg tablet PO SCH ×2 (07:42→17:05)
[2020-01-21 12:00] VITALS: BP 110/53
--- NOTE | 2020-01-21 17:07 | NUR ---
Pt refused to let this RN assess her bottom or help her with daren-care. Tried several attempts today. Pt. states "I don't want to have to go through all that hogwash."
--- NOTE | 2020-01-21 18:26 | NUR ---
Gave report to Adrianna GUADARRAMA. Eating dinner with no needs at this time.
--- NOTE | 2020-01-21 18:40 | NUR ---
Patient in room [facility] 347. I have received report from Georgina GUADARRAMA and had the opportunity to ask questions and assume patient care.
--- NOTE | 2020-01-22 00:44 | NUR ---
pt refused vitals Addendum: 01/22/20 at 0045 by Zena Blake RN Amended: Links added.
--- NOTE | 2020-01-22 05:39 | NUR ---
pt refused cardiovascular, respiratory, lotion and assessment of bottom.
--- NOTE | 2020-01-22 06:22 | NUR ---
Patient in room [facility] 354. I have received report from THIERRY Freitas and had the opportunity to ask questions and assume patient care.
--- NOTE | 2020-01-22 06:24 | NUR ---
Problems reprioritized. Patient report given, questions answered & plan of care reviewed with Zulma GUADARRAMA.
--- NOTE | 2020-01-22 07:30 | NUR ---
Pt refusing AM vitals.
[2020-01-22] MEDS: furosemide 40mg tablet PO SCH ×2 (08:00→17:00)
[2020-01-22] MEDS: OLANZAPINE 5 MG TABLET PO SCH (08:00)
--- NOTE | 2020-01-22 09:00 | NUR ---
Pt refusing physical assessment.
--- NOTE | 2020-01-22 11:17 | NUR ---
Pt refusing to change pants with bloody discharge. Pt states 'they aren't bloody enough yet'. Will continue to monitor and encourage pt to shower and change into clean clothes.
--- NOTE | 2020-01-22 15:35 | NUR ---
Patient in room [facility] 354. I have received report from Zulma GUADARRAMA and had the opportunity to ask questions and assume patient care. Agree with Zulma GUADARRAMAtrack supervisor of patient.
--- NOTE | 2020-01-22 15:36 | NUR ---
Problems reprioritized. Patient report given, questions answered & plan of care reviewed with THIERRY Aguilar.
--- NOTE | 2020-01-22 18:36 | NUR ---
Problems reprioritized. Patient report given, questions answered & plan of care reviewed with Zena GUADARRAMA.
--- NOTE | 2020-01-22 19:15 | NUR ---
Patient in room [facility] 348. I have received report from Lauren GUADARRAMA and had the opportunity to ask questions and assume patient care.
--- NOTE | 2020-01-22 21:42 | NUR ---
pt refused vitals Addendum: 01/22/20 at 2143 by Zena Blake RN Amended: Links added.
--- NOTE | 2020-01-22 21:43 | NUR ---
pt refused cardiovascular, respiratory, lotion and assessment of bottom. pt refused to change pants that were soiled.
--- NOTE | 2020-01-23 06:22 | NUR ---
Patient in room [facility] 354. I have received report from THIERRY Freitas and had the opportunity to ask questions and assume patient care.
--- NOTE | 2020-01-23 06:39 | NUR ---
Problems reprioritized. Patient report given, questions answered & plan of care reviewed with Zulma GUADARRAMA.
[2020-01-23] MEDS: OLANZAPINE 5 MG TABLET PO SCH (07:06)
[2020-01-23] MEDS: furosemide 40mg tablet PO SCH ×2 (07:06→17:00)
--- NOTE | 2020-01-23 07:45 | NUR ---
Pt refused AM vitals
[2020-01-23 18:00] VITALS: BP 123/55
--- NOTE | 2020-01-23 18:13 | NUR ---
Problems reprioritized. Patient report given, questions answered & plan of care reviewed with THIERRY Freitas.
--- NOTE | 2020-01-23 19:02 | NUR ---
Patient in room [facility] 348. I have received report from Zulma GUADARRAMA and had the opportunity to ask questions and assume patient care.
[2020-01-23] MEDS: acetaminophen 325mg tablet PO PRN (19:21)
--- NOTE | 2020-01-23 22:48 | NUR ---
pt refused cardiovascular, respiratory, lotion and assessment of bottom.
--- NOTE | 2020-01-24 06:05 | NUR ---
Patient in room [facility] 354. I have received report from THIERRY Freitas and had the opportunity to ask questions and assume patient care.
--- NOTE | 2020-01-24 06:29 | NUR ---
Problems reprioritized. Patient report given, questions answered & plan of care reviewed with Kiana GUADARRAMA.
[2020-01-24] MEDS: furosemide 40mg tablet PO SCH ×2 (07:23→17:00)
[2020-01-24] MEDS: OLANZAPINE 5 MG TABLET PO SCH (08:27)
--- NOTE | 2020-01-24 17:06 | NUR ---
Patient's Lasix was held today due to patient refusing to have her vital signs taken. Due to this there is no way to assure SBP is above 100, therefore it is not safe to give this medication.
--- NOTE | 2020-01-24 18:00 | NUR ---
Patient in room [facility] 354. I have received report from Kiana GUADARRAMA and had the opportunity to ask questions and assume patient care.
--- NOTE | 2020-01-24 18:33 | NUR ---
Problems reprioritized. Patient report given, questions answered & plan of care reviewed with THIERRY Desir.
--- NOTE | 2020-01-24 20:44 | NUR ---
patient refused to let me assess her
--- NOTE | 2020-01-25 06:20 | NUR ---
Problems reprioritized. Patient report given, questions answered & plan of care reviewed with Kiana GUADARRAMA.
--- NOTE | 2020-01-25 06:20 | NUR ---
Patient in room [facility] 354. I have received report from THIERRY Desir and had the opportunity to ask questions and assume patient care.
[2020-01-25] MEDS: OLANZAPINE 5 MG TABLET PO SCH (08:19)
[2020-01-25] MEDS: furosemide 40mg tablet PO SCH ×2 (08:19→17:00)
[2020-01-25 08:28] VITALS: BP 132/62
--- NOTE | 2020-01-25 12:42 | NUR ---
F/u (01/24): Pt PO fluctuates though overall 75-100% avg meals meeting needs. Ensure Enlive was completed on EMR so no longer receiving w/ meals. PACO d/w RN regarding restarting ONS if MD agreeable. LBM 01/22. No nutrition concerns at this time. Will continue to monitor. Recommend: 1. continue mechanical soft regular diet; encourage PO intake 2. power pudding BIDLD, LS crackers and soda TIDWM per pt preferences 3. routine bowel care 4. yogurt, cottage cheese, and pears at dinner; cottage cheese and pears at lunch 5. ensure enlive TIDWM if MD agreeable; completed on EMR 6. scaled wt as soon as pt agreeable; no scaled wt this admit Addendum: 01/25/20 at [address] Amended: Links added.
[2020-01-25] MEDS: lactose-reduced food (Ensure Enlive) - 237ml bottle PO SCH (18:17)
--- NOTE | 2020-01-25 18:31 | NUR ---
Problems reprioritized. Patient report given, questions answered & plan of care reviewed with THIERRY Dumont.
--- NOTE | 2020-01-25 18:40 | NUR ---
Patient in room [facility] 354. I have received report from Kiana GUADARRAMA and had the opportunity to ask questions and assume patient care.
--- NOTE | 2020-01-25 19:30 | NUR ---
Patient refused to allow for VS to be taken.
--- NOTE | 2020-01-25 19:40 | NUR ---
Patient pacing in room, would not allow for me to listen to heart,lungs,belly.
--- NOTE | 2020-01-25 20:00 | NUR ---
Patient now in bed. Went to assess patient as she stated "oh no, There's no need for that"
--- NOTE | 2020-01-26 06:50 | NUR ---
Patient in room [facility] 354. I have received report from Julia Mo RN and had the opportunity to ask questions and assume patient care.
[2020-01-26] MEDS: furosemide 40mg tablet PO SCH ×2 (08:29→17:00)
[2020-01-26] MEDS: OLANZAPINE 5 MG TABLET PO SCH (08:29)
[2020-01-26] MEDS: lactose-reduced food (Ensure Enlive) - 237ml bottle PO SCH ×3 (08:30→18:00)
[2020-01-26 11:00] VITALS: BP 143/55
--- NOTE | 2020-01-26 17:30 | NUR ---
pt has refused most of assessments throughout the shift. Pt did allow some skin care to her feet this a.m. Pt also refused her PO Lasix this afternoon. will continue to monitor.
--- NOTE | 2020-01-26 18:40 | NUR ---
Problems reprioritized. Patient report given, questions answered & plan of care reviewed with Julia GUADARRAMA.
--- NOTE | 2020-01-26 18:40 | NUR ---
Patient in room [facility] 354. I have received report from Lorena GUADARRAMA and had the opportunity to ask questions and assume patient care.
--- NOTE | 2020-01-27 01:49 | NUR ---
Patient has not allowed for Vital signs to be taken thus far into shift.
--- NOTE | 2020-01-27 06:30 | NUR ---
Patient in room [facility] 354. I have received report from Julia GUADARRAMA and had the opportunity to ask questions and assume patient care.
--- NOTE | 2020-01-27 06:49 | NUR ---
Problems reprioritized. Patient report given, questions answered & plan of care reviewed with Brianna GUADARRAMA.
[2020-01-27] MEDS: OLANZAPINE 5 MG TABLET PO SCH (08:03)
[2020-01-27] MEDS: furosemide 40mg tablet PO SCH ×2 (08:03→17:00)
[2020-01-27] MEDS: lactose-reduced food (Ensure Enlive) - 237ml bottle PO SCH ×3 (08:04→19:00)
--- NOTE | 2020-01-27 11:06 | NUR ---
Patient refused any physical assessment and skin care today.
--- NOTE | 2020-01-27 11:29 | NUR ---
refused vital signs today
--- NOTE | 2020-01-27 18:40 | NUR ---
Problems reprioritized. Patient report given, questions answered & plan of care reviewed with Martha GUADARRAMA. .
--- NOTE | 2020-01-27 18:42 | NUR ---
Patient in room [facility] 354. I have received report from ZORA GUADARRAMA and had the opportunity to ask questions and assume patient care.
--- NOTE | 2020-01-28 06:30 | NUR ---
Patient in room [facility] 354. I have received report from Martha GUADARRAMA and had the opportunity to ask questions and assume patient care.
--- NOTE | 2020-01-28 06:30 | NUR ---
Problems reprioritized. Patient report given, questions answered & plan of care reviewed with ZORA GUADARRAMA.
[2020-01-28] MEDS: lactose-reduced food (Ensure Enlive) - 237ml bottle PO SCH ×3 (08:00→18:57)
[2020-01-28] MEDS: OLANZAPINE 5 MG TABLET PO SCH (09:20)
[2020-01-28] MEDS: furosemide 40mg tablet PO SCH ×2 (09:20→17:00)
[2020-01-28 09:21] VITALS: BP 143/75
--- NOTE | 2020-01-28 13:18 | NUR ---
Patient refused physical assessment
--- NOTE | 2020-01-28 18:00 | NUR ---
Patient denied 1800 vital signs
--- NOTE | 2020-01-28 18:27 | NUR ---
Problems reprioritized. Patient report given, questions answered & plan of care reviewed with Pierce GUADARRAMA.
--- NOTE | 2020-01-28 18:48 | NUR ---
I have received report from THIERRY Reed and had the opportunity to ask questions and assume patient care.
--- NOTE | 2020-01-28 20:00 | NUR ---
Patient denied physical assessment. Assessment only observational; able to assess certain aspect of neuro status.
--- NOTE | 2020-01-29 | NUR ---
Patient denied 0000 vital signs
--- NOTE | 2020-01-29 | NUR ---
Patient denied 1800 and 0000 vital signs.
--- NOTE | 2020-01-29 05:56 | NUR ---
I agree with Corrina Richards [facility] JANETH student documentation, and assessment.
--- NOTE | 2020-01-29 06:30 | NUR ---
Patient in room [facility] 344. I have received report from Pierce GUADARRAMA/Maurice HO and had the opportunity to ask questions and assume patient care.
--- NOTE | 2020-01-29 06:31 | NUR ---
Problems reprioritized. Patient report given, questions answered & plan of care reviewed with THIERRY Calvo.
--- NOTE | 2020-01-29 06:34 | NUR ---
Report given with JANETH Richards to THIERRY Calvo.
[2020-01-29] MEDS: furosemide 40mg tablet PO SCH ×2 (08:39→17:00)
[2020-01-29] MEDS: OLANZAPINE 5 MG TABLET PO SCH (08:39)
[2020-01-29] MEDS: acetaminophen 325mg tablet PO PRN (08:41)
[2020-01-29] MEDS: lactose-reduced food (Ensure Enlive) - 237ml bottle PO SCH ×3 (08:42→18:02)
--- NOTE | 2020-01-29 18:24 | NUR ---
Problems reprioritized. Patient report given, questions answered & plan of care reviewed with EVERARDO GUADARRAMA/JOSUÉ HO.
--- NOTE | 2020-01-29 19:19 | NUR ---
I have received report from THIERRY Calvo and had the opportunity to ask questions and assume patient care.
--- NOTE | 2020-01-29 19:48 | NUR ---
Patient in room [facility] 354. I have received report from THIERRY Calvo and had the opportunity to ask questions and assume patient care.
--- NOTE | 2020-01-29 20:00 | NUR ---
Patient denied complete physical assessment; assessment done on an observational basis.
--- NOTE | 2020-01-30 01:28 | NUR ---
patient refused vitals Addendum: 01/30/20 at 0128 by Pierce Hairston RN Amended: Links added.
--- NOTE | 2020-01-30 06:10 | NUR ---
Patient in room [facility] 354. I have received report from THIERRY Pelayo & Maurice, Student nurse and had the opportunity to ask questions and assume patient care.
[2020-01-30 06:30] VITALS: BP 157/75
--- NOTE | 2020-01-30 06:52 | NUR ---
Report given with JANETH Richards student to THIERRY Woodard. I also have assessed all his documentation, and assessments and am in agreeance with them.
--- NOTE | 2020-01-30 07:01 | NUR ---
Problems reprioritized. Patient report given, questions answered & plan of care reviewed with THIERRY Woodard.
[2020-01-30] MEDS: lactose-reduced food (Ensure Enlive) - 237ml bottle PO SCH ×3 (08:00→17:35)
[2020-01-30] MEDS: furosemide 40mg tablet PO SCH ×2 (08:48→17:00)
[2020-01-30] MEDS: OLANZAPINE 5 MG TABLET PO SCH (08:48)
--- NOTE | 2020-01-30 18:20 | NUR ---
Patient in room [facility] 354. I have received report from Yamilet GUADARRAMA and had the opportunity to ask questions and assume patient care.
--- NOTE | 2020-01-30 18:20 | NUR ---
Problems reprioritized. Patient report given, questions answered & plan of care reviewed with THIERRY Barrios.
[2020-01-30 20:00] VITALS: BP 107/46
--- NOTE | 2020-01-31 06:15 | NUR ---
Patient in room [facility] 354. I have received report from THIERRY Barrios and had the opportunity to ask questions and assume patient care.
--- NOTE | 2020-01-31 06:45 | NUR ---
Problems reprioritized. Patient report given, questions answered & plan of care reviewed with Yamilet RN.
[2020-01-31] MEDS: lactose-reduced food (Ensure Enlive) - 237ml bottle PO SCH ×3 (08:00→18:00)
[2020-01-31 08:30] VITALS: BP 137/46
[2020-01-31] MEDS: OLANZAPINE 5 MG TABLET PO SCH (08:44)
[2020-01-31] MEDS: furosemide 40mg tablet PO SCH ×2 (08:44→17:00)
[2020-01-31] MEDS: acetaminophen 325mg tablet PO PRN (08:48)
--- NOTE | 2020-01-31 19:00 | NUR ---
refuses skin check; bed linens tucked around her Addendum: 01/31/20 at 2348 by Lyndsey Nichols RN Amended: Links added.
--- NOTE | 2020-01-31 19:20 | NUR ---
Problems reprioritized. Patient report given, questions answered & plan of care reviewed with Amada RN.
[2020-02-01] MEDS: lactose-reduced food (Ensure Enlive) - 237ml bottle PO SCH ×3 (07:36→17:59)
[2020-02-01] MEDS: furosemide 40mg tablet PO SCH ×2 (07:36→17:00)
[2020-02-01] MEDS: OLANZAPINE 5 MG TABLET PO SCH (07:36)
--- NOTE | 2020-02-01 17:27 | NUR ---
patient refused to have vitals signs checked today.
--- NOTE | 2020-02-01 18:37 | NUR ---
Patient in room [facility] 354. I have received report from Rocco GUADARRAMA and had the opportunity to ask questions and assume patient care.
--- NOTE | 2020-02-01 18:53 | NUR ---
Problems reprioritized. Patient report given, questions answered & plan of care reviewed with THIERRY Matta.
--- NOTE | 2020-02-01 19:05 | NUR ---
patient refused to let me give her an assessment. She also did not eat dinner but said there should be a turkey and welsh sandwich that is supposed to be sent up. She also asked for grey and pat crackers. Patient also refused vitals
--- NOTE | 2020-02-02 06:15 | NUR ---
Problems reprioritized. Patient report given, questions answered & plan of care reviewed with Felicita GUADARRAMA.
--- NOTE | 2020-02-02 06:36 | NUR ---
Patient in room [facility] 354. I have received report from lauro GUADARRAMA and had the opportunity to ask questions and assume patient care.
[2020-02-02 07:00] VITALS: BP 152/71
[2020-02-02] MEDS: OLANZAPINE 5 MG TABLET PO SCH (07:46)
[2020-02-02] MEDS: furosemide 40mg tablet PO SCH ×2 (07:46→17:00)
[2020-02-02] MEDS: lactose-reduced food (Ensure Enlive) - 237ml bottle PO SCH ×3 (08:00→18:24)
[2020-02-02 12:00] VITALS: BP 130/53
--- NOTE | 2020-02-02 17:03 | NUR ---
Reassessment: Pt requesting sandwiches and biscuits at breakfast w/ gravy but given current IDDSI guidelines unable to send on mechanical soft diet. Pt on mechanical soft given poor dentition and not for dysphagia; has not had [employer] BSS this admit. PACO d/w RN regarding liberalization to regular diet so food preferences can be met if MD agreeable; will still send softer to chew foods and chop meats to assist optimal PO intake. Dietary notified. Pt PO has regressed since 01/30 refusing breakfasts w/ 0% ONS and 0% past 24 hours though overall 75-100% past 7 days. Likely to fluctuate given ALOC; will continue to monitor for PO acceptance and additional kcal/protein needs. Recommend: 1. continue regular diet; soft to chew foods w/ chopped meats in order to honor pt food preferences requesting sandwiches/biscuits and no hx dysphagia 2. power pudding BIDLD, LS crackers and soda TIDWM per pt preferences 3. routine bowel care 4. yogurt, cottage cheese, and pears at dinner; cottage cheese and pears at lunch 5. ensure enlive TIDWM 6. scaled wt as soon as pt agreeable; no scaled wt this admit Addendum: 02/02/20 at [address] Amended: Links added.
--- NOTE | 2020-02-02 18:00 | NUR ---
Patient in room [facility] 354. I have received report from Felicita GUADARRAMA and had the opportunity to ask questions and assume patient care.
--- NOTE | 2020-02-02 18:38 | NUR ---
Good shift patient compliant with meds. Ambulating in hallway. Appeared orientated. report given to lauro GUADARRAMA
[2020-02-02 19:50] VITALS: BP 135/58
--- NOTE | 2020-02-02 20:36 | NUR ---
patient refused assessment this evening
--- NOTE | 2020-02-03 06:21 | NUR ---
Problems reprioritized. Patient report given, questions answered & plan of care reviewed with Felicita GUADARRAMA.
--- NOTE | 2020-02-03 06:53 | NUR ---
Patient in room [facility] 354. I have received report from lauro GUADARRAMA and had the opportunity to ask questions and assume patient care.
[2020-02-03 07:00] VITALS: BP 156/66
[2020-02-03] MEDS: lactose-reduced food (Ensure Enlive) - 237ml bottle PO SCH ×3 (07:52→17:26)
[2020-02-03] MEDS: OLANZAPINE 5 MG TABLET PO SCH (07:52)
[2020-02-03] MEDS: furosemide 40mg tablet PO SCH ×2 (07:52→17:00)
--- NOTE | 2020-02-03 17:59 | NUR ---
up and about no new concerns, refused lasix 1700hrs. Appeared orientated . Report given to lauro GUADARRAMA
--- NOTE | 2020-02-03 18:18 | NUR ---
Patient in room [facility] 354. I have received report from Felicita GUADARRAMA and had the opportunity to ask questions and assume patient care.
[2020-02-03 20:00] VITALS: BP 144/49
--- NOTE | 2020-02-04 06:14 | NUR ---
Problems reprioritized. Patient report given, questions answered & plan of care reviewed with Lucy GUADARRAMA.
[2020-02-04 07:00] VITALS: BP 136/54
[2020-02-04] MEDS: lactose-reduced food (Ensure Enlive) - 237ml bottle PO SCH ×3 (08:24→17:58)
[2020-02-04] MEDS: OLANZAPINE 5 MG TABLET PO SCH (08:24)
[2020-02-04] MEDS: furosemide 40mg tablet PO SCH ×2 (08:24→17:00)
[2020-02-04 12:29] VITALS: BP 121/50
[2020-02-04 15:23] LABS: ALANINE AMINOTRANSFERASE 15 U/L (12-78); ALBUMIN 3.1 G/DL (3.4-5.0); ALBUMIN/GLOBULIN RATIO 0.8 (1.1-1.5); ALKALINE PHOSPHATASE 80 IU/L (46-116); ANION GAP 5 (8-16); ASPARTATE AMINO TRANSFERASE 18 U/L (10-37); BILIRUBIN,TOTAL 0.5 MG/DL (0.1-1.0); BLOOD UREA NITROGEN 28 MG/DL (7-18); BUN/CREATININE RATIO 27.7 (6.6-38.0); CALCIUM 9.2 MG/DL (8.5-10.1); CHLORIDE 103 MMOL/L (99-107); CREATININE 1.01 MG/DL (0.40-0.90); GLUCOSE 133 MG/DL (70-104); POTASSIUM 3.9 MMOL/L (3.5-5.1); SODIUM 142 MMOL/L (135-145); TOTAL CARBON DIOXIDE 34.2 MMOL/L (24-32); eGFR 53 ML/MIN
--- NOTE | 2020-02-04 18:14 | NUR ---
Gave report to Dru Booker.
[2020-02-05] MEDS: lactose-reduced food (Ensure Enlive) - 237ml bottle PO SCH ×3 (08:04→18:58)
[2020-02-05] MEDS: OLANZAPINE 5 MG TABLET PO SCH (08:04)
[2020-02-05] MEDS: furosemide 40mg tablet PO SCH ×2 (08:04→16:18)
[2020-02-05 08:33] VITALS: BP 149/56
--- NOTE | 2020-02-05 18:17 | NUR ---
Gave report to Lexi English RN
--- NOTE | 2020-02-05 18:38 | NUR ---
Patient in room [facility] 354. I have received report from THIERRY Brooks and had the opportunity to ask questions and assume patient care. Addendum: 02/05/20 at 1838 by Madyson Chawla RN Amended: Links added.
[2020-02-06 06:30] VITALS: BP 143/51
--- NOTE | 2020-02-06 06:39 | NUR ---
Problems reprioritized. Patient report given, questions answered & plan of care reviewed with THIERRY Maya.
--- NOTE | 2020-02-06 06:41 | NUR ---
Patient in room [facility] 354. I have received report from Lexi English RN and had the opportunity to ask questions and assume patient care.
[2020-02-06] MEDS: OLANZAPINE 5 MG TABLET PO SCH (08:00)
[2020-02-06] MEDS: furosemide 40mg tablet PO SCH (08:00)
[2020-02-06] MEDS: lactose-reduced food (Ensure Enlive) - 237ml bottle PO SCH ×3 (08:01→18:00)
--- NOTE | 2020-02-06 18:18 | NUR ---
Problems reprioritized. Patient report given, questions answered & plan of care reviewed with THIERRY Larson.
--- NOTE | 2020-02-07 06:01 | NUR ---
Problems reprioritized. Patient report given, questions answered & plan of care reviewed with JJ GUADARRAMA.
--- NOTE | 2020-02-07 06:19 | NUR ---
Patient in room [facility] 354. I have received report from mendoza BIRD and had the opportunity to ask questions and assume patient care.
[2020-02-07] MEDS: OLANZAPINE 5 MG TABLET PO SCH (07:53)
[2020-02-07] MEDS: furosemide 40mg tablet PO SCH (07:53)
[2020-02-07] MEDS: lactose-reduced food (Ensure Enlive) - 237ml bottle PO SCH ×3 (08:00→18:29)
[2020-02-07 09:01] VITALS: BP 131/49
--- NOTE | 2020-02-07 15:46 | NUR ---
F/u (02/06): Pt PO 100% avg meals w/ mostly 0% ONS. RD d/w RN who reports pt requests one ensure daily since 3 too much; dietary notified. LBM 02/05. No nutrition concerns at this time. Will continue to monitor. Recommend: 1. continue regular diet; soft to chew foods w/ chopped meats in order to honor pt food preferences requesting sandwiches/biscuits and no hx dysphagia 2. power pudding BIDLD, LS crackers and soda TIDWM per pt preferences 3. routine bowel care 4. yogurt, cottage cheese, and pears at dinner; cottage cheese and pears at lunch 5. ensure enlive WL 6. scaled wt as soon as pt agreeable; no scaled wt this admit Addendum: 02/07/20 at [address] Amended: Links added.
--- NOTE | 2020-02-07 18:28 | NUR ---
Problems reprioritized. Patient report given, questions answered & plan of care reviewed with THIERRY Cabrera.
--- NOTE | 2020-02-07 18:30 | NUR ---
Patient in room [facility] 354. I have received report from JJ and had the opportunity to ask questions and assume patient care.
--- NOTE | 2020-02-07 19:00 | NUR ---
PT REFUSING ALL PHYSICAL ASSESSMENTS AND VITAL SIGNS THIS EVENING. PT RESTING IN THE BED, CALM AT THIS TIME. REFUSED DINNER.
[2020-02-08 06:30] VITALS: BP 138/63
--- NOTE | 2020-02-08 06:38 | NUR ---
Problems reprioritized. Patient report given, questions answered & plan of care reviewed with BETO.
--- NOTE | 2020-02-08 07:02 | NUR ---
Patient in room [facility] 354. I have received report from Kamille GUADARRAMA and had the opportunity to ask questions and assume patient care.
[2020-02-08] MEDS: lactose-reduced food (Ensure Enlive) - 237ml bottle PO SCH ×3 (08:10→18:00)
[2020-02-08] MEDS: OLANZAPINE 5 MG TABLET PO SCH (08:15)
[2020-02-08] MEDS: furosemide 40mg tablet PO SCH (08:15)
--- NOTE | 2020-02-08 10:55 | NUR ---
pt refused 1100 vitals. Addendum: 02/08/20 at 1055 by Candace Albarran RN Amended: Links added.
--- NOTE | 2020-02-08 18:00 | NUR ---
Patient in room [facility] 354. I have received report from Candace GUADARRAMA and had the opportunity to ask questions and assume patient care.
--- NOTE | 2020-02-08 18:42 | NUR ---
Problems reprioritized. Patient report given, questions answered & plan of care reviewed with Karlee GUADARRAMA.
--- NOTE | 2020-02-09 06:30 | NUR ---
Patient in room [facility] 354. I have received report from Karlee GUADARRAMA and had the opportunity to ask questions and assume patient care.
--- NOTE | 2020-02-09 06:33 | NUR ---
Problems reprioritized. Patient report given, questions answered & plan of care reviewed with Lorena GUADARRAMA.
[2020-02-09 07:15] VITALS: BP 128/48
[2020-02-09] MEDS: lactose-reduced food (Ensure Enlive) - 237ml bottle PO SCH ×3 (08:00→18:51)
--- NOTE | 2020-02-09 08:30 | NUR ---
Pt refuses assessment at this time. Pt educated but states "no need to do all that". Will continue to monitor.
[2020-02-09] MEDS: furosemide 40mg tablet PO SCH (10:22)
[2020-02-09] MEDS: OLANZAPINE 5 MG TABLET PO SCH (10:22)
--- NOTE | 2020-02-09 16:15 | NUR ---
Problems reprioritized. Patient report given, questions answered & plan of care reviewed with Lexi Gordon RN.
--- NOTE | 2020-02-09 18:23 | NUR ---
Patient in room [facility] 354. I have received report from THIERRY Carrillo and had the opportunity to ask questions and assume patient care.
--- NOTE | 2020-02-10 03:42 | NUR ---
Problems reprioritized. Patient report given, questions answered & plan of care reviewed with THIERRY Solares.
[2020-02-10 07:30] VITALS: BP 116/62
[2020-02-10] MEDS: lactose-reduced food (Ensure Enlive) - 237ml bottle PO SCH ×3 (08:00→19:18)
[2020-02-10] MEDS: OLANZAPINE 5 MG TABLET PO SCH (09:39)
[2020-02-10] MEDS: furosemide 40mg tablet PO SCH (09:39)
--- NOTE | 2020-02-10 18:40 | NUR ---
Problems reprioritized. Patient report given, questions answered & plan of care reviewed with Judith GUADARRAMA.
--- NOTE | 2020-02-10 18:42 | NUR ---
Patient in room [facility] 354. I have received report from JAMES GUADARRAMA and had the opportunity to ask questions and assume patient care.
--- NOTE | 2020-02-11 06:30 | NUR ---
Problems reprioritized. Patient report given, questions answered & plan of care reviewed with KIMBERLY GUADARRAMA.
--- NOTE | 2020-02-11 06:42 | NUR ---
Patient in room [facility] 354. I have received report from joycelyn donaldson and had the opportunity to ask questions and assume patient care.
[2020-02-11 07:00] VITALS: BP 142/58
[2020-02-11] MEDS: OLANZAPINE 5 MG TABLET PO SCH (07:49)
[2020-02-11] MEDS: furosemide 40mg tablet PO SCH (07:49)
[2020-02-11] MEDS: lactose-reduced food (Ensure Enlive) - 237ml bottle PO SCH (08:00)
--- NOTE | 2020-02-11 16:53 | NUR ---
patient became very agitated and upset following delivery of food. stated she did not get what she ordered even after talking with "people concerned" . patient settled down when reassured staff can order what she wants. Patient agreeable stated that now she has been "released" to eat whatever she likes and doesn't have to pay for it by walking 45 mins to gain it" will continue to monitor
--- NOTE | 2020-02-11 18:24 | NUR ---
Problems reprioritized. Patient report given, questions answered & plan of care reviewed with bro GUADARRAMA.
--- NOTE | 2020-02-11 18:30 | NUR ---
Pt refused 1800 vital signs.
--- NOTE | 2020-02-11 18:45 | NUR ---
Patient in room [facility] 354. I have received report from THIERRY Mims and had the opportunity to ask questions and assume patient care.
--- NOTE | 2020-02-12 00:15 | NUR ---
Pt refused midnight vitals. Will continue to monitor patient.
--- NOTE | 2020-02-12 06:28 | NUR ---
Problems reprioritized. Patient report given, questions answered & plan of care reviewed with THIERRY Vazquez.
--- NOTE | 2020-02-12 06:38 | NUR ---
Patient in room [facility] 354. I have received report from THIERRY Couch and had the opportunity to ask questions and assume patient care.
[2020-02-12 06:58] VITALS: BP 134/54
[2020-02-12] MEDS: furosemide 40mg tablet PO SCH (07:55)
[2020-02-12] MEDS: OLANZAPINE 5 MG TABLET PO SCH (07:55)
[2020-02-12] MEDS: lactose-reduced food (Ensure Enlive) - 237ml bottle PO SCH (08:00)
--- NOTE | 2020-02-12 18:14 | NUR ---
Problems reprioritized. Patient report given, questions answered & plan of care reviewed with THIERRY Couch.
--- NOTE | 2020-02-12 18:15 | NUR ---
Patient refused 1800 vital signs. Will continue to monitor patient.
--- NOTE | 2020-02-12 18:31 | NUR ---
Patient in room [facility] 354. I have received report from THIERRY Vazquez and had the opportunity to ask questions and assume patient care.
--- NOTE | 2020-02-13 06:32 | NUR ---
Problems reprioritized. Patient report given, questions answered & plan of care reviewed with THIERRY Calvo.
--- NOTE | 2020-02-13 06:39 | NUR ---
Patient in room [facility] 354. I have received report from Iza GUADARRAMA and had the opportunity to ask questions and assume patient care.
[2020-02-13 07:44] VITALS: BP 117/51
[2020-02-13] MEDS: OLANZAPINE 5 MG TABLET PO SCH (08:23)
[2020-02-13] MEDS: furosemide 40mg tablet PO SCH (08:23)
[2020-02-13] MEDS: lactose-reduced food (Ensure Enlive) - 237ml bottle PO SCH (08:24)
--- NOTE | 2020-02-13 18:00 | NUR ---
Patient refused 1800 vitals.
--- NOTE | 2020-02-13 18:21 | NUR ---
Patient in room [facility] 354. I have received report from THIERRY Calvo and had the opportunity to ask questions and assume patient care.
--- NOTE | 2020-02-13 18:30 | NUR ---
Pt refused 1800 vital signs.
--- NOTE | 2020-02-13 18:55 | NUR ---
Problems reprioritized. Patient report given, questions answered & plan of care reviewed with Iza GUADARRAMA.
--- NOTE | 2020-02-14 06:21 | NUR ---
Problems reprioritized. Patient report given, questions answered & plan of care reviewed with THIERRY Calvo.
--- NOTE | 2020-02-14 06:55 | NUR ---
Patient in room [facility] 354. I have received report from Iza GUADARRAMA and had the opportunity to ask questions and assume patient care.
[2020-02-14 07:00] VITALS: BP 130/47
[2020-02-14 07:10] VITALS: BP 130/47
[2020-02-14] MEDS: lactose-reduced food (Ensure Enlive) - 237ml bottle PO SCH (08:00)
[2020-02-14] MEDS: OLANZAPINE 5 MG TABLET PO SCH (08:42)
[2020-02-14] MEDS: furosemide 40mg tablet PO SCH (08:42)
--- NOTE | 2020-02-14 16:15 | NUR ---
F/u (02/13): Pt PO 75-100% meals w/ 0% most recent ensure enlives WL still meeting needs given PO hx. LBM 02/12. No nutrition concerns at this time. Will continue to monitor. Recommend: 1. continue regular diet; soft to chew foods w/ chopped meats in order to honor pt food preferences requesting sandwiches/biscuits and no hx dysphagia 2. power pudding BIDLD, LS crackers and soda TIDWM per pt preferences 3. routine bowel care 4. yogurt, cottage cheese, and pears at dinner; cottage cheese and pears at lunch 5. ensure enlive WL 6. scaled wt as soon as pt agreeable; no scaled wt this admit Addendum: 02/14/20 at [address] Amended: Links added.
--- NOTE | 2020-02-14 18:38 | NUR ---
Problems reprioritized. Patient report given, questions answered & plan of care reviewed with Megan GUADARRAMA.
--- NOTE | 2020-02-14 18:41 | NUR ---
Patient in room [facility] 354. I have received report from Huang GUADARRAMA and had the opportunity to ask questions and assume patient care. Addendum: 02/14/20 at 1841 by Megan Johnson RN Amended: Links added.
--- NOTE | 2020-02-14 20:00 | NUR ---
pt laying down in bed did not want vitals or to be touched at this time. listening to heART AND LUNGS DEFFERED. per pt request.
--- NOTE | 2020-02-14 22:30 | NUR ---
resting eyes closed without changes or s&s of distress.
--- NOTE | 2020-02-15 02:35 | NUR ---
pt awoke and requested new pj bottoms, chux and bath wipes given to her. pt pleasant and appreciative. requested her breakfast be on one plated all food and simple. makes it easy on her. per pt's words.
--- NOTE | 2020-02-15 04:44 | NUR ---
resting without changes.
--- NOTE | 2020-02-15 06:55 | NUR ---
Problems reprioritized. Patient report given, questions answered & plan of care reviewed with fran donaldson. Addendum: 02/15/20 at 0656 by Megan Johnson RN Amended: Links added.
[2020-02-15 07:00] VITALS: BP 123/48
--- NOTE | 2020-02-15 07:00 | NUR ---
Patient in room [facility] 354. I have received report from Megan GUADARRAMA and had the opportunity to ask questions and assume patient care.
[2020-02-15] MEDS: lactose-reduced food (Ensure Enlive) - 237ml bottle PO SCH (08:33)
[2020-02-15] MEDS: OLANZAPINE 5 MG TABLET PO SCH (08:33)
[2020-02-15] MEDS: furosemide 40mg tablet PO SCH (08:33)
--- NOTE | 2020-02-15 18:22 | NUR ---
Problems reprioritized. Patient report given, questions answered & plan of care reviewed with Yarely GUADARRAMA.
--- NOTE | 2020-02-16 00:48 | NUR ---
Patient resting in bed with eyes closed. Easily arousable. Patient refused vitals to be taken tonight. Made multiple Attempts. Respirations even and unlabor, Currently in no distress. Will continue with current POC.
--- NOTE | 2020-02-16 06:42 | NUR ---
Patient in room [facility] 354. I have received report from THIERRY Pritchett and had the opportunity to ask questions and assume patient care.
--- NOTE | 2020-02-16 06:45 | NUR ---
Problems reprioritized. Patient report given, questions answered & plan of care reviewed with Marsha RN.
[2020-02-16] MEDS: OLANZAPINE 5 MG TABLET PO SCH (07:55)
[2020-02-16] MEDS: furosemide 40mg tablet PO SCH (07:55)
[2020-02-16] MEDS: lactose-reduced food (Ensure Enlive) - 237ml bottle PO SCH (07:56)
[2020-02-16 08:00] VITALS: BP 141/45
--- NOTE | 2020-02-16 18:19 | NUR ---
Problems reprioritized. Patient report given, questions answered & plan of care reviewed with THIERRY Wong.
--- NOTE | 2020-02-16 18:30 | NUR ---
Patient in room [facility] 354. I have received report from JJ GUADARRAMA and had the opportunity to ask questions and assume patient care.
--- NOTE | 2020-02-17 06:06 | NUR ---
Problems reprioritized. Patient report given, questions answered & plan of care reviewed with JJ GUADARRAMA.
--- NOTE | 2020-02-17 06:25 | NUR ---
Patient in room [facility] 354. I have received report from Judith and had the opportunity to ask questions and assume patient care.
[2020-02-17 07:00] VITALS: BP 131/55
[2020-02-17] MEDS: furosemide 40mg tablet PO SCH (07:33)
[2020-02-17] MEDS: OLANZAPINE 5 MG TABLET PO SCH (07:33)
[2020-02-17] MEDS: lactose-reduced food (Ensure Enlive) - 237ml bottle PO SCH (08:00)
--- NOTE | 2020-02-17 18:35 | NUR ---
Problems reprioritized. Patient report given, questions answered & plan of care reviewed with Amada RN.
--- NOTE | 2020-02-17 19:30 | NUR ---
pt refused VS check Addendum: 02/18/20 at 0306 by Lyndsey Nichols RN Amended: Links added.
--- NOTE | 2020-02-18 06:10 | NUR ---
Patient in room [facility] 354. I have received report from THIERRY CAMPOS and had the opportunity to ask questions and assume patient care.
[2020-02-18 07:00] VITALS: BP 158/64
[2020-02-18] MEDS: lactose-reduced food (Ensure Enlive) - 237ml bottle PO SCH (08:00)
[2020-02-18] MEDS: furosemide 40mg tablet PO SCH (09:15)
[2020-02-18] MEDS: OLANZAPINE 5 MG TABLET PO SCH (09:16)
--- NOTE | 2020-02-18 16:56 | NUR ---
Student documentation: I have reviewed all interventions, assessments performed and documented by Ramos HO. Student Medication Administration: For all medication-pass' in the time frame of 3547-2152, all medication were reviewed, dispensed, administered and documented per hospital policy by Ramos HO.
--- NOTE | 2020-02-18 18:00 | NUR ---
Pt refused vital check.
--- NOTE | 2020-02-18 18:45 | NUR ---
Problems reprioritized. Patient report given, questions answered & plan of care reviewed with THIERRY FOREMAN.
--- NOTE | 2020-02-18 19:15 | NUR ---
Patient in room [facility] 354. I have received report from Candace Corona RN and had the opportunity to ask questions and assume patient care.
--- NOTE | 2020-02-19 06:47 | NUR ---
Problems reprioritized. Patient report given, questions answered & plan of care reviewed with THIERRY Mcnamara.
[2020-02-19 07:00] VITALS: BP 157/73
[2020-02-19] MEDS: OLANZAPINE 5 MG TABLET PO SCH (07:58)
[2020-02-19] MEDS: lactose-reduced food (Ensure Enlive) - 237ml bottle PO SCH (07:58)
[2020-02-19] MEDS: furosemide 40mg tablet PO SCH (07:58)
--- NOTE | 2020-02-19 11:02 | NUR ---
Patient refusing physical assessment at this time. Physical assessment charted to what RN can see without touching or listening with stethoscope. Will attempt further assessment this afternoon. Addendum: 02/19/20 at 1103 by Kiana Coffman RN Amended: Links added.
--- NOTE | 2020-02-19 18:16 | NUR ---
Problems reprioritized. Patient report given, questions answered & plan of care reviewed with Lexi English RN.
--- NOTE | 2020-02-19 18:27 | NUR ---
Patient in room [facility] 354. I have received report from THIERRY Bruno and had the opportunity to ask questions and assume patient care. Addendum: 02/19/20 at 1827 by Madyson Chawla RN Amended: Links added.
--- NOTE | 2020-02-20 06:29 | NUR ---
Problems reprioritized. Patient report given, questions answered & plan of care reviewed with THIERRY Aguilar.
--- NOTE | 2020-02-20 06:39 | NUR ---
Patient in room [facility] 354. I have received report from THIERRY Elliott and had the opportunity to ask questions and assume patient care.
--- NOTE | 2020-02-20 06:39 | NUR ---
Patient in room [facility] 354. I have received report from Lexi English RN and had the opportunity to ask questions and assume patient care.
[2020-02-20] MEDS: furosemide 40mg tablet PO SCH (08:55)
[2020-02-20] MEDS: OLANZAPINE 5 MG TABLET PO SCH (08:55)
[2020-02-20] MEDS: lactose-reduced food (Ensure Enlive) - 237ml bottle PO SCH (08:57)
--- NOTE | 2020-02-20 11:27 | NUR ---
Patient refused her VS. She states, "I already got my pulls today."
--- NOTE | 2020-02-20 11:57 | NUR ---
Student documentation: I have reviewed all interventions, assessments performed and documented by Nelly HO for [facility]. Student Medication Administration: For all medication-pass' in the time frame of 4508-7763, all medications were reviewed, dispensed, administered and documented per hospital policy by Nelly HO for [facility].
--- NOTE | 2020-02-20 18:01 | NUR ---
Problems reprioritized. Patient report given, questions answered & plan of care reviewed with Lexi Alvarez RN.
--- NOTE | 2020-02-20 18:05 | NUR ---
Problems reprioritized. Patient report given, questions answered & plan of care reviewed with Lexi English RN.
--- NOTE | 2020-02-20 18:13 | NUR ---
Patient in room [facility] 354. I have received report from THIERRY Aguilar and had the opportunity to ask questions and assume patient care. Addendum: 02/20/20 at 1813 by Madyson Chawla RN Amended: Links added.
--- NOTE | 2020-02-21 06:12 | NUR ---
Patient in room [facility] 354. I have received report from Lexi English RN and had the opportunity to ask questions and assume patient care.
--- NOTE | 2020-02-21 06:15 | NUR ---
Problems reprioritized. Patient report given, questions answered & plan of care reviewed with THIERRY Bruno.
[2020-02-21] MEDS: furosemide 40mg tablet PO SCH (07:54)
[2020-02-21] MEDS: lactose-reduced food (Ensure Enlive) - 237ml bottle PO SCH (07:54)
[2020-02-21] MEDS: OLANZAPINE 5 MG TABLET PO SCH (07:54)
[2020-02-21 07:59] VITALS: BP 150/57
--- NOTE | 2020-02-21 08:03 | NUR ---
Patient refused to have an assessment done. Physical assessment charted based on what is able to be seen without listening with stethoscope. Will continue to monitor patient.
--- NOTE | 2020-02-21 16:12 | NUR ---
F/u (02/20): Pt PO 75-100% meals and ensure enlives WL still meeting needs given PO hx. LBM 02/19. No nutrition concerns at this time. Will continue to monitor. Recommend: 1. continue regular diet; soft to chew foods w/ chopped meats in order to honor pt food preferences requesting sandwiches/biscuits and no hx dysphagia 2. power pudding BIDLD, LS crackers and soda TIDWM per pt preferences 3. routine bowel care 4. yogurt, cottage cheese, and pears at dinner; cottage cheese and pears at lunch 5. ensure enlive WL 6. scaled wt as soon as pt agreeable; no scaled wt this admit Addendum: 02/21/20 at [address] Amended: Links added.
--- NOTE | 2020-02-21 18:00 | NUR ---
Patient in room [facility] 354. I have received report from Kiana GUADARRAMA and had the opportunity to ask questions and assume patient care.
--- NOTE | 2020-02-21 18:31 | NUR ---
Problems reprioritized. Patient report given, questions answered & plan of care reviewed with THIERRY Desir.
--- NOTE | 2020-02-21 19:22 | NUR ---
Went in to patients room to give her an assessment and she refused the assessment at 1830
--- NOTE | 2020-02-22 06:20 | NUR ---
Problems reprioritized. Patient report given, questions answered & plan of care reviewed with Kiana GUADARRAMA.
--- NOTE | 2020-02-22 06:35 | NUR ---
Patient in room [facility] 354. I have received report from THIERRY Desir and had the opportunity to ask questions and assume patient care.
[2020-02-22 07:00] VITALS: BP 123/55
[2020-02-22] MEDS: furosemide 40mg tablet PO SCH (08:20)
[2020-02-22] MEDS: OLANZAPINE 5 MG TABLET PO SCH (08:20)
[2020-02-22] MEDS: lactose-reduced food (Ensure Enlive) - 237ml bottle PO SCH (08:27)
--- NOTE | 2020-02-22 09:12 | NUR ---
Patient refused an assessment at this time. Physical assessment was charted with what can be assessed without listening or touching patient.
--- NOTE | 2020-02-22 18:16 | NUR ---
Problems reprioritized. Patient report given, questions answered & plan of care reviewed with THIERRY Gonsales.
[2020-02-23 07:00] VITALS: BP 140/59
--- NOTE | 2020-02-23 08:38 | NUR ---
Patient in room [facility] 354. I have received report from lilliam GUADARRAMA and had the opportunity to ask questions and assume patient care.
[2020-02-23] MEDS: OLANZAPINE 5 MG TABLET PO SCH (08:49)
[2020-02-23] MEDS: lactose-reduced food (Ensure Enlive) - 237ml bottle PO SCH (08:49)
[2020-02-23] MEDS: furosemide 40mg tablet PO SCH (08:49)
--- NOTE | 2020-02-23 18:30 | NUR ---
Patient in room [facility] 354. I have received report from Felicita GUADARRAMA and had the opportunity to ask questions and assume patient care.
--- NOTE | 2020-02-23 18:43 | NUR ---
Up and about no new concerns. report given to Julia GUADARRAMA
--- NOTE | 2020-02-23 19:00 | NUR ---
Patient refused for VS to be taken right after shift change. Will try again later.
--- NOTE | 2020-02-24 06:20 | NUR ---
Problems reprioritized. Patient report given, questions answered & plan of care reviewed with Yolanda GUADARRAMA.
[2020-02-24 07:35] VITALS: BP 131/71
[2020-02-24] MEDS: lactose-reduced food (Ensure Enlive) - 237ml bottle PO SCH (08:15)
[2020-02-24] MEDS: furosemide 40mg tablet PO SCH (08:17)
[2020-02-24] MEDS: OLANZAPINE 5 MG TABLET PO SCH (08:17)
--- NOTE | 2020-02-24 18:22 | NUR ---
Problems reprioritized. Patient report given, questions answered & plan of care reviewed with THIERRY REYES.
--- NOTE | 2020-02-24 18:30 | NUR ---
Patient in room [facility] 354. I have received report from DORIS GUADARRAMA and had the opportunity to ask questions and assume patient care.
--- NOTE | 2020-02-25 06:25 | NUR ---
Problems reprioritized. Patient report given, questions answered & plan of care reviewed with DORIS GUADARRAMA.
[2020-02-25] MEDS: furosemide 40mg tablet PO SCH (07:23)
[2020-02-25] MEDS: OLANZAPINE 5 MG TABLET PO SCH (07:23)
[2020-02-25 07:27] VITALS: BP 146/71
[2020-02-25] MEDS: lactose-reduced food (Ensure Enlive) - 237ml bottle PO SCH (07:48)
--- NOTE | 2020-02-25 18:15 | NUR ---
Pt refused 1800 vital check
--- NOTE | 2020-02-25 18:23 | NUR ---
Problems reprioritized. Patient report given, questions answered & plan of care reviewed with THIERRY Couch.
--- NOTE | 2020-02-25 18:29 | NUR ---
Patient in room [facility] 354. I have received report from THIERRY Guerrero and had the opportunity to ask questions and assume patient care.
--- NOTE | 2020-02-26 06:41 | NUR ---
Problems reprioritized. Patient report given, questions answered & plan of care reviewed with THIERRY Reed.
--- NOTE | 2020-02-26 06:49 | NUR ---
Patient in room [facility] 354. I have received report from Iza GUADARRAMA and had the opportunity to ask questions and assume patient care.
[2020-02-26 07:00] VITALS: BP 147/55
[2020-02-26] MEDS: furosemide 40mg tablet PO SCH (07:36)
[2020-02-26] MEDS: OLANZAPINE 5 MG TABLET PO SCH (07:36)
[2020-02-26] MEDS: lactose-reduced food (Ensure Enlive) - 237ml bottle PO SCH (08:00)
--- NOTE | 2020-02-26 09:00 | NUR ---
Patient refused assessment today
--- NOTE | 2020-02-27 07:01 | NUR ---
Patient in room [facility] 354. I have received report from EDILSON GUADARRAMA and had the opportunity to ask questions and assume patient care.
[2020-02-27 07:28] VITALS: BP 135/67
[2020-02-27] MEDS: furosemide 40mg tablet PO SCH (08:26)
[2020-02-27] MEDS: OLANZAPINE 5 MG TABLET PO SCH (08:26)
[2020-02-27] MEDS: lactose-reduced food (Ensure Enlive) - 237ml bottle PO SCH (08:27)
--- NOTE | 2020-02-27 17:44 | NUR ---
Very pleasant day with patient. celebrated birthday with gifts and cupcakes with patient. Patient reported very good day
--- NOTE | 2020-02-27 18:15 | NUR ---
Pt refused vital check
--- NOTE | 2020-02-27 18:22 | NUR ---
Problems reprioritized. Patient report given, questions answered & plan of care reviewed with bro GUADARRAMA.
--- NOTE | 2020-02-27 18:30 | NUR ---
Patient in room [facility] 354. I have received report from THIERRY Mims and had the opportunity to ask questions and assume patient care.
--- NOTE | 2020-02-28 06:30 | NUR ---
Patient in room [facility] 354. I have received report from THIERRY Couch and had the opportunity to ask questions and assume patient care.
--- NOTE | 2020-02-28 06:50 | NUR ---
Problems reprioritized. Patient report given, questions answered & plan of care reviewed with THIERRY Bruno.
[2020-02-28 07:00] VITALS: BP_SYST 135; BP_SYST 138; BP_DIAS 59; BP_DIAS 85
[2020-02-28] MEDS: OLANZAPINE 5 MG TABLET PO SCH (08:01)
[2020-02-28] MEDS: furosemide 40mg tablet PO SCH (08:01)
[2020-02-28] MEDS: lactose-reduced food (Ensure Enlive) - 237ml bottle PO SCH (08:01)
--- NOTE | 2020-02-28 08:06 | NUR ---
Patient refuses full physical assessment today. Physical assessment charted to the best of ability without placing stethoscope to patient. Patient states "oh honey that's not needed". Will continue to monitor patient.
--- NOTE | 2020-02-28 14:27 | NUR ---
F/u (02/27): Pt PO 90-100% meals and ensure enlives WL still meeting needs given PO hx. LBM 02/26. No nutrition concerns at this time. Will continue to monitor. Recommend: 1. continue regular diet; soft to chew foods w/ chopped meats in order to honor pt food preferences requesting sandwiches/biscuits and no hx dysphagia 2. power pudding BIDLD, LS crackers and soda TIDWM per pt preferences 3. routine bowel care 4. yogurt, cottage cheese, and pears at dinner; cottage cheese and pears at lunch 5. ensure enlive WL 6. scaled wt as soon as pt agreeable; no scaled wt this admit Addendum: 02/28/20 at [address] Amended: Links added.
--- NOTE | 2020-02-28 18:44 | NUR ---
Problems reprioritized. Patient report given, questions answered & plan of care reviewed with THIERRY Pritchett.
--- NOTE | 2020-02-29 06:40 | NUR ---
Patient in room [facility] 354. I have received report from THIERRY Pritchett and had the opportunity to ask questions and assume patient care.
[2020-02-29 07:00] VITALS: BP 130/66
[2020-02-29] MEDS: OLANZAPINE 5 MG TABLET PO SCH (07:52)
[2020-02-29] MEDS: furosemide 40mg tablet PO SCH (07:52)
[2020-02-29] MEDS: lactose-reduced food (Ensure Enlive) - 237ml bottle PO SCH (07:54)
--- NOTE | 2020-02-29 08:18 | NUR ---
Patient refusing physical assessment at this time. Patient states, "no, that isn't necessary."
--- NOTE | 2020-02-29 18:23 | NUR ---
Problems reprioritized. Patient report given, questions answered & plan of care reviewed with THIERRY Pritchett.
--- NOTE | 2020-03-01 06:28 | NUR ---
Patient in room [facility] 354. I have received report from Yarely GUADARRAMA and had the opportunity to ask questions and assume patient care.
--- NOTE | 2020-03-01 06:34 | NUR ---
Problems reprioritized. Patient report given, questions answered & plan of care reviewed with Suze GUADARRAMA and Student Nurse Lorena GUADARRAMA.
--- NOTE | 2020-03-01 06:35 | NUR ---
Patient in room [facility] 354C. I have received report from Yarely GUADARRAMA and had the opportunity to ask questions and assume patient care.
[2020-03-01] MEDS: OLANZAPINE 5 MG TABLET PO SCH (08:02)
[2020-03-01] MEDS: lactose-reduced food (Ensure Enlive) - 237ml bottle PO SCH (08:02)
[2020-03-01] MEDS: furosemide 40mg tablet PO SCH (08:02)
[2020-03-01 09:01] VITALS: BP 150/78
--- NOTE | 2020-03-01 18:30 | NUR ---
I have received report from Suze GUADARRAMA and had the opportunity to ask questions and assume patient care.
--- NOTE | 2020-03-01 18:31 | NUR ---
Problems reprioritized. Patient report given, questions answered & plan of care reviewed with [Zena GUADARRAMA].
--- NOTE | 2020-03-01 18:32 | NUR ---
Student documentation: I have reviewed all interventions, assessments performed and documented by Lorena Student Nurse. Student Medication Administration: For this medication-pass time frame, all medication were reviewed, dispensed, administered and documented per hospital policy by Lorena Student Nurse.
--- NOTE | 2020-03-01 18:33 | NUR ---
Problems reprioritized. Patient report given, questions answered & plan of care reviewed with DAYSI GUADARRAMA.
--- NOTE | 2020-03-01 23:00 | NUR ---
Patient in room [facility] 354. I have received report from Zena GUADARRAMA and had the opportunity to ask questions and assume patient care.
--- NOTE | 2020-03-01 23:00 | NUR ---
Problems reprioritized. Patient report given, questions answered & plan of care reviewed with Adrianna GUADARRAMA.
--- NOTE | 2020-03-02 06:00 | NUR ---
Patient in room [facility] 354. I have received report from THIERRY Rodas and had the opportunity to ask questions and assume patient care.
[2020-03-02 07:00] VITALS: BP 152/75
[2020-03-02] MEDS: OLANZAPINE 5 MG TABLET PO SCH (07:44)
[2020-03-02] MEDS: furosemide 40mg tablet PO SCH (07:44)
[2020-03-02] MEDS: lactose-reduced food (Ensure Enlive) - 237ml bottle PO SCH (08:55)
--- NOTE | 2020-03-02 18:33 | NUR ---
Problems reprioritized. Patient report given, questions answered & plan of care reviewed with THIERRY Pelayo.
--- NOTE | 2020-03-02 18:41 | NUR ---
I have received report from THIERRY Andrade and had the opportunity to ask questions and assume patient care.
--- NOTE | 2020-03-02 21:21 | NUR ---
Patient refused 1800 vss, and her physical this shift. Patient is resting comfortably, and in no apparent distress. Addendum: 03/02/20 at 2126 by Pierce Hairston RN I did chart what I have observed under her physical assessment documentation
--- NOTE | 2020-03-03 06:30 | NUR ---
Problems reprioritized. Patient report given, questions answered & plan of care reviewed with Pierce GUADARRAMA.
--- NOTE | 2020-03-03 06:30 | NUR ---
Problems reprioritized. Patient report given, questions answered & plan of care reviewed with THIERRY Serrato.
[2020-03-03 07:00] VITALS: BP 136/46
[2020-03-03] MEDS: lactose-reduced food (Ensure Enlive) - 237ml bottle PO SCH (08:00)
[2020-03-03] MEDS: furosemide 40mg tablet PO SCH (08:11)
[2020-03-03] MEDS: OLANZAPINE 5 MG TABLET PO SCH (08:11)
--- NOTE | 2020-03-03 16:26 | NUR ---
Student documentation: I have reviewed all interventions, assessments performed and documented by Kamille HO from [facility].
--- NOTE | 2020-03-03 18:17 | NUR ---
Problems reprioritized. Patient report given, questions answered & plan of care reviewed with Loreto GUADARRAMA.
--- NOTE | 2020-03-03 18:20 | NUR ---
Received report from primary care nurse Umesh GUADARRAMA. Assumed patient care. Patient is up ambulating in the pompa independently. Denies complaints or needs. Will continue to monitor for changes.
--- NOTE | 2020-03-04 06:40 | NUR ---
Reported off to Candace GUADARRAMA. Patient is resting with relaxed and unlabored respirations on room air. Call light and items of frequent use within reach.
[2020-03-04] MEDS: lactose-reduced food (Ensure Enlive) - 237ml bottle PO SCH (08:00)
[2020-03-04] MEDS: OLANZAPINE 5 MG TABLET PO SCH (09:11)
[2020-03-04] MEDS: furosemide 40mg tablet PO SCH (09:11)
--- NOTE | 2020-03-04 19:08 | NUR ---
Patient in room [facility] 354C. I have received report from THIERRY MELCHOR and had the opportunity to ask questions and assume patient care.
--- NOTE | 2020-03-04 19:09 | NUR ---
Problems reprioritized. Patient report given, questions answered & plan of care reviewed with THIERRY WAGGONER & SN DAVID.
[2020-03-05 07:00] VITALS: BP 130/59
[2020-03-05] MEDS: lactose-reduced food (Ensure Enlive) - 237ml bottle PO SCH (08:00)
[2020-03-05] MEDS: furosemide 40mg tablet PO SCH (08:19)
[2020-03-05] MEDS: OLANZAPINE 5 MG TABLET PO SCH (08:19)
--- NOTE | 2020-03-05 14:01 | NUR ---
Problems reprioritized. Patient report given, questions answered & plan of care reviewed with THIERRY Maya.
--- NOTE | 2020-03-05 18:48 | NUR ---
Patient in room [facility] 354. I have received report from THIERRY Johnson and had the opportunity to ask questions and assume patient care. Addendum: 03/05/20 at 1850 by Zulma Castillo RN Report given to THIERRY Johnson not received.
--- NOTE | 2020-03-06 06:17 | NUR ---
Problems reprioritized. Patient report given, questions answered & plan of care reviewed with Georgina GUADARRAMA. Addendum: 03/06/20 at 0618 by Elizabeth Salmeron RN Amended: Links added.
[2020-03-06 07:35] VITALS: BP 144/58
[2020-03-06] MEDS: lactose-reduced food (Ensure Enlive) - 237ml bottle PO SCH (08:21)
[2020-03-06] MEDS: furosemide 40mg tablet PO SCH (08:22)
[2020-03-06] MEDS: OLANZAPINE 5 MG TABLET PO SCH (08:22)
--- NOTE | 2020-03-06 08:23 | NUR ---
Pt. refused this RN to assess her. When ask to see her skin on her bottom pt. stated, "I wash my own butt in the shower. I should know if there's an extra hole in it." When asked to assess her lung sounds and BS pt. stated, "No need for that. You see me. I'm alive right here." Pt. 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 Good appetite, ambulating, no anxiety or aggression. Alert and orientated x 2, however can answer the month as February. When asked what hospital she is in pt. states, "This here hospital, that's where I'm at." And then later stated Corrina Travis.
--- NOTE | 2020-03-06 11:49 | NUR ---
Pt. refused for VS to be taken.
--- NOTE | 2020-03-06 18:30 | NUR ---
patient refused vitals
--- NOTE | 2020-03-06 18:30 | NUR ---
Patient in room [facility] 354. I have received report from Georgina GUADARRAMA and had the opportunity to ask questions and assume patient care.
--- NOTE | 2020-03-06 18:46 | NUR ---
Gave report to Jo GUADARRAMA.
--- NOTE | 2020-03-07 00:24 | NUR ---
Patient in room [facility] 354. I have received report from THIERRY Osorio and had the opportunity to ask questions and assume patient care.
--- NOTE | 2020-03-07 00:25 | NUR ---
Problems reprioritized. Patient report given, questions answered & plan of care reviewed with Kiana GUADARRAMA.
--- NOTE | 2020-03-07 06:31 | NUR ---
Problems reprioritized. Patient report given, questions answered & plan of care reviewed with THIERRY Aguilar.
--- NOTE | 2020-03-07 06:36 | NUR ---
Patient in room [facility] 354. I have received report from Kiana GUADARRAMA and had the opportunity to ask questions and assume patient care.
[2020-03-07 07:16] VITALS: BP 127/54
[2020-03-07] MEDS: OLANZAPINE 5 MG TABLET PO SCH (08:38)
[2020-03-07] MEDS: furosemide 40mg tablet PO SCH (08:38)
[2020-03-07] MEDS: lactose-reduced food (Ensure Enlive) - 237ml bottle PO SCH (08:46)
--- NOTE | 2020-03-07 18:31 | NUR ---
Problems reprioritized. Patient report given, questions answered & plan of care reviewed with Julia GUADARRAMA.
--- NOTE | 2020-03-07 18:45 | NUR ---
Patient in room [facility] 354. I have received report from Lauren GUADARRAMA and had the opportunity to ask questions and assume patient care.
--- NOTE | 2020-03-07 19:00 | NUR ---
Patient refused for VS to be taken
--- NOTE | 2020-03-08 06:30 | NUR ---
Problems reprioritized. Patient report given, questions answered & plan of care reviewed with Candace Booker.
--- NOTE | 2020-03-08 06:56 | NUR ---
Patient in room [facility] 354. I have received report from Julia Booker and had the opportunity to ask questions and assume patient care.
[2020-03-08] MEDS: OLANZAPINE 5 MG TABLET PO SCH (07:26)
[2020-03-08] MEDS: furosemide 40mg tablet PO SCH (07:26)
[2020-03-08 07:39] VITALS: BP 134/58
[2020-03-08] MEDS: lactose-reduced food (Ensure Enlive) - 237ml bottle PO SCH (08:00)
--- NOTE | 2020-03-08 18:30 | NUR ---
Patient in room [facility] 354. I have received report from Candace GUADARRAMA and had the opportunity to ask questions and assume patient care.
--- NOTE | 2020-03-08 18:58 | NUR ---
Problems reprioritized. Patient report given, questions answered & plan of care reviewed with Julia GUADARRAMA.
--- NOTE | 2020-03-09 06:20 | NUR ---
Problems reprioritized. Patient report given, questions answered & plan of care reviewed with Taylor GUADARRAMA .
--- NOTE | 2020-03-09 06:37 | NUR ---
Patient in room [facility] 354. I have received report from THIERRY Dumont and had the opportunity to ask questions and assume patient care.
[2020-03-09 07:00] VITALS: BP 129/56
[2020-03-09] MEDS: lactose-reduced food (Ensure Enlive) - 237ml bottle PO SCH (08:00)
[2020-03-09] MEDS: OLANZAPINE 5 MG TABLET PO SCH (08:54)
[2020-03-09] MEDS: furosemide 40mg tablet PO SCH (08:54)
--- NOTE | 2020-03-09 11:24 | NUR ---
Reassessment: Pt with documented 75-100% PO intake of meals, receiving Ensure Enlive daily with fluctuating PO intake of ONS however averaging 75-100%. Overall pt continues meeting estimated nutrient needs. LBM 03/08. No further nutrition intervention warranted at this time. Will continue to follow per LOS. Recommend: 1. continue regular diet; soft to chew foods in order to honor pt food preferences requesting sandwiches/biscuits and no hx dysphagia 2. Ensure Enlive WL; Yogurt WD 3. Routine bowel care; Power pudding BIDLD 4. Scaled wt as soon as pt agreeable; no scaled wt this admit Addendum: 03/09/20 at [address] Amended: Links added.
--- NOTE | 2020-03-09 17:08 | NUR ---
Student documentation: I have reviewed interventions, assessments performed and documented by [facility] Student Ramos
--- NOTE | 2020-03-09 18:21 | NUR ---
Problems reprioritized. Patient report given, questions answered & plan of care reviewed with THIERRY Gonsales.
--- NOTE | 2020-03-10 04:44 | NUR ---
Patient refused vitals this noc shift. Will continue to monitor.
--- NOTE | 2020-03-10 06:30 | NUR ---
Patient in room [facility] 354. I have received report from THIERRY Gonsales and had the opportunity to ask questions and assume patient care.
[2020-03-10 07:00] VITALS: BP 127/47
[2020-03-10] MEDS: lactose-reduced food (Ensure Enlive) - 237ml bottle PO SCH (07:52)
[2020-03-10] MEDS: furosemide 40mg tablet PO SCH (07:52)
[2020-03-10] MEDS: OLANZAPINE 5 MG TABLET PO SCH (07:52)
--- NOTE | 2020-03-10 18:49 | NUR ---
Problems reprioritized. Patient report given, questions answered & plan of care reviewed with THIERRY Larson.
[2020-03-10] MEDS ORDERED: pantoprazole 40 MG vial IV SCH (20:00)
[2020-03-11 06:30] VITALS: BP 136/52
--- NOTE | 2020-03-11 06:48 | NUR ---
Problems reprioritized. Patient report given, questions answered & plan of care reviewed with KELLY RN.
--- NOTE | 2020-03-11 06:50 | NUR ---
Patient in room [facility] 354. I have received report from THIERRY Larson and had the opportunity to ask questions and assume patient care.
[2020-03-11] MEDS: OLANZAPINE 5 MG TABLET PO SCH (07:39)
[2020-03-11] MEDS: furosemide 40mg tablet PO SCH (07:39)
[2020-03-11] MEDS: lactose-reduced food (Ensure Enlive) - 237ml bottle PO SCH (08:00)
[2020-03-11 14:31] LABS: BASOPHILS % (AUTO) 0.5 % (0-1); EOSINOPHILS # (AUTO) 0.1 X10'3 (0-0.9); EOSINOPHILS % (AUTO) 1.7 % (0-6); HEMATOCRIT 33.9 % (35.0-45.0); HEMOGLOBIN 10.9 g/dl (12.0-16.0); LYMPHOCYTES # (AUTO) 1.5 X10'3 (1.1-4.8); LYMPHOCYTES % (AUTO) 29.6 % (21-51); MEAN CORPUSCULAR HGB CONC 32.3 g/dL (33.0-36.5); MEAN CORPUSCULAR VOLUME 83.7 FL (78-98); MEAN PLATELET VOLUME 7.6 FL (7.4-10.4); MONOCYTES # (AUTO) 0.5 X10'3 (0-0.9); MONOCYTES % (AUTO) 8.7 % (2-12); NEUTROPHILS # (AUTO) 3.1 X10'3 (1.8-7.7); NEUTROPHILS % (AUTO) 59.5 % (42-75); PLATELET COUNT 115 X10'3 (140-440); RED BLOOD COUNT 4.05 X10'6 (4.20-5.60); RED CELL DISTRIBUTION WIDTH 15.4 % (11.5-14.5); WHITE BLOOD COUNT 5.2 X10'3 (4.5-11.0)
--- NOTE | 2020-03-11 18:20 | NUR ---
Problems reprioritized. Patient report given, questions answered & plan of care reviewed with THIERRY Larson.
[2020-03-12 06:30] VITALS: BP 157/71
--- NOTE | 2020-03-12 06:30 | NUR ---
Patient in room [facility] 354. I have received report from THIERRY Larson and had the opportunity to ask questions and assume patient care.
--- NOTE | 2020-03-12 06:38 | NUR ---
Problems reprioritized. Patient report given, questions answered & plan of care reviewed with KELLY RN.
[2020-03-12] MEDS: lactose-reduced food (Ensure Enlive) - 237ml bottle PO SCH (08:00)
[2020-03-12] MEDS: OLANZAPINE 5 MG TABLET PO SCH (09:57)
[2020-03-12] MEDS: furosemide 40mg tablet PO SCH (09:57)
--- NOTE | 2020-03-12 18:40 | NUR ---
Problems reprioritized. Patient report given, questions answered & plan of care reviewed with THIERRY Freitas.
--- NOTE | 2020-03-12 20:00 | NUR ---
I have received report from Yamilet GUADARRAMA and had the opportunity to ask questions and assume patient care.
--- NOTE | 2020-03-12 22:50 | NUR ---
pt refused vitals Addendum: 03/12/20 at 2250 by Zena Blake RN Amended: Links added.
--- NOTE | 2020-03-13 06:12 | NUR ---
Problems reprioritized. Patient report given, questions answered & plan of care reviewed with Candace GUADARRAMA.
--- NOTE | 2020-03-13 06:19 | NUR ---
Patient in room [facility] 354C. I have received report from THIERRY TAVAREZ and had the opportunity to ask questions and assume patient care.
[2020-03-13 07:00] VITALS: BP 154/60
[2020-03-13] MEDS: furosemide 40mg tablet PO SCH (07:52)
[2020-03-13] MEDS: lactose-reduced food (Ensure Enlive) - 237ml bottle PO SCH (07:52)
[2020-03-13] MEDS: OLANZAPINE 5 MG TABLET PO SCH (07:52)
[2020-03-13 11:00] VITALS: BP 91/50
--- NOTE | 2020-03-13 18:10 | NUR ---
Patient in room [facility] 354. I have received report from THIERRY Maria and had the opportunity to ask questions and assume patient care.
--- NOTE | 2020-03-13 18:17 | NUR ---
Problems reprioritized. Patient report given, questions answered & plan of care reviewed with THIERRY LEONARD.
--- NOTE | 2020-03-13 19:11 | NUR ---
Pt refused VS.
--- NOTE | 2020-03-13 20:30 | NUR ---
Patient sleeping and refusing assessment at this time. Will reassess later in shift.
--- NOTE | 2020-03-14 06:26 | NUR ---
Problems reprioritized. Patient report given, questions answered & plan of care reviewed with THIERRY Bruno.
--- NOTE | 2020-03-14 06:30 | NUR ---
Patient in room [facility] 354. I have received report from THIERRY Elliott and had the opportunity to ask questions and assume patient care.
[2020-03-14 07:50] VITALS: BP 143/54
[2020-03-14] MEDS: furosemide 40mg tablet PO SCH (08:44)
[2020-03-14] MEDS: OLANZAPINE 5 MG TABLET PO SCH (08:45)
[2020-03-14] MEDS: lactose-reduced food (Ensure Enlive) - 237ml bottle PO SCH (08:45)
--- NOTE | 2020-03-14 18:00 | NUR ---
Patient in room [facility] 354. I have received report from Kiana GUADARRAMA and had the opportunity to ask questions and assume patient care.
--- NOTE | 2020-03-14 18:27 | NUR ---
Problems reprioritized. Patient report given, questions answered & plan of care reviewed with THIERRY Desir.
--- NOTE | 2020-03-15 06:05 | NUR ---
Patient in room [facility] 354. I have received report from Karlee GUADARRAMA and had the opportunity to ask questions and assume patient care.
--- NOTE | 2020-03-15 06:22 | NUR ---
Problems reprioritized. Patient report given, questions answered & plan of care reviewed with Lauren GUADARRAMA.
[2020-03-15 06:56] VITALS: BP 148/67
[2020-03-15] MEDS: OLANZAPINE 5 MG TABLET PO SCH (07:51)
[2020-03-15] MEDS: furosemide 40mg tablet PO SCH (07:51)
--- NOTE | 2020-03-15 18:19 | NUR ---
Patient in room [facility] 354. I have received report from Lauren GUADARRAMA and had the opportunity to ask questions and assume patient care.
--- NOTE | 2020-03-15 18:19 | NUR ---
Problems reprioritized. Patient report given, questions answered & plan of care reviewed with Karlee GUADARRAMA.
--- NOTE | 2020-03-16 06:24 | NUR ---
Problems reprioritized. Patient report given, questions answered & plan of care reviewed with Taylor GUADARRAMA.
[2020-03-16 07:00] VITALS: BP 136/58
[2020-03-16] MEDS: OLANZAPINE 5 MG TABLET PO SCH (08:42)
[2020-03-16] MEDS: furosemide 40mg tablet PO SCH (08:42)
[2020-03-16] MEDS ORDERED: ONDA4TAB12 PO (10:24)
[2020-03-16] MEDS ORDERED: FURO40TA4 PO (10:24)
[2020-03-16] MEDS ORDERED: OLAN5TAB26 PO (10:24)
== END 2020-03-16 13:04 | DRG 884 ==
LOC: ER 07:19 → ED HOLD 08-10 16:29 → ORTHO 4S 08-10 17:45 → PCU 3S 09-08 16:50 → ORTHO 4S 09-17 15:55 → SUR 3N 10-01 17:57
PROVIDERS: ADMIT Family Medicine; ATTEND Family Medicine
DX: F03.91 Unspecified dementia, unspecified severity, with behavioral disturbance (principal); N39.0 Urinary tract infection, site not specified; C54.1 Malignant neoplasm of endometrium; I10 Essential (primary) hypertension; F29 Unspecified psychosis not due to a substance or known physiological condition; E11.9 Type 2 diabetes mellitus without complications; E78.00 Pure hypercholesterolemia, unspecified; F20.9 Schizophrenia, unspecified; K59.00 Constipation, unspecified; N32.89 Other specified disorders of bladder; N93.9 Abnormal uterine and vaginal bleeding, unspecified; Z66 Do not resuscitate; R21 Rash and other nonspecific skin eruption; R62.7 Adult failure to thrive; M99.09 Segmental and somatic dysfunction of abdomen and other regions; Z68.29 Body mass index [BMI] 29.0-29.9, adult; Z85.42 Personal history of malignant neoplasm of other parts of uterus; Z79.899 Other long term (current) drug therapy; Z85.43 Personal history of malignant neoplasm of ovary; Z87.891 Personal history of nicotine dependence; Z91.14 Patient's other noncompliance with medication regimen; Z91.410 Personal history of adult physical and sexual abuse; Z95.5 Presence of coronary angioplasty implant and graft
CPT/HCPCS: 36415; 80048; 80053; 80305; 80320; 81001; 82948; 83036; 83735; 83880; 84443; 85025; 87081; 87088; 87635; 96372; 97116; 97161; 97530; 99285; G0378; J1200; J1630; J2060; J3486; J3490